=== PATIENT | female | born 1950 | race Caucasian/White ===

== ENCOUNTER 2017-07-04 06:44 | Inpatient (IN) | payer MEDICARE ==
[2017-07-04] MEDS ORDERED: NS 0.9% 1000 ML* 1,000 ML IV ONE ×2 (07:18→12:42)
[2017-07-04] MEDS ORDERED: Acetaminophen TAB* 325 MG PO ONE (07:22)
--- NOTE | 2017-07-04 08:18 | RAD ---
HISTORY: Head trauma, fall COMPARISONS: February 06, 2015 TECHNIQUE: Multiple contiguous axial CT scans were obtained of the head without intravenous contrast. FINDINGS: HEMORRHAGE/INFARCT: There is no hemorrhage or acute infarct. MASSES/SHIFT: There is no mass or shift. EXTRA-AXIAL SPACES: There are no extra-axial fluid collections. SULCI AND VENTRICLES: The sulci and ventricles are normal in size and position for the patient's stated age. CEREBRUM: There is hypoattenuation of the periventricular and subcortical white matter. The appearance is similar to the previous examination. BRAINSTEM: There are no focal parenchymal abnormalities. CEREBELLUM: There are no focal parenchymal abnormalities. VESSELS: The vessels are grossly normal. PARANASAL SINUSES: The paranasal sinuses are clear. ORBITS: The orbits are unremarkable. BONES AND SOFT TISSUE: There is soft tissue swelling over the left parietal scalp. OTHER: None IMPRESSION: NO ACUTE INTRACRANIAL PATHOLOGY.
--- NOTE | 2017-07-04 08:22 | RAD ---
HISTORY: Fall, head trauma, unsteadiness COMPARISONS: CT of the chest dated July 17, 2007 TECHNIQUE: Multiple contiguous axial CT scans were obtained of the cervical spine without intravenous contrast, with coronal and sagittal multiplanar reformations. FINDINGS: BRAIN: The visualized brain is unremarkable CENTRAL CANAL: Evaluation of the central canal is limited on CT technique; however, there is no obvious canalicular mass or epidural hemorrhage. ALIGNMENT: There is straightening of the cervical lordosis. VERTEBRAL BODIES: There is osteopenia. Is multilevel anterolateral marginal osteophyte formation. There is no displaced fracture JOINTS: There is uncovertebral and facet osteoarthritis. There is osteoarthritis of the atlantoaxial articulation. MUSCULATURE: Unremarkable INTERVERTEBRAL DISCS: There is diffuse loss of intervertebral disc height. AXIAL IMAGES: C2-C3: There is left-sided facet hypertrophy. There is no osseous neural foraminal narrowing or central canal stenosis. C3-C4: There is bilateral uncovertebral hypertrophy with left greater than right facet hypertrophy. There is moderate bilateral neuroforaminal narrowing. There is no osseous central canal stenosis. C4-C5: There is no osseous neural foraminal narrowing or central canal stenosis. C5-C6: There is left greater than right uncovertebral hypertrophy. There is moderate to severe right and severe left neural foraminal narrowing. There is mild narrowing of the central canal. C6-C7: There is broad-based disc osteophyte complex with bilateral uncovertebral and facet hypertrophy. There is severe bilateral neural foraminal narrowing. There is mild narrowing of the central canal. C7-T1: There is no osseous neural foraminal narrowing or central canal stenosis. SOFT TISSUES: The right thyroid is surgically absent versus atrophic. There is mesial, submucosal deviation of the carotid arteries bilaterally. The prevertebral fat is preserved. There is a 0.6 cm nodule of the right upper lung on axial image 68. OTHER: None. IMPRESSION: 1. DEGENERATIVE DISC DISEASE AND OSTEOARTHRITIS DESCRIBED ABOVE. 2. THERE IS A 0.6 CM NODULE OF THE RIGHT UPPER LOBE, NOT CLEARLY SEEN ON PREVIOUS CT OF THE CHEST. GIVEN THE HISTORY OF MALIGNANCY, THIS IS CONCERNING FOR METASTATIC DISEASE. RECOMMEND CONSIDERATION OF CORRELATION WITH DEDICATED IMAGING OF THE CHEST. 3. NO ACUTE OSSEOUS INJURY TO THE CERVICAL SPINE.
[2017-07-04 08:41] LABS: ABS Basophils 0.1 10^3/ul (0-0.2); ABS Eosinophils 0.2 10^3/ul (0-0.6); ABS Lymphocytes 1.7 10^3/ul (1.0-4.8); ABS Monocytes 0.7 10^3/ul (0-0.8); ABS Neutrophils 6.5 10^3/ul (1.5-7.7); ABS Nucleated RBC 0 10^3/ul; Eosinophil % 2.4 % (0-6); Hematocrit 39 % (35-47); Hemoglobin 12.6 g/dl (12.0-16.0); Lymphocyte % 18.6 % (25-47); Mean Corpuscular HGB Conc 33 g/dl (31-36); Mean Corpuscular Hemoglobin 30 pg (27-31); Mean Corpuscular Volume 92 fL (80-97); Nucleated Red Blood Cells % 0; Platelet Count 310 10^3/ul (150-450); Red Blood Count 4.21 10^6/ul (4.0-5.4); Red Cell Distribution Width 15 % (10.5-15); White Blood Count 9.3 10^3/ul (3.5-10.8)
[2017-07-04 08:49] LABS: INR 0.94 (0.77-1.02)
[2017-07-04 08:53] LABS: EGFR Non-African American 22.7 (>60)
--- NOTE | 2017-07-04 08:56 | RAD ---
INDICATION: Cardiomyopathy with EF of 30. Congestive heart failure. Pulmonary hypertension. COMPARISON: November 21, 2015 TECHNIQUE: Dual energy PA and routine lateral views of the chest were obtained. REPORT: Elevated lung volumes and minimal prominence of interstitial markings. The lungs and pleural spaces are otherwise clear. Negative for pneumothorax. Negative for cardiomegaly. Unremarkable central pulmonary vasculature and mediastinal contours. Thoracic degenerative spondylosis. IMPRESSION: 1. Elevated lung volumes and minimal prominence of interstitial markings favoring potential chronic obstructive pulmonary disease. 2. Negative for cardiomegaly or evidence for pulmonary edema.
[2017-07-04 09:07] LABS: Urine Appearance Turbid; Urine Blood 3+ (Negative); Urine Color Yellow; Urine Ketones Negative (Negative); Urine Protein 2+(100 mg/dL) (Negative); Urine Specific Gravity 1.011 (1.010-1.030); Urine Urobilinogen Negative (Negative)
--- NOTE | 2017-07-04 09:47 | RAD ---
INDICATION: Pulmonary nodule, evaluate for metastatic disease, history of bladder cancer. COMPARISON: Comparison is made with a prior CT angiogram of the chest from July 17, 2007. TECHNIQUE: A CT scan of the chest was performed without intravenous contrast. Contiguous axial sections were obtained from the lung apices through the lung bases. Images were reconstructed in the coronal and sagittal planes. FINDINGS: There are several small bilateral pulmonary nodules measuring up to 7 mm in size which are not seen on the prior CT angiogram of the chest. There is minimal atelectasis present in both lower lobes. The lungs are otherwise clear no pleural effusion is seen. There are multiple calcified mediastinal and left hilar lymph nodes suggestive of old granulomatous disease. Images of the upper abdomen demonstrate an enlarged liver. There is a hypodense lesion which is not well-defined in the right hepatic lobe measuring 2.5 x 0.8 cm in size. There are calcifications within the spleen consistent with old granulomatous disease and a small hypodense lesion present in the posterior aspect of the spleen which is seen on the prior study likely representing a cyst. The heart is within normal limits in size. There are coronary artery calcifications present. No pericardial effusion is present. The thoracic aorta is normal in caliber. No significant focal osseous abnormality is seen. IMPRESSION: 1. THERE ARE SEVERAL BILATERAL PULMONARY NODULES WHICH APPEAR NEW FROM THE PRIOR STUDY WHICH ARE NONSPECIFIC FINDING DIFFERENTIAL DIAGNOSIS WOULD INCLUDE METASTATIC DISEASE, OLD GRANULOMATOUS DISEASE OR LESS LIKELY AN ACUTE INFECTIOUS PROCESS. 2. CALCIFIED MEDIASTINAL, LEFT HILAR NODES AND SPLENIC CALCIFICATIONS CONSISTENT WITH OLD GRANULOMATOUS DISEASE. 3. HEPATOMEGALY AND A NONSPECIFIC HYPODENSE HEPATIC LESION CONSIDER A CONTRAST-ENHANCED CT OR MRI OF THE ABDOMEN AN OUTPATIENT FOR FURTHER EVALUATION.
[2017-07-04] MEDS ORDERED: Sodium Polystyrene ORAL.SOL* 15 GM/60 ML BTL PO ONE (09:48)
[2017-07-04] MEDS ORDERED: NS 0.9% 1000 ML* 1,000 ML IV SCH (10:15)
[2017-07-04] MEDS ORDERED: cefTRIAXone(*) 1 GM in NS 0.9% 50 ML* 50 ML IVPB ONE (10:16)
[2017-07-04] MEDS ORDERED: Levofloxacin TAB* 250 MG PO SCH (11:00)
[2017-07-04] MEDS ORDERED: Ondansetron INJ* 2 MG/ML VIAL IV PRN (12:26)
[2017-07-04] MEDS ORDERED: Dextrose 50% Syringe 50 ML* 25 GM/50 ML SYRINGE IV PUSH PRN (12:26)
[2017-07-04] MEDS ORDERED: Zolpidem TAB* 10 MG PO PRN (12:30)
[2017-07-04] MEDS ORDERED: Docusate CAP* 100 MG PO PRN (12:30)
[2017-07-04] MEDS ORDERED: Albuterol HFA INHALER* 8 gm MDI INH PRN (12:30)
[2017-07-04] MEDS ORDERED: NS 0.9% 500 ML* 500 ML IV ONE (12:43)
[2017-07-04 13:18] LABS: EGFR Non-African American 26.7 (>60)
--- NOTE | 2017-07-04 14:55 | HP ---
CC: Dr. Dozier; Dr. Copeland * HISTORY AND PHYSICAL: DATE OF ADMISSION: 07/04/17 PRIMARY CARE PROVIDER: Dr. Dozier. CONSULTING ONCOLOGIST: Dr. Copeland. ATTENDING PHYSICIAN WHILE IN THE HOSPITAL: Dr. Jose Cameron * (report being dictated by Jose Doshi NP) CHIEF COMPLAINT: Fall. HISTORY OF PRESENT ILLNESS: Ms. De La Cruz is a 67-year-old female patient. She has a history of scleroderma. She states she has a history of CHF, the last echo that we had access to her EF was 30%, but she is telling me that to her knowledge, her EF was more closer to 50%, I am going to try to get records from Dr. Hughes. She also has a history of hypertension, diabetes, hypothyroidism, pulmonary hypertension, GERD, obesity, UTIs, history of bladder cancer, recently diagnosed melanoma behind the eye, who underwent radiation therapy with beads and a history of anxiety. She comes in to the ER today stating that she was getting up to go use the bathroom this morning and unfortunately she got up, her floor is concrete and tile, they have a throw rug near the bed and she was wearing just her socks, she got up, stepped on that throw rug and when she went to stand, the rug went out from underneath her, it slipped with her feet, she fell, landed, hit her head off the top of a trash can. Her , Marleen , was there. The patient denied any loss of consciousness, denied having any chest pain, and denied having any abdominal pain, shortness of breath prior to or after the fall. She states days leading up to this, she had been feeling good, she has had no unexpected weight loss. She has been following with Ophthalmology down at [place] for the melanoma behind the eye and she states things have been looking good, according to her, she was told that the tumor had responded well to the radiation therapy. She fell, her partner got her up, she was concerned because of the fall, and her had to work today. She basically was concerned that she may have concussion, so she brought her in to the ER. She came into the ED. Her CT imaging was negative for any acute trauma , we did find bilateral pulmonary nodules. In addition to this, it was noted that she had a UTI and she appeared to be in acute renal failure. Because of these findings, we were asked to evaluate for admission. PAST MEDICAL HISTORY: Significant for: 1. Scleroderma. 2. History of CHF. Our last documented EF was right around 30%, but we are going to check her records with Dr. Hughes. 3. History of diabetes. 4. Hypertension. 5. Hypothyroidism. 6. Pulmonary hypertension. 7. GERD. 8. Obesity. 9. Frequent UTIs. 10. History of bladder cancer. 11. Anxiety. 12. Recently melanoma was diagnosed. PAST SURGICAL HISTORY: 1. The patient has had a partial thyroidectomy. 2. Cholecystectomy. 3. Tonsillectomy. 4. Bladder surgery x2. 5. She has had again recent radiation to her eye via beads. MEDICATIONS: Home medications include: 1. Insulin lispro 25 units subcu daily. 2. Insulin Lantus 150 units subcu daily. 3. Glipizide 10 mg p.o. daily. 4. Carvedilol 3.125 mg p.o. b.i.d. 5. Fentanyl patch, 1 patch topically every 72 hours. 6. Ambien 10 mg at bedtime as needed. 7. Diovan 160 mg p.o. daily. 8. Omeprazole 20 mg p.o. b.i.d. 9. Lidocaine jelly 1 application topically daily as needed. 10. Levothyroxine 50 mcg p.o. daily. 11. Ketoconazole cream 1 application topically b.i.d. 12. [place] 1 tablet p.o. b.i.d. as needed. 13. Gabapentin 300 to 400 mg p.o. daily. 14. Flonase 2 sprays both nares daily as needed. 15. Colace 100 mg p.o. daily as needed. 16. Cymbalta 60 mg daily. 17. B12 1000 mg p.o. daily. 18. Aspirin 81 mg daily. 19. Ventolin 2 puffs inhaled every 4 hours as needed. ALLERGIES TO MEDICATIONS: Include PREDNISONE and IODINE. FAMILY HISTORY: Her mother had a history of CHF and asthma. Father had a history of CAD. SOCIAL HISTORY: She is a former smoker. She smoked about a pack a day for about 20 years. She does not drink alcohol. Surrogate decision maker is her , Marleen. REVIEW OF SYSTEMS: There is no documented fever. She denies any significant weight change. There is no double vision. She denies having any ear discharge. There is no rhinorrhea. There is no sore throat or thyroid enlargement. She denies having any chest pain. There is no orthopnea. There is no nocturnal dyspnea. She denies having any abdominal pain. There is no nausea, no vomiting. No dysuria, no frequency. No seizure, no loss of consciousness. No pruritus and no skin ulcerations. Review of 14 systems completed, all others negative. PHYSICAL EXAMINATION GENERAL: At this time, Ms. De La Cruz is a 67-year-old female patient. She is sitting in the ED stretcher. She does not appear to be in any acute distress. VITAL SIGNS: Reveal blood pressure of 93/72 with a pulse of 92, respirations were 18, O2 sat 96%, temperature 97.3. HEENT: Head: Atraumatic and normocephalic. Eyes: EOMs are intact. Sclerae anicteric and not pale. Throat: Oral mucosa appears to be moist. No oropharyngeal erythema. NECK: Supple. LUNGS: Clear to auscultation bilaterally. No wheezes, rales, or rhonchi. HEART: Sounds S1, S2. Regular rate and rhythm. No murmurs, rubs, or gallops. ABDOMEN: Soft, flat, nontender. Bowel sounds were present. EXTREMITIES: Pulses were 2+ throughout. She is moving all 4 extremities with 5 /5 strength. NEUROLOGICAL: The patient is awake, alert. She is oriented x3. Tongue is midline. Web Services Architect are equal. No gross focal deficits. SKIN: Intact. DIAGNOSTIC STUDIES/LAB DATA: WBC of 9.3, RBC of 4.21, hemoglobin of 12.6, hematocrit of 39, platelet count of 310. INR of 0.94, PTT of 34.6. Sodium 134 , potassium 5.2, chloride is 98, bicarb of 27, BUN of 40, creatinine of 2.16, lactate 1.9, calcium 9.3. Total bili 0.4, AST 16, ALT 12, alk phos 81. Troponin 0.01. BNP is 18. TSH of 0.72. Urine showed 3+ leukocyte esterase, 3 + wbc's, 3+ rbc's, present hyaline casts, 2+ protein. The patient did have multiple imaging in the ED, starting out with chest x-ray. Impression: Elevated lung volumes and minimal prominence of interstitial marking favoring potential chronic obstructive pulmonary disease, negative for cardiomegaly, or evidence of pulmonary edema. She had a brain CT obtained today, which revealed no acute intracranial pathology. She had a cervical spine CT obtained today, which revealed degenerative disk disease and osteoarthritis as described. There is a 0.6-cm nodule in the right upper lobe, not clearly seen on previous CT of the chest. Given the history of malignancy, this is concerning for metastatic disease. Recommend consideration of correlation with dedicated imaging of the chest, no acute osseous injury of the cervical spine. She had a CT chest obtained today, which revealed impression, there are several bilateral pulmonary nodules, which appeared new from prior study, which are nonspecific findings, differential diagnosis would include metastatic disease, old granulomatous disease or less likely an acute infectious process, calcified mediastinal left hilar nodes and splenic calcification, old granulomatous disease, hepatomegaly, and a nonspecific hypodense hepatic lesion, consider contrast-enhanced CT or MRI of the abdomen as an outpatient for further evaluation. She had an EKG obtained today as well, which revealed a normal sinus rhythm, rate of 91, no ST elevations or T-wave inversions. She does have an intraventricular conduction delay, which was reviewed to her previous EKG, she has had previously no significant changes. Old medical records were reviewed. ASSESSMENT AND PLAN: Ms. De La Cruz is a 67-year-old female patient with multiple medical problems, coming into the emergency department today with complaints of fall. On evaluation, was found to be in acute renal failure. In addition to this, was found to have urinary tract infection and pulmonary nodules. We were asked to evaluate for admission. She will be admitted under inpatient status for: 1. Acute renal failure. At this point, I will send off a FENa. We will hydrate the patient. She does appear to be dehydrated. I will hold on giving her her ARB at this point, and we will check a bladder scan on the patient as well and we will continue to follow this. I will repeat her BMP later today. As her potassium was mildly elevated, she did receive treatment for this in the ED in the form of Kayexalate, we will follow this. 2. Scleroderma. Continue current medical regimen. 3. History of congestive heart failure. We are going to get records from Dr. Hughes, reportedly her last ejection fraction was 50%, but we will get records. 4. Diabetes. Lantus and lispro scale has been ordered. 5. Urinary tract infection. I am actually going to put her on Rocephin. 6. Hypertension. At this point, her blood pressure is little on the soft side. I just continued the carvedilol for now withhold parameters. I am going to hydrate her as I do suspect her to be dehydrated. 7. Hypothyroidism. Continue meds as prescribed. Her TSH was stable. 8. Pulmonary hypertension. Follow with primary. 9. Gastroesophageal reflux disease. Continue PPI therapy. 10. Bladder cancer. Follow with Urology. 11. Melanoma. Again, she is going to follow with her customer service agent down in [place]. 12. New pulmonary nodules and question of hepatic mass. Unfortunately, I cannot do a CT of the abdomen and pelvis with contrast due to the renal failure ; but at this point, I will get in touch with the patient's doctor, Dr. Copeland, which I have and he will be evaluating the patient. She will need followup of these nodules and possibly biopsy at some point. 13. DVT prophylaxis. Heparin subcu has been ordered. 14. Fluids, electrolytes, and nutrition: She can have a consistent carb diet. 15. Code status. She is a DNR. TIME SPENT: On the admission was approximately 60 minutes, greater than half the time was spent [id number] with the patient obtaining my history and physical, other half of the time was spent going over the plan of care with the patient and implementing the plan of care. I did discuss the plan of care with my attending, Dr. Cameron; he is in agreement. JOSE DOSHI, ALMITA [id number]/[facility] #: [id number] ANA
[2017-07-04] MEDS: fentaNYL PATCHs 100 MCG/HR TRANSDERM SCH (16:20)
[2017-07-04] MEDS: Heparin VIAL(*) 5000 UNITS/ML VIAL (FIVE THOUSAND) SUBCUT SCH ×2 (16:23→21:21)
[2017-07-04] MEDS: NS 0.9% 1000 ML* 1,000 ML IV SCH (16:24)
--- NOTE | 2017-07-04 17:15 | ED ---
Momo Min Julia, scribed for Stefania Gutierres MD on 07/04/17 at 0731 . Adult Trauma - HPI Summary HPI Summary: This patient is a 67 year old F presenting [place] [facility] accompanied by her s/p falling while trying to get out of bed this morning. PT states my feet slipped out from under me when walking from her bed this morning. reports that she has increased weakness recently. She fell backwards and hit the back of her head. Pt reports head and back pain. Pt denies LOC, neck pain, abdominal pain, CP, blurry vision, and SOB. Pt rates the pain 2/10 in severity. Pt walks with a cane as needed, uses an inhaler as needed and is incontinent at baseline. PMHx includes DM, CHF, and scleroderma. Medications include 81mg of ASA daily and Carvedilol. - History of Current Complaint Chief Complaint: EDGeneral Stated Complaint: FALL Time Seen by Provider: 07/04/17 07:03 Hx Obtained From: Patient Mechanism of Injury: Fall Ambulatory at the Scene: Yes Loss of Consciousness: no loss of consciousness Onset/Duration: Started Hours Ago Onset of Pain: Immediate Pain Intensity: 2 Pain Scale Used: 0-10 Numeric Associated Signs & Symptoms: Positive: Numbness/Weakness. Negative: SOB, Chest Pain, Abdominal Pain, Loss of Consciousness Related History: Anticoagulants - Additional Pertinent History Primary Care Physician: [id number] - Allergy/Home Medications Allergies/Adverse Reactions: Allergies Allergy/AdvReac Type Severity Reaction Status Date / Time povidone-iodine Allergy Rash Verified 07/04/17 06:49 prednisone Allergy Unknown Verified 07/04/17 06:49 Reaction Details Home Medications: Home Medications Docusate CAP* [Colace Cap*] 100 mg PO DAILY PRN 07/04/17 [History Confirmed ] Insulin Glargine (Nf) [Toujeo Solostar Pen (NF)] 150 unit SUBCUT DAILY 07/04/17 [History Confirmed 07/04/17] PMH/Surg Hx/FS Hx/Imm Hx Endocrine/Hematology History: Reports: Hx Diabetes, Hx Thyroid Disease - removed left lobe/goiter, Other Endocrine/Hematological Disorders - non insulin dependent diabetes, scleroderma Denies: Hx Systemic Lupus Erythematosus Cardiovascular History: Reports: Hx Congestive Heart Failure, Other Cardiovascular Problems/Disorders - cardiomyopathy with EF 30% Denies: Hx Hypertension Respiratory History: Reports: Hx Pneumonia, Other Respiratory Problems/ Disorders - pulmonary hypertension Denies: Hx Asthma, Hx Chronic Obstructive Pulmonary Disease (COPD), Hx Sleep Apnea GI History: Reports: Hx Gastroesophageal Reflux Disease, Hx Hiatal Hernia, Other GI Disorders - Hiatial hernia Denies: Hx Ulcer History: Reports: Hx Acute Renal Failure, Other Problems/Disorders - Bladder Cancer, frequent UTI Denies: Hx Dialysis, Hx Renal Disease Musculoskeletal History: Reports: Other Musculoskeletal History - scleraderma Denies: Hx Rheumatoid Arthritis Sensory History: Reports: Hx Contacts or Glasses, Hx Deafness - Right ear, Hx Hearing Problem Denies: Hx Hearing Aid - HEARING LOSS IN RIGHT EAR Opthamlomology History: Reports: Hx Contacts or Glasses Neurological History: Reports: Hx Migraine - LAST ONE 1999, Hx Nerve Disease - 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 x 2. eye cancer Hx Chemotherapy: Yes - in past bcg infusion 2007 Hx Radiation Therapy: No Hx Palliative Cancer Treatment: No - Surgical History Surgery Procedure, Year, and Place: Bladder CA x 2, Thyroid, Gall bladder, T&A Hx Anesthesia Reactions: No - Immunization History Date of Tetanus Vaccine: Unk Date of Influenza Vaccine: 12/22 Infectious Disease History: No Infectious Disease History: Denies: Hx Clostridium Difficile, Hx Hepatitis, Hx Human Immunodeficiency Virus (HIV), History Other Infectious Disease, Traveled Outside the [place] in Last 30 Days - Family History Known Family History: Positive: Cardiac Disease - Mother and Father - Social History Lives: With Family Alcohol Use: None Substance Use Type: Reports: None Smoking Status (MU): Former Smoker Amount Used/How Often: 1 PACK/DAY Review of Systems Negative: Blurred Vision Negative: Chest Pain Negative: Shortness Of Breath Negative: Abdominal Pain Positive: Myalgia - back pain Positive: Headache, Weakness. Negative: Syncope All Other Systems Reviewed And Are Negative: Yes Physical Exam - Summary Physical Exam Summary: GENERAL: Patient is a well developed and nourished Female who is lying comfortable in the stretcher. Patient is not in any acute respiratory distress. HEAD AND FACE: Hematoma in the left occipital area EYES: PERRLA, EOMI x 2. EARS: Hearing grossly intact. MOUTH: Oropharynx within normal limits. NECK: Supple, trachea is midline, no adenopathy, no JVD, no carotid bruit. CHEST: Symmetric, no tenderness at palpation LUNGS: Clear to auscultation bilaterally. No wheezing or crackles. CVS: Regular rate and rhythm, S1 and S2 present, no murmurs or gallops appreciated. ABDOMEN: Soft, non-tender. Bowel sounds are normal. No abdominal abnormal pulsations. EXTREMITIES: Full ROM in all major joints, no edema, no cyanosis or clubbing. NEURO: Alert and oriented x 3. No acute neurological deficits. Speech is normal and follows commands. Cranial nerves 2-12 grossly intact, no dysmetria finger to nose, motor strength 5/5 SKIN: Dry and warm Triage Information Reviewed: Yes Vital Signs On Initial Exam: Initial Vitals Temp Pulse Resp BP Pulse Ox 97.3 F 89 20 105/64 92 07/04/17 06:45 07/04/17 06:45 07/04/17 06:45 07/04/17 06:45 07/04/17 06:45 Vital Signs Reviewed: Yes Diagnostics - Vital Signs Vital Signs Temp Pulse Resp BP Pulse Ox 07/04/17 06:45 97.3 F 89 20 105/64 92 - Laboratory Result Diagrams: 07/04/17 08:15 07/04/17 08:15 Lab Statement: Any lab studies that have been ordered have been reviewed, and results considered in the medical decision making process. - Radiology CXR Radiology Interpretation Completed By: Radiologist - 1. Elevated lung volumes and minimal prominence of interstitial markings favoring potential chronic obstructive pulmonary disease. 2. Negative for cardiomegaly or evidence for pulmonary edema. ED Physician has reviewed this report. - CT Brain CT CT Interpretation Completed By: Radiologist - NO ACUTE INTRACRANIAL PATHOLOGY. ED Physician has reviewed this report. C-Spine CT CT Interpretation Completed By: Radiologist - 1. DEGENERATIVE DISC DISEASE AND OSTEOARTHRITIS DESCRIBED ABOVE. 2. THERE IS A 0.6 CM NODULE OF THE RIGHT UPPER LOBE, NOT CLEARLY SEEN ON PREVIOUS CT OF THE CHEST. GIVEN THE HISTORY OF MALIGNANCY, THIS IS CONCERNING FOR METASTATIC DISEASE. RECOMMEND CONSIDERATION OF CORRELATION WITH DEDICATED IMAGING OF THE CHEST. 3. NO ACUTE OSSEOUS INJURY TO THE CERVICAL SPINE. ED Physician has reviewed this report. Chest CT CT Interpretation Completed By: Radiologist - 1. THERE ARE SEVERAL BILATERAL PULMONARY NODULES WHICH APPEAR NEW FROM THE PRIOR STUDY WHICH ARE NONSPECIFIC FINDING DIFFERENTIAL DIAGNOSIS WOULD INCLUDE METASTATIC DISEASE, OLD GRANULOMATOUS DISEASE OR LESS LIKELY AN ACUTE INFECTIOUS PROCESS. 2. CALCIFIED MEDIASTINAL, LEFT HILAR NODES AND SPLENIC CALCIFICATIONS CONSISTENT WITH OLD GRANULOMATOUS DISEASE. 3. HEPATOMEGALY AND A NONSPECIFIC HYPODENSE HEPATIC LESION CONSIDER A CONTRAST-ENHANCED CT OR MRI OF THE ABDOMEN AN OUTPATIENT FOR FURTHER EVALUATION. ED Physician has reviewed this report. - EKG 0732 Cardiac Rate: NL EKG Rhythm: Sinus Rhythm - at 91 BPM EKG Interpretation: intraventricular conduction delay Re-Evaluation - Re-Evaluation 1 Re-Evaluation Time: 09:30 Comment: Pt is feeling better. Pt is informed of results and need for admission. Pt is agreeable with this plan. 2 Re-Evaluation Time: 10:37 Adult Trauma Course/Dx - Course Course Of Treatment: 67 y/o femaled presets to ED s/p fall today. Lab results reveal Creatnine 2.16 with BUN of 40; Mild elevated K+ of 5.2. Brain CT reveals no intracrainal pathology. CT C-cpine showes no acue t fx but show nodule in right upper lobe with a subsequent CT scan of chest show multiple pulmonary nodules. UA consistent with UTI. Pt was given 1L of IV fluids and kayexalate. Disccused results with pt in great details. She will be admitted to hospitalist. Dr Cameron agrees to admit. Pt is Hemodynamically stable at admission. - Diagnoses Provider Diagnoses: UTI (urinary tract infection), Acute kidney injury, Fall - Physician Notifications Discussed Care Of Patient With: Jose Cameron - hospitalist Time Discussed With Above Provider: 10:10 Instructed by Provider To: Admit As Inpatient Discharge - Sign-Out/Discharge Documenting (check all that apply): Discharge/Admit/Transfer - admit - Discharge Plan Condition: Stable Disposition: ADMITTED TO [facility] Referrals: Cyndee Dozier MD [Primary Care Provider] - The documentation as recorded by the Momo ga Julia accurately reflects the service I personally performed and the decisions made by me, Stefania Gutierres MD.
[2017-07-04] MEDS: Insulin LISPRO* 1 UNITS UNIT SUBCUT SCH (17:49)
[2017-07-04] MEDS ORDERED: Carvedilol TAB* 6.25 MG PO SCH (21:00)
[2017-07-04] MEDS: Gabapentin CAP(*) 300 MG PO SCH (21:19)
[2017-07-04] MEDS: Omeprazole CAP* 20 MG PO SCH (21:19)
[2017-07-04] MEDS: Carvedilol TAB* 6.25 MG PO SCH (21:19)
[2017-07-05] MEDS: Acetaminophen TAB* 325 MG PO PRN ×4 (00:33→23:16)
[2017-07-05] MEDS: NS 0.9% 1000 ML* 1,000 ML IV SCH (05:00)
[2017-07-05] MEDS: Heparin VIAL(*) 5000 UNITS/ML VIAL (FIVE THOUSAND) SUBCUT SCH ×3 (06:03→21:11)
[2017-07-05] MEDS: Levothyroxine TAB* 50 MCG TAB PO SCH (06:03)
[2017-07-05 06:35] LABS: ABS Basophils 0.1 10^3/ul (0-0.2); ABS Eosinophils 0.2 10^3/ul (0-0.6); ABS Monocytes 0.6 10^3/ul (0-0.8); ABS Neutrophils 2.9 10^3/ul (1.5-7.7); ABS Nucleated RBC 0 10^3/ul; Eosinophil % 3.6 % (0-6); Hematocrit 33 % (35-47); Hemoglobin 11.2 g/dl (12.0-16.0); Lymphocyte % 34.5 % (25-47); Mean Corpuscular HGB Conc 34 g/dl (31-36); Mean Corpuscular Hemoglobin 31 pg (27-31); Mean Corpuscular Volume 91 fL (80-97); Mean Platelet Volume 7.7 um3 (7.4-10.4); Nucleated Red Blood Cells % 0; Platelet Count 255 10^3/ul (150-450); Red Blood Count 3.64 10^6/ul (4.0-5.4); Red Cell Distribution Width 15 % (10.5-15); White Blood Count 5.7 10^3/ul (3.5-10.8)
[2017-07-05] MEDS: fentaNYL Patch Check Q Shift 1 NOTE SCH ×2 (06:40→18:46)
[2017-07-05 06:54] LABS: EGFR Non-African American 37.8 (>60)
--- NOTE | 2017-07-05 06:57 | CONSULT ---
Consultation - Reason for Consultation Reason for Consultation: Pulmonary nodules and liver lesions Ordering Provider: Jassi Copeland History of Present Illness: 67 year old admitted today after falling in bathroom. Woke up this am and fell after brushing her teeth. No neurological or cardiac symptoms prior to fall and she has a specific recollection of slipping on floor. On presentation she was found to have a UTI and ARF. Very similar to admissions in 2013, 2014, 2016. Currently receiving IVF and antibiotics. She has a history of multiple medical problems including mild CRI and recurrent UTIs. She has a history of several cancers. She was diagnosed with superficial papillary bladder cancer in [address] Rodriguez. I do not have details today other then trans urethral resection. Follow up cystoscopy through 2014 and urine cyctology through 2015 has been negative. She has a history of ocular melanoma. Diagnosed in September of 2016 after presenting with flashes in eye. She was seen by ophthalmology at [place] then at [facility] in [place]. Treated with 125-iodine radiation pellets in 09/2016 which she tolerated well. Has follow up at [place] and in [place] for injections every 4 months, presumably consolidation therapy. She has tolerated well and at this time continues to have vision in both eyes. On presentation she had CT of C-spine after fall w/o fracture but it did show a pulmonary nodule. Follow up non-contrast CT of chest with multiple pulmonary nodules, largest 7 mm and new from 2007 as well as possible 2.5 cm right side liver lesion of unclear nature. Possible metastatic cancer. Allergies/Medications Allergies/Adverse Reactions: Allergies Allergy/AdvReac Type Severity Reaction Status Date / Time povidone-iodine Allergy Rash Verified 07/04/17 06:49 prednisone Allergy Unknown Verified 07/04/17 06:49 Reaction Details History - Past Medical History Hx Blood Dyscrasias: No Hx Cancer: Unable to Obtain/Confirm - Baldder cancer and melanoma as noted above Hx Cardiac Disorders: Yes - CHF, EF 30-50% Hx Diabetes: Yes - Type II Hx Hypercholesterolemia: No Hx Hypertension: Yes Surgical History: None Other History: Scleroderma. GERD. Hypothyriod. CRI/UTIs - Family History Hx Family Cancer: Yes - Sister wit colitis and intestinal cancer - Social History Hx Tobacco Use: Yes - 20 pack year Marital Status: - is significant other Review of Systems - Review of Systems Constitutional Symptoms: Positive: Weakness, Fatigue HEENT: Positive: Normal, Other Eyes: Positive: Other - occular melanoma Thyroid: Positive: Other - low thyriod Pulmonary: Positive: COPD Cardiology: Positive: Other - chf Gastroenterology: Positive: Heartburn Genital - Urinary: Positive: Dysuria Musculoskeletal: Positive: Joint Pain Endocrinology: Positive: Thyroid Problems Neurology: Positive: Numbness\Paresthesiae, Unexplained Weakness Psychiatry: Positive: Normal, Depression Physical Exam - Physical Exam Physical Examination: HEENT - PERRLa, no oral lesions. dry Decreased BS, no wheezing, no distress RRR S1S2 Obese, no liver edge, non tender and no nodules Ext w/o C/C/E Neurologic - AAOx3, gross non focal and good strength in legs, able to walk to bathroom without difficulty, normal gait. Results - Lab Results Lab Results: 07/04/17 07/04/17 07/05/17 12:54 17:24 06:27 WBC RBC Hgb Hct MCV MCH MCHC RDW Plt Count MPV Neut % (Auto) Lymph % (Auto) [place] % (Auto) Eos % (Auto) Baso % (Auto) Absolute Neuts (auto) Absolute Lymphs (auto) Absolute Monos (auto) Absolute Eos (auto) Absolute Basos (auto) Absolute Nucleated RBC Nucleated RBC % INR (Anticoag Therapy) 1.00 Sodium 134 L Potassium 5.0 Chloride 102 Carbon Dioxide 27 Anion Gap 5 BUN 36 H Creatinine 1.88 H Est GFR ( Amer) 34.3 Est GFR (Non-Af Amer) 26.7 BUN/Creatinine Ratio 19.1 Glucose 230 H POC Glucose (mg/dL) 223 H Calcium 8.4 L Lactate Dehydrogenase 159 07/05/17 06:27 WBC 5.7 RBC 3.64 L Hgb 11.2 L Hct 33 L MCV 91 MCH 31 MCHC 34 RDW 15 Plt Count 255 MPV 7.7 Neut % (Auto) 50.7 Lymph % (Auto) 34.5 [place] % (Auto) 10.1 H Eos % (Auto) 3.6 Baso % (Auto) 1.1 Absolute Neuts (auto) 2.9 Absolute Lymphs (auto) 2.0 Absolute Monos (auto) 0.6 Absolute Eos (auto) 0.2 Absolute Basos (auto) 0.1 Absolute Nucleated RBC 0 Nucleated RBC % 0 INR (Anticoag Therapy) Sodium Potassium Chloride Carbon Dioxide Anion Gap BUN Creatinine Est GFR ( Amer) Est GFR (Non-Af Amer) BUN/Creatinine Ratio Glucose POC Glucose (mg/dL) Calcium Lactate Dehydrogenase Assessment and Plan Impression: 67 year old with multiple cancers and scleroderma who presents with pulmonary nodules and possible liver lesion new from 2007. Differential is metastatic cancer, scleroderma, prior or current infection. Of he known cancers ocular melanoma is by far the most likely to reoccur in the liver and lung and pattern of pulmonary nodules is consistent with metastatic melanoma. Plan: 1 Agree that will need therapy for ARF and UTI before full evaluation for cancer can be done. 2. Will check US of liver and send LDH. If she has hepatic lesions on US that is the safest site to biopsy. 3. Will need full records from [facility]. Given sequential injections, possible she has high risk or advanced uveal melanoma. 4. Given her malignancies and sister with possible colon cancer will need foy syndrome testing. 5. Follow up on Friday unless additional issues develop over weekend.
[2017-07-05] MEDS: Insulin LISPRO* 1 UNITS UNIT SUBCUT SCH ×3 (08:08→17:22)
[2017-07-05] MEDS ORDERED: Insulin GLARGINE(*) 1 UNITS UNIT SUBCUT SCH ×2 (09:00→21:00)
[2017-07-05] MEDS: Cyanocobalamin TAB* 500 MCG PO SCH (09:15)
[2017-07-05] MEDS: DULoxetine DR CAP* 30 MG CAP.DR PO SCH (09:15)
[2017-07-05] MEDS: Aspirin EC TAB* 81 MG TAB.EC PO SCH (09:15)
[2017-07-05] MEDS: Gabapentin CAP(*) 300 MG PO SCH ×2 (09:15→21:08)
[2017-07-05] MEDS: Omeprazole CAP* 20 MG PO SCH ×2 (09:15→21:09)
[2017-07-05] MEDS: cefTRIAXone VIAL(*) 1,000 MG in NS 0.9% 50 ML* 50 ML IVPB SCH (09:16)
[2017-07-05] MEDS: Carvedilol TAB* 6.25 MG PO SCH ×2 (09:17→21:08)
--- NOTE | 2017-07-05 11:36 | RAD ---
Indication: Partially visualized liver on CT chest of one day prior is remarkable for a 2.5 x 0.8 cm hypodense lesion at the subcapsular anterior segment of the RIGHT hepatic lobe. History of bladder cancer. Comparison: July 04, [address] Technique: Hepatic ultrasound. Report: No sonographic correlate to the subcapsular lesion at the RIGHT anterior hepatic segment identified however this is likely due to suboptimal acoustic window. A solitary target morphology peripherally hypoechoic centrally hyperechoic lesion is identified at the LEFT hepatic lobe measuring up to 1.1 cm maximum dimension. The lesion demonstrates marginal vascularity on Doppler. The liver is enlarged measuring 20.8 cm cephalocaudal. Negative for intrahepatic biliary dilatation or perihepatic ascites. IMPRESSION: 1. Limited exam with nonvisualization of the dominant lesion at the RIGHT anterior hepatic segment noted on CT. 2. Targeted morphology lesion at the LEFT lateral hepatic segment is suspicious for a potential metastasis.
--- NOTE | 2017-07-05 16:47 | PN ---
Subjective Date of Service: 07/05/17 Interval History: Pt seen and examined. Meds and labs reviewed. ROS: Pt mentions her appetite has improved and only drinks about two bottles of water a day.Denied RO/dizziness, F/C, N/V, CP, SOB, increased cough, sputum production, abd pain, diarrhea, constipation, dysuria, myalgias, arthralgias, throat pain, and new skin lesions. The rest of the 14 point ROS are unremarkable. PHYSICAL EXAM: GEN APPEARANCE: Awake, not in acute distress HEENT: NC/AT, PERRLA, moist oral mucosa, (-) throat erythema NECK: Soft, supple, (-) cervical LAD, (-)JVD HEART: S1S2 WNL, RRR, No MRG CHEST: CTA, BL, GAE, No W/R/R ABD: Soft, ND/NT, NABS 4x Q EXT: No C/C/E SKIN: Warm to touch PSYCH: No active psychosis, hallucinations, depression, SI/HI Objective Active Medications: Acetaminophen (Tylenol Tab*) 650 mg PO Q4H PRN PRN Reason: FEVER/PAIN Last Admin: 07/05/17 12:11 Dose: 650 mg Hydrocodone Bitart/Acetaminophen ([place] 5-325 Tab*) 1 tab PO BID PRN PRN Reason: PAIN Albuterol (Ventolin Hfa Inhaler*) 2 puff INH Q4H PRN PRN Reason: SHORTNESS OF BREATH Aspirin (Aspirin Ec Tab*) 81 mg PO DAILY [facility] Last Admin: 07/05/17 09:15 Dose: 81 mg Carvedilol (Coreg Tab*) 3.125 mg PO BID [facility] Last Admin: 07/05/17 09:17 Dose: 3.125 mg Cyanocobalamin (Vitamin B12 Tab*) 1,000 mcg PO QAM [facility] Last Admin: 07/05/17 09:15 Dose: 1,000 mcg Dextrose (D50w Syringe 50 Ml*) 12.5 gm IV PUSH .FOR FS < 60 - SS PRN PRN Reason: FS < 60 Docusate Sodium (Colace Cap*) 100 mg PO DAILY PRN PRN Reason: CONSTIPATION Duloxetine HCl (Cymbalta Cap*) 60 mg PO QAM [facility] Last Admin: 07/05/17 09:15 Dose: 60 mg Fentanyl (Duragesic Patch 100 Mcg/Hr *) 100 mcg TRANSDERM Q72H [facility] Last Admin: 07/04/17 16:20 Dose: 100 mcg Gabapentin (Neurontin Cap(*)) 300 mg PO BID [facility] Last Admin: 07/05/17 09:15 Dose: 300 mg Heparin Sodium (Porcine) (Heparin Vial(*)) 5,000 units SUBCUT Q8HR [facility] Last Admin: 07/05/17 13:07 Dose: 5,000 units Ceftriaxone Sodium 1,000 mg/ (Sodium Chloride) 50 mls @ 200 mls/hr IVPB Q24H [facility] Last Admin: 07/05/17 09:16 Dose: 200 mls/hr Sodium Chloride (Ns 0.9% 1000 Ml*) 1,000 mls @ 75 mls/hr IV PER RATE [facility] Last Admin: 07/05/17 05:00 Dose: 75 mls/hr Insulin Glargine (Lantus(*)) 100 units SUBCUT BEDTIME [facility] Insulin Human Lispro (Humalog*) 0 units SUBCUT AC [facility] PRN Reason: Protocol Last Admin: 07/05/17 13:06 Dose: 9 units Levothyroxine Sodium (Synthroid Tab*) 50 mcg PO DAILY@0600 [facility] Last Admin: 07/05/17 06:03 Dose: 50 mcg Omeprazole (Prilosec Cap*) 20 mg PO BID [facility] Last Admin: 07/05/17 09:15 Dose: 20 mg Ondansetron HCl (Zofran Inj*) 4 mg IV Q6H PRN PRN Reason: NAUSEA Last Admin: 07/05/17 15:37 Dose: 4 mg Pharmacy Profile Note (Fentanyl Patch Check Q Shift) 1 note N/A 0700,1900 [facility] Last Admin: 07/05/17 06:40 Dose: 1 note Zolpidem Tartrate (Ambien Tab*) 10 mg PO BEDTIME PRN PRN Reason: SLEEP Vital Signs - 8 hr 07/05/17 07/05/17 07/05/17 09:15 11:42 11:49 Temperature 97.1 F Pulse Rate 86 Respiratory 16 16 16 Rate Blood Pressure 123/63 (mmHg) O2 Sat by Pulse 92 Oximetry 07/05/17 15:33 Temperature 97.3 F Pulse Rate 86 Respiratory 16 Rate Blood Pressure 159/72 (mmHg) O2 Sat by Pulse 94 Oximetry Oxygen Devices in Use Now: Nasal Cannula Result Diagrams: 07/05/17 06:27 07/05/17 06:27 Assess/Plan/Problems-Billing Assessment: - Patient Problems (1) MADI (acute kidney injury) Current Visit: Yes Status: Acute Comment: --Likely due to DHN, which is improving --Continue to encourage PO intake --Improved I/Os in the slightly positive balance this AM --Continue watchful waiting --Advised that likely will need ~1.5L/day of fluids (2) DM type 2 (diabetes mellitus, type 2) Current Visit: Yes Status: Chronic (3) UTI (urinary tract infection) Current Visit: Yes Comment: --Continue Rocephin --GS suggest K. pneumonia --Will await sensitivity data (4) DVT prophylaxis Current Visit: Yes Comment: --Continue Heparin SQ Status and Disposition: --Pt mentioned she has been able to walk with a cane around the hallway, confirmed by RN --For PT eval to identify other needs prior to planned D/C in AM
[2017-07-05] MEDS: Insulin GLARGINE(*) 1 UNITS UNIT SUBCUT SCH (17:22)
[2017-07-06] MEDS: Levothyroxine TAB* 50 MCG TAB PO SCH (06:09)
[2017-07-06] MEDS: Heparin VIAL(*) 5000 UNITS/ML VIAL (FIVE THOUSAND) SUBCUT SCH ×3 (06:09→22:04)
[2017-07-06] MEDS: fentaNYL Patch Check Q Shift 1 NOTE SCH ×2 (06:39→18:37)
[2017-07-06 07:26] LABS: ABS Basophils 0 10^3/ul (0-0.2); ABS Eosinophils 0.2 10^3/ul (0-0.6); ABS Lymphocytes 1.8 10^3/ul (1.0-4.8); ABS Monocytes 0.4 10^3/ul (0-0.8); ABS Neutrophils 2.3 10^3/ul (1.5-7.7); ABS Nucleated RBC 0 10^3/ul; Eosinophil % 3.7 % (0-6); Hematocrit 34 % (35-47); Hemoglobin 11.1 g/dl (12.0-16.0); Lymphocyte % 38.6 % (25-47); Mean Corpuscular HGB Conc 33 g/dl (31-36); Mean Corpuscular Hemoglobin 30 pg (27-31); Mean Corpuscular Volume 91 fL (80-97); Mean Platelet Volume 7.6 um3 (7.4-10.4); Nucleated Red Blood Cells % 0.1; Platelet Count 266 10^3/ul (150-450); Red Blood Count 3.68 10^6/ul (4.0-5.4); Red Cell Distribution Width 15 % (10.5-15); White Blood Count 4.8 10^3/ul (3.5-10.8)
[2017-07-06] MEDS: Acetaminophen TAB* 325 MG PO PRN ×2 (07:38→17:29)
[2017-07-06] MEDS: Insulin LISPRO* 1 UNITS UNIT SUBCUT SCH ×3 (07:46→17:21)
[2017-07-06] MEDS: DULoxetine DR CAP* 30 MG CAP.DR PO SCH (09:29)
[2017-07-06] MEDS: cefTRIAXone VIAL(*) 1,000 MG in NS 0.9% 50 ML* 50 ML IVPB SCH (09:29)
[2017-07-06] MEDS: Carvedilol TAB* 6.25 MG PO SCH ×2 (09:30→21:19)
[2017-07-06] MEDS: Gabapentin CAP(*) 300 MG PO SCH ×2 (09:30→21:20)
[2017-07-06] MEDS: Cyanocobalamin TAB* 500 MCG PO SCH (09:30)
[2017-07-06] MEDS: Omeprazole CAP* 20 MG PO SCH ×2 (09:30→21:20)
[2017-07-06] MEDS: Aspirin EC TAB* 81 MG TAB.EC PO SCH (09:30)
[2017-07-06] MEDS: Insulin GLARGINE(*) 1 UNITS UNIT SUBCUT SCH ×2 (09:34→17:29)
--- NOTE | 2017-07-06 14:06 | PN ---
Subjective Date of Service: 07/06/17 Interval History: Pt seen and examined. Meds and labs reviewed. ROS: Denied RO/dizziness, F/C, N/V, CP, SOB, increased cough, sputum production , abd pain, diarrhea, constipation, dysuria, myalgias, arthralgias, throat pain , and new skin lesions. The rest of the 14 point ROS are unremarkable. PHYSICAL EXAM: GEN APPEARANCE: Awake, not in acute distress HEENT: NC/AT, PERRLA, moist oral mucosa, (-) throat erythema NECK: Soft, supple, (-) cervical LAD, (-)JVD HEART: S1S2 WNL, RRR, No MRG CHEST: CTA, BL, GAE, No W/R/R ABD: Soft, ND/NT, NABS 4x Q EXT: No C/C/E SKIN: Warm to touch PSYCH: No active psychosis, hallucinations, depression, SI/HI Objective Active Medications: Acetaminophen (Tylenol Tab*) 650 mg PO Q4H PRN PRN Reason: FEVER/PAIN Last Admin: 07/06/17 07:38 Dose: 650 mg Hydrocodone Bitart/Acetaminophen ([place] 5-325 Tab*) 1 tab PO BID PRN PRN Reason: PAIN Albuterol (Ventolin Hfa Inhaler*) 2 puff INH Q4H PRN PRN Reason: SHORTNESS OF BREATH Aspirin (Aspirin Ec Tab*) 81 mg PO DAILY [facility] Last Admin: 07/06/17 09:30 Dose: 81 mg Carvedilol (Coreg Tab*) 3.125 mg PO BID [facility] Last Admin: 07/06/17 09:30 Dose: 3.125 mg Cyanocobalamin (Vitamin B12 Tab*) 1,000 mcg PO QAM [facility] Last Admin: 07/06/17 09:30 Dose: 1,000 mcg Dextrose (D50w Syringe 50 Ml*) 12.5 gm IV PUSH .FOR FS < 60 - SS PRN PRN Reason: FS < 60 Docusate Sodium (Colace Cap*) 100 mg PO DAILY PRN PRN Reason: CONSTIPATION Duloxetine HCl (Cymbalta Cap*) 60 mg PO QAM [facility] Last Admin: 07/06/17 09:29 Dose: 60 mg Fentanyl (Duragesic Patch 100 Mcg/Hr *) 100 mcg TRANSDERM Q72H [facility] Last Admin: 07/04/17 16:20 Dose: 100 mcg Gabapentin (Neurontin Cap(*)) 300 mg PO BID [facility] Last Admin: 07/06/17 09:30 Dose: 300 mg Heparin Sodium (Porcine) (Heparin Vial(*)) 5,000 units SUBCUT Q8HR [facility] Last Admin: 07/06/17 12:58 Dose: 5,000 units Ceftriaxone Sodium 1,000 mg/ (Sodium Chloride) 50 mls @ 200 mls/hr IVPB Q24H [facility] Last Admin: 07/06/17 09:29 Dose: 200 mls/hr Sodium Chloride (Ns 0.9% 1000 Ml*) 1,000 mls @ 75 mls/hr IV PER RATE [facility] Last Admin: 07/05/17 05:00 Dose: 75 mls/hr Insulin Glargine (Lantus(*)) 80 units SUBCUT QAM [facility] Last Admin: 07/06/17 09:34 Dose: 80 units Insulin Glargine (Lantus(*)) 30 units SUBCUT QPM [facility] Last Admin: 07/05/17 17:22 Dose: 30 units Insulin Human Lispro (Humalog*) 0 units SUBCUT AC [facility] PRN Reason: Protocol Last Admin: 07/06/17 12:58 Dose: 3 units Levothyroxine Sodium (Synthroid Tab*) 50 mcg PO DAILY@0600 [facility] Last Admin: 07/06/17 06:09 Dose: 50 mcg Omeprazole (Prilosec Cap*) 20 mg PO BID [facility] Last Admin: 07/06/17 09:30 Dose: 20 mg Ondansetron HCl (Zofran Inj*) 4 mg IV Q6H PRN PRN Reason: NAUSEA Last Admin: 07/05/17 15:37 Dose: 4 mg Pharmacy Profile Note (Fentanyl Patch Check Q Shift) 1 note N/A 0700,1900 [facility] Last Admin: 07/06/17 06:39 Dose: 1 note Zolpidem Tartrate (Ambien Tab*) 10 mg PO BEDTIME PRN PRN Reason: SLEEP Vital Signs - 8 hr 07/06/17 07/06/17 07/06/17 07:31 09:30 10:03 Temperature 97.8 F Pulse Rate 80 Respiratory 14 16 20 Rate Blood Pressure 146/87 (mmHg) O2 Sat by Pulse 95 Oximetry 07/06/17 07/06/17 11:27 12:05 Temperature 98.3 F Pulse Rate 78 Respiratory 16 16 Rate Blood Pressure 140/71 (mmHg) O2 Sat by Pulse 95 Oximetry Oxygen Devices in Use Now: None Result Diagrams: 07/06/17 07:03 07/05/17 06:27 Assess/Plan/Problems-Billing Assessment: - Patient Problems (1) MADI (acute kidney injury) Current Visit: Yes Status: Acute Comment: --Likely due to DHN, which is improving --Continue to encourage PO intake --Improved I/Os in the slightly positive balance this AM --Continue watchful waiting --Advised that likely will need ~1.5L/day of fluids (2) DM type 2 (diabetes mellitus, type 2) Current Visit: Yes Status: Chronic (3) UTI (urinary tract infection) Current Visit: Yes Comment: --Continue Rocephin D#2/ --GS suggest K. pneumonia, sensitive to Rocephin (4) DVT prophylaxis Current Visit: Yes Comment: --Continue Heparin SQ (5) Liver mass Current Visit: Yes Comment: --Concomittant with BL pulmonary nodules is suspicious for metastatic lesion of unknown primary along with abd U/S --LDH pending --Ordered CEA and AFP tumor markers Status and Disposition: --Pt mentioned she has been able to walk with a cane around the hallway, confirmed by RN --For PT eval to identify other needs prior to planned D/C in AM
--- NOTE | 2017-07-06 14:22 | PN ---
Objective Active Medications: Acetaminophen (Tylenol Tab*) 650 mg PO Q4H PRN PRN Reason: FEVER/PAIN Last Admin: 07/06/17 07:38 Dose: 650 mg Hydrocodone Bitart/Acetaminophen ([place] 5-325 Tab*) 1 tab PO BID PRN PRN Reason: PAIN Albuterol (Ventolin Hfa Inhaler*) 2 puff INH Q4H PRN PRN Reason: SHORTNESS OF BREATH Aspirin (Aspirin Ec Tab*) 81 mg PO DAILY [facility] Last Admin: 07/06/17 09:30 Dose: 81 mg Carvedilol (Coreg Tab*) 3.125 mg PO BID [facility] Last Admin: 07/06/17 09:30 Dose: 3.125 mg Cyanocobalamin (Vitamin B12 Tab*) 1,000 mcg PO QAM [facility] Last Admin: 07/06/17 09:30 Dose: 1,000 mcg Dextrose (D50w Syringe 50 Ml*) 12.5 gm IV PUSH .FOR FS < 60 - SS PRN PRN Reason: FS < 60 Docusate Sodium (Colace Cap*) 100 mg PO DAILY PRN PRN Reason: CONSTIPATION Duloxetine HCl (Cymbalta Cap*) 60 mg PO QAM [facility] Last Admin: 07/06/17 09:29 Dose: 60 mg Fentanyl (Duragesic Patch 100 Mcg/Hr *) 100 mcg TRANSDERM Q72H [facility] Last Admin: 07/04/17 16:20 Dose: 100 mcg Gabapentin (Neurontin Cap(*)) 300 mg PO BID [facility] Last Admin: 07/06/17 09:30 Dose: 300 mg Heparin Sodium (Porcine) (Heparin Vial(*)) 5,000 units SUBCUT Q8HR [facility] Last Admin: 07/06/17 12:58 Dose: 5,000 units Ceftriaxone Sodium 1,000 mg/ (Sodium Chloride) 50 mls @ 200 mls/hr IVPB Q24H [facility] Last Admin: 07/06/17 09:29 Dose: 200 mls/hr Sodium Chloride (Ns 0.9% 1000 Ml*) 1,000 mls @ 75 mls/hr IV PER RATE [facility] Last Admin: 07/05/17 05:00 Dose: 75 mls/hr Insulin Glargine (Lantus(*)) 80 units SUBCUT [facility] Last Admin: 07/06/17 09:34 Dose: 80 units Insulin Glargine (Lantus(*)) 30 units SUBCUT QPM [facility] Last Admin: 07/05/17 17:22 Dose: 30 units Insulin Human Lispro (Humalog*) 0 units SUBCUT AC [facility] PRN Reason: Protocol Last Admin: 07/06/17 12:58 Dose: 3 units Levothyroxine Sodium (Synthroid Tab*) 50 mcg PO DAILY@0600 [facility] Last Admin: 07/06/17 06:09 Dose: 50 mcg Omeprazole (Prilosec Cap*) 20 mg PO BID [facility] Last Admin: 07/06/17 09:30 Dose: 20 mg Ondansetron HCl (Zofran Inj*) 4 mg IV Q6H PRN PRN Reason: NAUSEA Last Admin: 07/05/17 15:37 Dose: 4 mg Pharmacy Profile Note (Fentanyl Patch Check Q Shift) 1 note N/A 0700,1900 [facility] Last Admin: 07/06/17 06:39 Dose: 1 note Zolpidem Tartrate (Ambien Tab*) 10 mg PO BEDTIME PRN PRN Reason: SLEEP Vital Signs - 8 hr 07/06/17 07/06/17 07/06/17 07:31 09:30 10:03 Temperature 97.8 F Pulse Rate 80 Respiratory 14 16 20 Rate Blood Pressure 146/87 (mmHg) O2 Sat by Pulse 95 Oximetry 07/06/17 07/06/17 11:27 12:05 Temperature 98.3 F Pulse Rate 78 Respiratory 16 16 Rate Blood Pressure 140/71 (mmHg) O2 Sat by Pulse 95 Oximetry Oxygen Devices in Use Now: None Result Diagrams: 07/06/17 07:03 07/05/17 06:27 Assess/Plan/Problems-Billing Assessment: - Patient Problems (1) MADI (acute kidney injury) Current Visit: Yes Status: Acute Comment: --Likely due to DHN, which is improving --Continue to encourage PO intake --Improved I/Os in the slightly positive balance this AM --Continue watchful waiting --Advised that likely will need ~1.5L/day of fluids (2) DM type 2 (diabetes mellitus, type 2) Current Visit: Yes Status: Chronic (3) UTI (urinary tract infection) Current Visit: Yes Comment: --Continue Rocephin D#2/ --GS suggest K. pneumonia, sensitive to Rocephin (4) Liver mass Current Visit: Yes Comment: --Concomittant with BL pulmonary nodules is suspicious for metastatic lesion of unknown primary along with abd U/S --LDH pending --Ordered CEA and AFP tumor markers this AM (5) DVT prophylaxis Current Visit: Yes Comment: --Continue Heparin SQ Status and Disposition: --Pt mentioned she has been able to walk with a cane around the hallway, confirmed by RN --For PT eval to identify other needs prior to planned D/C in AM
[2017-07-06] MEDS: HYDROcodone/ACETAMIN 5-325 MG* 1 TAB PO PRN (23:09)
[2017-07-07] MEDS: Levothyroxine TAB* 50 MCG TAB PO SCH (06:18)
[2017-07-07] MEDS: Heparin VIAL(*) 5000 UNITS/ML VIAL (FIVE THOUSAND) SUBCUT SCH ×2 (06:18→14:17)
[2017-07-07 07:13] LABS: ABS Basophils 0 10^3/ul (0-0.2); ABS Eosinophils 0.2 10^3/ul (0-0.6); ABS Lymphocytes 1.9 10^3/ul (1.0-4.8); ABS Monocytes 0.4 10^3/ul (0-0.8); ABS Nucleated RBC 0 10^3/ul; Eosinophil % 3.4 % (0-6); Hematocrit 35 % (35-47); Hemoglobin 11.7 g/dl (12.0-16.0); Lymphocyte % 42.2 % (25-47); Mean Corpuscular HGB Conc 33 g/dl (31-36); Mean Corpuscular Hemoglobin 30 pg (27-31); Mean Corpuscular Volume 91 fL (80-97); Mean Platelet Volume 7.6 um3 (7.4-10.4); Nucleated Red Blood Cells % 0.1; Platelet Count 272 10^3/ul (150-450); Red Blood Count 3.87 10^6/ul (4.0-5.4); Red Cell Distribution Width 15 % (10.5-15); White Blood Count 4.6 10^3/ul (3.5-10.8)
[2017-07-07] MEDS: fentaNYL Patch Check Q Shift 1 NOTE SCH (07:28)
[2017-07-07] MEDS: Insulin LISPRO* 1 UNITS UNIT SUBCUT SCH ×2 (08:03→12:33)
[2017-07-07] MEDS ORDERED: Polyethylene Glycol 3350* 17 GM PACKET PO PRN (08:08)
[2017-07-07] MEDS: Carvedilol TAB* 6.25 MG PO SCH (08:57)
[2017-07-07] MEDS: DULoxetine DR CAP* 30 MG CAP.DR PO SCH (08:57)
[2017-07-07] MEDS: Cyanocobalamin TAB* 500 MCG PO SCH (08:58)
[2017-07-07] MEDS ORDERED: Senna TAB PO SCH (09:00)
[2017-07-07] MEDS: Gabapentin CAP(*) 300 MG PO SCH (09:00)
[2017-07-07] MEDS ORDERED: Docusate CAP* 100 MG PO SCH (09:00)
[2017-07-07] MEDS: Omeprazole CAP* 20 MG PO SCH (09:01)
[2017-07-07] MEDS: Aspirin EC TAB* 81 MG TAB.EC PO SCH (09:03)
[2017-07-07] MEDS: Insulin GLARGINE(*) 1 UNITS UNIT SUBCUT SCH (09:04)
[2017-07-07] MEDS: cefTRIAXone VIAL(*) 1,000 MG in NS 0.9% 50 ML* 50 ML IVPB SCH (09:52)
[2017-07-07 11:22] VITALS: BP 171/89
[2017-07-07] MEDS ORDERED: Metoprolol Tartrate IV* 1 MG/ML 5 ML VIAL IV ONE (11:30)
[2017-07-07] MEDS: fentaNYL PATCHs 100 MCG/HR TRANSDERM SCH (12:29)
[2017-07-07] MEDS: HYDROcodone/ACETAMIN 5-325 MG* 1 TAB PO PRN (12:33)
--- NOTE | 2017-07-07 17:16 | PN ---
Progress Note - Progress Note Date of Service: 07/07/17 SOAP: Subjective: [Better today. Planning discharge. Eating well, urination frequent but no burning. Objective: Vital Signs Temp Pulse Resp BP Pulse Ox 97.7 F 78 17 171/89 96 07/07/17 11:21 07/07/17 11:21 07/07/17 12:33 07/07/17 11:21 07/07/17 11:21 HEENT - PERRLa, no oral lesions. dry Decreased BS, no wheezing, no distress RRR S1S2 Obese, no liver edge, non tender and no nodules Ext w/o C/C/E Neurologic - AAOx3, gross non focal and good strength in legs, able to walk to bathroom without difficulty, normal gait. Impression: 67 year old with multiple cancers and scleroderma who presents with pulmonary nodules and possible liver lesion new from 2007. Question of recurrence of ocular melanoma. Plan: 1 Discharge today after UTI 2. Imaging reviewed with Dr. Alcantara and liver lesion is amenable to Bx. Will schedule as outpatient and then follow up in clinic for results. 3. Will need full records from [facility]. Request from clinic on follow up. 4. Given her malignancies and sister with possible colon cancer will need foy syndrome testing. 5. Risk of cancer discussed with patien and spouse.
--- NOTE | 2017-07-07 17:48 | DS ---
CC: Dr. Cyndee Dozier.* DISCHARGE SUMMARY: DATE OF ADMISSION: DATE OF DISCHARGE: 07/07/17 DISCHARGE DIAGNOSES: As follows: 1. Acute kidney injury secondary to poor p.o. intake due to urinary tract infection. 2. Diabetes mellitus. 3. Urinary tract infection. 4. Liver mass with bilateral pulmonary nodules. HISTORY OF PRESENT ILLNESS/HOSPITAL COURSE: The patient is a 67-year-old female with history of scleroderma, CHF and diabetes who has had a mechanical fall at home on 07/04/17, where she mentioned she slipped under her home rug and hit her head off of the top of her trash can. Subsequent imaging, however, was unremarkable for any fractures. However, it is found that she has renal failure likely due to poor p.o. intake in the setting of UTI. She was placed on Rocephin and subsequent cultures in her urine shows Klebsiella pneumoniae that is sensitive for Rocephin. There are no organisms growing in her blood cultures. During her evaluation, she was also found to have a liver mass with bilateral pulmonary nodules that could be consistent for either inflammatory processes such as her scleroderma versus neoplasm. Dr. Copeland has evaluated and has seen the patient who mentions that he will be following up with patient once she gets discharged. She will be discharged home with visiting nurse services with elzbieta and caterina carson. She had been advised to follow up with her PCP within 3 days post discharge and to follow up with Dr. Copeland given his recommendations. PHYSICAL EXAMINATION: Shows the following: Vital signs with a blood pressure of 171/89, 17 per minute respiratory rate, 97.7 degrees Fahrenheit. General Appearance: The patient is awake, not in acute distress. HEENT: Normocephalic, atraumatic. PERRLA. Extraocular muscles are intact. Negative for icterus. Moist oral mucosa. Negative for throat erythema. Neck is soft, supple with no cervical lymphadenopathy. No JVD. Heart: S1, S2 within normal limits. Regular rate and rhythm. No murmurs, rubs or gallops. Chest: Clear to auscultation bilaterally. Good air entry. No wheezes, rales or rhonchi. Abdomen: Soft, nondistended, nontender. Normoactive bowel sounds x4. Extremities: No cyanosis, clubbing or edema. Psychiatric: No active psychosis , depression, suicidal or homicidal ideations. Skin is warm to touch. DISCHARGE MEDICATIONS: As follows: 1. Colace. 2. Gabapentin. 3. Glargine. 4. Senna. 5. Rocephin for 3 more days. TIME SPENT: The total time spent evaluating patient and reviewing pertinent data and appropriate documentation is greater than 30 minutes. [id number]/[facility] #: [id number] MTDD
== END 2017-07-07 16:00 | disposition home health service (06) | DRG 683 ==
LOC: ED 06:44 → MED 10:14
PROVIDERS: ADMIT Internal Medicine; ATTEND Student in an Organized Health Care Education/Training Program
DX: N17.9 Acute kidney failure, unspecified (principal); N39.0 Urinary tract infection, site not specified; B96.1 Klebsiella pneumoniae [K. pneumoniae] as the cause of diseases classified elsewhere; E11.9 Type 2 diabetes mellitus without complications; R16.0 Hepatomegaly, not elsewhere classified; R91.8 Other nonspecific abnormal finding of lung field; M34.9 Systemic sclerosis, unspecified; I50.9 Heart failure, unspecified; W01.198A Fall on same level from slipping, tripping and stumbling with subsequent striking against other object, initial encounter; Y92.009 Unspecified place in unspecified non-institutional (private) residence as the place of occurrence of the external cause; I11.0 Hypertensive heart disease with heart failure; K21.9 Gastro-esophageal reflux disease without esophagitis; E66.9 Obesity, unspecified; Z68.34 Body mass index [BMI] 34.0-34.9, adult; E03.9 Hypothyroidism, unspecified; I27.20 Pulmonary hypertension, unspecified; F41.9 Anxiety disorder, unspecified; C69.60 Malignant neoplasm of unspecified orbit; E86.0 Dehydration; Z85.51 Personal history of malignant neoplasm of bladder; Z87.440 Personal history of urinary (tract) infections; Z79.84 Long term (current) use of oral hypoglycemic drugs; Z79.82 Long term (current) use of aspirin; Z79.4 Long term (current) use of insulin; Z79.899 Other long term (current) drug therapy; Z88.8 Allergy status to other drugs, medicaments and biological substances; Z82.49 Family history of ischemic heart disease and other diseases of the circulatory system; Z82.5 Family history of asthma and other chronic lower respiratory diseases; Z87.891 Personal history of nicotine dependence
CPT/HCPCS: 36415; 70450; 71046; 71250; 72125; 76705; 80048; 80053; 81003; 81015; 82105; 82378; 83605; 83615; 83735; 83880; 84436; 84443; 84484; 85025; 85610; 85730; 87040; 87077; 87086; 87186; 93005; 99223; 99232; 99284; A9270-GY; G8978-GP-CI; G8979-GP-CI; G8980-GP-CI; J0696; J1644; J2405

== ENCOUNTER 2017-08-09 02:42 | Inpatient (IN) | payer MEDICARE ==
[2017-08-09] MEDS ORDERED: Lactated Ringers 1000 ml Bag*IV.FLUID IV ONE (03:32)
[2017-08-09 04:00] LABS: ABS Basophils 0.1 10^3/ul (0-0.2); ABS Eosinophils 0 10^3/ul (0-0.6); ABS Monocytes 1.1 10^3/ul (0-0.8); ABS Neutrophils 13.2 10^3/ul (1.5-7.7); ABS Nucleated RBC 0 10^3/ul; Eosinophil % 0 % (0-6); Hematocrit 42 % (35-47); Hemoglobin 13.5 g/dl (12.0-16.0); Lymphocyte % 6.3 % (25-47); Mean Corpuscular HGB Conc 33 g/dl (31-36); Mean Corpuscular Hemoglobin 30 pg (27-31); Mean Corpuscular Volume 91 fL (80-97); Mean Platelet Volume 8.9 um3 (7.4-10.4); Nucleated Red Blood Cells % 0; Platelet Count 211 10^3/ul (150-450); Red Blood Count 4.55 10^6/ul (4.0-5.4); Red Cell Distribution Width 15 % (10.5-15); White Blood Count 15.3 10^3/ul (3.5-10.8)
[2017-08-09 04:15] LABS: INR 1.1 (0.77-1.02)
[2017-08-09 04:16] LABS: EGFR Non-African American 41.6 (>60)
[2017-08-09 05:11] LABS: Urine Appearance Cloudy; Urine Blood 2+ (Negative); Urine Color Yellow; Urine Ketones 1+ (Negative); Urine Protein 1+(30 mg/dL) (Negative); Urine Specific Gravity 1.012 (1.010-1.030); Urine Urobilinogen Negative (Negative)
[2017-08-09] MEDS ORDERED: cefTRIAXone(*) 1 GM in NS 0.9% 50 ML* 50 ML IVPB ONE (06:15)
[2017-08-09] MEDS ORDERED: Zolpidem TAB* 10 MG PO PRN (06:17)
[2017-08-09] MEDS ORDERED: Docusate CAP* 100 MG PO PRN (06:17)
[2017-08-09] MEDS ORDERED: HYDROcodone/ACETAMIN 5-325 MG* 1 TAB PO PRN (06:17)
[2017-08-09] MEDS ORDERED: Fluticasone NASAL SPRAY 50MCG* 16 gm SPRAY BTL BOTH NARES PRN (06:17)
[2017-08-09] MEDS ORDERED: Lidocaine 2% JELLY* 10 ML JELLY TOPICAL PRN (06:17)
[2017-08-09] MEDS ORDERED: Dextrose 50% Syringe 50 ML* 25 GM/50 ML SYRINGE IV PUSH PRN (06:20)
[2017-08-09] MEDS ORDERED: Ondansetron INJ* 2 MG/ML VIAL IV PRN (06:20)
[2017-08-09] MEDS ORDERED: NS 0.9% 1000 ML* 1,000 ML IV SCH (06:30)
[2017-08-09] MEDS: Insulin LISPRO* 1 UNITS UNIT SUBCUT SCH ×4 (06:52→20:41)
--- NOTE | 2017-08-09 07:00 | ED ---
Seth Min Rebecca, scribed for Gautam Sagastume MD on 08/09/17 at 0308 . GI/ HPI - HPI Summary HPI Summary: Pt is a 67 y/o F who presents to ED c/o urinary symptoms. She presents due to back pain, dysuria, increased urinary frequency and urinary incontinence which have been present for a few days. Sx have been gradually worsening since onset, with her stating that her Depends can usually be replaced about every 2 hours, now being changed every 5 minutes. Associated pain is currently moderate , ranked 7/10. Additionally c/o fatigue, decreased appetite, subjective fever, chills and mild SOB when laying down along with intermittent nausea. Denies cough, abd pain, vomiting, arthralgias, myalgias, and rash. Prior similar episodes in the past with a Dx of UTI, most recently about 1 month ago. - History of Current Complaint Chief Complaint: EDUrogenitalProblems Time Seen by Provider: 08/09/17 02:50 Stated Complaint: BACK PAIN, FREQUENT URINATION Hx Obtained From: Patient, Family/Program Management Manager - Onset/Duration: Started Days Ago, Still Present Current Severity: Moderate Pain Intensity: 7 Location of Pain: Other - Back Associated Signs and Symptoms: Positive: Back Pain, Nausea, Fever, Chills, UTI Symptoms. Negative: Vomiting Alleviating Factor(s): Nothing - Additional Pertinent History Primary Care Physician: [id number] - Allergy/Home Medications Allergies/Adverse Reactions: Allergies Allergy/AdvReac Type Severity Reaction Status Date / Time povidone-iodine Allergy Intermediate See Comment Verified 07/14/17 12:43 prednisone Allergy Intermediate See Comment Verified 07/14/17 12:43 PMH/Surg Hx/FS Hx/Imm Hx Endocrine/Hematology History: Reports: Hx Diabetes - Type II, Hx Thyroid Disease , Other Endocrine/Hematological Disorders - non insulin dependent diabetes, scleroderma Denies: Hx Systemic Lupus Erythematosus Cardiovascular History: Reports: Hx Congestive Heart Failure, Hx Hypertension, Other Cardiovascular Problems/Disorders - cardiomyopathy with EF 30% Denies: Hx Hypercholesterolemia Respiratory History: Reports: Hx Pneumonia, Other Respiratory Problems/ Disorders - pulmonary hypertension Denies: Hx Asthma, Hx Chronic Obstructive Pulmonary Disease (COPD), Hx Sleep Apnea GI History: Reports: Hx Gastroesophageal Reflux Disease, Hx Hiatal Hernia, Other GI Disorders - Hiatial hernia Denies: Hx Ulcer History: Reports: Hx Acute Renal Failure, Other Problems/Disorders - Bladder Cancer, frequent UTI Denies: Hx Dialysis, Hx Renal Disease Musculoskeletal History: Reports: Other Musculoskeletal History - scleraderma Denies: Hx Rheumatoid Arthritis Sensory History: Reports: Hx Contacts or Glasses, Hx Deafness - Right ear, Hx Hearing Problem Denies: Hx Hearing Aid - HEARING LOSS IN RIGHT EAR Opthamlomology History: Reports: Hx Contacts or Glasses Neurological History: Reports: Hx Migraine - LAST ONE 1999, Hx Nerve Disease - 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 x 2. eye cancer Hx Chemotherapy: Yes - in past bcg infusion 2007 Hx Radiation Therapy: No Hx Palliative Cancer Treatment: No - Surgical History Surgery Procedure, Year, and Place: Bladder CA x 2, Thyroid, Gall bladder, T&A Hx Anesthesia Reactions: No - Immunization History Date of Tetanus Vaccine: Unk Date of Influenza Vaccine: 12/22 Infectious Disease History: No Infectious Disease History: Denies: Hx Clostridium Difficile, Hx Hepatitis, Hx Human Immunodeficiency Virus (HIV), History Other Infectious Disease, Traveled Outside the [place] in Last 30 Days - Family History Known Family History: Positive: Cardiac Disease - Mother and Father - Social History Alcohol Use: None Substance Use Type: Reports: None Hx Tobacco Use: Yes - 20 pack year Smoking Status (MU): Former Smoker Amount Used/How Often: 1 PACK/DAY Review of Systems Positive: Fever, Chills, Fatigue Positive: Shortness Of Breath. Negative: Cough Positive: Other - Decreased appetite. Negative: Abdominal Pain, Vomiting Positive: dysuria, frequency, incontinence - urinary Positive: Other - Back pain. Negative: Arthralgia, Myalgia Negative: Rash All Other Systems Reviewed And Are Negative: Yes Physical Exam - Summary Physical Exam Summary: Appearance: Ill-appearing, Well-nourished, lying in bed comfortably Skin: Warm, slightly diaphoretic, no obvious rash Eyes: sclera anicteric, no conjunctival pallor ENT: mucous membranes moist, pharynx appears normal Neck: Supple, nontender Respiratory: Clear to auscultation, no signs of respiratory distress Cardiovascular: Tachycardic, S4 gallop. No murmurs. Normal distal pulses in tibial and radial bilaterally. Abdomen: Soft, nontender, normal active bowel sounds present Musculoskeletal: Normal, Strength/ROM Intact Neurological: A&Ox3, awake and alert, mentation is normal, speech is fluent and appropriate Psychiatric: affect is normal, does not appear anxious or depressed Triage Information Reviewed: Yes Vital Signs On Initial Exam: Initial Vitals Temp Pulse Resp BP Pulse Ox 97.6 F 108 16 155/91 95 08/09/17 02:45 08/09/17 02:45 08/09/17 02:45 08/09/17 02:45 08/09/17 02:45 Vital Signs Reviewed: Yes Diagnostics - Vital Signs Vital Signs Temp Pulse Resp BP Pulse Ox 08/09/17 02:45 97.6 F 108 16 155/91 95 - Laboratory Lab Results: Lab Results 08/09/17 08/09/17 08/09/17 Range/Units 03:51 03:51 03:51 WBC 15.3 H (3.5-10.8) 10^3/ul RBC 4.55 (4.0-5.4) 10^6/ul Hgb 13.5 (12.0-16.0) g/dl Hct 42 (35-47) % MCV 91 (80-97) fL MCH 30 (27-31) pg MCHC 33 (31-36) g/dl RDW 15 (10.5-15) % Plt Count 211 (150-450) 10^3/ul MPV 8.9 (7.4-10.4) um3 Neut % (Auto) 86.1 H (38-83) % Lymph % (Auto) 6.3 L (25-47) % Elliott % (Auto) 7.3 H (0-7) % Eos % (Auto) 0 (0-6) % Baso % (Auto) 0.3 (0-2) % Absolute Neuts (auto) 13.2 H (1.5-7.7) 10^3/ul Absolute Lymphs (auto) 1.0 (1.0-4.8) 10^3/ul Absolute Monos (auto) 1.1 H (0-0.8) 10^3/ul Absolute Eos (auto) 0 (0-0.6) 10^3/ul Absolute Basos (auto) 0.1 (0-0.2) 10^3/ul Absolute Nucleated RBC 0 10^3/ul Nucleated RBC % 0 INR (Anticoag Therapy) 1.10 H (0.77-1.02) Sodium 134 L (139-145) mmol/L Potassium 4.2 (3.5-5.0) mmol/L Chloride 96 L (101-111) mmol/L Carbon Dioxide 27 (22-32) mmol/L Anion Gap 11 (2-11) mmol/L BUN 22 (6-24) mg/dL Creatinine 1.28 H (0.51-0.95) mg/dL Est GFR ( Amer) 53.5 (>60) Est GFR (Non-Af Amer) 41.6 (>60) BUN/Creatinine Ratio 17.2 (8-20) Glucose 358 H (70-100) mg/dL POC Glucose (mg/dL) (70-100) mg/dL Lactic Acid (0.5-2.0) mmol/L Calcium 10.2 (8.6-10.3) mg/dL Total Bilirubin 0.90 (0.2-1.0) mg/dL AST 14 (13-39) U/L ALT 16 (7-52) U/L Alkaline Phosphatase 111 H (34-104) U/L Total Protein 8.0 (6.4-8.9) g/dL Albumin 4.0 (3.2-5.2) g/dL Globulin 4.0 (2-4) g/dL Albumin/Globulin Ratio 1.0 (1-3) Urine Color Urine Appearance Urine pH (5-9) Ur Specific [place] (1.010-1.030) Urine Protein (Negative) Urine Ketones (Negative) Urine Blood (Negative) Urine Nitrate (Negative) Urine Bilirubin (Negative) Urine Urobilinogen (Negative) Ur Leukocyte Esterase (Negative) Urine WBC (Auto) (Absent) Urine RBC (Auto) (Absent) Ur Squamous Epith Cells (Absent) Urine Bacteria (Absent) Urine Glucose (Negative) 08/09/17 08/09/17 08/09/17 Range/Units 03:51 04:43 06:35 WBC (3.5-10.8) 10^3/ul RBC (4.0-5.4) 10^6/ul Hgb (12.0-16.0) g/dl Hct (35-47) % MCV (80-97) fL MCH (27-31) pg MCHC (31-36) g/dl RDW (10.5-15) % Plt Count (150-450) 10^3/ul MPV (7.4-10.4) um3 Neut % (Auto) (38-83) % Lymph % (Auto) (25-47) % Elliott % (Auto) (0-7) % Eos % (Auto) (0-6) % Baso % (Auto) (0-2) % Absolute Neuts (auto) (1.5-7.7) 10^3/ul Absolute Lymphs (auto) (1.0-4.8) 10^3/ul Absolute Monos (auto) (0-0.8) 10^3/ul Absolute Eos (auto) (0-0.6) 10^3/ul Absolute Basos (auto) (0-0.2) 10^3/ul Absolute Nucleated RBC 10^3/ul Nucleated RBC % INR (Anticoag Therapy) (0.77-1.02) Sodium (139-145) mmol/L Potassium (3.5-5.0) mmol/L Chloride (101-111) mmol/L Carbon Dioxide (22-32) mmol/L Anion Gap (2-11) mmol/L BUN (6-24) mg/dL Creatinine (0.51-0.95) mg/dL Est GFR ( Amer) (>60) Est GFR (Non-Af Amer) (>60) BUN/Creatinine Ratio (8-20) Glucose (70-100) mg/dL POC Glucose (mg/dL) 360 H (70-100) mg/dL Lactic Acid 1.5 (0.5-2.0) mmol/L Calcium (8.6-10.3) mg/dL Total Bilirubin (0.2-1.0) mg/dL AST (13-39) U/L ALT (7-52) U/L Alkaline Phosphatase (34-104) U/L Total Protein (6.4-8.9) g/dL Albumin (3.2-5.2) g/dL Globulin (2-4) g/dL Albumin/Globulin Ratio (1-3) Urine Color Yellow Urine Appearance Cloudy Urine pH 6.0 (5-9) Ur Specific [place] 1.012 (1.010-1.030) Urine Protein 1+(30 mg/dl) A (Negative) Urine Ketones 1+ A (Negative) Urine Blood 2+ A (Negative) Urine Nitrate Positive A (Negative) Urine Bilirubin Negative (Negative) Urine Urobilinogen Negative (Negative) Ur Leukocyte Esterase 3+ A (Negative) Urine WBC (Auto) 3+(>20/hpf) A (Absent) Urine RBC (Auto) 2+(6-10/hpf) A (Absent) Ur Squamous Epith Cells Present A (Absent) Urine Bacteria Absent (Absent) Urine Glucose 3+(>=500 mg/dl) A (Negative) Result Diagrams: 08/09/17 03:51 08/09/17 03:51 Lab Statement: Any lab studies that have been ordered have been reviewed, and results considered in the medical decision making process. - Radiology CXR Xray Interpretation: No Acute Changes Radiology Interpretation Completed By: ED Physician GIGU Course/Dx - Course Assessment/Plan: This is a 67-year-old woman who presents with short two-day history of generalized malaise, subjective fever, chills, and urinary symptoms. Her workup was notable for signs of UTI. Lactate is normal, however the patient appears ill and will need to be admitted for observation and IV antibiotics. - Diagnoses Differential Diagnoses - Female: Diverticulosis, Ischemic Bowel, Metabolic, Peptic Ulcer Disease, Sepsis, Urinary Tract Infection Provider Diagnoses: Urinary tract infection, Sepsis - Physician Notifications Discussed Care Of Patient With: Xu Perez Time Discussed With Above Provider: 05:42 Instructed by Provider To: Other - Accepts pt for admission Discharge - Sign-Out/Discharge Documenting (check all that apply): Discharge/Admit/Transfer - Discharge Plan Condition: Guarded Disposition: ADMITTED TO [facility] Referrals: Cyndee Dozier MD [Primary Care Provider] - - Billing Disposition and Condition Condition: GUARDED [place] [place] The documentation as recorded by the Seth ga Rebecca accurately reflects the service I personally performed and the decisions made by Mitesh joshi Richard, MD.
[2017-08-09] MEDS ORDERED: fentaNYL PATCHs 100 MCG/HR TRANSDERM SCH (08:00)
[2017-08-09] MEDS ORDERED: Lidocaine 2% JELLY* 6 ML JELLY TOPICAL PRN (08:00)
[2017-08-09] MEDS: Aspirin EC TAB* 81 MG TAB.EC PO SCH (08:53)
[2017-08-09] MEDS: Levothyroxine TAB* 50 MCG TAB PO SCH (08:53)
[2017-08-09] MEDS: Valsartan TAB* 160 MG PO SCH (08:53)
[2017-08-09] MEDS: Cholecalciferol TAB* 1000 UNITS PO SCH (08:53)
[2017-08-09] MEDS: Omeprazole CAP* 20 MG PO SCH (08:53)
[2017-08-09] MEDS: Gabapentin CAP(*) 300 MG PO SCH ×2 (08:53→20:33)
[2017-08-09] MEDS: Carvedilol TAB* 3.125 MG PO SCH ×2 (08:54→20:33)
[2017-08-09] MEDS ORDERED: Insulin GLARGINE(*) 1 UNITS UNIT SUBCUT SCH (09:00)
[2017-08-09] MEDS: DULoxetine DR CAP* 60 MG CAP.DR PO SCH (09:58)
--- NOTE | 2017-08-09 10:12 | RAD ---
INDICATION: Dyspnea, tachycardia. History of tobacco use. COMPARISON: July 04, 2017 CT. TECHNIQUE: Dual energy PA and routine lateral views of the chest were obtained. REPORT: Elevated lung volumes and mild rarefaction of interstitial markings at the upper lung zones. No focal pulmonary lesion, compelling alveolar consolidation, pleural effusion, pneumothorax. The heart, pulmonary vasculature, and mediastinal contours are unremarkable. Multilevel thoracic degenerative spondylosis. IMPRESSION: Stigmata of obstructive lung disease. No acute pulmonary or cardiac process evident.
--- NOTE | 2017-08-09 11:57 | HP ---
CC: Dr. Dozier; Dr. Copeland * ADMISSION HISTORY AND PHYSICAL: DATE OF ADMISSION: 08/09/17 PRIMARY CARE PROVIDER: Dr. Dozier. ONCOLOGIST: Dr. Copeland. HEALTHCARE PROXY: Her , Marleen. CODE STATUS: DNR. SOURCE OF INFORMATION: History obtained from interview with the patient and her , review of past medical records. RELIABILITY: Good. CHIEF COMPLAINT: Urinary symptoms. HISTORY OF PRESENT ILLNESS: A 67-year-old female, last hospital stay in June 2017 after being found with acute renal failure in the setting of urinary tract infection and poor p.o. intake and has been feeling better since discharge; however, approximately 1 week prior noticed change in her mental status. She was acting "funny", answering questions repeatedly and also repeating questions. She felt "glazed over" and weaker. She thought that may be she was improving over the week, but she was having chills and especially sweating at night but never measured for fevers. She denied nausea, vomiting, diarrhea, cough but did endorse dysuria starting at least 1 day ago with urinary frequency over the last 2 to 3 days associated with urinary hesitancy as well as malodorous urine. She usually will urinate every 2 to 3 hours, but that had increased until the day of admission to urinating every 5 minutes. Because of the increased frequency of urination as well as the persistent symptoms, the patient sought care in the emergency room at the behest of her , Marleen. In the emergency room, she was found to have leukocytosis, tachycardia, and UA suggestive of a urinary tract infection. The hospitalist service was consulted for admission. PAST MEDICAL HISTORY: Includes systolic CHF, scleroderma, insulin-dependent diabetes mellitus, hypertension, hypothyroidism, pulmonary hypertension, GERD, obesity, frequent UTIs, history of bladder cancer, retro-orbital melanoma status post radiation, anxiety. PAST SURGICAL HISTORY: Partial thyroidectomy, cholecystectomy, tonsillectomy, she has had 2 past bladder surgeries. MEDICATIONS: Reconciled: 1. Fentanyl 100 mcg/hour topically, change every 3 days. 2. Zolpidem 10 mg at bedtime as needed. 3. Valsartan 160 mg daily. 4. Omeprazole 20 mg daily. 5. Lidocaine 2% topically daily as needed. 6. Levothyroxine 50 mcg daily. 7. Ketoconazole 2% cream topically twice daily. 8. Insulin lispro 25 units 3 times a day. 9. Insulin glargine [place] SoloStar pen 150 units daily. 10. Hydrocodone/acetaminophen 5/325 one tab twice daily as needed. 11. Gabapentin 300 to 400 mg twice daily. 12. Fluticasone 2 sprays both nares daily as needed. 13. Docusate 100 to 300 mg daily as needed for constipation. 14. Cymbalta 60 mg daily. 15. Cholecalciferol 1000 units daily. 16. Carvedilol 3.125 mg daily. 17. Aspirin 81 mg daily. 18. Albuterol inhaler 2 puffs every 4 hours as needed for shortness of breath or wheeze. ALLERGIES: To PREDNISONE and IODINE. FAMILY HISTORY: Mother with heart disease and asthma. Father with CAD. SOCIAL HISTORY: Former tobacco approximately 20-pack years. No alcohol. REVIEW OF SYSTEMS: As per HPI including subjective fevers, chills, night sweats , urinary symptoms including dysuria, frequency, and hesitancy and changes in mental status to include confusion and weakness; otherwise all other systems negative. PHYSICAL EXAMINATION GENERAL: Older than stated age, sitting on the edge of bed, interactive, pleasant, in no apparent distress. VITALS: In the emergency room, 155/91, heart rate is 108, respiratory rate is 16, she is 97% on room air, T-max 97.6. HEENT: Oropharynx is clear. She has dry mucous membranes. Her sclerae are anicteric. The right pupil is approximately 4 mm and left is 2 mm. NECK: He has non-elevated JVD. LUNGS: Clear to auscultation. HEART: She is tachycardic with a regular rhythm. A 2/6 systolic ejection murmur and quiet diastolic murmur in the left lower sternal border. ABDOMEN: Soft, nontender, and nondistended. She has bilateral costovertebral angle tenderness with vigorous percussion. EXTREMITIES: Warm although her toes are too cooler than her hands. Her skin is contracted in her lower extremities. NEUROLOGIC: She is alert and oriented x3. She has right eye ptosis. Eye exam as indicated above, otherwise cranial nerves intact. LABORATORY DATA: Reviewed, notable for white blood cell count of 15.3, she has 86% neutrophils. Urine with protein, ketones, blood, nitrites, leuk esterase, and squamous epithelial cells and glucose, no bacteria. ASSESSMENT AND PLAN: This is a 67-year-old female with past medical history as indicated above including systolic heart failure, frequent UTIs, history of bladder cancer status post multiple surgeries presenting with approximately 1 month after recent urinary tract infection again with urinary symptoms and urinalysis is consistent with urinary tract infection and possibly pyelonephritis based on costovertebral angle tenderness. 1. Pyelonephritis. I do not think she warrants additional imaging at this point change plan of care. I would treat her for pyelonephritis regardless given her recurrent and frequent symptoms. Started her on ceftriaxone, receiving her first dose now. 125 cc of normal saline for 1 L careful in the setting of systolic heart failure. She was difficult to establish IV access in the emergency room. Attention should be paid for a PICC line if consideration for longer-term antibiotics is made. Blood cultures are pending. She can follow with Dr. Rodriguez, she certainly see her in followup to identify any modifiable risk factors for recurrent urinary tract infections. 2. Insulin-dependent type 2 diabetes mellitus. Continue insulin with sliding scale. Fingersticks with meals. There is a fingerstick pending now for her hyperglycemia on admission and at which time we can cover her with a one-time dose of lispro if needed. 3. Pain. Continue home medications including fentanyl patch. 4. All other medications per home regimen without adjustment. 5. DVT prophylaxis with heparin subcutaneous in the setting of renal insufficiency. [id number]/[facility] #: [id number] MTDD
[2017-08-09] MEDS: Heparin VIAL(*) 5000 UNITS/ML VIAL (FIVE THOUSAND) SUBCUT SCH ×2 (14:23→22:06)
[2017-08-09] MEDS: Albuterol HFA INHALER* 8 gm MDI INH PRN (14:50)
--- NOTE | 2017-08-09 15:31 | PN ---
Hospitalist Progress Note Date of Service: 08/09/17 HOSPITALIST ADDENDUM Mrs De La Cruz is a 67yo F with PMH of scleroderma, systolic CHF, DM, HTN, hypothyroidism, pulmonary HTN, GERD, obesity, bladder CA who presented to ED with c/o dysuria and frequency, found to have UTI. VS are stable, LA is normal. Will continue current management.
[2017-08-09] MEDS: fentaNYL Patch Check Q Shift 1 NOTE SCH (18:44)
[2017-08-10] MEDS: cefTRIAXone(*) 1 GM in NS 0.9% 50 ML* 50 ML IVPB SCH (05:17)
[2017-08-10] MEDS: Levothyroxine TAB* 50 MCG TAB PO SCH (05:18)
[2017-08-10] MEDS: Heparin VIAL(*) 5000 UNITS/ML VIAL (FIVE THOUSAND) SUBCUT SCH ×3 (05:19→21:25)
[2017-08-10] MEDS: fentaNYL Patch Check Q Shift 1 NOTE SCH ×2 (06:32→18:54)
[2017-08-10 08:18] LABS: ABS Basophils 0.1 10^3/ul (0-0.2); ABS Eosinophils 0.1 10^3/ul (0-0.6); ABS Lymphocytes 1.4 10^3/ul (1.0-4.8); ABS Monocytes 1.2 10^3/ul (0-0.8); ABS Nucleated RBC 0 10^3/ul; Eosinophil % 0.5 % (0-6); Hematocrit 34 % (35-47); Hemoglobin 11.5 g/dl (12.0-16.0); Lymphocyte % 12.7 % (25-47); Mean Corpuscular HGB Conc 34 g/dl (31-36); Mean Corpuscular Hemoglobin 30 pg (27-31); Mean Corpuscular Volume 91 fL (80-97); Mean Platelet Volume 8.7 um3 (7.4-10.4); Nucleated Red Blood Cells % 0; Platelet Count 198 10^3/ul (150-450); Red Blood Count 3.78 10^6/ul (4.0-5.4); Red Cell Distribution Width 15 % (10.5-15); White Blood Count 10.7 10^3/ul (3.5-10.8)
[2017-08-10] MEDS: Insulin LISPRO* 1 UNITS UNIT SUBCUT SCH ×4 (08:30→21:20)
[2017-08-10] MEDS: Valsartan TAB* 160 MG PO SCH (08:31)
[2017-08-10] MEDS: Gabapentin CAP(*) 300 MG PO SCH ×2 (08:31→21:25)
[2017-08-10] MEDS: Aspirin EC TAB* 81 MG TAB.EC PO SCH (08:31)
[2017-08-10] MEDS: Carvedilol TAB* 3.125 MG PO SCH ×2 (08:31→21:24)
[2017-08-10] MEDS: Cholecalciferol TAB* 1000 UNITS PO SCH (08:31)
[2017-08-10] MEDS: Omeprazole CAP* 20 MG PO SCH (08:32)
[2017-08-10] MEDS ORDERED: Insulin GLARGINE(*) 1 UNITS UNIT SUBCUT SCH (09:00)
[2017-08-10] MEDS: DULoxetine DR CAP* 60 MG CAP.DR PO SCH (10:18)
--- NOTE | 2017-08-10 10:27 | RAD ---
Indication: Pyelonephritis. History of bladder cancer. Comparison: December 31, [address] July 04, [address] Technique: Ultrasound kidneys and urinary bladder. Report: 12.1 x 7.1 x 6.9 cm RIGHT kidney. 11.8 x 4.6 x 6.0 cm LEFT kidney. Normal bilateral renal cortical echogenicity. Mild to moderate bilateral caliectasis similar in magnitude to the 2017 CT exam. Negative for perinephric fluid. Poor acoustic window for assessment of the urinary bladder due to body habitus and bowel gas. Prevoid urinary bladder volume estimated at 302 mL. Suggestion of a small anterior bladder diverticulum. Conspicuity of the urinary bladder is limited precluding accurate assessment. No gross focal bladder lesion evident. Significant post void residual estimated at 141 mL. Ureteral jets were not visualized which may be technical due to suboptimal acoustic window. IMPRESSION: Mild to moderate bilateral hydronephrosis. Significant post port residual volume in the urinary bladder.
--- NOTE | 2017-08-10 13:23 | PN ---
Subjective Date of Service: 08/10/17 Interval History: HOSPITALIST PROGRESS NOTE Patient seen and examined at bedside. Care reviewed and d/w Debora Simpson RN. She feels a little better today. Still has significant frequency, but less dysuria and denies back pain. Tolerating diet. Family History: Unchanged from Admission Social History: Unchanged from Admission Past Medical History: Unchanged from Admission Objective Active Medications: Hydrocodone Bitart/Acetaminophen ([place] 5-325 Tab*) 1 tab PO BID PRN PRN Reason: PAIN Albuterol (Ventolin Hfa Inhaler*) 2 puff INH Q4H PRN PRN Reason: SHORTNESS OF BREATH Last Admin: 08/09/17 14:50 Dose: 2 puff Aspirin (Aspirin Ec Tab*) 81 mg PO DAILY [facility] Last Admin: 08/10/17 08:31 Dose: 81 mg Carvedilol (Coreg Tab*) 3.125 mg PO BID [facility] Last Admin: 08/10/17 08:31 Dose: 3.125 mg Cholecalciferol (Vitamin D Tab*) 1,000 units PO DAILY [facility] Last Admin: 08/10/17 08:31 Dose: 1,000 units Dextrose (D50w Syringe 50 Ml*) 12.5 gm IV PUSH .FOR FS < 60 - SS PRN PRN Reason: FS < 60 Docusate Sodium (Colace Cap*) 100 mg PO DAILY PRN PRN Reason: CONSTIPATION Duloxetine HCl (Cymbalta Cap*) 60 mg PO QAM [facility] Last Admin: 08/10/17 10:18 Dose: 60 mg Fentanyl (Duragesic Patch 100 Mcg/Hr *) 100 mcg TRANSDERM Q72H [facility] Last Admin: 08/09/17 09:56 Dose: 100 mcg Fluticasone Propionate (Flonase Nasal [place] 50mcg*) 2 spray BOTH NARES DAILY PRN PRN Reason: CONGESTION Gabapentin (Neurontin Cap(*)) 300 mg PO BID [facility] Last Admin: 08/10/17 08:31 Dose: 300 mg Heparin Sodium (Porcine) (Heparin Vial(*)) 5,000 units SUBCUT Q8HR [facility] Last Admin: 08/10/17 05:19 Dose: 5,000 units Ceftriaxone Sodium 1 gm/ (Sodium Chloride) 50 mls @ 200 mls/hr IVPB Q24H [facility] Last Admin: 08/10/17 05:17 Dose: 200 mls/hr Insulin Glargine (Lantus(*)) 130 units SUBCUT DAILY [facility] Last Admin: 08/10/17 08:30 Dose: 130 units Insulin Human Lispro (Humalog*) 0 units SUBCUT ACHS [facility] PRN Reason: Protocol Last Admin: 08/10/17 12:35 Dose: Not Given Levothyroxine Sodium (Synthroid Tab*) 50 mcg PO 0600 [facility] Last Admin: 08/10/17 05:18 Dose: 50 mcg Lidocaine HCl (Lidocaine 2% Jelly*) 1 applic TOPICAL DAILY PRN PRN Reason: PAIN Omeprazole (Prilosec Cap*) 20 mg PO DAILY [facility] Last Admin: 08/10/17 08:32 Dose: 20 mg Ondansetron HCl (Zofran Inj*) 4 mg IV Q4H PRN PRN Reason: NAUSEA Pharmacy Profile Note (Fentanyl Patch Check Q Shift) 1 note N/A 0700,1900 [facility] Last Admin: 08/10/17 06:32 Dose: 1 note Valsartan (Diovan Tab*) 160 mg PO DAILY [facility] Last Admin: 08/10/17 08:31 Dose: 160 mg Zolpidem Tartrate (Ambien Tab*) 10 mg PO BEDTIME PRN PRN Reason: SLEEP Vital Signs - 8 hr 08/10/17 08/10/17 08/10/17 05:16 07:23 07:36 Temperature 99.4 F 98.2 F Pulse Rate 102 99 Respiratory 18 22 18 Rate Blood Pressure 175/97 146/74 (mmHg) O2 Sat by Pulse 99 98 Oximetry Oxygen Devices in Use Now: None Appearance: Pleasant lady sitting up in a chair in [facility]. Eyes: No Scleral Icterus Ears/Nose/Mouth/Throat: Mucous Membranes Moist Neck: Trachea Midline Respiratory: Symmetrical Chest Expansion and Respiratory Effort, Clear to Auscultation Cardiovascular: RRR - Normal S1 and S2 Abdominal: - - Soft, BS+ Neurological: Alert and Oriented x 3 Result Diagrams: 08/10/17 07:37 08/10/17 07:37 Assess/Plan/Problems-Billing Assessment: Mrs. De La Cruz is a 67yo F with a complex PMH includes scleroderma, non-ischemic cardiomyopathy with diastolic CHF EF 50%, DM, HTN, hypothyroidism, pulmonary HTN , GERD, obesity with BMI 32, bladder CA (high grade papillary urothelial carcinoma), ocular melanoma, CKD stage 3, who presented to ED with urinary complaints, found to have UTI. - Patient Problems (1) Sepsis Comment: - Presentation compatible with sepsis with leukocytosis and tachycardia. - Source is pyelonephritis. (2) Pyelonephritis Comment: - Urine culture growing K. pneumoniae, sensitivity pending. - Continue Ceftriaxone. - Check renal and bladder US. - D/c IVF. - Renal function remains stable. (3) DM type 2 (diabetes mellitus, type 2) Comment: - Continue Lantus and Lispro SS. (4) Diastolic CHF Comment: - Stable - continue Coreg and Diovan. (5) Liver mass Comment: - Pathology negative for malignancy. (6) DVT prophylaxis Comment: - Heparin SQ Status and Disposition: Change to inpatient.
[2017-08-10] MEDS: Albuterol HFA INHALER* 8 gm MDI INH PRN (20:06)
[2017-08-11] MEDS: Levothyroxine TAB* 50 MCG TAB PO SCH (05:47)
[2017-08-11] MEDS: cefTRIAXone(*) 1 GM in NS 0.9% 50 ML* 50 ML IVPB SCH (05:47)
[2017-08-11] MEDS: Heparin VIAL(*) 5000 UNITS/ML VIAL (FIVE THOUSAND) SUBCUT SCH ×2 (05:47→14:22)
[2017-08-11] MEDS: fentaNYL Patch Check Q Shift 1 NOTE SCH (06:47)
[2017-08-11] MEDS: Insulin LISPRO* 1 UNITS UNIT SUBCUT SCH ×2 (07:43→13:09)
[2017-08-11] MEDS ORDERED: Insulin GLARGINE(*) 1 UNITS UNIT SUBCUT SCH (09:00)
[2017-08-11] MEDS: Gabapentin CAP(*) 300 MG PO SCH (09:06)
[2017-08-11] MEDS: Valsartan TAB* 160 MG PO SCH (09:06)
[2017-08-11] MEDS: Aspirin EC TAB* 81 MG TAB.EC PO SCH (09:07)
[2017-08-11] MEDS: Cholecalciferol TAB* 1000 UNITS PO SCH (09:07)
[2017-08-11] MEDS: Carvedilol TAB* 3.125 MG PO SCH (09:07)
[2017-08-11] MEDS: Omeprazole CAP* 20 MG PO SCH (09:07)
[2017-08-11] MEDS: DULoxetine DR CAP* 60 MG CAP.DR PO SCH (09:13)
[2017-08-11 14:49] VITALS: BP 146/71
--- NOTE | 2017-08-12 11:34 | DS ---
CC: Dr. Dozier; Dr. Copeland; Dr. Rodriguez DISCHARGE SUMMARY: DATE OF ADMISSION: 08/09/17 DATE OF DISCHARGE: 08/11/17 PRIMARY CARE PROVIDER: Dr. Dozier. ONCOLOGIST: Dr. Copeland. UROLOGIST: Dr. Rodriguez. DISCHARGE DIAGNOSES: 1. Sepsis. 2. Klebsiella pneumoniae. 3. Pyelonephritis. 4. Urinary retention. MEDICATION LIST: 1. Albuterol HFA 2 puffs inhale q.4 hours p.r.n. shortness of breath. 2. Aspirin 81 mg p.o. daily. 3. Carvedilol 3.125 mg p.o. b.i.d. 4. Cholecalciferol 1000 units p.o. daily. 5. Colace 1 to 3 tablets p.o. daily as needed for constipation. 6. Duloxetine 60 mg p.o. q.a.m. 7. Fentanyl patch 100 mcg topical q.72 hours. 8. Fluticasone nasal spray 50 mcg 2 sprays to both nares daily as needed for nasal congestion. 9. Gabapentin 3 to 4 tablets p.o. b.i.d. 10. Hydrocodone/acetaminophen 5/325 mg 1 tablet p.o. b.i.d. as needed for pain. 11. [place] SoloSTAR 150 units subcutaneously daily. 12. Lispro 25 units subcutaneously t.i.d. 13. Ketoconazole 2% cream to affected areas topical b.i.d. 14. Levothyroxine 50 mcg p.o. daily. 15. Lidocaine jelly as needed for catheter care. 16. Omeprazole 20 mg p.o. daily. 17. Valsartan 160 mg p.o. daily. 18. Zolpidem 1 tablet p.o. at bedtime as needed for insomnia. SECONDARY DIAGNOSES: 1. Scleroderma. 2. Non-ischemic cardiomyopathy with diastolic congestive heart failure, last ejection fraction 50%. 3. Type 2 diabetes. 4. Hypertension. 5. Hypothyroidism. 6. Pulmonary hypertension. 7. Gastroesophageal reflux disease. 8. Obesity with a BMI of 32. 9. Bladder CA (high grade secondary urothelial carcinoma. 10. Ocular melanoma. 11. Chronic kidney disease, stage 3. 12. Recurrent urinary tract infections. 13. Urinary retention. HOSPITAL COURSE: Mrs. De La Cruz is a 67-year-old lady with a past medical history stated above that pre sented to the emergency room on 08/09/17 with complaints of weakness, fatigue, and urinary frequency. She was also found to have left flank tenderness. For more details about her presentation, I refer you to her history and physical. In the emergency room, the patient was found to have leukocytosis 15,000 and tachycardia. She was admitted for further management. Her urinalysis was abnormal with 2+ blood, positive nitrite s, 3+ LE, 3+ WBCs, and urine culture grew Klebsiella pneumoniae resistant to ampicillin and intermedi ate to nitrofurantoin. The patient had a renal/bladder ultrasound that showed [id number] bilateral hydronephrosis with a postvoid residual volume of 141 mL. The case was discussed with her urologist (Dr. Rodriguez) and his recommendation was for Louie cathete r placement (before the patient was doing straight catheterizations at home) to treat her infection a nd to repeat her renal ultrasound next week to see if her hydronephrosis is resolved. This patient and her were updated about the plan and they are in agreement. The patient was rodríguez john with ceftriaxone in the hospital and she will be discharged on Vantin. Ciprofloxacin was conside red, but considering her duloxetine use, there was concern for QT prolongation, so we decided to rodríguez t her with a cephalosporin. PHYSICAL EXAMINATION: Vital Signs: Temperature 98.4, heart rate 75, respiratory rate 16, oxygen sat uration 93% on room air, blood pressure 146/71. General: The patient is a pleasant lady lying in be d, in no acute distress. CVS: Normal S1 and S2. Regular rate and rhythm. Chest: Breath sounds pr esent bilaterally with no added sounds. Neuro: She is alert and oriented x3. Able to move all 4 ex tremities. DIET: Consistent carb diet. ACTIVITY: As tolerated. DISPOSITION: To home. STATUS IN THE HOSPITAL: Inpatient. Please keep in mind, this is a summarized version of this patient's hospital stay. If you need more i nformation, please feel free to call me at [phone] or please obtain the full medical records. TIME SPENT: Approximately 45 minutes were spent to complete this discharge. [id number]/[facility] #: [id number]
== END 2017-08-11 15:30 | disposition home health service (06) | DRG 872 ==
LOC: ED 02:42 → SSU 06:50 → OBSVTOIN 08-10 13:44
PROVIDERS: ADMIT Internal Medicine; ATTEND Internal Medicine
DX: A41.9 Sepsis, unspecified organism (principal); N12 Tubulo-interstitial nephritis, not specified as acute or chronic; I13.0 Hypertensive heart and chronic kidney disease with heart failure and stage 1 through stage 4 chronic kidney disease, or unspecified chronic kidney disease; N13.30 Unspecified hydronephrosis; I42.8 Other cardiomyopathies; I50.42 Chronic combined systolic (congestive) and diastolic (congestive) heart failure; B96.1 Klebsiella pneumoniae [K. pneumoniae] as the cause of diseases classified elsewhere; R33.9 Retention of urine, unspecified; I27.20 Pulmonary hypertension, unspecified; K21.9 Gastro-esophageal reflux disease without esophagitis; E66.9 Obesity, unspecified; N18.3 Chronic kidney disease, stage 3 (moderate); Z16.11 Resistance to penicillins; Z16.29 Resistance to other single specified antibiotic; E89.0 Postprocedural hypothyroidism; G43.909 Migraine, unspecified, not intractable, without status migrainosus; M34.83 Systemic sclerosis with polyneuropathy; R16.0 Hepatomegaly, not elsewhere classified; E11.22 Type 2 diabetes mellitus with diabetic chronic kidney disease; H91.91 Unspecified hearing loss, right ear; F41.9 Anxiety disorder, unspecified; F32.9 Major depressive disorder, single episode, unspecified; I45.81 Long QT syndrome; Z79.82 Long term (current) use of aspirin; Z79.51 Long term (current) use of inhaled steroids; Z68.32 Body mass index [BMI] 32.0-32.9, adult; Z87.440 Personal history of urinary (tract) infections; Z85.820 Personal history of malignant melanoma of skin; Z85.51 Personal history of malignant neoplasm of bladder; Z90.49 Acquired absence of other specified parts of digestive tract; Z88.6 Allergy status to analgesic agent; Z87.891 Personal history of nicotine dependence; Z83.3 Family history of diabetes mellitus; Z82.5 Family history of asthma and other chronic lower respiratory diseases; Z79.4 Long term (current) use of insulin; Z87.01 Personal history of pneumonia (recurrent); Z90.6 Acquired absence of other parts of urinary tract; Z88.8 Allergy status to other drugs, medicaments and biological substances; Z82.49 Family history of ischemic heart disease and other diseases of the circulatory system
CPT/HCPCS: 36415; 71046; 76770; 80048; 80053; 81003; 81015; 83036; 83605; 85025; 85610; 87040; 87077; 87086; 87186; 94640; 99283; A9270-GY; G0378; J0696; J1644

== ENCOUNTER 2017-12-15 05:31 | Inpatient (IN) | payer MEDICARE ==
[2017-12-15] MEDS ORDERED: NS 0.9% 1000 ML* 1,000 ML IV ONE (06:12)
[2017-12-15 06:31] LABS: Urine Appearance Turbid; Urine Blood 2+ (Negative); Urine Color Amber; Urine Ketones Negative (Negative); Urine Protein 2+(100 mg/dL) (Negative); Urine Red Blood Cell 3+(>10/hpf) (Absent); Urine Specific Gravity 1.014 (1.010-1.030); Urine Urobilinogen Negative (Negative); Urine White Blood Cell 3+(>20/hpf) (Absent)
[2017-12-15] MEDS ORDERED: cefTRIAXone VIAL(*) 500 MG in NS 0.9% 50 ML* 50 ML IVPB ONE (06:41)
[2017-12-15 06:54] LABS: ABS Basophils 0.1 10^3/ul (0-0.2); ABS Eosinophils 0 10^3/ul (0-0.6); ABS Lymphocytes 1.4 10^3/ul (1.0-4.8); ABS Monocytes 0.8 10^3/ul (0-0.8); ABS Neutrophils 12.9 10^3/ul (1.5-7.7); ABS Nucleated RBC 0 10^3/ul; Eosinophil % 0.1 % (0-6); Hematocrit 39 % (35-47); Hemoglobin 12.6 g/dl (12.0-16.0); Lymphocyte % 9.1 % (25-47); Mean Corpuscular HGB Conc 33 g/dl (31-36); Mean Corpuscular Hemoglobin 29 pg (27-31); Mean Corpuscular Volume 90 fL (80-97); Mean Platelet Volume 8.1 um3 (7.4-10.4); Nucleated Red Blood Cells % 0; Platelet Count 226 10^3/ul (150-450); Red Blood Count 4.29 10^6/ul (4.00-5.40); Red Cell Distribution Width 16 % (10.5-15); White Blood Count 15.3 10^3/ul (3.5-10.8)
[2017-12-15 07:02] LABS: INR 1.17 (0.77-1.02)
[2017-12-15 07:15] LABS: EGFR Non-African American 37.8 (>60)
[2017-12-15] MEDS ORDERED: NS 0.9% 50 ML* 50 ML ONE (07:27)
[2017-12-15] MEDS ORDERED: cefTRIAXone(*) 1 GM ADVAN/BAG ONE (07:28)
[2017-12-15] MEDS ORDERED: cefTRIAXone(*) 1 GM in NS 0.9% 50 ML* 50 ML IVPB ONE (07:31)
--- NOTE | 2017-12-15 08:08 | RAD ---
Indication: Fatigue and weakness. 2 views of the chest including dual energy PA views demonstrate no mediastinal shift. Heart is of normal size and configuration. Lung mejia are clear. IMPRESSION: No active cardiopulmonary disease is noted.
[2017-12-15] MEDS ORDERED: PROCHLORPERAZINE INJ 5 MG/ML 2 ML VIAL IV PRN (08:51)
[2017-12-15] MEDS ORDERED: NS 0.9% 1000 ML* 1,000 ML IV SCH (09:00)
[2017-12-15] MEDS ORDERED: Albuterol HFA INHALER* 8 gm MDI INH PRN (09:08)
[2017-12-15] MEDS ORDERED: Fluticasone NASAL SPRAY 50MCG* 16 gm SPRAY BTL BOTH NARES PRN (09:08)
[2017-12-15] MEDS ORDERED: HYDROcodone/ACETAMIN 5-325 MG* 1 TAB PO PRN (09:08)
[2017-12-15] MEDS ORDERED: Docusate CAP* 100 MG PO PRN (09:08)
[2017-12-15] MEDS ORDERED: Lidocaine 2% JELLY* 6 ML JELLY TOPICAL PRN (09:08)
[2017-12-15] MEDS: Carvedilol TAB* 6.25 MG PO SCH ×2 (09:44→21:49)
[2017-12-15] MEDS: Acetaminophen TAB* 325 MG PO PRN (09:44)
[2017-12-15] MEDS ORDERED: fentaNYL PATCHs 100 MCG/HR TRANSDERM SCH (10:00)
--- NOTE | 2017-12-15 10:44 | HP ---
CC: Dr. Dozier * HISTORY AND PHYSICAL: DATE OF ADMISSION: 12/15/17 TIME OF EVALUATION: 8:40. PRIMARY CARE PROVIDER: Dr. Dozier. CHIEF COMPLAINT: "She has a UTI" as per her . HISTORY OF PRESENT ILLNESS: Mrs. De La Cruz is a 67-year-old lady with a past medical history of systolic congestive heart failure, scleroderma, type 2 diabetes, hypertension, hypothyroidism, pulmonary hypertension, GERD, obesity, history of bladder cancer, recurrent UTIs, retroorbital melanoma, status post radiation, anxiety, who presented to the emergency room with complaints of confusion. The patient requested her tell me the story. The patient was admitted to [facility] in August with Klebsiella urinary tract infection. At that time, she had complaints of weakness, fatigue, urinary frequency, and left flank tenderness. She was admitted. Her urine culture grew Klebsiella that was treated with cephalosporin. At that point, the patient was straight cathing at home, and after discussion with her urologist ( Dr. Rodriguez), the plan was for her to be discharged with Louie. After discharge as per , the patient was seen by Dr. Rodriguez and decision was made to continue Louie catheter with mostly changes. This catheter was last changed on 11/17/17. She did have another episode of urinary tract infection as outpatient and her urine culture at the end of September that grew Citrobacter. The states that she was also treated with fluconazole. Over the weekend, the patient complained of fatigue. They were supposed to go grocery shopping Friday and she stated that she would not be able to do so. The continued to monitor her over the weekend, but noticed that she was becoming more confused as she would stop and think for a while before saying what she wanted to say and the states that is usually how she presents with UTI, so she brought her to the emergency room today. There is no report of fever, chest pain, shortness of breath, cough, nausea, vomiting, diarrhea. PAST MEDICAL HISTORY: 1. Systolic congestive heart failure. 2. Scleroderma. 3. Type 2 diabetes. 4. Hypertension. 5. Hypothyroidism. 6. Pulmonary hypertension. 7. GERD. 8. Obesity. 9. Recurrent UTIs. 10. History of bladder CA, status post surgery x2. 11. Retroorbital melanoma, status post radiation. 12. Anxiety. 13. Partial thyroidectomy. 14. Cholecystectomy. 15. Status post tonsillectomy. MEDICATIONS LIST: 1. Albuterol HFA 2 puffs inhaled q.4 hours p.r.n. shortness of breath. 2. Aspirin 81 mg p.o. daily. 3. Candesartan 32 mg p.o. daily. 4. Carvedilol 6.25 mg p.o. b.i.d. 5. Cholecalciferol 1000 units p.o. daily. 6. Colace 1 to 3 tablets p.o. daily as needed for constipation. 7. Duloxetine 60 mg p.o. daily. 8. Fentanyl patch 100 mcg topical q.72 hours. 9. Fluticasone nasal spray, 2 sprays to both nares daily as needed for congestion. 10. Gabapentin 300 to 400 mg p.o. b.i.d. 11. Hydrocodone/acetaminophen 5/325 mg 1 tablet p.o. b.i.d. p.r.n. pain. 12. Toujeo 150 units subcutaneously daily. 13. Lispro 25 units subcutaneously t.i.d. 14. Levothyroxine 50 mcg p.o. daily. 15. Lidocaine 2% jelly apply to legs daily as needed for pain. 16. Calmoseptine ointment topical to groin rash daily as needed. 17. Omeprazole 20 mg p.o. daily. ALLERGIES: To IODINE and PREDNISONE. FAMILY HISTORY: Mother had a history of heart disease and asthma. Father had a history of coronary artery disease. SOCIAL HISTORY: The patient was a smoker with approximately 84-[id number]-wvif history. No history of alcohol use or drug use. Surrogate decision maker is her , Marleen Rangel. Phone number is [phone]. REVIEW OF SYSTEMS: A 14-point review of systems was performed and all the pertinent negative and positive findings are in the HPI. PHYSICAL EXAMINATION GENERAL: The patient is a pleasant lady, lying in the ED stretcher, not in acute distress. VITAL SIGNS: Temperature 100.4, heart rate is 106, respiratory rate is 16, oxygen saturation 95% on room air, blood pressure is 130/61. HEENT: Pupils are unequal with right pupil dilation. CHEST: Breath sounds bilaterally with no added sounds. CVS: Normal S1 and S2. Regular rate and rhythm. ABDOMEN: Soft. Bowel sounds are present. EXTREMITIES: No edema. NEUROLOGIC: She is alert and oriented x3. Able to move all 4 extremities. DIAGNOSTIC STUDIES/LAB DATA: The patient had a CBC that showed WBC of 15.3, hemoglobin of 12.6, hematocrit of 39, platelets of 226 with 85% neutrophils. INR was 1.1. Chemistry showed a sodium of 134, potassium of 4.3, chloride of 97 , bicarb of 28, BUN of 20, creatinine of 1.39, glucose of 323 with lactic acid of 2.1, calcium of 9.2. LFTs are normal. Troponin 0.02. CRP is 180.9. Urinalysis showed 2+ protein, 2+ blood, positive nitrites, 3+ LE, 3+ wbc's, 3+ rbc's. Chest x-ray showed no active cardiopulmonary disease. ASSESSMENT AND PLAN: Mrs. De La Cruz is a 67-year-old lady with past medical history of systolic congestive heart failure; scleroderma, diabetes; chronic kidney disease stage 3; hypertension; hypothyroidism; pulmonary hypertension; gastroesophageal reflux disease; obesity; recurrent urinary tract infections; bladder cancer, status post surgery x2; retroorbital melanoma, status post radiation; anxiety presented to the emergency room with weakness, fatigue, and confusion, found to have sepsis secondary to urinary tract infection. 1. Sepsis. The patient's presentation is compatible with sepsis with fever, tachycardia, and leukocytosis. Source is urinary tract infection. 2. Urinary tract infection. The patient has recurrent urinary tract infections. Last one was in October. She will be admitted as inpatient to the medical floor and should be started on ceftriaxone. After couple days of antibiotics, we will change her Louie catheter. This urinary tract infection is Louie catheter related and present on admission. She was recommended to have a renal bladder ultrasound. 3. Systolic congestive heart failure. This is stable at this time. She will receive gentle IV hydration for her sepsis and she may not receive the fluid bolus exactly as sepsis protocol due to her congestive heart failure. We will continue ARB and beta-see. 4. Type 2 diabetes. We will continue glargine and lispro sliding scale. 5. DVT prophylaxis. The patient has a score of 4 on the DVT Prophylaxis Risk Assessment Guide and she will be started on subcutaneous heparin and SCDs. 6. Code status is full. TIME SPENT: Approximately 50 minutes were spent with patient and interview , medical records review, physical examination to complete this admission; more than half of this time was spent [id number] with the patient and coordination of care. [id number]/[facility] #: [id number] ANA
--- NOTE | 2017-12-15 10:50 | ED ---
Altered Mental Status - HPI Summary HPI Summary: Patient is a 67-year-old female with history of diabetes type 2, recurrent UTIs and urosepsis with admissions, remote bladder cancer diagnoses 2, hypertension , hypercholesterolemia and neuropathic pain presenting to the ED with 4 day history of worsening confusion and altered mental status per . at bedside states during her previous visits to the ED with diagnosis of urosepsis she began to have altered mental status prior to her symptoms of urinary and back pain. While she denies any urinary or back pain on this visit, she has had an indwelling catheter 2 months with a standing date of catheter change every 30 days (due in 3 days for a recheck and change.) Denies any fevers, however is endorsing sweats and chills. Denies any nausea, vomiting, diarrhea. She does endorse intermittent constipation at baseline and states she feels somewhat constipated today but has not taken one of her stool softeners. She remains on her at home medications as prescribed. at bedside is conversion developer. Patient states she is very weak and fatigued, unable to sit up properly due to weakness. Denies any dizziness. Denies any visual changes or headaches. - History Of Current Complaint Chief Complaint: EDWeakness Stated Complaint: DIZZINESS Time Seen by Provider: 12/15/17 05:34 Hx Obtained From: Patient, Family/Worm Farmer Hx From Patient Unobtainable Due To: Altered Mental Status Onset/Duration: Gradually Timing: Constant Severity Initially: Moderate Severity Currently: Moderate Character: Confusion Aggravating Factor(s): Nothing Alleviating Factor(s): Nothing Associated Signs And Symptoms: Positive: Negative - Risk Factors Cardiac Risk Factors: Hypertension, Diabetes, Elevated Lipids, Family History, Prior [place] CVA Risk Factor: Hypertension, Diabetes - Allergies/Home Medications Allergies/Adverse Reactions: Allergies Allergy/AdvReac Type Severity Reaction Status Date / Time povidone-iodine Allergy Intermediate See Comment Verified 12/15/17 05:38 prednisone Allergy Intermediate See Comment Verified 12/15/17 05:38 Home Medications: Home Medications Candesartan Cilexetil 32 mg PO DAILY 12/15/17 [History Confirmed 12/15/17] Menthol/Zinc Oxide [Calmoseptine] 1 oin TOPICAL DAILY PRN 12/15/17 [History Confirmed 12/15/17] PMH/Surg Hx/FS Hx/Imm Hx Previously Healthy: Yes Endocrine/Hematology History: Reports: Hx Diabetes - Type II, Hx Thyroid Disease , Other Endocrine/Hematological Disorders - non insulin dependent diabetes, scleroderma Denies: Hx Systemic Lupus Erythematosus Cardiovascular History: Reports: Hx Congestive Heart Failure, Hx Hypertension, Other Cardiovascular Problems/Disorders - cardiomyopathy with EF 30% Denies: Hx Hypercholesterolemia Respiratory History: Reports: Hx Pneumonia Denies: Hx Asthma, Hx Chronic Obstructive Pulmonary Disease (COPD), Hx Sleep Apnea, Other Respiratory Problems/Disorders GI History: Reports: Hx Gastroesophageal Reflux Disease, Hx Hiatal Hernia, Other GI Disorders - Hiatial hernia Denies: Hx Ulcer History: Reports: Hx Acute Renal Failure, Other Problems/Disorders - Bladder Cancer, frequent UTI Denies: Hx Dialysis, Hx Renal Disease Musculoskeletal History: Reports: Other Musculoskeletal History - scleraderma Denies: Hx Rheumatoid Arthritis Sensory History: Reports: Hx Contacts or Glasses, Hx Deafness - Right ear, Hx Hearing Aid, Hx Hearing Problem Opthamlomology History: Reports: Hx Contacts or Glasses Neurological History: Reports: Hx Migraine - LAST ONE 1999, Hx Nerve Disease - 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 x 2. eye cancer Hx Chemotherapy: Yes - in past bcg infusion 2007 Hx Radiation Therapy: No Hx Palliative Cancer Treatment: No - Surgical History Surgery Procedure, Year, and Place: Bladder CA x 2, Thyroid, Gall bladder, T&A Hx Anesthesia Reactions: No - Immunization History Date of Tetanus Vaccine: Unk Date of Influenza Vaccine: 12/22 Hx Pertussis Vaccination: No Immunizations Up to Date: Yes Infectious Disease History: No Infectious Disease History: Denies: Hx Clostridium Difficile, Hx Hepatitis, Hx Human Immunodeficiency Virus (HIV), History Other Infectious Disease, Traveled Outside the [place] in Last 30 Days - Family History Known Family History: Positive: Cardiac Disease - Mother and Father - Social History Occupation: Unemployed, Disabled Lives: With Family Alcohol Use: None Hx Substance Use: No Substance Use Type: Reports: None Hx Tobacco Use: Yes - 20 pack year Smoking Status (MU): Former Smoker Amount Used/How Often: 1 PACK/DAY Review of Systems Positive: Chills, Fatigue, Skin Diaphoresis Negative: Photophobia, Blurred Vision, Diplopia, Drainage Negative: Palpitations, Chest Pain Negative: Shortness Of Breath, Cough Negative: Abdominal Pain, Vomiting, Diarrhea, Nausea Positive: see HPI Negative: Arthralgia, Myalgia Positive: Weakness. Negative: Headache, Paresthesia, Numbness Negative: Anxious, Depressed All Other Systems Reviewed And Are Negative: Yes Physical Exam Triage Information Reviewed: Yes Vital Signs On Initial Exam: Initial Vitals Temp Pulse Resp BP Pulse Ox 99.6 F 106 16 130/61 95 12/15/17 05:32 12/15/17 05:32 12/15/17 05:32 12/15/17 05:32 12/15/17 05:32 Completion Of Physical Exam Limited Due To: Altered Mental Status - Continues to be able to answer questions appropriately, however diverting to for explanation Appearance: Positive: Well-Appearing, Well-Nourished Skin: Positive: Skin Color Reflects Adequate Perfusion Head/Face: Positive: Normal Head/Face Inspection Eyes: Positive: EOMI, MARGIE, Conjunctiva Clear Neck: Positive: Supple, No Lymphadenopathy Respiratory/Lung Sounds: Positive: Wheezes - Bilaterally Cardiovascular: Positive: RRR, Pulses are Symmetrical in both Upper and Lower Extremities Abdomen Description: Positive: Nontender, Soft Musculoskeletal: Positive: Normal, Strength/ROM Intact Neurological: Positive: Alert, Oriented to Person Place, Time, Facial Symmetry, Speech Normal Psychiatric: Positive: Normal, Affect/Mood Appropriate AVPU Assessment: Alert Diagnostics - Vital Signs Vital Signs Temp Pulse Resp BP Pulse Ox 12/15/17 08:48 187/91 12/15/17 08:17 142/85 12/15/17 07:47 151/131 12/15/17 05:32 99.6 F 106 16 130/61 95 - Laboratory Lab Results: Lab Results 12/15/17 12/15/17 12/15/17 Range/Units 06:15 06:43 06:43 WBC 15.3 H (3.5-10.8) 10^3/ul RBC 4.29 (4.00-5.40) 10^6/ul Hgb 12.6 (12.0-16.0) g/dl Hct 39 (35-47) % MCV 90 (80-97) fL MCH 29 (27-31) pg MCHC 33 (31-36) g/dl RDW 16 H (10.5-15) % Plt Count 226 (150-450) 10^3/ul MPV 8.1 (7.4-10.4) um3 Neut % (Auto) 84.8 H (38-83) % Lymph % (Auto) 9.1 L (25-47) % [place] % (Auto) 5.5 (0-7) % Eos % (Auto) 0.1 (0-6) % Baso % (Auto) 0.5 (0-2) % Absolute Neuts (auto) 12.9 H (1.5-7.7) 10^3/ul Absolute Lymphs (auto) 1.4 (1.0-4.8) 10^3/ul Absolute Monos (auto) 0.8 (0-0.8) 10^3/ul Absolute Eos (auto) 0 (0-0.6) 10^3/ul Absolute Basos (auto) 0.1 (0-0.2) 10^3/ul Absolute Nucleated RBC 0 10^3/ul Nucleated RBC % 0 INR (Anticoag Therapy) 1.17 H (0.77-1.02) APTT 31.3 (26.0-36.3) seconds Sodium (135-145) mmol/L Potassium (3.5-5.0) mmol/L Chloride (101-111) mmol/L Carbon Dioxide (22-32) mmol/L Anion Gap (2-11) mmol/L BUN (6-24) mg/dL Creatinine (0.51-0.95) mg/dL Est GFR ( Amer) (>60) Est GFR (Non-Af Amer) (>60) BUN/Creatinine Ratio (8-20) Glucose (70-100) mg/dL Lactic Acid (0.5-2.0) mmol/L Calcium (8.6-10.3) mg/dL Total Bilirubin (0.2-1.0) mg/dL AST (13-39) U/L ALT (7-52) U/L Alkaline Phosphatase (34-104) U/L Troponin I (<0.04) ng/mL C-Reactive Protein (<8.01) mg/L Total Protein (6.4-8.9) g/dL Albumin (3.2-5.2) g/dL Globulin (2-4) g/dL Albumin/Globulin Ratio (1-3) Urine Color Kaitlynn Urine Appearance Turbid Urine pH 7.0 (5-9) Ur Specific [place] 1.014 (1.010-1.030) Urine Protein 2+(100 mg/dl) A (Negative) Urine Ketones Negative (Negative) Urine Blood 2+ A (Negative) Urine Nitrate Positive A (Negative) Urine Bilirubin Negative (Negative) Urine Urobilinogen Negative (Negative) Ur Leukocyte Esterase 3+ A (Negative) Urine WBC (Auto) 3+(>20/hpf) A (Absent) Urine RBC (Auto) 3+(>10/hpf) A (Absent) Ur Squamous Epith Cells Present A (Absent) Ur Transition Epith Cell Present A (Absent) Urine Bacteria Absent (Absent) Urine Glucose 2+(150 mg/dl) A (Negative) 12/15/17 12/15/17 Range/Units 06:43 06:43 WBC (3.5-10.8) 10^3/ul RBC (4.00-5.40) 10^6/ul Hgb (12.0-16.0) g/dl Hct (35-47) % MCV (80-97) fL MCH (27-31) pg MCHC (31-36) g/dl RDW (10.5-15) % Plt Count (150-450) 10^3/ul MPV (7.4-10.4) um3 Neut % (Auto) (38-83) % Lymph % (Auto) (25-47) % [place] % (Auto) (0-7) % Eos % (Auto) (0-6) % Baso % (Auto) (0-2) % Absolute Neuts (auto) (1.5-7.7) 10^3/ul Absolute Lymphs (auto) (1.0-4.8) 10^3/ul Absolute Monos (auto) (0-0.8) 10^3/ul Absolute Eos (auto) (0-0.6) 10^3/ul Absolute Basos (auto) (0-0.2) 10^3/ul Absolute Nucleated RBC 10^3/ul Nucleated RBC % INR (Anticoag Therapy) (0.77-1.02) APTT (26.0-36.3) seconds Sodium 134 L (135-145) mmol/L Potassium 4.3 (3.5-5.0) mmol/L Chloride 97 L (101-111) mmol/L Carbon Dioxide 28 (22-32) mmol/L Anion Gap 9 (2-11) mmol/L BUN 20 (6-24) mg/dL Creatinine 1.39 H (0.51-0.95) mg/dL Est GFR ( Amer) 45.8 (>60) Est GFR (Non-Af Amer) 37.8 (>60) BUN/Creatinine Ratio 14.4 (8-20) Glucose 323 H (70-100) mg/dL Lactic Acid 2.1 H* (0.5-2.0) mmol/L Calcium 9.2 (8.6-10.3) mg/dL Total Bilirubin 0.70 (0.2-1.0) mg/dL AST 16 (13-39) U/L ALT 15 (7-52) U/L Alkaline Phosphatase 83 (34-104) U/L Troponin I 0.02 (<0.04) ng/mL C-Reactive Protein 180.95 H (<8.01) mg/L Total Protein 7.0 (6.4-8.9) g/dL Albumin 3.6 (3.2-5.2) g/dL Globulin 3.4 (2-4) g/dL Albumin/Globulin Ratio 1.1 (1-3) Urine Color Urine Appearance Urine pH (5-9) Ur Specific [place] (1.010-1.030) Urine Protein (Negative) Urine Ketones (Negative) Urine Blood (Negative) Urine Nitrate (Negative) Urine Bilirubin (Negative) Urine Urobilinogen (Negative) Ur Leukocyte Esterase (Negative) Urine WBC (Auto) (Absent) Urine RBC (Auto) (Absent) Ur Squamous Epith Cells (Absent) Ur Transition Epith Cell (Absent) Urine Bacteria (Absent) Urine Glucose (Negative) Result Diagrams: 12/15/17 06:43 12/15/17 06:43 Lab Statement: Any lab studies that have been ordered have been reviewed, and results considered in the medical decision making process. Altered Mental Statu Course/Dx - Course Course Of Treatment: Patient is evaluated for altered mental status secondary to possible urosepsis. Vital signs are stable other than slightly tachycardic on arrival. Patient appears somewhat confused and somewhat altered per , unknown to provider. Labs obtained which show an elevated white count of 15.3. UA shows +3 WBC, +3 RBC, +3 leukocytes. She is given 1 L fluids, 1 g ceftriaxone and blood cultures are sent. Discussed case with Dr. anna Newell who agrees to admit patient to hospitalist service for further evaluation of a possible urosepsis and altered mental status. - Diagnoses Differential Diagnosis/HQI/PQRI: Metabolic Disorder, Sepsis Provider Diagnoses: Altered mental status, Fatigue, UTI (urinary tract infection) - Provider Notifications Discussed Care Of Patient With: Bee Ashraf Instructed by Provider To: Admit As Inpatient Discharge - Sign-Out/Discharge Documenting (check all that apply): Patient Departure - Discharge Plan Condition: Fair Disposition: ADMITTED TO [facility] - Billing Disposition and Condition Condition: FAIR Disposition: Admitted to [facility]
[2017-12-15] MEDS ORDERED: Insulin LISPRO* 1 UNITS UNIT SUBCUT SCH (11:30)
[2017-12-15] MEDS ORDERED: Dextrose 50% Syringe 50 ML* 25 GM/50 ML SYRINGE IV PUSH PRN (12:01)
[2017-12-15] MEDS ORDERED: Insulin LISPRO* 1 UNITS UNIT SUBCUT ONE (14:00)
[2017-12-15] MEDS: Insulin GLARGINE(*) 1 UNITS UNIT SUBCUT SCH (14:06)
[2017-12-15] MEDS: Insulin LISPRO* 1 UNITS UNIT SUBCUT SCH ×3 (14:07→21:50)
[2017-12-15] MEDS: Heparin VIAL(*) 5000 UNITS/ML VIAL (FIVE THOUSAND) SUBCUT SCH ×2 (14:08→21:50)
[2017-12-15] MEDS: fentaNYL PATCHs 100 MCG/HR TRANSDERM SCH (14:16)
[2017-12-15] MEDS: Aspirin EC TAB* 81 MG TAB.EC PO SCH (14:20)
[2017-12-15] MEDS: DULoxetine DR CAP* 60 MG CAP.DR PO SCH (14:20)
[2017-12-15] MEDS: Valsartan TAB* 160 MG PO SCH (14:20)
--- NOTE | 2017-12-15 15:38 | RAD ---
HISTORY: UTI, r/o hydro, document ureteral jets COMPARISONS: August 10, 2017 TECHNIQUE: Multiple transverse and longitudinal ultrasound images were obtained of the kidneys and bladder using grayscale and color Doppler imaging. FINDINGS: RIGHT KIDNEY: There are simple cysts of the right kidney measuring up to 1.7 cm. There is an echogenic focus of the upper pole of the right kidney measuring 0.4 centers. There is no hydronephrosis or nephrolithiasis. The right kidney measures 10.5 x 5.4 x 5.6 cm. LEFT KIDNEY: The left kidney is normal in shape, size, contour, and echogenicity. There is no hydronephrosis or nephrolithiasis. The left kidney measures 11.6 x 6.1 x 5.5 cm. BLADDER: The bladder is incompletely distended around a Cannon catheter. Ureteral jets are not identified. AORTA AND IVC: No images are submitted of the vasculature. RETROPERITONEUM: Unremarkable. OTHER: None. IMPRESSION: 1. NO HYDRONEPHROSIS. 2. NONOBSTRUCTING CALCULUS OF THE UPPER POLE OF THE RIGHT KIDNEY. 3. URETERAL JETS ARE NOT IDENTIFIED, THOUGH THE BLADDER IS PARTIALLY COLLAPSED AROUND A CANNON CATHETER.
[2017-12-15] MEDS: NS 0.9% 1000 ML* 1,000 ML IV SCH (18:25)
[2017-12-15] MEDS: Nystatin TOP POWDER* 15 GM BTL TOPICAL SCH ×2 (18:56→21:50)
[2017-12-15] MEDS: Gabapentin CAP(*) 100 MG PO SCH (21:49)
[2017-12-16] MEDS: Heparin VIAL(*) 5000 UNITS/ML VIAL (FIVE THOUSAND) SUBCUT SCH ×3 (05:51→21:09)
[2017-12-16] MEDS: Levothyroxine TAB* 50 MCG TAB PO SCH (05:51)
[2017-12-16 05:55] LABS: ABS Basophils 0.1 10^3/ul (0-0.2); ABS Eosinophils 0.1 10^3/ul (0-0.6); ABS Lymphocytes 1.3 10^3/ul (1.0-4.8); ABS Monocytes 0.9 10^3/ul (0-0.8); ABS Nucleated RBC 0 10^3/ul; Eosinophil % 0.7 % (0-6); Hematocrit 36 % (35-47); Hemoglobin 11.6 g/dl (12.0-16.0); Lymphocyte % 11.5 % (25-47); Mean Corpuscular HGB Conc 32 g/dl (31-36); Mean Corpuscular Hemoglobin 29 pg (27-31); Mean Corpuscular Volume 91 fL (80-97); Mean Platelet Volume 8.2 um3 (7.4-10.4); Nucleated Red Blood Cells % 0.1; Platelet Count 207 10^3/ul (150-450); Red Blood Count 3.97 10^6/ul (4.00-5.40); Red Cell Distribution Width 16 % (10.5-15); White Blood Count 11.3 10^3/ul (3.5-10.8)
[2017-12-16] MEDS: cefTRIAXone(*) 1 GM in NS 0.9% 50 ML* 50 ML IVPB SCH (07:26)
[2017-12-16] MEDS: Acetaminophen TAB* 325 MG PO PRN (07:27)
[2017-12-16] MEDS: DULoxetine DR CAP* 60 MG CAP.DR PO SCH (07:27)
[2017-12-16] MEDS: Gabapentin CAP(*) 100 MG PO SCH ×2 (07:27→21:12)
[2017-12-16] MEDS: Omeprazole CAP* 20 MG PO SCH (07:28)
[2017-12-16] MEDS: Aspirin EC TAB* 81 MG TAB.EC PO SCH (07:28)
[2017-12-16] MEDS: Carvedilol TAB* 6.25 MG PO SCH ×2 (07:28→21:12)
[2017-12-16] MEDS: Valsartan TAB* 160 MG PO SCH (07:28)
[2017-12-16] MEDS: Cholecalciferol TAB* 1000 UNITS PO SCH (07:28)
[2017-12-16] MEDS: NS 0.9% 1000 ML* 1,000 ML IV SCH (07:31)
[2017-12-16] MEDS: Nystatin TOP POWDER* 15 GM BTL TOPICAL SCH ×2 (07:34→21:12)
[2017-12-16] MEDS: Insulin LISPRO* 1 UNITS UNIT SUBCUT SCH ×4 (07:37→21:09)
[2017-12-16] MEDS ORDERED: INSULIN GLARGINE (NF) 300 UNIT/ML INJ SUBCUT SCH (09:00)
[2017-12-16] MEDS: Insulin GLARGINE(*) 1 UNITS UNIT SUBCUT SCH (09:54)
--- NOTE | 2017-12-16 10:05 | PN ---
Subjective Date of Service: 12/16/17 Interval History: Ms. De La Cruz reports feeling "okay" this morning. She states she feels about the same as yesterday. Denies pain. No urinary symptoms. Feels generally weak and is having difficulty sitting up in bed on her own which is normally not a problem for her. Denies chills, N/V, CP, SOB. Family History: Unchanged from Admission Social History: Unchanged from Admission Past Medical History: Unchanged from Admission Objective Active Medications: Acetaminophen (Tylenol Tab*) 650 mg PO Q6H PRN Hydrocodone Bitart/Acetaminophen (Amelia 5-325 Tab*) 1 tab PO BID PRN Albuterol (Ventolin Hfa Inhaler*) 2 puff INH Q4H PRN Aspirin (Aspirin Ec Tab*) 81 mg PO DAILY BRAULIO Carvedilol (Coreg Tab*) 6.25 mg PO BID BRAULIO Cholecalciferol (Vitamin D Tab*) 1,000 units PO DAILY BRAULIO Dextrose (D50w Syringe 50 Ml*) 12.5 gm IV PUSH .FOR FS < 60 - SS PRN Docusate Sodium (Colace Cap*) 100 mg PO DAILY PRN Duloxetine HCl (Cymbalta Cap*) 60 mg PO QAM BRAULIO Fentanyl (Duragesic Patch 100 Mcg/Hr *) 100 mcg TRANSDERM Q72H BRAULIO Fluticasone Propionate (Flonase Nasal [place] 50mcg*) 2 spray BOTH NARES DAILY PRN Gabapentin (Neurontin Cap(*)) 300 mg PO BID BRAULIO Heparin Sodium (Porcine) (Heparin Vial(*)) 5,000 units SUBCUT Q8HR BRAULIO Ceftriaxone Sodium 1 gm/ (Sodium Chloride) 50 mls @ 200 mls/hr IVPB Q24H BRAULIO Sodium Chloride (Ns 0.9% 1000 Ml*) 1,000 mls @ 75 mls/hr IV PER RATE BRAULIO Insulin Glargine (Lantus(*)) 100 units SUBCUT DAILY BRAULIO Insulin Human Lispro (Humalog*) 0 units SUBCUT ACHS BRAULIO; Protocol Levothyroxine Sodium (Synthroid Tab*) 50 mcg PO 0600 BRAULIO Lidocaine HCl (Lidocaine 2% Jelly*) 1 applic TOPICAL DAILY PRN Nystatin (Nystatin Top Powder*) 1 applic TOPICAL BID BRAULIO Omeprazole (Prilosec Cap*) 20 mg PO 0730 BRAULIO Prochlorperazine Edisylate (Compazine Inj*) 5 mg IV Q6H PRN Valsartan (Diovan Tab*) 160 mg PO DAILY BRAULIO Vital Signs - 8 hr 12/16/17 12/16/17 12/16/17 03:36 07:24 07:27 Temperature 99.8 F 98.0 F Pulse Rate 86 87 Respiratory 18 18 18 Rate Blood Pressure 125/57 137/71 (mmHg) O2 Sat by Pulse 95 95 Oximetry Oxygen Devices in Use Now: Nasal Cannula Appearance: Elderly female laying in bed in no acute distress Eyes: PERRLA Ears/Nose/Mouth/Throat: NL Teeth, Lips, Gums, Mucous Membranes Moist Neck: NL Appearance and Movements; NL JVP, Trachea Midline Respiratory: Symmetrical Chest Expansion and Respiratory Effort, Clear to Auscultation Cardiovascular: NL Sounds; No Murmurs; No JVD, RRR, No Edema Abdominal: NL Sounds; No Tenderness; No Distention, No Hepatosplenomegaly Extremities: No Edema Skin: No Rash or Ulcers Neurological: Alert and Oriented x 3 Lines/Tubes/Other Access: Clean, Dry and Intact Brito, Clean, Dry and Intact Peripheral IV Nutrition: Taking PO's Result Diagrams: 12/16/17 05:19 12/16/17 05:19 Assess/Plan/Problems-Billing Assessment: Ms. De La Cruz is a 67yo female with PMH of systolic CHF, scleroderma, DM2, HTN, bladder cancer, recurrent UTIs, and chronic indwelling brito catheter who presents with fatigue and confusion and was found to have sepsis 2/2 UTI. - Patient Problems (1) UTI (urinary tract infection) Current Visit: Yes Status: Acute Priority: High Comment: - Urine culture without growth, but BC + for Klebsiella - Renal US unremarkable - Brito catheter related, present on admission - Continue ceftriaxone - Change brito tomorrow, after 3d abx (2) Sepsis Current Visit: Yes Status: Acute Priority: High Comment: - BC + for Klebsiella - Meeting sepsis criteria on admission, now resolved - 2/2 UTI (3) Hypertension Current Visit: Yes Status: Chronic Priority: Medium Code(s): I10 - ESSENTIAL (PRIMARY) HYPERTENSION SNOMED Code(s): 83712918 Comment: - Normotensive - Continue valsartan and carvidilol (4) Systolic congestive heart failure Current Visit: Yes Status: Chronic Priority: Medium Code(s): I50.20 - UNSPECIFIED SYSTOLIC (CONGESTIVE) HEART FAILURE SNOMED Code(s): 274050535 Comment: - Stable, not in exacerbation - Continue valsartan and carvidilol (5) DM type 2 (diabetes mellitus, type 2) Current Visit: Yes Status: Chronic Priority: Medium Comment: - Continue lantus and lispro SS (6) CKD (chronic kidney disease) stage 3, GFR 30-59 ml/min Current Visit: Yes Status: Chronic Priority: Medium Code(s): N18.3 - CHRONIC KIDNEY DISEASE, STAGE 3 (MODERATE) SNOMED Code(s): 684690770 Comment: - 2/2 DM - Creatinine at baseline (7) GERD (gastroesophageal reflux disease) Current Visit: Yes Status: Chronic Priority: Medium Code(s): K21.9 - GASTRO-ESOPHAGEAL REFLUX DISEASE WITHOUT ESOPHAGITIS SNOMED Code(s): 203438729 Comment: - Continue omeprazole (8) Chronic pain Current Visit: Yes Status: Chronic Priority: Medium Code(s): G89.29 - OTHER CHRONIC PAIN SNOMED Code(s): 23108369 Comment: - Continue fentanyl, gabapentin, norco (9) History of bladder cancer Current Visit: Yes Status: Chronic Priority: Medium Code(s): Z85.51 - PERSONAL HISTORY OF MALIGNANT NEOPLASM OF BLADDER SNOMED Code(s): 555470789 Comment: - Resolved s/p surgery x2 (10) Hypothyroidism Current Visit: Yes Status: Chronic Priority: Medium Code(s): E03.9 - HYPOTHYROIDISM, UNSPECIFIED SNOMED Code(s): 64646282 Comment: - Continue levothyroxine (11) Full code status Current Visit: Yes Status: Acute Priority: High Code(s): Z78.9 - OTHER SPECIFIED HEALTH STATUS SNOMED Code(s): 522693169 (12) DVT prophylaxis Current Visit: Yes Status: Acute Priority: High Code(s): OJF6100 - SNOMED Code(s): 009901650 Comment: - Heparin SQ and SCDs Status and Disposition: Inpatient. Anticipate d/c home when medically stable.
[2017-12-17] MEDS: Levothyroxine TAB* 50 MCG TAB PO SCH (05:37)
[2017-12-17] MEDS: Heparin VIAL(*) 5000 UNITS/ML VIAL (FIVE THOUSAND) SUBCUT SCH ×3 (05:37→21:13)
[2017-12-17 07:32] LABS: ABS Basophils 0.1 10^3/ul (0-0.2); ABS Eosinophils 0.2 10^3/ul (0-0.6); ABS Lymphocytes 1.5 10^3/ul (1.0-4.8); ABS Monocytes 0.9 10^3/ul (0-0.8); ABS Neutrophils 7.1 10^3/ul (1.5-7.7); ABS Nucleated RBC 0 10^3/ul; Eosinophil % 2.2 % (0-6); Hematocrit 38 % (35-47); Hemoglobin 12.4 g/dl (12.0-16.0); Lymphocyte % 15.1 % (25-47); Mean Corpuscular HGB Conc 33 g/dl (31-36); Mean Corpuscular Hemoglobin 30 pg (27-31); Mean Corpuscular Volume 91 fL (80-97); Mean Platelet Volume 8.2 um3 (7.4-10.4); Nucleated Red Blood Cells % 0.1; Platelet Count 250 10^3/ul (150-450); Red Blood Count 4.14 10^6/ul (4.00-5.40); Red Cell Distribution Width 16 % (10.5-15); White Blood Count 9.8 10^3/ul (3.5-10.8)
[2017-12-17 07:43] LABS: EGFR Non-African American 45.7 (>60)
[2017-12-17] MEDS: Omeprazole CAP* 20 MG PO SCH (08:08)
[2017-12-17] MEDS: Valsartan TAB* 160 MG PO SCH (08:08)
[2017-12-17] MEDS: Aspirin EC TAB* 81 MG TAB.EC PO SCH (08:09)
[2017-12-17] MEDS: Carvedilol TAB* 6.25 MG PO SCH ×2 (08:09→21:12)
[2017-12-17] MEDS: Cholecalciferol TAB* 1000 UNITS PO SCH (08:09)
[2017-12-17] MEDS: Gabapentin CAP(*) 100 MG PO SCH ×2 (08:10→21:11)
[2017-12-17] MEDS: DULoxetine DR CAP* 60 MG CAP.DR PO SCH (08:10)
[2017-12-17] MEDS: cefTRIAXone(*) 1 GM in NS 0.9% 50 ML* 50 ML IVPB SCH (08:11)
[2017-12-17] MEDS: Nystatin TOP POWDER* 15 GM BTL TOPICAL SCH ×2 (08:22→21:14)
[2017-12-17] MEDS: Insulin GLARGINE(*) 1 UNITS UNIT SUBCUT SCH ×2 (08:28→10:42)
[2017-12-17] MEDS: Insulin LISPRO* 1 UNITS UNIT SUBCUT SCH ×4 (08:28→21:12)
--- NOTE | 2017-12-17 10:01 | PN ---
Subjective Date of Service: 12/17/17 Interval History: Ms. De La Cruz has no complaints this morning. Reports weakness has improved since yesterday and she has been able to sit on the edge of the bed. She is planning to ambulate with nursing staff later this morning. At baseline, she states she only ambulates around her apartment - usually to and from the bathroom. Denies fever, chills, N/V/D, CP, SOB, dizziness. Family History: Unchanged from Admission Social History: Unchanged from Admission Past Medical History: Unchanged from Admission Objective Active Medications: Acetaminophen (Tylenol Tab*) 650 mg PO Q6H PRN Hydrocodone Bitart/Acetaminophen (Lyman 5-325 Tab*) 1 tab PO BID PRN Albuterol (Ventolin Hfa Inhaler*) 2 puff INH Q4H PRN Aspirin (Aspirin Ec Tab*) 81 mg PO DAILY BRAULIO Carvedilol (Coreg Tab*) 6.25 mg PO BID BRAULIO Cholecalciferol (Vitamin D Tab*) 1,000 units PO DAILY BRAULIO Dextrose (D50w Syringe 50 Ml*) 12.5 gm IV PUSH .FOR FS < 60 - SS PRN Docusate Sodium (Colace Cap*) 100 mg PO DAILY PRN Duloxetine HCl (Cymbalta Cap*) 60 mg PO QAM BRAULIO Fentanyl (Duragesic Patch 100 Mcg/Hr *) 100 mcg TRANSDERM Q72H BRAULIO Fluticasone Propionate (Flonase Nasal [place] 50mcg*) 2 spray BOTH NARES DAILY PRN Gabapentin (Neurontin Cap(*)) 300 mg PO BID BRAULIO Heparin Sodium (Porcine) (Heparin Vial(*)) 5,000 units SUBCUT Q8HR BRAULIO Ceftriaxone Sodium 1 gm/ (Sodium Chloride) 50 mls @ 200 mls/hr IVPB Q24H BRAULIO Insulin Glargine (Lantus(*)) 80 units SUBCUT DAILY BRAULIO Insulin Human Lispro (Humalog*) 0 units SUBCUT ACHS BRAULIO; Protocol Levothyroxine Sodium (Synthroid Tab*) 50 mcg PO 0600 BRAULIO Lidocaine HCl (Lidocaine 2% Jelly*) 1 applic TOPICAL DAILY PRN Nystatin (Nystatin Top Powder*) 1 applic TOPICAL BID BRAULIO Omeprazole (Prilosec Cap*) 20 mg PO 0730 BRAULIO Prochlorperazine Edisylate (Compazine Inj*) 5 mg IV Q6H PRN Valsartan (Diovan Tab*) 160 mg PO DAILY [facility] Vital Signs - 8 hr 12/17/17 12/17/17 12/17/17 03:56 07:33 08:10 Temperature 99.5 F 97.4 F Pulse Rate 72 64 Respiratory 16 18 16 Rate Blood Pressure 111/53 131/56 (mmHg) O2 Sat by Pulse 96 98 Oximetry Oxygen Devices in Use Now: None Appearance: Elderly female laying in bed in no acute distress Eyes: No Scleral Icterus, PERRLA Ears/Nose/Mouth/Throat: NL Teeth, Lips, Gums, Mucous Membranes Moist Neck: NL Appearance and Movements; NL JVP, Trachea Midline Respiratory: Symmetrical Chest Expansion and Respiratory Effort, Clear to Auscultation Cardiovascular: NL Sounds; No Murmurs; No JVD, RRR, No Edema Abdominal: NL Sounds; No Tenderness; No Distention, No Hepatosplenomegaly Extremities: No Edema Skin: No Rash or Ulcers Neurological: Alert and Oriented x 3 Lines/Tubes/Other Access: Clean, Dry and Intact Brito, Clean, Dry and Intact Peripheral IV Nutrition: Taking PO's Result Diagrams: 12/17/17 07:20 12/17/17 07:20 Assess/Plan/Problems-Billing Assessment: Ms. De La Cruz is a 67yo female with PMH of systolic CHF, scleroderma, DM2, HTN, bladder cancer, recurrent UTIs, and chronic indwelling brito catheter who presents with fatigue and confusion and was found to have sepsis 2/2 UTI. - Patient Problems (1) UTI (urinary tract infection) Current Visit: Yes Status: Acute Priority: High Comment: - Urine culture without growth, but BC + for Klebsiella - Renal US unremarkable - Brito catheter related, present on admission - Continue ceftriaxone - Change brito today - Appreciate ID consult for recurrent UTI (2) Sepsis Current Visit: Yes Status: Acute Priority: High Comment: - BC + for Klebsiella - Meeting sepsis criteria on admission, now resolved - 2/2 UTI (3) Hypertension Current Visit: Yes Status: Chronic Priority: Medium Code(s): I10 - ESSENTIAL (PRIMARY) HYPERTENSION SNOMED Code(s): 44746595 Comment: - Normotensive - Continue valsartan and carvidilol (4) Systolic congestive heart failure Current Visit: Yes Status: Chronic Priority: Medium Code(s): I50.20 - UNSPECIFIED SYSTOLIC (CONGESTIVE) HEART FAILURE SNOMED Code(s): 661455109 Comment: - Stable, not in exacerbation - Continue valsartan and carvidilol (5) DM type 2 (diabetes mellitus, type 2) Current Visit: Yes Status: Chronic Priority: Medium Comment: - Continue lispro SS - Lantus decreased d/t hypoglycemia this morning (6) CKD (chronic kidney disease) stage 3, GFR 30-59 ml/min Current Visit: Yes Status: Chronic Priority: Medium Code(s): N18.3 - CHRONIC KIDNEY DISEASE, STAGE 3 (MODERATE) SNOMED Code(s): 116174319 Comment: - 2/2 DM - Creatinine at baseline (7) GERD (gastroesophageal reflux disease) Current Visit: Yes Status: Chronic Priority: Medium Code(s): K21.9 - GASTRO-ESOPHAGEAL REFLUX DISEASE WITHOUT ESOPHAGITIS SNOMED Code(s): 647388589 Comment: - Continue omeprazole (8) Chronic pain Current Visit: Yes Status: Chronic Priority: Medium Code(s): G89.29 - OTHER CHRONIC PAIN SNOMED Code(s): 53776246 Comment: - Continue fentanyl, gabapentin, norco (9) History of bladder cancer Current Visit: Yes Status: Chronic Priority: Medium Code(s): Z85.51 - PERSONAL HISTORY OF MALIGNANT NEOPLASM OF BLADDER SNOMED Code(s): 938766548 Comment: - Resolved s/p surgery x2 (10) Hypothyroidism Current Visit: Yes Status: Chronic Priority: Medium Code(s): E03.9 - HYPOTHYROIDISM, UNSPECIFIED SNOMED Code(s): 82106085 Comment: - Continue levothyroxine (11) Full code status Current Visit: Yes Status: Acute Priority: High Code(s): Z78.9 - OTHER SPECIFIED HEALTH STATUS SNOMED Code(s): 333934966 (12) DVT prophylaxis Current Visit: Yes Status: Acute Priority: High Code(s): [id number] - SNOMED Code(s): 975298565 Comment: - Heparin SQ and SCDs Status and Disposition: Inpatient. Anticipate d/c home when medically stable.
[2017-12-17] MEDS ORDERED: Insulin GLARGINE(*) 1 UNITS UNIT SUBCUT ONE (12:00)
[2017-12-17] MEDS: Acetaminophen TAB* 325 MG PO PRN (21:11)
[2017-12-18] MEDS: Levothyroxine TAB* 50 MCG TAB PO SCH (05:11)
[2017-12-18] MEDS: Heparin VIAL(*) 5000 UNITS/ML VIAL (FIVE THOUSAND) SUBCUT SCH ×2 (05:11→14:32)
[2017-12-18 06:29] LABS: ABS Basophils 0.1 10^3/ul (0-0.2); ABS Eosinophils 0.3 10^3/ul (0-0.6); ABS Monocytes 0.7 10^3/ul (0-0.8); ABS Neutrophils 4.1 10^3/ul (1.5-7.7); ABS Nucleated RBC 0 10^3/ul; Eosinophil % 3.7 % (0-6); Hematocrit 37 % (35-47); Hemoglobin 12.1 g/dl (12.0-16.0); Mean Corpuscular HGB Conc 33 g/dl (31-36); Mean Corpuscular Hemoglobin 30 pg (27-31); Mean Corpuscular Volume 90 fL (80-97); Mean Platelet Volume 7.9 um3 (7.4-10.4); Nucleated Red Blood Cells % 0.2; Platelet Count 269 10^3/ul (150-450); Red Blood Count 4.09 10^6/ul (4.00-5.40); Red Cell Distribution Width 15 % (10.5-15); White Blood Count 7.1 10^3/ul (3.5-10.8)
[2017-12-18 06:47] LABS: EGFR Non-African American 46.6 (>60)
[2017-12-18] MEDS: Nystatin TOP POWDER* 15 GM BTL TOPICAL SCH (07:41)
[2017-12-18] MEDS: Insulin LISPRO* 1 UNITS UNIT SUBCUT SCH ×4 (07:55→18:04)
[2017-12-18] MEDS: Aspirin EC TAB* 81 MG TAB.EC PO SCH (07:57)
[2017-12-18] MEDS: DULoxetine DR CAP* 60 MG CAP.DR PO SCH (07:57)
[2017-12-18] MEDS: Carvedilol TAB* 6.25 MG PO SCH (07:57)
[2017-12-18] MEDS: Gabapentin CAP(*) 100 MG PO SCH (07:57)
[2017-12-18] MEDS: Omeprazole CAP* 20 MG PO SCH (07:57)
[2017-12-18] MEDS: cefTRIAXone(*) 1 GM in NS 0.9% 50 ML* 50 ML IVPB SCH (07:58)
[2017-12-18] MEDS: Cholecalciferol TAB* 1000 UNITS PO SCH (07:58)
[2017-12-18] MEDS: Insulin GLARGINE(*) 1 UNITS UNIT SUBCUT SCH (08:44)
[2017-12-18] MEDS: Valsartan TAB* 160 MG PO SCH ×2 (08:45→09:11)
--- NOTE | 2017-12-18 10:38 | PN ---
Subjective Date of Service: 12/18/17 Interval History: C/o feeling dizzy this AM. Blood glucose this AM 62. patient received orange juice, did not eat breakfast. 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 Denies denies headache. Denies chest pain or shortness of breath. Denies abd pain n/v/d. Jerald held this AM. Family History: Unchanged from Admission Social History: Unchanged from Admission Past Medical History: Unchanged from Admission Objective Active Medications: Acetaminophen (Tylenol Tab*) 650 mg PO Q6H PRN PRN Reason: pain/fever Last Admin: 12/17/17 21:11 Dose: 650 mg Hydrocodone Bitart/Acetaminophen ([place] 5-325 Tab*) 1 tab PO BID PRN PRN Reason: PAIN Albuterol (Ventolin Hfa Inhaler*) 2 puff INH Q4H PRN PRN Reason: SHORTNESS OF BREATH Aspirin (Aspirin Ec Tab*) 81 mg PO DAILY [facility] Last Admin: 12/18/17 07:57 Dose: 81 mg Carvedilol (Coreg Tab*) 6.25 mg PO BID [facility] Last Admin: 12/18/17 07:57 Dose: 6.25 mg Cholecalciferol (Vitamin D Tab*) 1,000 units PO DAILY [facility] Last Admin: 12/18/17 07:58 Dose: 1,000 units Dextrose (D50w Syringe 50 Ml*) 12.5 gm IV PUSH .FOR FS < 60 - SS PRN PRN Reason: FS < 60 Docusate Sodium (Colace Cap*) 100 mg PO DAILY PRN PRN Reason: CONSTIPATION Duloxetine HCl (Cymbalta Cap*) 60 mg PO QAM [facility] Last Admin: 12/18/17 07:57 Dose: 60 mg Fentanyl (Duragesic Patch 100 Mcg/Hr *) 100 mcg TRANSDERM Q72H [facility] Last Admin: 12/15/17 14:16 Dose: 100 mcg Fluticasone Propionate (Flonase Nasal [place] 50mcg*) 2 spray BOTH NARES DAILY PRN PRN Reason: CONGESTION Gabapentin (Neurontin Cap(*)) 300 mg PO BID [facility] Last Admin: 12/18/17 07:57 Dose: 300 mg Heparin Sodium (Porcine) (Heparin Vial(*)) 5,000 units SUBCUT Q8HR [facility] Last Admin: 12/18/17 05:11 Dose: 5,000 units Ceftriaxone Sodium 1 gm/ (Sodium Chloride) 50 mls @ 200 mls/hr IVPB Q24H [facility] Last Admin: 12/18/17 07:58 Dose: 200 mls/hr Insulin Glargine (Lantus(*)) 60 units SUBCUT DAILY [facility] Insulin Human Lispro (Humalog*) 0 units SUBCUT ACHS [facility]; Protocol Last Admin: 12/18/17 07:55 Dose: Not Given Levothyroxine Sodium (Synthroid Tab*) 50 mcg PO 0600 [facility] Last Admin: 12/18/17 05:11 Dose: 50 mcg Lidocaine HCl (Lidocaine 2% Jelly*) 1 applic TOPICAL DAILY PRN PRN Reason: PAIN Nystatin (Nystatin Top Powder*) 1 applic TOPICAL BID [facility] Last Admin: 12/18/17 07:41 Dose: 1 applic Omeprazole (Prilosec Cap*) 20 mg PO 0730 [facility] Last Admin: 12/18/17 07:57 Dose: 20 mg Pharmacy Profile Note (Fentanyl Patch Check Q Shift) 1 note FOLLOW UP 0700, 1900 [facility] Prochlorperazine Edisylate (Compazine Inj*) 5 mg IV Q6H PRN PRN Reason: NAUSEA/VOMITING Valsartan (Diovan Tab*) 160 mg PO DAILY [facility] Last Admin: 12/18/17 09:11 Dose: 160 mg Vital Signs - 8 hr 12/18/17 12/18/17 12/18/17 03:15 07:19 07:57 Temperature 98.0 F 98.5 F Pulse Rate 61 66 Respiratory 16 20 16 Rate Blood Pressure 97/49 151/81 (mmHg) O2 Sat by Pulse 98 97 Oximetry Oxygen Devices in Use Now: None Appearance: alert, lyingin bed , no acute distress Eyes: No Scleral Icterus Ears/Nose/Mouth/Throat: Clear Oropharnyx, Mucous Membranes Moist Neck: NL Appearance and Movements; NL JVP, Trachea Midline Respiratory: Symmetrical Chest Expansion and Respiratory Effort, Clear to Auscultation Cardiovascular: NL Sounds; No Murmurs; No JVD, No Edema Abdominal: NL Sounds; No Tenderness; No Distention Extremities: No Edema, No Clubbing, Cyanosis Skin: No Rash or Ulcers, No Nodules or Sclerosis Neurological: Alert and Oriented x 3 Nutrition: Taking PO's Result Diagrams: 12/18/17 06:10 12/18/17 06:10 Additional Lab and Data: Lab Results 12/15/17 12/15/17 12/15/17 Range/Units 06:15 06:43 06:43 WBC 15.3 H (3.5-10.8) 10^3/ul RBC 4.29 (4.00-5.40) 10^6/ul Hgb 12.6 (12.0-16.0) g/dl Hct 39 (35-47) % MCV 90 (80-97) fL MCH 29 (27-31) pg MCHC 33 (31-36) g/dl RDW 16 H (10.5-15) % Plt Count 226 (150-450) 10^3/ul MPV 8.1 (7.4-10.4) um3 Neut % (Auto) 84.8 H (38-83) % Lymph % (Auto) 9.1 L (25-47) % Johnston % (Auto) 5.5 (0-7) % Eos % (Auto) 0.1 (0-6) % Baso % (Auto) 0.5 (0-2) % Absolute Neuts (auto) 12.9 H (1.5-7.7) 10^3/ul Absolute Lymphs (auto) 1.4 (1.0-4.8) 10^3/ul Absolute Monos (auto) 0.8 (0-0.8) 10^3/ul Absolute Eos (auto) 0 (0-0.6) 10^3/ul Absolute Basos (auto) 0.1 (0-0.2) 10^3/ul Absolute Nucleated RBC 0 10^3/ul Nucleated RBC % 0 INR (Anticoag Therapy) 1.17 H (0.77-1.02) APTT 31.3 (26.0-36.3) seconds Sodium (135-145) mmol/L Potassium (3.5-5.0) mmol/L Chloride (101-111) mmol/L Carbon Dioxide (22-32) mmol/L Anion Gap (2-11) mmol/L BUN (6-24) mg/dL Creatinine (0.51-0.95) mg/dL Est GFR ( Amer) (>60) Est GFR (Non-Af Amer) (>60) BUN/Creatinine Ratio (8-20) Glucose (70-100) mg/dL Lactic Acid (0.5-2.0) mmol/L Calcium (8.6-10.3) mg/dL Total Bilirubin (0.2-1.0) mg/dL AST (13-39) U/L ALT (7-52) U/L Alkaline Phosphatase (34-104) U/L Troponin I (<0.04) ng/mL C-Reactive Protein (<8.01) mg/L Total Protein (6.4-8.9) g/dL Albumin (3.2-5.2) g/dL Globulin (2-4) g/dL Albumin/Globulin Ratio (1-3) Urine Color Kaitlynn Urine Appearance Turbid Urine pH 7.0 (5-9) Ur Specific [place] 1.014 (1.010-1.030) Urine Protein 2+(100 mg/dl) A (Negative) Urine Ketones Negative (Negative) Urine Blood 2+ A (Negative) Urine Nitrate Positive A (Negative) Urine Bilirubin Negative (Negative) Urine Urobilinogen Negative (Negative) Ur Leukocyte Esterase 3+ A (Negative) Urine WBC (Auto) 3+(>20/hpf) A (Absent) Urine RBC (Auto) 3+(>10/hpf) A (Absent) Ur Squamous Epith Cells Present A (Absent) Ur Transition Epith Cell Present A (Absent) Urine Bacteria Absent (Absent) Urine Glucose 2+(150 mg/dl) A (Negative) 12/15/17 12/15/17 Range/Units 06:43 06:43 WBC (3.5-10.8) 10^3/ul RBC (4.00-5.40) 10^6/ul Hgb (12.0-16.0) g/dl Hct (35-47) % MCV (80-97) fL MCH (27-31) pg MCHC (31-36) g/dl RDW (10.5-15) % Plt Count (150-450) 10^3/ul MPV (7.4-10.4) um3 Neut % (Auto) (38-83) % Lymph % (Auto) (25-47) % [place] % (Auto) (0-7) % Eos % (Auto) (0-6) % Baso % (Auto) (0-2) % Absolute Neuts (auto) (1.5-7.7) 10^3/ul Absolute Lymphs (auto) (1.0-4.8) 10^3/ul Absolute Monos (auto) (0-0.8) 10^3/ul Absolute Eos (auto) (0-0.6) 10^3/ul Absolute Basos (auto) (0-0.2) 10^3/ul Absolute Nucleated RBC 10^3/ul Nucleated RBC % INR (Anticoag Therapy) (0.77-1.02) APTT (26.0-36.3) seconds Sodium 134 L (135-145) mmol/L Potassium 4.3 (3.5-5.0) mmol/L Chloride 97 L (101-111) mmol/L Carbon Dioxide 28 (22-32) mmol/L Anion Gap 9 (2-11) mmol/L BUN 20 (6-24) mg/dL Creatinine 1.39 H (0.51-0.95) mg/dL Est GFR ( Amer) 45.8 (>60) Est GFR (Non-Af Amer) 37.8 (>60) BUN/Creatinine Ratio 14.4 (8-20) Glucose 323 H (70-100) mg/dL Lactic Acid 2.1 H* (0.5-2.0) mmol/L Calcium 9.2 (8.6-10.3) mg/dL Total Bilirubin 0.70 (0.2-1.0) mg/dL AST 16 (13-39) U/L ALT 15 (7-52) U/L Alkaline Phosphatase 83 (34-104) U/L Troponin I 0.02 (<0.04) ng/mL C-Reactive Protein 180.95 H (<8.01) mg/L Total Protein 7.0 (6.4-8.9) g/dL Albumin 3.6 (3.2-5.2) g/dL Globulin 3.4 (2-4) g/dL Albumin/Globulin Ratio 1.1 (1-3) Urine Color Urine Appearance Urine pH (5-9) Ur Specific [place] (1.010-1.030) Urine Protein (Negative) Urine Ketones (Negative) Urine Blood (Negative) Urine Nitrate (Negative) Urine Bilirubin (Negative) Urine Urobilinogen (Negative) Ur Leukocyte Esterase (Negative) Urine WBC (Auto) (Absent) Urine RBC (Auto) (Absent) Ur Squamous Epith Cells (Absent) Ur Transition Epith Cell (Absent) Urine Bacteria (Absent) Urine Glucose (Negative) Microbiology and Other Data: Microbiology 12/15/17 06:43 Aerobic Blood Culture - Preliminary Blood Venous No Growth Day 1 Anaerobic Blood Culture - Preliminary Klebsiella Pneumoniae 12/15/17 06:15 Urine Culture - Final Urine 12/15/17 06:53 Aerobic Blood Culture - Preliminary Blood Venous No Growth Day 1 Anaerobic Blood Culture - Preliminary No Growth Day 1 Assess/Plan/Problems-Billing Assessment: Ms. De La Cruz is a 67yo female with PMH of systolic CHF, scleroderma, DM2, HTN, bladder cancer, recurrent UTIs, and chronic indwelling brito catheter who presents with fatigue and confusion and was found to have sepsis 2/2 UTI. - Patient Problems (1) Sepsis Current Visit: Yes Status: Acute Priority: High Comment: - BC + for Klebsiella - Meeting sepsis criteria on admission, now resolved - 2/2 UTI (2) UTI (urinary tract infection) Current Visit: Yes Status: Acute Priority: High Comment: - Urine culture without growth, but BC + for Klebsiella - Renal US unremarkable - Brito catheter related, present on admission - Bactrim DS 1 tablet daily for 10 days - Then doxycycline 100 mg BID for 6 weeks per ID - fol ey changed - Appreciate ID consult for recurrent UTI (3) DM type 2 (diabetes mellitus, type 2) Current Visit: Yes Status: Chronic Priority: Medium Comment: - Continue lispro SS - Lantus decreased d/t hypoglycemia this morning Blood glucoe 62 - Patient will start decreased home dose of trajeo to 80 units and decrease humalog to 10 units with meals. changes in doesages discussed with the patient and signifcant other - patient was instructed not to take any insulin if blood sugar was less than 100 and to contact her provider for further instructions (4) Dizziness Current Visit: Yes Status: Acute Code(s): R42 - DIZZINESS AND GIDDINESS SNOMED Code(s): 947519034 Comment: - patient reports 2 episode of feeling dizzy this AM - now subsided suspect this could be related to low blood sugar this AM - will repeat blood glucose now - 81 - encourage PO intake - will obtain orthostatics- WNL (5) CKD (chronic kidney disease) stage 3, GFR 30-59 ml/min Current Visit: Yes Status: Chronic Priority: Medium Code(s): N18.3 - CHRONIC KIDNEY DISEASE, STAGE 3 (MODERATE) SNOMED Code(s): 517553077 Comment: - 2/2 DM - Creatinine at baseline (6) Chronic pain Current Visit: Yes Status: Chronic Priority: Medium Code(s): G89.29 - OTHER CHRONIC PAIN SNOMED Code(s): 67992530 Comment: - controlled - Continue fentanyl, gabapentin, norco (7) GERD (gastroesophageal reflux disease) Current Visit: Yes Status: Chronic Priority: Medium Code(s): K21.9 - GASTRO-ESOPHAGEAL REFLUX DISEASE WITHOUT ESOPHAGITIS SNOMED Code(s): 794524654 Comment: - Continue omeprazole (8) Hypertension Current Visit: Yes Status: Chronic Priority: Medium Code(s): I10 - ESSENTIAL (PRIMARY) HYPERTENSION SNOMED Code(s): 54109813 Comment: - Normotensive - Continue valsartan and carvidilol (9) DVT prophylaxis Current Visit: Yes Status: Acute Priority: High Code(s): BBJ8264 - SNOMED Code(s): 950112814 Comment: - Heparin SQ and SCDs (10) Full code status Current Visit: Yes Status: Acute Priority: High Code(s): Z78.9 - OTHER SPECIFIED HEALTH STATUS SNOMED Code(s): 523187612 Status and Disposition: discharge home
[2017-12-18 14:28] VITALS: BP 118/69
[2017-12-18] MEDS: fentaNYL PATCHs 100 MCG/HR TRANSDERM SCH (14:33)
--- NOTE | 2017-12-18 16:34 | CONS ---
CONSULTATION REPORT: DATE OF CONSULT: 12/18/17 REQUESTING PHYSICIAN: Dr. Overton. CONSULTING SERVICE: Infectious Disease. REASON FOR CONSULT: Cath associated urinary tract infection, present on admission. IMPRESSION: 1. Cath associated urinary tract infection due to Klebsiella. The urine culture was negative, but 1 of 4 blood culture bottles growing that organism with no other sign or symptoms on other focus. She has grown Klebsiella a number of times in the urine in the past. She has no abdominal or spine pain and she has no gallbladder, no abdominal pain or transaminitis. Renal ultrasound did not show hydro nephrosis. There was a nonobstructing stone in the right kidney. 2. History of recurrent urinary tract infection before and after placement of chronic Louie catheter . 3. History of bladder cancer treated with BCG and now with urinary retention and chronic Louie. RECOMMENDATIONS: Bactrim double strength 1 tablet a day for 10 more days. We discussed a longer-mayito e oral antibiotic prophylaxis consideration. Given her use of an ARB, I would be concerned about samara g-term Bactrim use and hyperkalemia. Safer option would be doxycycline 100 mg by mouth twice a day, keesha amin I would recommend to see if she can break this cycle of urinary tract infection and prevent hosp italization. HISTORY OF PRESENT ILLNESS: This is a 67-year-old woman with a chronic Louie catheter for the last 3 months for urinary retention. She has had a number of urinary tract infections before placement of the catheter and since. She has been hospitalized 2 or 3 times since last spring. Last organism she grew was Citrobacter, at this time klebsiella in the blood, but not in the urine, though the urinaly sis showed blood, nitrites, leukocyte esterase, and white cells. She was admitted with malaise and l ow energy. Did not have any abdominal pain, back or flank pain. There had apparently been some martinez ges in the urine appearance in the Louie bag. It was last changed 2 to 3 weeks ago. Since she has been here, she has been on ceftriaxone, tolerated that well. Her energy is improving, she has been up and around. PAST MEDICAL HISTORY: 1. Systolic congestive heart failure. 2. Scleroderma. 3. Type 2 diabetes. 4. Hypertension. 5. Hypothyroidism. 6. Pulmonary hypertension. 7. Gastroesophageal reflux disease. 8. Obesity. 9. Bladder cancer, status post surgery and BCG. 10. Recurrent urinary tract infection. 11. Urinary retention, on chronic Louie catheter. 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 13. Anxiety. 14. Partial thyroidectomy. 15. Status post cholecystectomy. 16. Status post tonsillectomy. MEDICATIONS: 1. Tylenol. 2. Albuterol. 3. Aspirin. 4. Coreg. 5. Cholecalciferol. 6. Docusate. 7. Duloxetine. 8. Fentanyl patch. 9. Fluticasone nasal spray. 10. Gabapentin. 11. Heparin subcutaneous injection. 12. Insulin glargine. 13. Insulin lispro. 14. Levothyroxine. 15. Omeprazole. 16. Ceftriaxone 1 g a day. 17. Valsartan. ALLERGIES: IODINE and PREDNISONE. FAMILY HISTORY: No recurrent infections. SOCIAL HISTORY: She lives in [place] with her . She has no travel or sick contact. REVIEW OF SYSTEMS: All negative except as noted above to 14-point review of systems. PHYSICAL EXAM: Vital Signs: Temperature 37, heart rate 80, respiratory rate 20, blood pressure 111/ 60, and oxygen saturation 97% on room air. General: She is awake, not in distress. Neurologic: Sh e is oriented x3, follows all commands. HEENT: There is no conjunctival hemorrhage. Oropharynx with out lesions. Neck is supple without mass. Heart is regular rate and rhythm without murmurs, rubs, o r gallops. Lungs are clear to auscultation bilaterally. Abdomen: Soft, nontender, and nondistended . There is bowel sounds present. Skin: There is no rashes or splinter hemorrhage. Genitourinary: There is a Louie catheter present. LABORATORY DATA: White blood cell count 7, hemoglobin 12, platelets 269. Creatinine is 1.1, potassiu m 4. CRP was 180 on admission. Please see impressions and recommendations as outline above, which I have discussed with Ana Mcgee NP. Thanks for asking me to see Ms. De La Cruz in consultation. [id number]/[facility] #: [id number]
[2017-12-18] MEDS ORDERED: fentaNYL Patch Check Q Shift 1 NOTE FOLLOW UP SCH (19:00)
[2017-12-19] MEDS ORDERED: Insulin GLARGINE(*) 1 UNITS UNIT SUBCUT SCH (09:00)
== END 2017-12-18 18:45 | disposition home or self-care (01) | DRG 698 ==
LOC: ED 05:31 → MED 08:49
PROVIDERS: ADMIT Internal Medicine; ATTEND Internal Medicine
PROC: 0T2BX0Z Change Drainage Device in Bladder, External Approach (ICD-10-PCS; principal; 2017-12-18)
DX: T83.518A Infection and inflammatory reaction due to other urinary catheter, initial encounter (principal); A41.9 Sepsis, unspecified organism; I50.22 Chronic systolic (congestive) heart failure; N39.0 Urinary tract infection, site not specified; I13.0 Hypertensive heart and chronic kidney disease with heart failure and stage 1 through stage 4 chronic kidney disease, or unspecified chronic kidney disease; M34.9 Systemic sclerosis, unspecified; E03.9 Hypothyroidism, unspecified; I27.20 Pulmonary hypertension, unspecified; K21.9 Gastro-esophageal reflux disease without esophagitis; E66.9 Obesity, unspecified; F41.9 Anxiety disorder, unspecified; E11.22 Type 2 diabetes mellitus with diabetic chronic kidney disease; N18.3 Chronic kidney disease, stage 3 (moderate); E11.40 Type 2 diabetes mellitus with diabetic neuropathy, unspecified; K59.00 Constipation, unspecified; E78.00 Pure hypercholesterolemia, unspecified; K44.9 Diaphragmatic hernia without obstruction or gangrene; H91.91 Unspecified hearing loss, right ear; F32.9 Major depressive disorder, single episode, unspecified; F40.240 Claustrophobia; Y73.1 Therapeutic (nonsurgical) and rehabilitative gastroenterology and urology devices associated with adverse incidents; R42 Dizziness and giddiness; G89.29 Other chronic pain; E11.649 Type 2 diabetes mellitus with hypoglycemia without coma; R33.9 Retention of urine, unspecified; Z68.32 Body mass index [BMI] 32.0-32.9, adult; Z85.51 Personal history of malignant neoplasm of bladder; Z87.440 Personal history of urinary (tract) infections; Z85.820 Personal history of malignant melanoma of skin; Z92.3 Personal history of irradiation; Z90.49 Acquired absence of other specified parts of digestive tract; Z88.8 Allergy status to other drugs, medicaments and biological substances; Z82.49 Family history of ischemic heart disease and other diseases of the circulatory system; Z82.5 Family history of asthma and other chronic lower respiratory diseases; Z87.891 Personal history of nicotine dependence; Z87.01 Personal history of pneumonia (recurrent); Z97.4 Presence of external hearing-aid; Y92.9 Unspecified place or not applicable
CPT/HCPCS: 36415; 71046; 76775; 80048; 80053; 81003; 81015; 83605; 84484; 85025; 85610; 85730; 86140; 87040; 87077; 87086; 87186; 87205; 99284; A9270-GY; G8978-GP-CI; G8979-GP-CI; G8980-GP-CI; J0696; J1644

== ENCOUNTER 2018-12-29 19:31 | Inpatient (IN) | payer MEDICARE ==
[2018-12-29 22:01] LABS: ABS Basophils 0.1 10^3/ul (0-0.2); ABS Eosinophils 0.2 10^3/ul (0-0.6); ABS Lymphocytes 1.2 10^3/ul (1.0-4.8); ABS Monocytes 0.7 10^3/ul (0-0.8); ABS Neutrophils 12.8 10^3/ul (1.5-7.7); Eosinophil % 1.5 %; Hematocrit 40 % (35-47); Hemoglobin 13.4 g/dL (12.0-16.0); Lymphocyte % 7.9 %; Mean Corpuscular HGB Conc 33 g/dL (31-36); Mean Corpuscular Hemoglobin 30 pg (27-31); Mean Corpuscular Volume 92 fL (80-97); Mean Platelet Volume 8.4 fL (7.4-10.4); Platelet Count 272 10^3/uL (150-450); Red Cell Distribution Width 15 % (10-15); White Blood Count 15.1 10^3/uL (3.5-10.8)
--- NOTE | 2018-12-29 22:05 | ED ---
Complex/Multi-Sys Presentation - HPI Summary HPI Summary: Patient is a 68 y/o F presenting to [facility] with complaints of productive cough, chest congestion, chills, rhinorrhea for the past ten days. in the room is concerned for possible PNA. Patient's daughter states that one of her own daughters had a severe case of "hand foot and mouth" and believes the patient may have had second-hand exposure of this from the granddaughter's brother. Patient denies chest pain, N/V/D. Patient has been taking NyQuil and Mucinex cold and flu. PMHx of bladder cancer, diabetes, CHF, scleroderma is reported. PSHx of cholecystectomy and thyroidectomy. Vitals in room are pulse 113, o2 94 on RA, BP 143/98. On tank crewmember, nothing is noted to aggravate/alleviate Sx. Home medications and allergies are reviewed. - History Of Current Complaint Chief Complaint: EDFever Time Seen by Provider: 12/29/18 21:14 Hx Obtained From: Patient Onset/Duration: Lasting Days, Still Present Timing: Constant, Days Aggravating Factor(s): nothing Alleviating Factor(s): nothing Associated Signs And Symptoms: Positive: Cough, Other - positive - chest congestion, chills, rhinorrhea. Negative: Chest Pain, Nausea, Vomiting, Diarrhea - Allergies/Home Medications Allergies/Adverse Reactions: Allergies Allergy/AdvReac Type Severity Reaction Status Date / Time povidone-iodine Allergy Intermediate See Comment Verified 12/15/17 05:38 prednisone Allergy Intermediate See Comment Verified 12/15/17 05:38 Home Medications: Home Medications Candesartan (NF) [Atacand (NF)] 32 mg PO DAILY 12/29/18 [History Confirmed 12/29] DULoxetine CAP* [Cymbalta CAP*] 60 mg PO BID 12/29/18 [History Confirmed ] Gabapentin CAP(*) [Neurontin 100 mg CAP(*)] 300 - 400 mg PO BID 12/29/18 [ History Confirmed 12/29/18] Insulin Glargine (Nf) [Toujeo Solostar Pen (NF)] 155 unit SUBCUT DAILY 12/29/18 [History Confirmed 12/29/18] Insulin LISPRO* [HumaLOG*] 20 units SUBCUT TID 12/29/18 [History Confirmed 12/29] PMH/Surg Hx/FS Hx/Imm Hx Previously Healthy: No Endocrine/Hematology History: Reports: Hx Diabetes - Type II, Hx Thyroid Disease , Other Endocrine/Hematological Disorders - non insulin dependent diabetes, scleroderma Denies: Hx Systemic Lupus Erythematosus Cardiovascular History: Reports: Hx Congestive Heart Failure, Hx Hypertension, Other Cardiovascular Problems/Disorders - cardiomyopathy with EF 30% Denies: Hx Hypercholesterolemia Respiratory History: Reports: Hx Pneumonia Denies: Hx Asthma, Hx Chronic Obstructive Pulmonary Disease (COPD), Hx Sleep Apnea, Other Respiratory Problems/Disorders GI History: Reports: Hx Gastroesophageal Reflux Disease, Hx Hiatal Hernia, Other GI Disorders - Hiatial hernia Denies: Hx Ulcer History: Reports: Hx Acute Renal Failure, Other Problems/Disorders - Bladder Cancer, frequent UTI Denies: Hx Dialysis, Hx Renal Disease Musculoskeletal History: Reports: Other Musculoskeletal History - scleraderma Denies: Hx Rheumatoid Arthritis Sensory History: Reports: Hx Contacts or Glasses, Hx Deafness - Right ear, Hx Hearing Aid, Hx Hearing Problem Opthamlomology History: Reports: Hx Contacts or Glasses Neurological History: Reports: Hx Migraine - LAST ONE 1999, Hx Nerve Disease - 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 x 2. eye cancer Hx Chemotherapy: Yes - in past bcg infusion 2007 Hx Radiation Therapy: No Hx Palliative Cancer Treatment: No - Surgical History Surgery Procedure, Year, and Place: Bladder CA x 2, Thyroid, Gall bladder, T&A Hx Anesthesia Reactions: No - Immunization History Date of Tetanus Vaccine: Unk Date of Influenza Vaccine: 12/22 Infectious Disease History: No Infectious Disease History: Denies: Hx Clostridium Difficile, Hx Hepatitis, Hx Human Immunodeficiency Virus (HIV), History Other Infectious Disease, Traveled Outside the [place] in Last 30 Days - Family History Known Family History: Positive: Cardiac Disease - Mother and Father - Social History Alcohol Use: None Hx Substance Use: No Substance Use Type: Reports: None Hx Tobacco Use: Yes - 20 pack year Smoking Status (MU): Former Smoker Amount Used/How Often: 1 PACK/DAY Review of Systems Positive: Chills Positive: Nasal Discharge Negative: Chest Pain Respiratory: Other - positive - chest congestion Positive: Cough Negative: Vomiting, Diarrhea, Nausea All Other Systems Reviewed And Are Negative: Yes Physical Exam - Summary Physical Exam Summary: General: Well-developed, Obese, Mildly ill-appearing female. No acute distress. HEENT: Normocephalic, Atraumatic. Eyes: Conjuctiva normal, PERRL. Ears: TMs within normal limits. Nares: (-) discharge, (-) erythema. Oropharynx: Clear, mucous membranes moist, (-) exudates. Neck: Soft, FROM, (-) lymphadenopathy, (-) thyromegaly, (-) JVD. Cardiovascular: Normal sinus rhythm, (-) murmur. Lungs: (+) Poor air exchange (+) bibasilar crackles (-) wheezes, (-) rales, (-) rhonchi. Abdomen: Soft, non-tender, non-distended, (-) organomegaly, normal bowel sounds. Back: (-) CVA tenderness Extremities: No edema. Skin: Warm, dry, (-) rash. Neuro: Alert and oriented x3, no focal deficits. Psychiatric: Mood normal, affect normal. Triage Information Reviewed: Yes Vital Signs On Initial Exam: Initial Vitals Temp Pulse Resp BP Pulse Ox 99.8 F 120 20 170/139 98 12/29/18 19:36 12/29/18 19:36 12/29/18 19:36 12/29/18 19:36 12/29/18 19:36 Vital Signs Reviewed: Yes Procedures - Sedation Patient Received Moderate/Deep Sedation with Procedure: No Diagnostics - Vital Signs Vital Signs Temp Pulse Resp BP Pulse Ox 12/29/18 19:36 99.8 F 120 20 170/139 98 - Laboratory Result Diagrams: 12/29/18 21:53 12/29/18 21:53 Lab Statement: Any lab studies that have been ordered have been reviewed, and results considered in the medical decision making process. - Radiology CXR Radiology Interpretation Completed By: ED Physician Summary of Radiographic Findings: CXR no acute process, no obvious infiltrate, no pleural effusions, pending official report. - EKG 2122 Cardiac Rate: Tachycardia - rate of 110 BPM EKG Rhythm: Sinus Tachycardia Summary of EKG Findings: EKG showed sinus tachycardia with rate of 110 BPM, no STEMI. This EKG was reviewed and interpreted by Dr. Parnell. Complex Multi-Symp Course/Dx Course Of Treatment: 68-year-old female with bronchitis. Been sick for over 2 weeks. Low-grade temps,elevated white count, elevated lactic antibiotics, steroids, breathing treatments. Referred to hospitali - Diagnoses Provider Diagnoses: Bronchitis - Physician Notifications Discussed Care Of Patient With: Patrice Jimenez Time Discussed With Above Provider: 00:20 Instructed by Provider To: Other - Dr. Jimenez will admit pt once UA is received. Discharge ED - Sign-Out/Discharge Documenting (check all that apply): Patient Departure - admit - Discharge Plan Condition: Stable Disposition: ADMITTED TO [facility] Referrals: Cyndee Dozier MD [Primary Care Provider] - 3 Days Additional Instructions: FOLLOW UP WITH YOUR PRIMARY CARE PHYSICIAN IN 1-3 DAYS. PLEASE RETURN TO ED FOR ANY NEW OR WORSENING SYMPTOMS. - Attestation Statements Document Initiated by Scribe: Yes Documenting Scribe: Carlos Mak Provider For Whom Scribe is Documenting (Include Credential): Dr. Yohana Parnell MD Scribe Attestation: I, Carlos Sepulveda and Ganesh Mak, scribed for Dr. Yohana Parnell MD on 12/30/18 at 0209. Status of Scribe Document: Ready
[2018-12-29 22:09] LABS: INR 0.97 (0.82-1.09)
[2018-12-29 22:18] LABS: Albumin 3.8 g/dL (3.2-5.2); Albumin/Globulin Ratio 1.1 (1-3); BUN/Creatinine Ratio 19.4 (8-20); C Reactive Protein 16.01 mg/L (<8.01); Calcium 9.7 mg/dL (8.6-10.3); EGFR African American 37.4 (>60); EGFR Non-African American 30.9 (>60); Globulin 3.6 g/dL (2-4); Potassium 4.4 mmol/L (3.5-5.0); Total Bilirubin 0.3 mg/dL (0.2-1.0); Total Protein 7.4 g/dL (6.4-8.9)
[2018-12-29 22:20] LABS: Troponin I 0.01 ng/mL (<0.04)
[2018-12-29] MEDS ORDERED: NS 0.9% 1000 ML** 1,000 ML IV ONE (22:45)
[2018-12-29] MEDS ORDERED: methylPREDNISolone 125 MG* 2 ML VIAL IV ONE (23:16)
[2018-12-29] MEDS ORDERED: Piperacillin/Tazobac ADVAN(*) 3.375 GM in NS 0.9% 100 ML* 100 ML IVPB ONE (23:16)
[2018-12-29] MEDS ORDERED: Albuterol/Ipratropium NEB.SOL* Albuterol 2.5 MG/Ipratropium 0.5 MG 3 ML INH ONE (23:17)
[2018-12-29 23:37] LABS: Influenza A Molecular NEGATIVE (Negative); Influenza B Molecular NEGATIVE (Negative)
[2018-12-30 01:01] LABS: Urine Appearance Turbid; Urine Bacteria Absent (Absent); Urine Bilirubin Negative (Negative); Urine Blood 2+ (Negative); Urine Color Yellow; Urine Glucose 3+(>=500 mg/dL) (Negative); Urine Ketones Negative (Negative); Urine Nitrite Positive (Negative); Urine Protein 2+(100 mg/dL) (Negative); Urine Red Blood Cell 3+(>10/hpf) (Absent); Urine Specific Gravity 1.011 (1.010-1.030); Urine Uric Acid Crystals Present (Absent); Urine Urobilinogen Negative (Negative); Urine White Blood Cell 3+(>20/hpf) (Absent)
[2018-12-30] MEDS ORDERED: Albuterol HFA INHALER* 8 gm MDI INH PRN (01:58)
[2018-12-30] MEDS ORDERED: MENTHOL TOPICAL PRN (01:58)
[2018-12-30] MEDS ORDERED: Lidocaine 2% JELLY* 5 ML TUBE LIDO2GEL7 TOPICAL PRN (01:58)
[2018-12-30] MEDS ORDERED: HYDROcodone/ACETAMIN 5-325 MG* 1 TAB PO PRN (01:58)
[2018-12-30] MEDS ORDERED: ZINC OXIDE TOPICAL PRN (01:58)
[2018-12-30] MEDS ORDERED: Fluticasone NASAL SPRAY 50MCG* 16 gm SPRAY BTL BOTH NARES PRN (01:58)
[2018-12-30] MEDS ORDERED: GuaiFENesin DM sugar free* 5 ML UDC PO ONE (02:10)
[2018-12-30] MEDS ORDERED: Zosyn per Pharmacy* NOTE FOLLOW UP SCH (03:00)
[2018-12-30] MEDS: NS 0.9% 1000 ML** 1,000 ML IV SCH (03:41)
[2018-12-30] MEDS: ZOSYN 3.375 GM Q8H per EXTENDED INFUSION IVPB SCH ×6 (03:53→20:39)
--- NOTE | 2018-12-30 05:40 | HP ---
CC: Dr. Cyndee Dozier * ADMISSION HISTORY AND PHYSICAL: DATE OF ADMISSION: 12/30/18 CHIEF COMPLAINT: Fever, chills, and cough. HISTORY OF PRESENT ILLNESS: This is a 68-year-old female with past medical history of systolic CHF; scleroderma, not on any medications; type 2 diabetes; hypertension; hypothyroidism; previous documentation of pulmonary hypertension; gastroesophageal reflux disease; obesity; history of bladder cancer, status post BCG treatment and recurrent UTIs, here due to fever. The patient stated that she was in her usual state of health; however, for the last 10 days she has been having cough, chest congestion, chills, rhinorrhea, and today she was also noted to have fever. The temperature recorded in the ER was, however, only 99.8, but upon arrival, she was tachycardic and met criteria for sepsis based on high white count and tachycardia. So, the ER physician recommended admission. The patient otherwise other than the fever, chills, cough, denies any chest pain, shortness of breath, abdominal pain, nausea, vomiting, or diarrhea. She does have chronic Louie and states that her urine color on the Louie can become cloudy to clear, but she states that is just her normal pattern , some days it is cloudy and some days it is clear, and she did not notice anything much of it this week. Her last Louie change was in November and her next Louie change is not for another week. The patient follows with Dr. Rodriguez who has had multiple cultures done on her but the most recent culture from November 13 being positive for E. coli and Pseudomonas aeruginosa. PAST MEDICAL HISTORY: 1. Systolic congestive heart failure per previous records. Only echocardiogram that is noted is from 2008, which was showing EF of 40% with global hypokinesis. 2. History of scleroderma, currently not taking any medications. 3. History of type 2 diabetes, on insulin now, has been noncompliant. 4. History of hypertension, on multiple BP medications, again noncompliant. 5. History of hypothyroidism, on levothyroxine. 6. Documented history of pulmonary hypertension, although the patient does not know this and I do not see a previous record indicating pulmonary hypertension. 7. History of gastroesophageal reflux disease. 8. History of obesity. 9. History of recurrent UTIs. As mentioned, cultures were positive for E. coli and pseudomonas in November. 10. History of depression and anxiety disorder. 11. Peripheral neuropathy secondary to her scleroderma versus diabetic neuropathy. 12. Chronic kidney disease stage 3. PAST SURGICAL HISTORY: She has had bladder cancer, status post 2 surgeries and BCG treatment; retroorbital melanoma, status post radiation; partial thyroidectomy; cholecystectomy and tonsillectomy. HOME MEDICATIONS: The patient is currently on: 1. Candesartan 32 mg oral daily. 2. Ventolin HFA 2 puffs by inhalation every 4 hours p.r.n. 3. Cymbalta 60 mg p.o. b.i.d. 4. Vitamin D 1000 units oral daily. 5. Coreg 6.25 mg p.o. b.i.d. 6. Gabapentin 300 to 400 mg p.o. b.i.d. 7. Fluticasone 2 sprays both nares daily p.r.n. 8. Colace 100 to 300 mg daily p.r.n. constipation. 9. Toujeo SoloStar 155 units subcutaneous daily. 10. [place] 5/325 mg p.o. b.i.d. 11. Levothyroxine 50 mcg oral daily. 12. Humalog 20 units subcutaneous t.i.d. 13. Omeprazole 20 mg p.o. b.i.d. 14. Menthol ointment topical daily p.r.n. 15. Lidocaine 2% jelly to both legs. 16. Fentanyl topical patch daily. ALLERGIES: The patient is allergic to IODINE and PREDNISONE. FAMILY HISTORY: Mother had a history of heart disease and asthma. Father had a history of coronary artery disease. SOCIAL HISTORY: The patient has approximately [id number] history of smoking, quit many years ago. No other alcohol or drug use. Her Marleen Varela, phone number [phone] is the healthcare proxy. The patient previously signed DNR/DNI according to the scan records and does state that she is DNR/DNI; however, does not want to sign a fresh MOLST form until she speaks to her . REVIEW OF SYSTEMS: A 14-point review of systems did not reveal any new information other than what is mentioned in the HPI. PHYSICAL EXAMINATION GENERAL: The patient is awake, alert, and oriented x3, does not appear to be in any acute respiratory distress. VITAL SIGNS: T-max was noted to be 99.8; heart rate initially was noted to be 111 on arrival, improved to 98; respiration rate 18; saturating 96% on room air ; BP was noted to be 135/95. HEAD AND NECK: Atraumatic, normocephalic. Bilateral pupils are reactive. Oral mucosa was moist. NECK: Supple. No jugular venous distention. LUNGS: Clear to auscultation bilaterally. No wheezing, rhonchi, or rales. HEART: S1, S2. Regular rate and rhythm. ABDOMEN: Soft, nontender, nondistended. EXTREMITIES: No cyanosis, clubbing, or edema. DIAGNOSTIC STUDIES/LAB DATA: Labs show elevated white count of 15.1. Hemoglobin, hematocrit, and platelet were within normal limits. Coagulation profile: INR of 0.97. Comprehensive metabolic panel showed elevated BUN of 32 , creatinine elevated at 1.65, which is her baseline. Random glucose was noted to be elevated at 398. Lactic acid elevated at 2.5. C-reactive protein elevated at 16.01. Urinalysis was positive for nitrites and leuk esterase and some yeast felt present as well. Influenza A and B were both noted to be negative. Chest x-ray PA and lateral was noted to be clear without any evidence of any cardiopulmonary disease, no infiltrate suggestive of pneumonia, official read by radiologist is still pending. EKG shows sinus tachycardia with heart rate of 110, left bundle-branch block, which was likely present in a previous EKG as well and without any obvious ST elevation. IMPRESSION: This is a 68-year-old female here with fever, chills, and cough, was noted to have elevated white count, lactic acidosis, and tachycardia, meeting criteria for sepsis. Source is likely urinary tract infection given the chest x- ray to my eye seems normal. ASSESSMENT: 1. Sepsis secondary to urinary tract infection, noted to have some cough and could be postnasal drip versus some viral etiology. We will start the patient on Zosyn started in the emergency room to cover for the 2 species of bacteria grown in the urine including Escherichia coli and pseudomonas, which were both sensitive. We will follow up cultures of sputum and blood and titrate antibiotics accordingly. 2. History of hypertension. Restart home medications with holding parameters. 3. History of gastroesophageal reflux disease. Restart PPI. 4. History of type 2 diabetes. Restart insulin and monitor fingersticks. 5. History of hypothyroidism. Restart levothyroxine. 6. History of anxiety and depression. Restart home medications. 7. History of congestive heart failure. We will monitor for any congestive heart failure. 8. DVT prophylaxis with sequential compression device. 9. Code status. The patient states that she is DNR/DNI but does not wish to resign the paper work until in the morning. We will reassess code status again in the morning once her is also present in the room. Her is the surrogate decision maker. [id number]/[facility] #: [id number] ANA
[2018-12-30] MEDS: Levothyroxine TAB* 50 MCG TAB PO SCH (05:57)
[2018-12-30] MEDS ORDERED: Insulin GLARGINE(*) 1 UNITS UNIT SUBCUT SCH (09:00)
[2018-12-30] MEDS: Insulin LISPRO* 1 UNITS UNIT SUBCUT SCH ×3 (09:31→19:33)
[2018-12-30] MEDS: Gabapentin CAP(*) 300 MG PO SCH ×2 (09:53→20:38)
[2018-12-30] MEDS: Valsartan TAB* 160 MG PO SCH (09:53)
[2018-12-30] MEDS: Cholecalciferol TAB* 1000 UNITS PO SCH (09:54)
[2018-12-30] MEDS: DULoxetine DR CAP* 60 MG CAP.DR PO SCH ×2 (09:54→20:38)
[2018-12-30] MEDS: Carvedilol TAB* 6.25 MG PO SCH ×2 (09:55→20:38)
[2018-12-30] MEDS: GuaiFENesin DM sugar free* 5 ML UDC PO PRN (09:55)
[2018-12-30] MEDS: Pantoprazole TAB * 40 MG TAB PO SCH ×2 (09:55→20:38)
--- NOTE | 2018-12-30 11:24 | PN ---
Subjective Date of Service: 12/30/18 Interval History: Ms. De La Cruz states she is feeling better today. She feels breathing, SOB, cough , chest congestion, nasal congestion have all improved, although she continues to have a cough which she has had for appx 1 week. She denies PND. She denies suprapubic, flank pain. She has had a brito for approximately 1 year; this was changed in the ER yesterday. She follows with Dr. Rodriguez outpatient; she was seen end of November, has another appointment in Jan. No other complaints today. Objective Active Medications: Hydrocodone Bitart/Acetaminophen ([place] 5-325 Tab*) 1 tab PO BID PRN Albuterol (Ventolin Hfa Inhaler*) 2 puff INH Q4H PRN Carvedilol (Coreg Tab*) 6.25 mg PO BID [facility] Cholecalciferol (Vitamin D Tab*) 1,000 units PO DAILY [facility] Docusate Sodium (Colace Cap*) 100 mg PO DAILY PRN Duloxetine HCl (Cymbalta Cap*) 60 mg PO BID [facility] Fluticasone Propionate (Flonase Nasal [place] 50mcg*) 2 spray BOTH NARES DAILY PRN Gabapentin (Neurontin Cap(*)) 300 mg PO BID [facility] Guaifenesin/Dextromethorphan (Robitussin Dm Sugar Free*) 5 ml PO Q4H PRN Sodium Chloride (Ns 0.9% 1000 Ml) 1,000 mls @ 75 mls/hr IV PER RATE [facility] Piperacillin Sod/Tazobactam (Sod 3.375 gm/ Sodium Chloride) 100 mls @ 25 mls/ hr IVPB Q8H [facility] Insulin Glargine (Lantus(*)) 124 units SUBCUT DAILY [facility] Insulin Human Lispro (Humalog*) 20 units SUBCUT TID WITH MEALS [facility] Levothyroxine Sodium (Synthroid Tab*) 50 mcg PO 0600 [facility] Lidocaine HCl (Lidocaine 2% Jelly*) 1 applic TOPICAL DAILY PRN Nft: Menthol/Zinc Oxide [Calmoseptine Ointment] 1 Oin) 1 oin TOPICAL DAILY PRN Pantoprazole Sodium (Protonix Tab*) 40 mg PO BID [facility] Pharmacy Consult (Zosyn Per Pharmacy*) 1 note FOLLOW UP .ZOSYN PER PHARMACY [facility] Valsartan (Diovan Tab*) 160 mg PO DAILY [facility]; Protocol Vital Signs: Temp Pulse Resp BP Pulse Ox 98.3 F 92 20 150/74 97 12/30/18 02:37 12/30/18 02:37 12/30/18 09:53 12/30/18 02:37 12/30/18 02:37 Oxygen Devices in Use Now: None Appearance: Pt is older white female, appears somewhat older than stated age. Laying in bed comfortably, in no acute distress. Eyes: No Scleral Icterus, PERRLA Ears/Nose/Mouth/Throat: NL Teeth, Lips, Gums, Mucous Membranes Moist, - - Tongue obscures posterior pharynx Neck: NL Appearance and Movements; NL JVP, Trachea Midline Respiratory: Symmetrical Chest Expansion and Respiratory Effort, - - Intermittent end expiratory wheezing thoughout b/l lungs Cardiovascular: NL Sounds; No Murmurs; No JVD, RRR, No Edema Abdominal: NL Sounds; No Tenderness; No Distention, No Hepatosplenomegaly, - - Without suprapubic, CVA tenderness Extremities: No Edema, No Clubbing, Cyanosis Neurological: Alert and Oriented x 3, NL Muscle Strength and Tone, - - CN II- XII grossly intact. Result Diagrams: 12/29/18 21:53 12/30/18 16:40 Microbiology and Other Data: Microbiology 12/29/18 21:53 Anaerobic Blood Culture - Preliminary Blood Venous 12/29/18 21:53 Anaerobic Blood Culture - Preliminary Blood Venous Assess/Plan/Problems-Billing Assessment: 68yof PMHx systolic HF, DM II, HTN, CKD III, chronic brito x1 year who presents to [facility] with fever, chills, cough, and is found to meet sepsis criteria with likely urinary source. - Patient Problems (1) Diabetic ketoacidosis Comment: -Pt with BS >600, very mild gap -IVF bolus of 2L over 2h then mantainance fluids and transition to D5 NS once BS < 150-200 -R insulin 8U bolus, then drip -Monitor BMP q4h; replace K as needed (2) Sepsis Comment: -tachy, leukocytosis, lactic acidosis -lactic acidosis resolved with IVF; tachycardia resolved -continue zosyn (3) UTI (urinary tract infection) Comment: -UA shows 3+ LE, + nitrates -h/o recurrent UTIs; past cx show klebsiella, E. coli, susceptible to zosyn -continue zosyn (4) Bacteremia Comment: -3/4 bottles with GN bacilli -likely r/t UTI -zosyn -ID consulted, notified (5) DM type 2 (diabetes mellitus, type 2) Comment: -BS elevated, requiring insulin drip -home lantus 155u daily; will change to 70 BID after drip d/c -will resume lispro ss once drip d/c'd (6) Systolic heart failure Comment: -carvedilol, valsartan (7) Hypertension Comment: -SBP 130's -Continue valsartan and carvidilol (8) CKD (chronic kidney disease), stage III Comment: -at baseline -continue to monitor (9) GERD (gastroesophageal reflux disease) Comment: -Pantoprazole (10) Hypothyroidism Comment: -Continue levothyroxine (11) Anxiety and depression Comment: -Duloxetine (12) DVT prophylaxis Comment: -SCDs (13) DNR (do not resuscitate) Comment: -Pt requests DNR, DNI, but no paperwork completed, as she is waiting for partner to fill out with her Status and Disposition: Inpatient. Discharge when stable.
[2018-12-30] MEDS ORDERED: Dextrose 50% VIAL 50 ml IV PUSH PRN (12:44)
[2018-12-30] MEDS ORDERED: Insulin LISPRO* 1 UNITS UNIT SUBCUT ONE (12:44)
[2018-12-30] MEDS: fentaNYL PATCHs 100 MCG/HR TRANSDERM SCH (13:19)
[2018-12-30 17:51] LABS: Calcium 9.5 mg/dL (8.6-10.3); EGFR African American 34.1 (>60); EGFR Non-African American 28.2 (>60); Potassium 4.4 mmol/L (3.5-5.0)
[2018-12-30] MEDS ORDERED: NS 0.9% 1000 ML** 2,000 ML IV ONE (18:20)
[2018-12-30] MEDS ORDERED: Potassium Chlor TAB* 20 MEQ TAB.ER PO ONE (18:20)
[2018-12-30] MEDS ORDERED: Insulin REGULAR(*) 1 UNITS UNIT IV PUSH ONE (18:23)
[2018-12-30] MEDS ORDERED: Insulin Infusion 100unit/100mL 100 UNITS/100 ML UNIT IV SCH ×2 (19:00→22:00)
[2018-12-30] MEDS: fentaNYL Patch Check Q Shift 1 NOTE FOLLOW UP SCH (20:28)
[2018-12-30 21:32] LABS: BUN/Creatinine Ratio 18.8 (8-20); EGFR African American 33.6 (>60); EGFR Non-African American 27.8 (>60); Potassium 4.8 mmol/L (3.5-5.0)
[2018-12-31 01:39] LABS: BUN/Creatinine Ratio 18.2 (8-20); Calcium 8.4 mg/dL (8.6-10.3); EGFR African American 36.2 (>60); EGFR Non-African American 29.9 (>60); Potassium 4.8 mmol/L (3.5-5.0)
[2018-12-31] MEDS: ZOSYN 3.375 GM Q8H per EXTENDED INFUSION IVPB SCH ×2 (04:06)
[2018-12-31] MEDS: Insulin GLARGINE(*) 1 UNITS UNIT SUBCUT SCH ×2 (05:15→21:27)
[2018-12-31] MEDS: Levothyroxine TAB* 50 MCG TAB PO SCH (05:15)
[2018-12-31 06:54] LABS: ABS Lymphocytes 1.8 10^3/ul (1.0-4.8); ABS Monocytes 1.4 10^3/ul (0-0.8); ABS Neutrophils 18.3 10^3/ul (1.5-7.7); Eosinophil % 0.1 %; Hematocrit 32 % (35-47); Hemoglobin 10.7 g/dL (12.0-16.0); Lymphocyte % 8.6 %; Mean Corpuscular HGB Conc 33 g/dL (31-36); Mean Corpuscular Hemoglobin 31 pg (27-31); Mean Corpuscular Volume 92 fL (80-97); Mean Platelet Volume 8.4 fL (7.4-10.4); Platelet Count 236 10^3/uL (150-450); Red Cell Distribution Width 15 % (10-15); White Blood Count 21.6 10^3/uL (3.5-10.8)
[2018-12-31 07:09] LABS: BUN/Creatinine Ratio 18.5 (8-20); Calcium 8.5 mg/dL (8.6-10.3); EGFR African American 35.4 (>60); EGFR Non-African American 29.3 (>60)
[2018-12-31 07:33] LABS: Potassium 5.7 mmol/L (3.5-5.0)
[2018-12-31] MEDS ORDERED: Dextrose 50% VIAL 50 ml IV PUSH PRN (08:17)
[2018-12-31] MEDS: Pantoprazole TAB * 40 MG TAB PO SCH ×2 (08:43→21:26)
[2018-12-31] MEDS: Cholecalciferol TAB* 1000 UNITS PO SCH (08:43)
[2018-12-31] MEDS: Gabapentin CAP(*) 300 MG PO SCH ×2 (08:43→21:26)
[2018-12-31] MEDS: Patiromer POWDER* 8.4 GM PAK PO SCH (08:45)
[2018-12-31] MEDS ORDERED: Insulin GLARGINE(*) 1 UNITS UNIT SUBCUT SCH (09:00)
[2018-12-31 10:37] LABS: BUN/Creatinine Ratio 18.8 (8-20); Calcium 8.4 mg/dL (8.6-10.3); EGFR African American 37.4 (>60); EGFR Non-African American 30.9 (>60); Potassium 4.8 mmol/L (3.5-5.0)
[2018-12-31] MEDS: Carvedilol TAB* 6.25 MG PO SCH ×2 (11:45→21:26)
--- NOTE | 2018-12-31 11:53 | PN ---
Subjective Date of Service: 12/31/18 Interval History: Ms. De La Cruz states she is tired today. She c/o non-productive, loose cough and fatigue. Denies SOB, but is requiring supplemental O2; denies dizziness, lightheadedness. No other complaints today. Objective Active Medications: Hydrocodone Bitart/Acetaminophen ([place] 5-325 Tab*) 1 tab PO BID PRN PRN Reason: PAIN Last Admin: 12/30/18 11:40 Dose: 1 tab Albuterol (Ventolin Hfa Inhaler*) 2 puff INH Q4H PRN PRN Reason: SHORTNESS OF BREATH Carvedilol (Coreg Tab*) 6.25 mg PO BID [facility] Last Admin: 12/31/18 11:45 Dose: Not Given Cholecalciferol (Vitamin D Tab*) 1,000 units PO DAILY [facility] Last Admin: 12/31/18 08:43 Dose: 1,000 units Dextrose (Dextrose 50% Vial 50 Ml*) 25 ml IV PUSH .FOR FS < 60 - SS PRN PRN Reason: FS < 60 Docusate Sodium (Colace Cap*) 100 mg PO DAILY PRN PRN Reason: CONSTIPATION Duloxetine HCl (Cymbalta Cap*) 60 mg PO BID [facility] Last Admin: 12/30/18 20:38 Dose: 60 mg Fentanyl (Duragesic Patch 100 Mcg/Hr *) 100 mcg TRANSDERM Q72H [facility] Last Admin: 12/30/18 13:19 Dose: 100 mcg Fluticasone Propionate (Flonase Nasal [place] 50mcg*) 2 spray BOTH NARES DAILY PRN PRN Reason: CONGESTION Gabapentin (Neurontin Cap(*)) 300 mg PO BID [facility] Last Admin: 12/31/18 08:43 Dose: 300 mg Guaifenesin/Dextromethorphan (Robitussin Dm Sugar Free*) 5 ml PO Q4H PRN PRN Reason: COUGH Last Admin: 12/30/18 09:55 Dose: 5 ml Sodium Chloride (Ns 0.9% 1000 Ml) 1,000 mls @ 75 mls/hr IV PER RATE [facility] Last Admin: 12/30/18 03:41 Dose: 75 mls/hr Ceftriaxone Sodium 1 gm/ (Sodium Chloride) 50 mls @ 100 mls/hr IVPB Q24H [facility] Insulin Glargine (Lantus(*)) 70 units SUBCUT BID [facility] Last Admin: 12/31/18 05:15 Dose: 70 unit Insulin Human Lispro (Humalog*) 0 units SUBCUT AC [facility]; Protocol Levothyroxine Sodium (Synthroid Tab*) 50 mcg PO 0600 [facility] Last Admin: 12/31/18 05:15 Dose: 50 mcg Lidocaine HCl (Lidocaine 2% Jelly*) 1 applic TOPICAL DAILY PRN PRN Reason: PAIN Nft: Menthol/Zinc Oxide [Calmoseptine Ointment] 1 Oin) 1 oin TOPICAL DAILY PRN PRN Reason: RASH Pantoprazole Sodium (Protonix Tab*) 40 mg PO BID [facility] Last Admin: 12/31/18 08:43 Dose: 40 mg Patiromer (Veltassa Powder*) 8.4 gm PO DAILY [facility] Last Admin: 12/31/18 08:45 Dose: 8.4 gm Pharmacy Profile Note (Fentanyl Patch Check Q Shift) 1 note FOLLOW UP 0700, 1900 [facility] Last Admin: 12/30/18 20:28 Dose: 1 note Valsartan (Diovan Tab*) 160 mg PO DAILY [facility]; Protocol Last Admin: 12/30/18 09:53 Dose: 160 mg Vital Signs: Temp Pulse Resp BP Pulse Ox 98.2 F 94 20 94/68 92 12/31/18 15:13 12/31/18 14:55 12/31/18 14:55 12/31/18 15:13 12/31/18 14:55 Oxygen Devices in Use Now: Nasal Cannula Appearance: Pt is middle-aged white female who is sitting up in bed. She appears fatigued, but in no acute distress. Eyes: No Scleral Icterus, PERRLA Ears/Nose/Mouth/Throat: NL Teeth, Lips, Gums, Clear Oropharnyx, - - Dry oral mucosa Neck: NL Appearance and Movements; NL JVP, Trachea Midline Respiratory: Symmetrical Chest Expansion and Respiratory Effort, Clear to Auscultation Cardiovascular: NL Sounds; No Murmurs; No JVD, RRR, No Edema Abdominal: NL Sounds; No Tenderness; No Distention, No Hepatosplenomegaly, - - No CVA, suprapubic tenderness. Extremities: No Edema, No Clubbing, Cyanosis Neurological: Alert and Oriented x 3 Result Diagrams: 12/31/18 06:30 12/31/18 15:51 Microbiology and Other Data: Microbiology 12/29/18 21:53 Anaerobic Blood Culture - Preliminary Blood Venous 12/29/18 21:53 Anaerobic Blood Culture - Preliminary Blood Venous Assess/Plan/Problems-Billing Assessment: 68yof PMHx systolic HF, DM II, HTN, CKD III, chronic brito x1 year who presents to [facility] with fever, chills, cough, and is found to meet sepsis criteria with likely urinary source. - Patient Problems (1) Bacteremia Comment: -3/4 bottles with E. coli -UC shows E. coli -zosyn -ID consulting (2) UTI (urinary tract infection) Comment: -UA shows 3+ LE, + nitrates; UC positive for E. coli -h/o recurrent UTIs; past cx show klebsiella, E. coli, susceptible to zosyn -continue zosyn -ID following (3) Sepsis Comment: -tachy, leukocytosis, lactic acidosis -lactic acidosis resolved with IVF; tachycardia resolved -UA positive for UTI; UC with E. coli identified -BC positive for GN bacilli- E. coli identified -continue zosyn (4) Diabetic ketoacidosis Comment: -Resolved; insulin drip d/c at 0530 -Pt with BS >600, very mild gap -IVF bolus of 2L over 2h then mantainance fluids and transition to D5 NS once BS < 150-200 -R insulin 8U bolus, then drip -Monitor BMP q4h; replace K as needed (5) DM type 2 (diabetes mellitus, type 2) Comment: -pt with elevated BG and mild gap at admission; treated with insulin drip -home lantus 155u daily; will divide to 70 BID starting at 0500 today -resume lispro ss (6) Systolic heart failure Comment: -EF 40% -carvedilol -hold vasartan -d/c IVF (7) Hypertension Comment: -SBP 90-110's -carvidilol with hold parameters -hold vasartan (8) CKD (chronic kidney disease), stage III Comment: -at baseline -continue to monitor (9) GERD (gastroesophageal reflux disease) Comment: -Pantoprazole (10) Hypothyroidism Comment: -Continue levothyroxine (11) Anxiety and depression Comment: -Duloxetine (12) DVT prophylaxis Comment: -SCDs (13) DNR (do not resuscitate) Comment: -Pt requests DNR, DNI, but no paperwork completed, as she is waiting for partner to fill out with her Status and Disposition: Inpatient. Discharge when stable.
[2018-12-31] MEDS: Valsartan TAB* 160 MG PO SCH (12:08)
[2018-12-31] MEDS: DULoxetine DR CAP* 60 MG CAP.DR PO SCH ×2 (12:08→22:07)
[2018-12-31] MEDS: fentaNYL Patch Check Q Shift 1 NOTE FOLLOW UP SCH ×2 (12:15→19:12)
--- NOTE | 2018-12-31 12:18 | CONS ---
CONSULTATION REPORT: DATE OF CONSULT: 12/31/18 REQUESTING PHYSICIAN: [place] Price CONSULTING SERVICE: Infectious Disease. REASON FOR CONSULT: Urinary tract infection with bacteremia. IMPRESSION: 1. Chronic Louie catheter now with a community-acquired catheter associated urinary tract infection with bacteremia due to Escherichia coli. 2. History of bladder cancer treated with BCG complicated by ureteral reflux, treated with a chronic Louie with improvement in her frequency of urinary tract infection. 3. Scleroderma with a history of pulmonary hypertension. 4. Type 2 diabetes. 5. Neuropathy. 6. Chronic kidney disease, stage 3. RECOMMENDATIONS: Stop Zosyn, start ceftriaxone to which the isolate is sensitive. We will recheck the blood cultures tomorrow and obtain an ultrasound of the kidney and bladder to make sure there is no hydronephrosis or stone disease. HISTORY OF PRESENT ILLNESS: This is a 68-year-old woman with scleroderma, chronic Louie catheter, admitted with fever and rigors. She had been ill for about a week. She thought initially due to upper respiratory infection that she had gotten from her granddaughter, she initially had sore throat, runny nose, and malaise with intermittently productive cough. Her symptoms progressed though and all of a sudden got worse over the last couple of days with fever, shaking chills, and sweats with decreased appetite. Because of those symptoms, she came to the hospital overnight last night. White count was 15,000. She was febrile at 37.9 degrees. She was treated for hyperglycemic hyperosmolar state with insulin infusion which is off this morning. Today she denies any flank or suprapubic pain. Her Louie catheter was changed yesterday when she came to the ER. Her CRP was 16 on 12/29/18, overnight. Blood cultures taken on admission 3 out of 4 bottles are growing E. coli. The urine culture is still pending. Urinalysis showed protein, blood, nitrites, leukocyte esterase, and white cells. Influenza PCR was negative. She has had no fever since admission. PAST MEDICAL HISTORY: 1. Scleroderma with history of pulmonary hypertension. 2. Diabetes with peripheral neuropathy. 3. Stage 3 chronic kidney disease. 4. Systolic congestive heart failure. 5. Hypertension. 6. Hypothyroidism. 7. Gastroesophageal reflux disease. 8. Obesity. 9. History of recurrent urinary tract infection. 10. Bladder cancer treated with BCG and transurethral resection of bladder tumor complicated by ureteral reflux, treated with a chronic Louie catheter. 11. Retroorbital melanoma, treated with radiation. 12. Status post partial thyroidectomy. 13. Status post cholecystectomy. 14. Status post tonsillectomy and adenoidectomy. MEDICATIONS: 1. Coreg. 2. Cholecalciferol. 3. Docusate. 4. Duloxetine twice a day. 5. Fentanyl patch. 6. Fluticasone nasal spray. 7. Gabapentin. 8. Guaifenesin as needed. 9. Hydrocodone as needed. 10. Insulin glargine. 11. Insulin lispro. 12. Insulin regular. 13. Levothyroxine. 14. Pantoprazole. 15. Patiromer. 16. Zosyn 3.375 mg every 8 hours. 17. Valsartan. ALLERGIES: IODINE and PREDNISONE. FAMILY HISTORY: Mother had heart disease and asthma. Father had coronary artery disease. SOCIAL HISTORY: She is a past smoker. No alcohol use. She does watch her granddaughter sometimes. REVIEW OF SYSTEMS: All negative except as noted above to a 14-point review of systems. PHYSICAL EXAM: Vital Signs: Temperature 36.2, heart rate 90, respiratory rate 17, blood pressure 114/98, oxygen saturation 98% on 2 L via nasal cannula. General: She is awake, not in distress. Neurologic: She is oriented x3, follows all commands. Moves all extremities. Sensation is absent to light touch in both feet. HEENT: There is no conjunctival hemorrhage. Oropharynx without lesions. Neck: Supple without mass. Heart: Regular rate and rhythm without murmurs, rubs, or gallops. Lungs are clear to auscultation bilaterally. Abdomen: Soft, nontender, and nondistended. There is no flank tenderness or suprapubic tenderness to palpation. Skin: There is no rash or splinter hemorrhage. Musculoskeletal: There is no spinous tenderness to palpation. Genitourinary: There is a Louie catheter present, clear urine. DIAGNOSTIC STUDIES/LAB DATA: White blood cell count 21, hemoglobin 10, platelets 236, creatinine is 1.6, potassium 4.8. Please see impression and recommendations outlined above. Thank you for asking me to see Ms. De La Cruz in consultation. [id number]/[facility] #: [id number] [facility]
[2018-12-31] MEDS: cefTRIAXone(*) 1 GM in NS 0.9% 50 ML* 50 ML IVPB SCH (12:22)
[2018-12-31] MEDS: Insulin LISPRO* 1 UNITS UNIT SUBCUT SCH ×3 (12:36→16:59)
[2018-12-31] MEDS: NS 0.9% 1000 ML** 1,000 ML IV SCH (15:21)
[2018-12-31 16:34] LABS: BUN/Creatinine Ratio 18.2 (8-20); Calcium 8.7 mg/dL (8.6-10.3); EGFR African American 33.6 (>60); EGFR Non-African American 27.8 (>60); Potassium 4.8 mmol/L (3.5-5.0)
[2019-01-01] MEDS: Levothyroxine TAB* 50 MCG TAB PO SCH (06:14)
[2019-01-01 06:17] LABS: ABS Basophils 0.1 10^3/ul (0-0.2); ABS Eosinophils 0.2 10^3/ul (0-0.6); ABS Lymphocytes 2.3 10^3/ul (1.0-4.8); ABS Monocytes 0.9 10^3/ul (0-0.8); ABS Neutrophils 10.7 10^3/ul (1.5-7.7); Eosinophil % 1.7 %; Hematocrit 32 % (35-47); Hemoglobin 10.4 g/dL (12.0-16.0); Lymphocyte % 16.3 %; Mean Corpuscular HGB Conc 33 g/dL (31-36); Mean Corpuscular Hemoglobin 31 pg (27-31); Mean Corpuscular Volume 93 fL (80-97); Mean Platelet Volume 8.1 fL (7.4-10.4); Platelet Count 229 10^3/uL (150-450); Red Blood Count 3.38 10^6 /uL (3.70-4.87); Red Cell Distribution Width 16 % (10-15); White Blood Count 14.1 10^3/uL (3.5-10.8)
[2019-01-01 06:37] LABS: BUN/Creatinine Ratio 18.9 (8-20); Calcium 8.7 mg/dL (8.6-10.3); EGFR African American 32.8 (>60); EGFR Non-African American 27.1 (>60); Potassium 4.7 mmol/L (3.5-5.0)
[2019-01-01] MEDS: fentaNYL Patch Check Q Shift 1 NOTE FOLLOW UP SCH ×2 (07:27→18:47)
[2019-01-01] MEDS: Patiromer POWDER* 8.4 GM PAK PO SCH (09:16)
[2019-01-01] MEDS: Gabapentin CAP(*) 300 MG PO SCH ×2 (09:16→22:06)
[2019-01-01] MEDS: DULoxetine DR CAP* 60 MG CAP.DR PO SCH ×2 (09:16→22:06)
[2019-01-01] MEDS: Cholecalciferol TAB* 1000 UNITS PO SCH (09:16)
[2019-01-01] MEDS: Pantoprazole TAB * 40 MG TAB PO SCH ×2 (09:16→22:06)
[2019-01-01] MEDS: Insulin GLARGINE(*) 1 UNITS UNIT SUBCUT SCH ×2 (09:18→22:09)
[2019-01-01] MEDS: Insulin LISPRO* 1 UNITS UNIT SUBCUT SCH ×3 (09:18→17:28)
[2019-01-01] MEDS: Carvedilol TAB* 6.25 MG PO SCH ×2 (09:20→22:06)
--- NOTE | 2019-01-01 12:02 | PN ---
Progress Note - Progress Note Date of Service: 01/01/19 SOAP: Subjective: CC: bacteremia HPI: 68 year old woman with chronic brito catheter and fever and rigors found to have Ecoli UTI and bacteremia. She has no fever, rash, or diarrhea and is feeling a little more like herself. Objective: Vital Signs Temp 36.6 C 01/01/19 07:40 Pulse 86 01/01/19 07:40 Resp 18 01/01/19 11:20 BP 94/69 01/01/19 07:40 Pulse Ox 95 01/01/19 07:40 Intake & Output 12/31/18 01/01/19 01/01/19 18:59 06:59 18:59 Intake Total 360 240 Output Total 310 400 Balance 50 -400 240 Intake: Oral 360 240 Output: Urine 0 Brito 310 400 Gen:awake, no distress HEENT: no thrush Heart:RRR no murmur Lungs:CTA BL Abd:+BS NTND soft, no flank tenderness Skin: no rash MSK: no joint synovitis Laboratory Results - last 24 hr 12/31/18 12/31/18 12/31/18 12:21 15:51 16:11 WBC RBC Hgb Hct MCV MCH MCHC RDW Plt Count MPV Neut % (Auto) Lymph % (Auto) Branch % (Auto) Eos % (Auto) Baso % (Auto) Absolute Neuts (auto) Absolute Lymphs (auto) Absolute Monos (auto) Absolute Eos (auto) Absolute Basos (auto) Absolute Nucleated RBC Nucleated RBC % Sodium 137 Potassium 4.8 Chloride 109 Carbon Dioxide 23 Anion Gap 5 BUN 33 H Creatinine 1.81 H Est GFR ( Amer) 33.6 Est GFR (Non-Af Amer) 27.8 BUN/Creatinine Ratio 18.2 Glucose 131 H POC Glucose (mg/dL) 249 H 129 H Calcium 8.7 12/31/18 12/31/18 01/01/19 20:56 23:50 04:19 WBC RBC Hgb Hct MCV MCH MCHC RDW Plt Count MPV Neut % (Auto) Lymph % (Auto) Branch % (Auto) Eos % (Auto) Baso % (Auto) Absolute Neuts (auto) Absolute Lymphs (auto) Absolute Monos (auto) Absolute Eos (auto) Absolute Basos (auto) Absolute Nucleated RBC Nucleated RBC % Sodium Potassium Chloride Carbon Dioxide Anion Gap BUN Creatinine Est GFR ( Amer) Est GFR (Non-Af Amer) BUN/Creatinine Ratio Glucose POC Glucose (mg/dL) 149 H 198 H 147 H Calcium 01/01/19 01/01/19 01/01/19 05:43 05:43 08:01 WBC 14.1 H RBC 3.38 L Hgb 10.4 L Hct 32 L MCV 93 MCH 31 MCHC 33 RDW 16 H Plt Count 229 MPV 8.1 Neut % (Auto) 75.3 Lymph % (Auto) 16.3 Branch % (Auto) 6.2 Eos % (Auto) 1.7 Baso % (Auto) 0.5 Absolute Neuts (auto) 10.7 H Absolute Lymphs (auto) 2.3 Absolute Monos (auto) 0.9 H Absolute Eos (auto) 0.2 Absolute Basos (auto) 0.1 Absolute Nucleated RBC 0.0 Nucleated RBC % 0.0 Sodium 137 Potassium 4.7 Chloride 110 Carbon Dioxide 23 Anion Gap 4 BUN 35 H Creatinine 1.85 H Est GFR ( Amer) 32.8 Est GFR (Non-Af Amer) 27.1 BUN/Creatinine Ratio 18.9 Glucose 134 H POC Glucose (mg/dL) 135 H Calcium 8.7 01/01/19 11:47 WBC RBC Hgb Hct MCV MCH MCHC RDW Plt Count MPV Neut % (Auto) Lymph % (Auto) Branch % (Auto) Eos % (Auto) Baso % (Auto) Absolute Neuts (auto) Absolute Lymphs (auto) Absolute Monos (auto) Absolute Eos (auto) Absolute Basos (auto) Absolute Nucleated RBC Nucleated RBC % Sodium Potassium Chloride Carbon Dioxide Anion Gap BUN Creatinine Est GFR ( Amer) Est GFR (Non-Af Amer) BUN/Creatinine Ratio Glucose POC Glucose (mg/dL) 171 H Calcium US bladder/kidney: no hydronephrosis or nephrolithiasis Assessment: 1. Ecoli catheter associated UTI with bacteremia 2. chronic brito catheter 3. obesity 4. T2 Diabetes mellitus 5. CKD Plan: 1. continue ceftriaxone daily, if fu BC are negative, can change to keflex 500 mg po twice daily for 10 more days. FU with me 1-2 weeks. Discussed with Douglas HO
[2019-01-01] MEDS: cefTRIAXone(*) 1 GM in NS 0.9% 50 ML* 50 ML IVPB SCH (12:46)
--- NOTE | 2019-01-01 18:52 | PN ---
Subjective Date of Service: 01/01/19 Interval History: Ms. De La Cruz states that she continues to have a cough, but sore throat is resolved. She has been up walking. She denies abdominal pain, flank pain. Has chronic brito catheter in place. No other complaints. Objective Active Medications: Hydrocodone Bitart/Acetaminophen ([place] 5-325 Tab*) 1 tab PO BID PRN PRN Reason: PAIN Last Admin: 12/30/18 11:40 Dose: 1 tab Albuterol (Ventolin Hfa Inhaler*) 2 puff INH Q4H PRN PRN Reason: SHORTNESS OF BREATH Carvedilol (Coreg Tab*) 6.25 mg PO BID [facility] Last Admin: 01/01/19 09:20 Dose: Not Given Cholecalciferol (Vitamin D Tab*) 1,000 units PO DAILY [facility] Last Admin: 01/01/19 09:16 Dose: 1,000 units Dextrose (Dextrose 50% Vial 50 Ml*) 25 ml IV PUSH .FOR FS < 60 - SS PRN PRN Reason: FS < 60 Docusate Sodium (Colace Cap*) 100 mg PO DAILY PRN PRN Reason: CONSTIPATION Duloxetine HCl (Cymbalta Cap*) 60 mg PO BID [facility] Last Admin: 01/01/19 09:16 Dose: 60 mg Fentanyl (Duragesic Patch 100 Mcg/Hr *) 100 mcg TRANSDERM Q72H [facility] Last Admin: 12/30/18 13:19 Dose: 100 mcg Fluticasone Propionate (Flonase Nasal [place] 50mcg*) 2 spray BOTH NARES DAILY PRN PRN Reason: CONGESTION Gabapentin (Neurontin Cap(*)) 300 mg PO BID [facility] Last Admin: 01/01/19 09:16 Dose: 300 mg Guaifenesin/Dextromethorphan (Robitussin Dm Sugar Free*) 5 ml PO Q4H PRN PRN Reason: COUGH Last Admin: 12/30/18 09:55 Dose: 5 ml Ceftriaxone Sodium 1 gm/ (Sodium Chloride) 50 mls @ 100 mls/hr IVPB Q24H [facility] Last Admin: 01/01/19 12:46 Dose: 100 mls/hr Insulin Glargine (Lantus(*)) 70 units SUBCUT BID [facility] Last Admin: 01/01/19 09:18 Dose: 70 unit Insulin Human Lispro (Humalog*) 0 units SUBCUT AC [facility]; Protocol Last Admin: 01/01/19 17:28 Dose: Not Given Levothyroxine Sodium (Synthroid Tab*) 50 mcg PO 0600 [facility] Last Admin: 01/01/19 06:14 Dose: 50 mcg Lidocaine HCl (Lidocaine 2% Jelly*) 1 applic TOPICAL DAILY PRN PRN Reason: PAIN Nft: Menthol/Zinc Oxide [Calmoseptine Ointment] 1 Oin) 1 oin TOPICAL DAILY PRN PRN Reason: RASH Pantoprazole Sodium (Protonix Tab*) 40 mg PO BID [facility] Last Admin: 01/01/19 09:16 Dose: 40 mg Patiromer (Veltassa Powder*) 8.4 gm PO DAILY [facility] Last Admin: 01/01/19 09:16 Dose: 8.4 gm Pharmacy Profile Note (Fentanyl Patch Check Q Shift) 1 note FOLLOW UP 0700, 1900 [facility] Last Admin: 01/01/19 07:27 Dose: 1 note Vital Signs: Temp Pulse Resp BP Pulse Ox 97.8 F 100 18 133/74 93 01/01/19 15:30 01/01/19 15:30 01/01/19 15:30 01/01/19 15:30 01/01/19 15:30 Oxygen Devices in Use Now: None Appearance: Pt is white female laying in bed sleeping; she wakes easily. She is in no acute distress. Eyes: No Scleral Icterus, PERRLA Ears/Nose/Mouth/Throat: NL Teeth, Lips, Gums, Clear Oropharnyx, Mucous Membranes Moist Neck: NL Appearance and Movements; NL JVP, Trachea Midline Respiratory: Symmetrical Chest Expansion and Respiratory Effort, Clear to Auscultation Cardiovascular: NL Sounds; No Murmurs; No JVD, RRR, No Edema Abdominal: NL Sounds; No Tenderness; No Distention, No Hepatosplenomegaly, - - Without CVA tenderness Extremities: No Edema, No Clubbing, Cyanosis Neurological: Alert and Oriented x 3 Result Diagrams: 01/01/19 05:43 01/01/19 05:43 Microbiology and Other Data: Microbiology 12/29/18 21:53 Anaerobic Blood Culture - Preliminary Blood Venous 12/29/18 21:53 Anaerobic Blood Culture - Preliminary Blood Venous Assess/Plan/Problems-Billing Assessment: 68yof PMHx systolic HF, DM II, HTN, CKD III, chronic brito x1 year who presents to [facility] with fever, chills, cough, and is found to meet sepsis criteria with likely urinary source. - Patient Problems (1) Bacteremia Comment: -3/4 bottles with E. coli -UC shows E. coli -Change to ceftriaxone (susceptible) -ID consulting (2) UTI (urinary tract infection) Comment: -UA shows 3+ LE, + nitrates; UC positive for E. coli susceptible to ceftriaxone -ceftriaxone -ID following (3) Acute kidney injury superimposed on CKD Comment: -Cr elevated; MADI on CKD -Possible due to zosyn -Change to ceftriaxone -Continue to monitor (4) Sepsis Comment: -Resolved -tachy, leukocytosis, lactic acidosis -lactic acidosis resolved with IVF; tachycardia resolved -UA positive for UTI; UC with E. coli identified -BC positive for GN bacilli- E. coli identified -ceftriaxone (5) DM type 2 (diabetes mellitus, type 2) Comment: -pt with elevated BG and mild gap at admission; treated with insulin drip -home lantus 155u daily; divided into 70 BID -resume lispro ss (6) Systolic heart failure Comment: -EF 40% -carvedilol -hold valsartan -d/c IVF (7) Hypertension Comment: -SBP 90-130's -carvidilol with hold parameters -hold vasartan (8) GERD (gastroesophageal reflux disease) Comment: -Pantoprazole (9) Hypothyroidism Comment: -Continue levothyroxine (10) Anxiety and depression Comment: -Duloxetine (11) DVT prophylaxis Comment: -SCDs (12) DNR (do not resuscitate) Comment: -Pt requests DNR, DNI, but no paperwork completed, as she is waiting for partner to fill out with her Status and Disposition: Inpatient. Discharge when stable.
[2019-01-01] MEDS: Docusate CAP* 100 MG PO PRN (22:07)
[2019-01-02] MEDS: Levothyroxine TAB* 50 MCG TAB PO SCH (05:31)
[2019-01-02 06:16] LABS: BUN/Creatinine Ratio 20.6 (8-20); Calcium 9.1 mg/dL (8.6-10.3); EGFR African American 38.8 (>60); EGFR Non-African American 32.1 (>60); Potassium 4.8 mmol/L (3.5-5.0)
[2019-01-02] MEDS: fentaNYL Patch Check Q Shift 1 NOTE FOLLOW UP SCH ×2 (07:11→20:53)
[2019-01-02] MEDS: Insulin LISPRO* 1 UNITS UNIT SUBCUT SCH ×3 (07:30→16:22)
[2019-01-02] MEDS: Insulin GLARGINE(*) 1 UNITS UNIT SUBCUT SCH ×2 (08:00→21:35)
[2019-01-02] MEDS: DULoxetine DR CAP* 60 MG CAP.DR PO SCH ×2 (10:46→21:47)
[2019-01-02] MEDS: Carvedilol TAB* 6.25 MG PO SCH ×2 (10:46→21:35)
[2019-01-02] MEDS: Gabapentin CAP(*) 300 MG PO SCH ×2 (10:46→21:34)
[2019-01-02] MEDS: Patiromer POWDER* 8.4 GM PAK PO SCH (10:47)
[2019-01-02] MEDS: Pantoprazole TAB * 40 MG TAB PO SCH ×2 (10:47→21:35)
[2019-01-02] MEDS: Cholecalciferol TAB* 1000 UNITS PO SCH (10:47)
--- NOTE | 2019-01-02 12:42 | PN ---
Subjective Date of Service: 01/02/19 Interval History: Reports feeling better.No fevers Objective Active Medications: Hydrocodone Bitart/Acetaminophen ([place] 5-325 Tab*) 1 tab PO BID PRN PRN Reason: PAIN Last Admin: 12/30/18 11:40 Dose: 1 tab Albuterol (Ventolin Hfa Inhaler*) 2 puff INH Q4H PRN PRN Reason: SHORTNESS OF BREATH Carvedilol (Coreg Tab*) 6.25 mg PO BID [facility] Last Admin: 01/02/19 10:46 Dose: 6.25 mg Cholecalciferol (Vitamin D Tab*) 1,000 units PO DAILY [facility] Last Admin: 01/02/19 10:47 Dose: 1,000 units Dextrose (Dextrose 50% Vial 50 Ml*) 25 ml IV PUSH .FOR FS < 60 - SS PRN PRN Reason: FS < 60 Docusate Sodium (Colace Cap*) 100 mg PO DAILY PRN PRN Reason: CONSTIPATION Last Admin: 01/01/19 22:07 Dose: 100 mg Duloxetine HCl (Cymbalta Cap*) 60 mg PO BID [facility] Last Admin: 01/02/19 10:46 Dose: 60 mg Fentanyl (Duragesic Patch 100 Mcg/Hr *) 100 mcg TRANSDERM Q72H [facility] Last Admin: 12/30/18 13:19 Dose: 100 mcg Fluticasone Propionate (Flonase Nasal [place] 50mcg*) 2 spray BOTH NARES DAILY PRN PRN Reason: CONGESTION Gabapentin (Neurontin Cap(*)) 300 mg PO BID [facility] Last Admin: 01/02/19 10:46 Dose: 300 mg Guaifenesin/Dextromethorphan (Robitussin Dm Sugar Free*) 5 ml PO Q4H PRN PRN Reason: COUGH Last Admin: 12/30/18 09:55 Dose: 5 ml Ceftriaxone Sodium 1 gm/ (Sodium Chloride) 50 mls @ 100 mls/hr IVPB Q24H [facility] Last Admin: 01/01/19 12:46 Dose: 100 mls/hr Insulin Glargine (Lantus(*)) 70 units SUBCUT BID [facility] Last Admin: 01/02/19 08:00 Dose: Not Given Insulin Human Lispro (Humalog*) 0 units SUBCUT AC [facility]; Protocol Last Admin: 01/02/19 11:21 Dose: Not Given Levothyroxine Sodium (Synthroid Tab*) 50 mcg PO 0600 [facility] Last Admin: 01/02/19 05:31 Dose: 50 mcg Lidocaine HCl (Lidocaine 2% Jelly*) 1 applic TOPICAL DAILY PRN PRN Reason: PAIN Nft: Menthol/Zinc Oxide [Calmoseptine Ointment] 1 Oin) 1 oin TOPICAL DAILY PRN PRN Reason: RASH Pantoprazole Sodium (Protonix Tab*) 40 mg PO BID [facility] Last Admin: 01/02/19 10:47 Dose: 40 mg Patiromer (Veltassa Powder*) 8.4 gm PO DAILY [facility] Last Admin: 01/02/19 10:47 Dose: 8.4 gm Pharmacy Profile Note (Fentanyl Patch Check Q Shift) 1 note FOLLOW UP 0700, 1900 [facility] Last Admin: 01/02/19 07:11 Dose: 1 note Vital Signs - 8 hr 01/02/19 01/02/19 01/02/19 07:15 08:00 10:46 Temperature 97.6 F Pulse Rate 79 Respiratory 18 18 16 Rate Blood Pressure 147/78 (mmHg) O2 Sat by Pulse 99 Oximetry Oxygen Devices in Use Now: None Eyes: No Scleral Icterus Ears/Nose/Mouth/Throat: NL Teeth, Lips, Gums Neck: NL Appearance and Movements; NL JVP Respiratory: Symmetrical Chest Expansion and Respiratory Effort, Clear to Auscultation Cardiovascular: NL Sounds; No Murmurs; No JVD, RRR Abdominal: NL Sounds; No Tenderness; No Distention Extremities: No Edema Neurological: Alert and Oriented x 3 Result Diagrams: 01/01/19 05:43 01/02/19 05:35 Microbiology and Other Data: Microbiology 12/29/18 21:53 Anaerobic Blood Culture - Preliminary Blood Venous 12/29/18 21:53 Anaerobic Blood Culture - Preliminary Blood Venous Assess/Plan/Problems-Billing Assessment: 68yof PMHx systolic HF, DM II, HTN, CKD III, chronic brito x1 year who presents to [facility] with fever, chills, cough, and is found to meet sepsis criteria with likely urinary source. - Patient Problems (1) Bacteremia Current Visit: Yes Status: Acute Code(s): R78.81 - BACTEREMIA SNOMED Code( s): 8280467 Comment: -3/4 bottles with E. coli -UC shows E. coli -Change to ceftriaxone (susceptible) -ID consulting (2) UTI (urinary tract infection) Current Visit: No Status: Acute Priority: High Comment: -UA shows 3+ LE, + nitrates; UC positive for E. coli susceptible to ceftriaxone -ceftriaxone -ID following (3) Acute kidney injury superimposed on CKD Current Visit: Yes Status: Acute Code(s): N17.9 - ACUTE KIDNEY FAILURE, UNSPECIFIED; N18.9 - CHRONIC KIDNEY DISEASE, UNSPECIFIED SNOMED Code(s): 49002398 Comment: -Cr elevated; MADI on CKD -Possible due to zosyn -Change to ceftriaxone -Continue to monitor (4) Anxiety and depression Current Visit: Yes Status: Acute Code(s): F41.9 - ANXIETY DISORDER, UNSPECIFIED; F32.9 - MAJOR DEPRESSIVE DISORDER, SINGLE EPISODE, UNSPECIFIED SNOMED Code(s): 661940374 Comment: -Duloxetine (5) CKD (chronic kidney disease), stage III Current Visit: Yes Status: Acute Code(s): N18.3 - CHRONIC KIDNEY DISEASE, STAGE 3 (MODERATE) SNOMED Code(s): 405829605 Comment: -Cr elevated: MADI on CKD -continue to monitor (6) Systolic heart failure Current Visit: Yes Status: Acute Code(s): I50.20 - UNSPECIFIED SYSTOLIC ( CONGESTIVE) HEART FAILURE SNOMED Code(s): 729741189 Comment: -EF 40% -carvedilol -hold valsartan -d/c IVF (7) DVT prophylaxis Current Visit: Yes Status: Acute Code(s): Z29.9 - ENCOUNTER FOR PROPHYLACTIC MEASURES, UNSPECIFIED SNOMED Code(s): 903788483 Comment: -SCDs (8) DNR (do not resuscitate) Current Visit: Yes Status: Acute Comment: -Pt requests DNR, DNI, but no paperwork completed, as she is waiting for partner to fill out with her Status and Disposition: Inpatient. Discharge when stable.
[2019-01-02] MEDS: cefTRIAXone(*) 1 GM in NS 0.9% 50 ML* 50 ML IVPB SCH (12:43)
[2019-01-02] MEDS: fentaNYL PATCHs 100 MCG/HR TRANSDERM SCH (12:44)
[2019-01-02] MEDS: GuaiFENesin DM sugar free* 5 ML UDC PO PRN ×2 (16:39→21:47)
[2019-01-03] MEDS ORDERED: amLODIPine TAB* 5 MG PO ONE (04:03)
[2019-01-03] MEDS: Levothyroxine TAB* 50 MCG TAB PO SCH (06:23)
[2019-01-03 06:42] LABS: ABS Basophils 0.1 10^3/ul (0-0.2); ABS Eosinophils 0.1 10^3/ul (0-0.6); ABS Lymphocytes 1.2 10^3/ul (1.0-4.8); ABS Monocytes 0.6 10^3/ul (0-0.8); ABS Neutrophils 6.5 10^3/ul (1.5-7.7); Hematocrit 37 % (35-47); Hemoglobin 12.4 g/dL (12.0-16.0); Lymphocyte % 14.5 %; Mean Corpuscular HGB Conc 33 g/dL (31-36); Mean Corpuscular Hemoglobin 31 pg (27-31); Mean Corpuscular Volume 93 fL (80-97); Mean Platelet Volume 8.1 fL (7.4-10.4); Platelet Count 287 10^3/uL (150-450); Red Blood Count 4.03 10^6 /uL (3.70-4.87); Red Cell Distribution Width 15 % (10-15); White Blood Count 8.4 10^3/uL (3.5-10.8)
[2019-01-03] MEDS: fentaNYL Patch Check Q Shift 1 NOTE FOLLOW UP SCH ×2 (06:45→19:53)
[2019-01-03 06:54] LABS: CRP High Sensitivity 21.21 mg/L (<2.00); Calcium 9.5 mg/dL (8.6-10.3); EGFR African American 47.2 (>60)
[2019-01-03] MEDS: Insulin LISPRO* 1 UNITS UNIT SUBCUT SCH ×3 (08:45→18:23)
[2019-01-03] MEDS: Cholecalciferol TAB* 1000 UNITS PO SCH (09:20)
[2019-01-03] MEDS: Carvedilol TAB* 6.25 MG PO SCH ×2 (09:20→20:58)
[2019-01-03] MEDS: Gabapentin CAP(*) 300 MG PO SCH ×2 (09:20→20:58)
[2019-01-03] MEDS: DULoxetine DR CAP* 60 MG CAP.DR PO SCH ×2 (09:20→20:58)
[2019-01-03] MEDS: Docusate CAP* 100 MG PO PRN (09:20)
[2019-01-03] MEDS: Pantoprazole TAB * 40 MG TAB PO SCH ×2 (09:20→21:01)
[2019-01-03] MEDS: Insulin GLARGINE(*) 1 UNITS UNIT SUBCUT SCH (09:30)
[2019-01-03] MEDS: Patiromer POWDER* 8.4 GM PAK PO SCH (09:31)
[2019-01-03] MEDS: cefTRIAXone(*) 1 GM in NS 0.9% 50 ML* 50 ML IVPB SCH (12:11)
--- NOTE | 2019-01-03 15:16 | PN ---
Subjective Date of Service: 01/03/19 Interval History: Denies any complaints. Glucose low again this am. Will change lantus from 70 bid to 70 once a day.only recd it once yesterday Objective Active Medications: Hydrocodone Bitart/Acetaminophen ([place] 5-325 Tab*) 1 tab PO BID PRN PRN Reason: PAIN Last Admin: 12/30/18 11:40 Dose: 1 tab Albuterol (Ventolin Hfa Inhaler*) 2 puff INH Q4H PRN PRN Reason: SHORTNESS OF BREATH Carvedilol (Coreg Tab*) 6.25 mg PO BID [facility] Last Admin: 01/03/19 09:20 Dose: 6.25 mg Cholecalciferol (Vitamin D Tab*) 1,000 units PO DAILY [facility] Last Admin: 01/03/19 09:20 Dose: 1,000 units Dextrose (Dextrose 50% Vial 50 Ml*) 25 ml IV PUSH .FOR FS < 60 - SS PRN PRN Reason: FS < 60 Docusate Sodium (Colace Cap*) 100 mg PO DAILY PRN PRN Reason: CONSTIPATION Last Admin: 01/03/19 09:20 Dose: 100 mg Duloxetine HCl (Cymbalta Cap*) 60 mg PO BID [facility] Last Admin: 01/03/19 09:20 Dose: 60 mg Fentanyl (Duragesic Patch 100 Mcg/Hr *) 100 mcg TRANSDERM Q72H [facility] Last Admin: 01/02/19 12:44 Dose: 100 mcg Fluticasone Propionate (Flonase Nasal [place] 50mcg*) 2 spray BOTH NARES DAILY PRN PRN Reason: CONGESTION Gabapentin (Neurontin Cap(*)) 300 mg PO BID [facility] Last Admin: 01/03/19 09:20 Dose: 300 mg Guaifenesin/Dextromethorphan (Robitussin Dm Sugar Free*) 5 ml PO Q4H PRN PRN Reason: COUGH Last Admin: 01/02/19 21:47 Dose: 5 ml Ceftriaxone Sodium 1 gm/ (Sodium Chloride) 50 mls @ 100 mls/hr IVPB Q24H [facility] Last Admin: 01/03/19 12:11 Dose: 100 mls/hr Insulin Glargine (Lantus(*)) 70 units SUBCUT Q24H [facility] Insulin Human Lispro (Humalog*) 0 units SUBCUT AC [facility]; Protocol Last Admin: 01/03/19 12:08 Dose: Not Given Levothyroxine Sodium (Synthroid Tab*) 50 mcg PO 0600 [facility] Last Admin: 01/03/19 06:23 Dose: 50 mcg Lidocaine HCl (Lidocaine 2% Jelly*) 1 applic TOPICAL DAILY PRN PRN Reason: PAIN Nft: Menthol/Zinc Oxide [Calmoseptine Ointment] 1 Oin) 1 oin TOPICAL DAILY PRN PRN Reason: RASH Pantoprazole Sodium (Protonix Tab*) 40 mg PO BID [facility] Last Admin: 01/03/19 09:20 Dose: 40 mg Patiromer (Veltassa Powder*) 8.4 gm PO DAILY [facility] Last Admin: 01/03/19 09:31 Dose: Not Given Pharmacy Profile Note (Fentanyl Patch Check Q Shift) 1 note FOLLOW UP 0700, 1900 [facility] Last Admin: 01/03/19 06:45 Dose: 1 note Vital Signs - 8 hr 01/03/19 01/03/19 01/03/19 07:38 08:00 09:20 Temperature 97.2 F Pulse Rate 76 Respiratory 18 16 16 Rate Blood Pressure 103/96 (mmHg) O2 Sat by Pulse 96 Oximetry 01/03/19 01/03/19 11:30 12:08 Temperature 97.8 F Pulse Rate 71 Respiratory 16 14 Rate Blood Pressure 113/68 (mmHg) O2 Sat by Pulse 96 Oximetry Oxygen Devices in Use Now: None Eyes: No Scleral Icterus Neck: NL Appearance and Movements; NL JVP Respiratory: Symmetrical Chest Expansion and Respiratory Effort Cardiovascular: NL Sounds; No Murmurs; No JVD Extremities: No Edema Result Diagrams: 01/03/19 05:53 01/03/19 05:53 Microbiology and Other Data: Microbiology 12/29/18 21:53 Anaerobic Blood Culture - Preliminary Blood Venous 12/29/18 21:53 Anaerobic Blood Culture - Preliminary Blood Venous Assess/Plan/Problems-Billing Assessment: 68yof PMHx systolic HF, DM II, HTN, CKD III, chronic brito x1 year who presents to [facility] with fever, chills, cough, and is found to meet sepsis criteria with likely urinary source. - Patient Problems (1) Bacteremia Current Visit: Yes Status: Acute Code(s): R78.81 - BACTEREMIA SNOMED Code( s): 8407456 Comment: -3/4 bottles with E. coli -UC shows E. coli -Change to ceftriaxone (susceptible) -ID consulting (2) UTI (urinary tract infection) Current Visit: No Status: Acute Priority: High Comment: -UA shows 3+ LE, + nitrates; UC positive for E. coli susceptible to ceftriaxone -ceftriaxone -ID following (3) Acute kidney injury superimposed on CKD Current Visit: Yes Status: Acute Code(s): N17.9 - ACUTE KIDNEY FAILURE, UNSPECIFIED; N18.9 - CHRONIC KIDNEY DISEASE, UNSPECIFIED SNOMED Code(s): 47293449 Comment: -Cr elevated; MADI on CKD -Possible due to zosyn -Change to ceftriaxone -Continue to monitor (4) Anxiety and depression Current Visit: Yes Status: Acute Code(s): F41.9 - ANXIETY DISORDER, UNSPECIFIED; F32.9 - MAJOR DEPRESSIVE DISORDER, SINGLE EPISODE, UNSPECIFIED SNOMED Code(s): 116048894 Comment: -Duloxetine (5) CKD (chronic kidney disease), stage III Current Visit: Yes Status: Acute Code(s): N18.3 - CHRONIC KIDNEY DISEASE, STAGE 3 (MODERATE) SNOMED Code(s): 850041712 Comment: -Cr elevated: MADI on CKD -continue to monitor (6) Systolic heart failure Current Visit: Yes Status: Acute Code(s): I50.20 - UNSPECIFIED SYSTOLIC ( CONGESTIVE) HEART FAILURE SNOMED Code(s): 103408762 Comment: -EF 40% -carvedilol -hold valsartan -d/c IVF (7) DVT prophylaxis Current Visit: Yes Status: Acute Code(s): Z29.9 - ENCOUNTER FOR PROPHYLACTIC MEASURES, UNSPECIFIED SNOMED Code(s): 817042824 Comment: -SCDs (8) DNR (do not resuscitate) Current Visit: Yes Status: Acute Comment: -Pt requests DNR, DNI, but no paperwork completed, as she is waiting for partner to fill out with her (9) SOB (shortness of breath) Current Visit: Yes Status: Acute Code(s): R06.02 - SHORTNESS OF BREATH SNOMED Code(s): 974828496 Comment: Repeat cxr to r/o developing pcn Status and Disposition: Inpatient. Discharge when stable.Pt wants to go home. Need to discuss with case management/pt
[2019-01-03] MEDS: GuaiFENesin DM sugar free* 5 ML UDC PO PRN ×2 (17:14→23:29)
[2019-01-03] MEDS ORDERED: Acetaminophen TAB* 325 MG PO PRN (17:25)
[2019-01-03] MEDS ORDERED: Insulin GLARGINE(*) 1 UNITS UNIT SUBCUT SCH (21:00)
[2019-01-04] MEDS: Levothyroxine TAB* 50 MCG TAB PO SCH (05:45)
[2019-01-04] MEDS: fentaNYL Patch Check Q Shift 1 NOTE FOLLOW UP SCH (07:01)
[2019-01-04 08:30] LABS: BUN/Creatinine Ratio 21.9 (8-20); Calcium 9.5 mg/dL (8.6-10.3); EGFR African American 46.4 (>60); EGFR Non-African American 38.3 (>60); Potassium 4.9 mmol/L (3.5-5.0)
[2019-01-04] MEDS: Insulin LISPRO* 1 UNITS UNIT SUBCUT SCH ×3 (08:39→16:49)
[2019-01-04 09:15] LABS: ABS Basophils 0.1 10^3/ul (0-0.2); ABS Eosinophils 0.1 10^3/ul (0-0.6); ABS Lymphocytes 1.9 10^3/ul (1.0-4.8); ABS Monocytes 0.4 10^3/ul (0-0.8); ABS Neutrophils 5.2 10^3/ul (1.5-7.7); Eosinophil % 1.5 %; Hematocrit 38 % (35-47); Hemoglobin 12.3 g/dL (12.0-16.0); Lymphocyte % 24.9 %; Mean Corpuscular HGB Conc 33 g/dL (31-36); Mean Corpuscular Hemoglobin 30 pg (27-31); Mean Corpuscular Volume 94 fL (80-97); Mean Platelet Volume 7.9 fL (7.4-10.4); Nucleated Red Blood Cells % 0.1; Platelet Count 279 10^3/uL (150-450); Red Blood Count 4.05 10^6 /uL (3.70-4.87); Red Cell Distribution Width 15 % (10-15); White Blood Count 7.7 10^3/uL (3.5-10.8)
[2019-01-04] MEDS: Carvedilol TAB* 6.25 MG PO SCH (09:16)
[2019-01-04] MEDS: Cholecalciferol TAB* 1000 UNITS PO SCH (09:16)
[2019-01-04] MEDS: Gabapentin CAP(*) 300 MG PO SCH (09:16)
[2019-01-04] MEDS: DULoxetine DR CAP* 60 MG CAP.DR PO SCH (09:16)
[2019-01-04] MEDS: Pantoprazole TAB * 40 MG TAB PO SCH (09:16)
[2019-01-04] MEDS: Patiromer POWDER* 8.4 GM PAK PO SCH (09:18)
--- NOTE | 2019-01-04 10:18 | PN ---
Progress Note - Progress Note Date of Service: 01/04/19 SOAP: Subjective: CC: bacteremia HPI: 68 year old woman with chronic brito catheter and fever and rigors found to have Ecoli UTI and bacteremia. Still has a cough and wheezes some. Energy improving and walking around better. No fever, rash, or diarrhea. Objective: Vital Signs Temp 36.3 C 01/04/19 07:45 Pulse 65 01/04/19 07:45 Resp 18 01/04/19 09:16 BP 147/78 01/04/19 07:45 Pulse Ox 98 01/04/19 07:45 Intake & Output 01/03/19 01/04/19 01/04/19 18:59 06:59 18:59 Intake Total 180 Output Total 750 200 Balance -570 -200 Intake: Oral 180 Output: Urine 750 Brito 200 Gen:awake, no distress HEENT: no thrush Heart:RRR no murmur Lungs:bilateral expiratory wheeze Abd:+BS NTND soft, no flank tenderness Skin: no rash MSK: no joint synovitis Laboratory Results - last 24 hr 01/03/19 01/03/19 01/03/19 12:00 17:03 20:42 WBC RBC Hgb Hct MCV MCH MCHC RDW Plt Count MPV Neut % (Auto) Lymph % (Auto) [place] % (Auto) Eos % (Auto) Baso % (Auto) Absolute Neuts (auto) Absolute Lymphs (auto) Absolute Monos (auto) Absolute Eos (auto) Absolute Basos (auto) Absolute Nucleated RBC Nucleated RBC % Sodium Potassium Chloride Carbon Dioxide Anion Gap BUN Creatinine Est GFR ( Amer) Est GFR (Non-Af Amer) BUN/Creatinine Ratio Glucose POC Glucose (mg/dL) 103 H 169 H 121 H Calcium 01/04/19 01/04/19 07:33 07:33 WBC 7.7 RBC 4.05 Hgb 12.3 Hct 38 MCV 94 MCH 30 MCHC 33 RDW 15 Plt Count 279 MPV 7.9 Neut % (Auto) 67.4 Lymph % (Auto) 24.9 [place] % (Auto) 5.2 Eos % (Auto) 1.5 Baso % (Auto) 1.0 Absolute Neuts (auto) 5.2 Absolute Lymphs (auto) 1.9 Absolute Monos (auto) 0.4 Absolute Eos (auto) 0.1 Absolute Basos (auto) 0.1 Absolute Nucleated RBC 0.0 Nucleated RBC % 0.1 Sodium 140 Potassium 4.9 Chloride 104 Carbon Dioxide 29 Anion Gap 7 BUN 30 H Creatinine 1.37 H Est GFR ( Amer) 46.4 Est GFR (Non-Af Amer) 38.3 BUN/Creatinine Ratio 21.9 H Glucose 52 L POC Glucose (mg/dL) Calcium 9.5 Assessment: 1. Ecoli catheter associated UTI with bacteremia 2. chronic brito catheter 3. obesity 4. T2 Diabetes mellitus 5. CKD 6. cough and wheeze Plan: 1. will change ceftriaxone to keflex 500 mg three times daily, day 08/21 2. CXR pending 3. PT eval
--- NOTE | 2019-01-04 12:21 | PN ---
Subjective Date of Service: 01/04/19 Interval History: Pt is feeling well. She continues to have moist cough. No pain or SOB. Objective Active Medications: Acetaminophen (Tylenol Tab*) 650 mg PO Q6H PRN PRN Reason: PAIN - MILD Hydrocodone Bitart/Acetaminophen (Aurora 5-325 Tab*) 1 tab PO BID PRN PRN Reason: PAIN Last Admin: 12/30/18 11:40 Dose: 1 tab Albuterol (Ventolin Hfa Inhaler*) 2 puff INH Q4H PRN PRN Reason: SHORTNESS OF BREATH Carvedilol (Coreg Tab*) 6.25 mg PO BID [facility] Last Admin: 01/04/19 09:16 Dose: 6.25 mg Cephalexin HCl (Keflex Cap*) 500 mg PO TID [facility] Cholecalciferol (Vitamin D Tab*) 1,000 units PO DAILY [facility] Last Admin: 01/04/19 09:16 Dose: 1,000 units Dextrose (Dextrose 50% Vial 50 Ml*) 25 ml IV PUSH .FOR FS < 60 - SS PRN PRN Reason: FS < 60 Docusate Sodium (Colace Cap*) 100 mg PO DAILY PRN PRN Reason: CONSTIPATION Last Admin: 01/03/19 09:20 Dose: 100 mg Duloxetine HCl (Cymbalta Cap*) 60 mg PO BID [facility] Last Admin: 01/04/19 09:16 Dose: 60 mg Fentanyl (Duragesic Patch 100 Mcg/Hr *) 100 mcg TRANSDERM Q72H [facility] Last Admin: 01/02/19 12:44 Dose: 100 mcg Fluticasone Propionate (Flonase Nasal [place] 50mcg*) 2 spray BOTH NARES DAILY PRN PRN Reason: CONGESTION Gabapentin (Neurontin Cap(*)) 300 mg PO BID [facility] Last Admin: 01/04/19 09:16 Dose: 300 mg Guaifenesin/Dextromethorphan (Robitussin Dm Sugar Free*) 5 ml PO Q4H PRN PRN Reason: COUGH Last Admin: 01/03/19 23:29 Dose: 5 ml Insulin Glargine (Lantus(*)) 70 units SUBCUT Q24H [facility] Last Admin: 01/03/19 20:59 Dose: 70 unit Insulin Human Lispro (Humalog*) 0 units SUBCUT [facility]; Protocol Last Admin: 01/04/19 08:39 Dose: Not Given Levothyroxine Sodium (Synthroid Tab*) 50 mcg PO 0600 [facility] Last Admin: 01/04/19 05:45 Dose: 50 mcg Lidocaine HCl (Lidocaine 2% Jelly*) 1 applic TOPICAL DAILY PRN PRN Reason: PAIN Nft: Menthol/Zinc Oxide [Calmoseptine Ointment] 1 Oin) 1 oin TOPICAL DAILY PRN PRN Reason: RASH Pantoprazole Sodium (Protonix Tab*) 40 mg PO BID [facility] Last Admin: 01/04/19 09:16 Dose: 40 mg Pharmacy Profile Note (Fentanyl Patch Check Q Shift) 1 note FOLLOW UP 0700, 1900 [facility] Last Admin: 01/04/19 07:01 Dose: 1 note Vital Signs - 8 hr 01/04/19 01/04/19 01/04/19 07:45 08:00 09:16 Temperature 97.3 F Pulse Rate 65 Respiratory 16 18 18 Rate Blood Pressure 147/78 (mmHg) O2 Sat by Pulse 98 Oximetry Oxygen Devices in Use Now: None Appearance: Middle aged female sitting up in a chair, NAD Eyes: No Scleral Icterus Ears/Nose/Mouth/Throat: Mucous Membranes Moist Respiratory: Symmetrical Chest Expansion and Respiratory Effort, Clear to Auscultation, - - moist cough Cardiovascular: NL Sounds; No Murmurs; No JVD, RRR, No Edema Abdominal: NL Sounds; No Tenderness; No Distention Extremities: No Clubbing, Cyanosis Skin: No Nodules or Sclerosis Neurological: Alert and Oriented x 3 Result Diagrams: 01/04/19 07:33 01/04/19 07:33 Microbiology and Other Data: Microbiology 12/29/18 21:53 Anaerobic Blood Culture - Preliminary Blood Venous 12/29/18 21:53 Anaerobic Blood Culture - Preliminary Blood Venous Assess/Plan/Problems-Billing Ms De La Cruz is a 68 yo F with a PMHx of systolic HF, DM II, HTN, CKD III, chronic brito x1 year who presents to [facility] with fever, chills, cough, and is found to meet sepsis criteria with likely urinary source. - Patient Problems (1) Sepsis Current Visit: Yes Status: Acute Priority: High Comment: Septic on admission from UTI. Now found to be secondary to E Coli UTI and bacteremia. Sepsis has resolved. (2) UTI (urinary tract infection) Current Visit: Yes Status: Acute Priority: High Comment: Pt with E coli UTI. Now on keflex per ID. (3) Bacteremia Current Visit: Yes Status: Acute Code(s): R78.81 - BACTEREMIA SNOMED Code( s): 2585630 Comment: Pt with 3 of 4 bottles positive for EColi. Secondary to urinary source. Will need 14 days of Abx- today is D#6/14. She was switched today to keflex per ID. (4) Diabetic ketoacidosis Current Visit: Yes Status: Acute Code(s): E11.10 - TYPE 2 DIABETES MELLITUS WITH KETOACIDOSIS WITHOUT COMA SNOMED Code(s): 944346708 Comment: On admission pt with DKA BS>600 and mild elevated anion gap. REsolved with IVF and insulin drip. (5) CKD (chronic kidney disease), stage III Current Visit: Yes Status: Acute Code(s): N18.3 - CHRONIC KIDNEY DISEASE, STAGE 3 (MODERATE) SNOMED Code(s): 818434274 Comment: Pt with mildly elevated creatinine on admission above baseline but renal function stable during this admission. Monitor intermittently. (6) Anxiety and depression Current Visit: Yes Status: Acute Code(s): F41.9 - ANXIETY DISORDER, UNSPECIFIED; F32.9 - MAJOR DEPRESSIVE DISORDER, SINGLE EPISODE, UNSPECIFIED SNOMED Code(s): 513585869 Comment: Stable. Continue duloxetine. (7) Systolic heart failure Current Visit: Yes Status: Acute Code(s): I50.20 - UNSPECIFIED SYSTOLIC ( CONGESTIVE) HEART FAILURE SNOMED Code(s): 041193559 Comment: EF 40% from echo ~10yrs ago. Continue coreg. BP is at times low normal. Hold ARB for now. No signs of exacerbation. (8) DVT prophylaxis Current Visit: Yes Status: Acute Code(s): Z29.9 - ENCOUNTER FOR PROPHYLACTIC MEASURES, UNSPECIFIED SNOMED Code(s): 081219532 Comment: SCDs (9) DNR (do not resuscitate) Current Visit: Yes Status: Acute (10) DM type 2 (diabetes mellitus, type 2) Current Visit: No Status: Chronic Priority: Medium Comment: -pt with elevated BG and mild gap at admission; treated with insulin drip -home lantus 155u daily; divided into 70 BID -resume lispro ss (11) GERD (gastroesophageal reflux disease) Current Visit: No Status: Chronic Priority: Medium Code(s): K21.9 - GASTRO -ESOPHAGEAL REFLUX DISEASE WITHOUT ESOPHAGITIS SNOMED Code(s): 635750381 Comment: -Pantoprazole (12) Hypertension Current Visit: No Status: Chronic Priority: Medium Code(s): I10 - ESSENTIAL (PRIMARY) HYPERTENSION SNOMED Code(s): 44087862 Comment: -SBP 90-130's -carvidilol with hold parameters -hold vasartan (13) Hypothyroidism Current Visit: No Status: Chronic Priority: Medium Code(s): E03.9 - HYPOTHYROIDISM, UNSPECIFIED SNOMED Code(s): 91780974 Comment: -Continue levothyroxine (14) Scleroderma Current Visit: No Status: Chronic Priority: Medium Code(s): M34.9 - SYSTEMIC SCLEROSIS, UNSPECIFIED SNOMED Code(s): 11163939 Status and Disposition: Inpatient. Discharge when stable.Pt wants to go home. Need to discuss with case management/pt
[2019-01-04] MEDS ORDERED: Cephalexin CAP* 500 MG PO SCH (14:00)
[2019-01-04 16:29] VITALS: BP 98/63
--- NOTE | 2019-01-05 02:37 | DS ---
CC: Dr. Dozier * DISCHARGE SUMMARY: DATE OF ADMISSION: 12/30/18 DATE OF DISCHARGE: 01/04/19 PRIMARY CARE PROVIDER: Dr. Dozier. PRINCIPAL DIAGNOSES: 1. Sepsis secondary to catheter associated urinary tract infection. 2. Diabetic ketoacidosis - resolved. SECONDARY DIAGNOSES: 1. Systolic congestive heart failure. 2. Type 2 diabetes. 3. Scleroderma. 4. Hypertension. 5. Hypothyroidism. 6. Gastroesophageal reflux disease. 7. Stage 3 chronic kidney disease. 8. Peripheral neuropathy. DISCHARGE MEDICATIONS: 1. Candesartan 32 mg p.o. daily (on hold until seen by PCP). 2. Albuterol 2 puffs inhaled q.4 hours p.r.n. shortness of breath. 3. Duloxetine DR 60 mg p.o. b.i.d. 4. Vitamin D 1000 units p.o. daily. 5. Coreg 6.25 mg p.o. b.i.d. 6. Gabapentin 300 mg p.o. b.i.d. 7. Flonase 2 squirts both nostrils daily p.r.n., allergies. 8. Colace 100 to 300 mg p.o. daily p.r.n. constipation. 9. Toujeo 120 units subcutaneous daily (reduced dose). 10. [place]drey 5/325 mg 1 tab p.o. b.i.d. p.r.n. pain. 11. Synthroid 50 mcg p.o. daily. 12. Lispro 20 units subcutaneous t.i.d., not to be taken until she is eating at her baseline level. 13. Prilosec 20 mg p.o. b.i.d. 14. Calmoseptine ointment, apply topically daily p.r.n. rash. 15. Lidocaine jelly, apply topically daily p.r.n. pain. 16. Fentanyl patch 100 mcg topical q.72 hours. 17. Keflex 500 mg p.o. t.i.d. x8 more days. HOSPITAL COURSE: Ms. De La Cruz is a 68-year-old female who presented to the emergency room on 12/30/18 with complaints of fever, chills, and cough. While the patient symptoms were respiratory in nature, it was felt that this likely represented a viral illness; however, she was found to be septic secondary to a catheter associated urinary tract infection. The patient ultimately grew E. coli in the urine in 3 out 4 blood cultures. Followup blood cultures were negative. The patient was seen in consultation by Infectious Disease. She was initially treated with ceftriaxone, subsequently changed over to Keflex per ID. On admission, the patient was also found to be in DKA with markedly elevated blood sugars and a mildly elevated anion gap. She was treated with an insulin drip. She was subsequently transitioned to subcutaneous Lantus 70 units twice daily. This was approximately her home dose divided in two. Unfortunately, the patient went hypoglycemic. She was then cut down to 70 units nightly. With this, she still was hypoglycemic in the morning. My suspicion, which was confirmed by both the patient and her , was that she is not eating anything like she typically does at home. Because of this, I have asked the patient to resume 120 units of Toujeo in the morning on 01/05/19. Additionally , she will take 10 units of Toujeo this evening. If her blood sugars are elevated significantly, she has been asked to go back up to her prior dose of 155 units of Toujeo daily. Additionally, I have asked the patient to hold her Lispro 20 units with meals until she is eating at her baseline level. The patient does admit to not checking her fingersticks regularly. I have asked her to start checking this before each meal at least until she gets back into a pattern of what is normal. The patient has accepted visiting nurse services. She has been up and ambulating without any difficulty. DISPOSITION: The patient is being discharged home today 01/04/19. ACTIVITY LEVEL: Is as tolerated. DIET: Diabetic heart healthy. CONDITION ON DISCHARGE: Is stable. The patient should follow up with Dr. Dozier in the next 3 to 4 days. TIME SPENT: 35 minutes was spent discharging this patient. [id number]/[facility] #: [id number] ANA
== END 2019-01-04 19:00 | disposition home health service (06) | DRG 698 ==
LOC: ED 19:31 → MEDTELE 12-30 01:44 → ICU 12-30 20:04 → MEDTELE 12-31 11:40
PROVIDERS: ADMIT Internal Medicine; ATTEND Hospitalist
DX: T83.511A Infection and inflammatory reaction due to indwelling urethral catheter, initial encounter (principal); A41.51 Sepsis due to Escherichia coli [E. coli]; E11.10 Type 2 diabetes mellitus with ketoacidosis without coma; N17.9 Acute kidney failure, unspecified; I13.0 Hypertensive heart and chronic kidney disease with heart failure and stage 1 through stage 4 chronic kidney disease, or unspecified chronic kidney disease; I50.20 Unspecified systolic (congestive) heart failure; E87.2 Acidosis; M34.9 Systemic sclerosis, unspecified; I27.20 Pulmonary hypertension, unspecified; N18.3 Chronic kidney disease, stage 3 (moderate); Z66 Do not resuscitate; E11.42 Type 2 diabetes mellitus with diabetic polyneuropathy; E11.22 Type 2 diabetes mellitus with diabetic chronic kidney disease; N39.0 Urinary tract infection, site not specified; B96.20 Unspecified Escherichia coli [E. coli] as the cause of diseases classified elsewhere; K21.9 Gastro-esophageal reflux disease without esophagitis; E03.9 Hypothyroidism, unspecified; E66.9 Obesity, unspecified; F32.9 Major depressive disorder, single episode, unspecified; F41.9 Anxiety disorder, unspecified; Z85.51 Personal history of malignant neoplasm of bladder; Z91.14 Patient's other noncompliance with medication regimen; Z68.31 Body mass index [BMI] 31.0-31.9, adult; Z87.440 Personal history of urinary (tract) infections; Z79.4 Long term (current) use of insulin; Z79.899 Other long term (current) drug therapy; Z88.8 Allergy status to other drugs, medicaments and biological substances; Z82.49 Family history of ischemic heart disease and other diseases of the circulatory system; Z82.5 Family history of asthma and other chronic lower respiratory diseases; Z87.891 Personal history of nicotine dependence
CPT/HCPCS: 36415; 71046; 76770; 80048; 80053; 81003; 81015; 82947; 83605; 83880; 84484; 85025; 85610; 86140; 86141; 87040; 87070; 87077; 87086; 87186; 87205; 87641; 93005; 96365; 96375; 97530; 99284; A9270-GY; G8978-GP-CK; G8979-GP-CJ; J0696; J1815; J2543; J2930

== ENCOUNTER 2019-02-18 23:01 | Emergency (ER) | payer MEDICARE ==
[2019-02-18 23:12] VITALS: BP 157/96
--- OUTSIDE RECORDS SUMMARY | 2019-02-18 23:28 | XMS REPORT ---
:1950 Author Organization [facility] Care Team Providers Name Role Phone Unavailable Unavailable Unavailable Problems This patient has no known problems. Allergies, Adverse Reactions, Alerts Allergy Allergy Status Severity Reaction(s) Onset Inactive Treating Comments Name Type Date Date Clinician Unknown None Active Unknown None Unknown No Known Allergies For This Patient Medications Ordered Filled Start Stop Current Ordering Indication Dosage Frequency Signature Comments Components Medication Medication Date Date Medication? Clinician (SIG) Name Name No Known No Known No None None None Medications Medications For This For This Patient Patient Procedures This patient has no known procedures. Results This patient has no known results.
--- OUTSIDE RECORDS SUMMARY | 2019-02-18 23:28 | XMS REPORT | Summary of Care ---
:1950 Author Organization [facility] Address [address] [place] [address] Care Team Providers Name Role Phone Cyndee Dozier MD Primary Care Provider Jay Nicole MD Unavailable Reason for Visit Reason Comments Hospital Follow Up Encounter Details Date Type Department Care Team Description 01/06/2019 Office Visit [facility] Practice Cyndee Batista MD Pain syndrome, chronic; [address] [facility] Scleroderma ([facility]); [place], [place] [id number] [place] [address] Type 2 diabetes mellitus with diabetic polyneuropathy, with long-term current use of insulin ([facility]); [phone] Acute cystitis without hematuria Allergies Active Allergy Reactions Severity Noted Date Comments Povidone Iodine Dermatologic Reaction 05/11/2007 Prednisone Respiratory Reaction 05/19/2008 Sulfamethoxazole W/Trimethoprim Other Low 12/24/2017 dizziness documented as of this encounter (statuses as of 01/06/2019) Medications Medication Sig Dispensed Refills Start End Date Status Date Aspirin 81 MG Oral Take 1 Tab by 0 Active TABLET DISPERSIBLE mouth DAILY. fluticasone [place] 2 Sprays 3 Bottle 3 Active (FLONASE) 50 in nose DAILY. 0 MCG/ACT Nasal Suspension lidocaine As directed. 120 g 2 Active (XYLOCAINE) 2 % 2 Apply externally GelIndications: Scleroderma (HCC) docusate sodium Take 100 mg by 0 Active (COLACE) 100 MG mouth DAILY Oral Cap NEEDED. cholecalciferol Take 1,000 Units 0 Active (VITAMIN D) 1000 by mouth DAILY. units Oral Tab Candesartan Take 32 mg by 0 Active Cilexetil 32 MG mouth DAILY. 8 Oral Tab carvedilol (COREG) Take 6.25 mg by 0 Active 6.25 MG Oral Tab mouth TWICE 8 DAILY. Blood Glucose 1 Each by Does 1 Device 0 Active Monitor Software not apply route 8 Does not apply DIRECTED. DeviceIndications: uncontrolled Type 2 diabetes insulin mellitus with dependent diabetic diabetes. Brand: polyneuropathy, insurance with long-term preferred current use of (Freestyle) insulin ([facility]) Glucose Blood In 1 Strip by In 300 Strip 3 Active Vitro Vitro route FOUR 8 StripIndications: TIMES DAILY. Type 2 diabetes uncontrolled mellitus with insulin diabetic dependent polyneuropathy, diabetes E11.9 with long-term Freestyle lite current use of insulin ([facility]) Insulin Pen Needle 1 Device by Does 360 Each 3 Active (INSUPEN PEN not apply route 8 NEEDLES) 31G X 8 MM FOUR TIMES Does not apply Misc DAILY. gabapentin TAKE 3 TO 4 360 Cap 3 Active (NEURONTIN) 100 MG CAPSULES TWICE A 8 Oral DAY CapIndications: Neuropathy duloxetine Take 1 Cap by 90 Cap 3 Active (CYMBALTA) 60 MG mouth DAILY. 8 Oral CAPSULE ENTERIC COATED PARTICLESIndication s: Neuropathy, Chronic pain disorder doxycycline 100 mg DAILY. 0 Active (VIBRAMYCIN) 100 MG 8 Oral Cap Omeprazole delayed Take 20 mg by 90 Cap 3 Active rel cap 20 MG Oral mouth DAILY. 9 CAPSULE DELAYED RELEASE levothyroxine TAKE 1 TABLET 90 Tab 3 Active (SYNTHROID) 50 MCG BEFORE BREAKFAST 9 Oral Tab Transparent 1 Device by Does 30 Each 11 Active Dressings not apply route 9 (TRANSPARENT FILM DAILY NEEDED DRESSING) Does not (non-adherence apply of fentanly MiscIndications: patch). 2 x 2 Scleroderma (HCC) inches Insulin Lispro Inject 20 Units 15 mL 4 Active (HUMALOG KWIKPEN) beneath the skin 9 100 UNIT/ML THREE TIMES Subcutaneous DAILY. Solution Indications: Pen-injectorIndicat with meals ions: with meals Insulin Glargine Inject 155 Units 12 mL 4 Active (TOUJEO SOLOSTAR) beneath the skin 9 300 UNIT/ML DAILY. Subcutaneous Solution Pen-injectorIndicat ions: Type 2 diabetes mellitus with diabetic polyneuropathy, with long-term current use of insulin (HCC) Cephalexin (KEFLEX Take by mouth. 0 Active PO) fentaNYL Place 1 Patch 10 Patch 0 Active (DURAGESIC) 100 onto skin EVERY 9 MCG/HR Transdermal THREE DAYS. Code PATCH 72 D, ([place] HRIndications: Pain or patient syndrome, chronic, preferred) Scleroderma (HCC) albuterol HFA Take 2 Puffs by 3 Inhaler 3 Active (PROAIR HFA) 108 inhalation EVERY 9 (90 Base) MCG/ACT FOUR HOURS Inhalation Aero NEEDED SolnIndications: (wheezing). Hospital discharge follow-up HYDROcodone-acetami Take 1 Tab by 180 Tab 0 01/07/20 Discontinued nophen (NORCO) mouth TWO TIMES 9 19 5-325 MG Oral DAILY NEEDED TabIndications: (severe pain). Neuropathy, Chronic Max Daily pain disorder Amount: 2 Tabs. MDD 2 Tabs CODE D fentaNYL Place 1 Patch 10 Patch 0 01/07/20 Discontinued (DURAGESIC) 100 onto skin EVERY 9 19 (Reorder) MCG/HR Transdermal THREE DAYS. Code PATCH 72 D, ([place] HRIndications: Pain or patient syndrome, chronic, preferred) Scleroderma (HCC) PROAIR HFA 108 (90 USE 2 3 Inhaler 3 01/07/20 Discontinued Base) MCG/ACT INHALATIONS 9 19 (Reorder) Inhalation Aero EVERY 6 HOURS SolnIndications: NEEDED FOR Hospital discharge WHEEZING, follow-up SHORTNESS OF BREATH Hospital, Clinic, or Other Ordered Dose Route Frequency Start Date End Date Status Facility Administered Medication bevacizumab (AVASTIN) 1.25 mg 05/29/2017 Active injection 1.25 mgIndications: Choroidal malignant melanoma, right (HCC) bevacizumab (AVASTIN) 1.25 mg 09/25/2017 Active injection 1.25 mgIndications: Choroidal malignant melanoma, right (HCC) bevacizumab (AVASTIN) 1.25 mg 05/27/2018 Active injection 1.25 mgIndications: Choroidal malignant melanoma, right (HCC) bevacizumab (AVASTIN) 1.25 mg 10/01/2018 Active injection 1.25 mg documented as of this encounter (statuses as of 01/06/2019) Active Problems Problem Noted Date Insomnia 06/26/2017 Melanoma, choroid, right eye 12/23/2016 Chronic pain disorder 12/23/2016 Neuropathy 12/23/2016 Pain syndrome, chronic 12/23/2016 Uveal melanoma, anterior, right 09/26/2016 Constrictive cardiomyopathy 09/24/2016 Type 2 diabetes mellitus with diabetic polyneuropathy, with long-term 2016 current use of insulin Cardiomyopathy 05/23/2016 BMI 36.0-36.9,adult 08/16/2011 Overview: sustained wt reduction with portion control and sustained routine exercise. Set realistic goal of 1# wt reduction /week set 10 week goals. Scleroderma 05/11/2007 Overview: Dr. Baig. Type 2 diabetes mellitus 05/11/2007 Overview: Replaced inactive diagnosis Urinary Tract Infection 05/11/2007 Obesity 05/11/2007 Seborrheic Keratosis 05/11/2007 Hypothyroidism 05/11/2007 GERD (gastroesophageal reflux disease) 05/11/2007 Depression 05/11/2007 Personal history of colonic polyps 05/11/2007 Indwelling Louie catheter present documented as of this encounter (statuses as of 01/06/2019) Resolved Problems Problem Noted Date Resolved Date BMI 38.0-38.9,adult 10/09/2010 08/16/2011 documented as of this encounter (statuses as of 01/06/2019) Immunizations Name Administration Dates Next Due Influenza (IM) Preservative Free 12/16/2014, 12/31/2010 Influenza (IM) W/Pres 12/20/2013 Influenza Vaccine High Dose 11/26/2017, 12/23/2016, 01/17/2016 Influenza Vaccine Whole 12/29/2008, 12/22/2007, 12/19/2006 PNEUMOCOCCAL POLYSACCHARIDE VACCINE 03/24/2017 Pneumococcal Conjugate(13 Valent) 05/31/2015 documented as of this encounter Social History Tobacco Use Types Packs/Day Years Used Date Former Smoker Cigarettes 1 30 Smokeless Tobacco: Never Used Comments: Quit ~15 years ago Alcohol Use Drinks/Week oz/Week Comments No Sex Assigned at Date Recorded Not on file Job Start Date Occupation Industry Not on file Not on file Not on file Travel History Travel Start Travel End No recent travel history available. documented as of this encounter Last Filed Vital Signs Vital Sign Reading Time Taken Comments Blood Pressure 90/50 01/06/2019 4:01 PM EDT Pulse 83 01/06/2019 4:01 PM EDT Temperature 37.1 01/06/2019 4:01 PM EDT C (98.8 F) Respiratory Rate - - Oxygen Saturation 95% 01/06/2019 4:01 PM EDT Inhaled Oxygen Concentration - - Weight 73.9 kg (163 lb) 01/06/2019 4:01 PM EDT Height 157.5 cm (5' 2") 01/06/2019 4:01 PM EDT Body Mass Index 29.81 01/06/2019 4:01 PM EDT documented in this encounter Patient Instructions Patient InstructionsCyndee Dozier MD - 01/06/2019 3:40 PM EDTComplete your course of Keflex. Please stay hydrated. Please call Dr Houser to see if you should resume preventative doxy for your urinary tract infections Increase Toujeo back up to your usual pre-hospital dose of 155 units if your glucose remain over 180-200. If still high slowly increase your mealtime insulin up to your pre-hospital dose of 20 units prior to meals. Repeat diabetes laboratory tests and follow up in one month,sooner if any concerns. documented in this encounter Progress Notes Cyndee Dozier MD - 01/06/2019 3:40 PM EDT Nursing Notes: Monika Kimble LPN 01/06/2019 4:24 PM Signed Chief Complaint Patient presents with Hospital Follow Up Chief Complaint: Hospital Follow up HPI: TCM Statement. Review of the hospitalization: I am seeing for transition of care following hospitalization. The date of discharge was: 12/30--01/04/19 The discharge diagnosis was E. Coli UTI, MADI, CHF Hyperglycemia sepsis. Code status: DNR/DNI She has been off her doxy urinary tract infection prophylaxis from ID, stopped after 6 month. Consultants: ID, Dr Houser Sent home on Keflex bid. She is taking her Toujeo: 120 units daily and Humolog 10 units prior to meals. Glucose: 210 when she eats chocolate. I reviewed the discharge summary, discharge instructions, and pertinent additional documentation obtained during hospitalization. I reconciled the medications. I also reviewed the Transition of Care documentation done by staff. The tests that were not available at the time of discharge were reviewed. Additional tests which are not yet available include: none Since hospitalization has patient improved? Yes Her cath urine is always cloudy Current patient concerns: None except due for pain patch refill. Has had a dry cough since prior to her hospitalization. Chest xray was negative We sent in an albuterol refill For her today. Influenza Type A (Rapid) December 29, 2018 11:00pm Negative Negative Doorperson: [id number] Main Lab, [address] [place] [address] Influenza Type B (Rapid) December 29, 2018 11:00pm Negative Negative Main Lab, [address] [place] [address] Microbiology Results Procedure Source Result Collection Date/Time Result Date/Time Result Comment Performing Site Nasal Screen MRSA (PCR) Nasal Mrsa Not Detected December 30, 2018 8:10pm December 30, 2018 10:14pm Main Lab, [address] [place] [address]49 Urine Culture Urine Escherichia Coli December 30, 2018 12:23am January 01, 2019 7:34am Main Lab, [address] [place] [address] 70252 Sputum Culture Sputum Normal Cristal January 01, 2019 11:40am January 03, 2019 11:26am Main Lab, [address] [place] [address] 51059 Gram Stain Sputum January 01, 2019 11:40am January 01, 2019 4:09pm Main Lab, [address] [place] [address] Laboratory Results Test Date/Time Result Interpretation Reference Range Result Comment Performing Site White Blood Count January 04, 2019 7:33am 7.7 10^3/uL 3.5-10.8 Main Lab, [address] [place] [address] 05423 Red Blood Count January 04, 2019 7:33am 4.05 10^6 /uL 3.70-4.87 Main Lab, [address] [place] [address] 63359 Hemoglobin January 04, 2019 7:33am 12.3 g/dL 12.0-16.0 Main Lab, [address] [place] [address] 34177 Hematocrit January 04, 2019 7:33am 38 % 35-47 Main Lab, [address] [place] [address] 83341 Mean Corpuscular Volume January 04, 2019 7:33am 94 fL 80-97 Main Lab , [address] [place] [address] 40219 Mean Corpuscular Hemoglobin January 04, 2019 7:33am 30 pg 27-31 Main Lab, [address] [place] [address] 32103 Mean Corpuscular Hemoglobin Concent January 04, 2019 7:33am 33 g/dL 31- 36 Main Lab, [address] [place] [address] 60037 Red Cell Distribution Width January 04, 2019 7:33am 15 % 10-15 Main Lab, [address] [place] [address] 10193 Platelet Count January 04, 2019 7:33am 279 10^3/uL 150-450 Main Lab , [address] [place] [address] 65685 Mean Platelet Volume January 04, 2019 7:33am 7.9 fL 7.4-10.4 Main Lab, [address] [place] [address] 99132 Absolute Neutrophils (auto) January 04, 2019 7:33am 5.2 10^3/ul 1.5-7.7 Main Lab, [address] [place] [address] 11746 Absolute Lymphocytes (auto) January 04, 2019 7:33am 1.9 10^3/ul 1.0-4.8 Main Lab, [address] [place] [address] 35833 Absolute Monocytes (auto) January 04, 2019 7:33am 0.4 10^3/ul 0-0.8 Main Lab, [address] [place] [address] 34070 Absolute Eosinophils (auto) January 04, 2019 7:33am 0.1 10^3/ul 0-0.6 Main Lab, [address] [place] [address] 34468 Absolute Basophils (auto) January 04, 2019 7:33am 0.1 10^3/ul 0-0.2 Main Lab, [address] [place] [address] 63623 Nucleated RBC Absolute Count (auto) January 04, 2019 7:33am 0.0 10^3/ul Main Lab, [address] [place] [address] 45306 Neutrophils (%) (Auto) January 04, 2019 7:33am 67.4 % Main Lab , [address] [place] [address] 69120 Lymphocytes (%) (Auto) January 04, 2019 7:33am 24.9 % Main Lab , [address] [place] [address] 70623 Monocytes (%) (Auto) January 04, 2019 7:33am 5.2 % Main Lab, [address] [place] [address] 96950 Eosinophils (%) (Auto) January 04, 2019 7:33am 1.5 % Main Lab, [address] [place] [address] 69901 Basophils (%) (Auto) January 04, 2019 7:33am 1.0 % Main Lab, [address] [place] [address] 67569 Nucleated Red Blood Cells % January 04, 2019 7:33am 0.1 Main Lab, [address] [place] [address] 00362 International Ratio (Anticoag Ther) December 29, 2018 9:53pm 0.97 0.82- 1.09 Standard intensitywarfarin therapeutic range: 2.0-3.0 High intensity warfarin therapeutic range: 2.5-3.5 Main Lab, [address] [address] Urine Color December 30, 2018 12:23am Yellow Main Lab, [address] [place] [address] 97523 Urine Appearance December 30, 2018 12:23am Turbid Main Lab, [address] [place] [address] 62953 Urine Specific Lyle December 30, 2018 12:23am 1.011 1.010-1.030 Main Lab, [address] [place] [address] 94617 Urine pH December 30, 2018 12:23am 5.0 5-9 Main Lab, [address] [place] [address] 70639 Urine Urobilinogen December 30, 2018 12:23am Negative Negative Main Lab, [address] [place] [address] 08467 Urine Ketones December 30, 2018 12:23am Negative Negative Main Lab, [address] [place] [address] 45330 Urine Protein December 30, 2018 12:23am 2+(100 mg/dl) Negative Main Lab, [address] [place] [address] 83350 Urine Leukocyte Esterase December 30, 2018 12:23am 3+ Negative Main Lab, [address] [place] [address] 22931 Urine Blood December 30, 2018 12:23am 2+ Negative Main Lab, [address] [place] [address] 41076 Urine Nitrate December 30, 2018 12:23am Positive Negative Main Lab, [address] [place] [address] 65902 Urine Bilirubin December 30, 2018 12:23am Negative Negative Main Lab , [address] [facility] [address] Urine Glucose December 30, 2018 12:23am 3+(>=500 mg/dl) Negative Main Lab, [address] [place] [address] 16698 Urine WBC (Auto) December 30, 2018 12:23am 3+(>20/hpf) Absent Main Lab, [address] [place] [address] 96808 Urine RBC (Auto) December 30, 2018 12:23am 3+(>10/hpf) Absent Main Lab, [address] [facility] [address] Urine Bacteria December 30, 2018 12:23am Absent Absent Main Lab, [address] [place] [address] 29485 Urine Uric Acid Crystals December 30, 2018 12:23am Present Absent Main Lab, [address] [place] [address] 79303 Urine Yeast December 30, 2018 12:23am Present Absent Main Lab, [address] [place] [address] 29020 Sodium Level January 04, 2019 7:33am 140 mmol/L 135-145 Main Lab, [address] [place] [address] 85233 Potassium Level January 04, 2019 7:33am 4.9 mmol/L 3.5-5.0 Main Lab , [address] [place] [address] 73024 Chloride Level January 04, 2019 7:33am 104 mmol/L 101-111 Main Lab, [address] [place] [address] 60610 Carbon Dioxide Level January 04, 2019 7:33am 29 mmol/L 22-32 Main Lab, [address] [place] [address] 29981 Anion Gap January 04, 2019 7:33am 7 mmol/L 2-11 Main Lab, [address] [place] [address] 00794 Glucose Level January 04, 2019 7:33am 52 mg/dL 70-100 Main Lab, [address] [place] [address] 68818 POC Glucose (mg/dL) January 04, 2019 4:47pm 130 mg/dL 70-100 Doorperson: [id number] Main Lab, [address] [place] [address] 84683 Glucose Meter Confirmation December 30, 2018 10:04pm 409 mg/dL 70-100 Main Lab, [address] [place] [address] 62033 Blood Urea Nitrogen January 04, 2019 7:33am 30 mg/dL 6-24 Main Lab, [address] [place] [address] 96336 Creatinine January 04, 2019 7:33am 1.37 mg/dL 0.51-0.95 Main Lab, [address] [place] [address] 85949 BUN/Creatinine Ratio January 04, 2019 7:33am 21.9 8-20 Main Lab, [address] [place] [address] 31496 Calcium Level January 04, 2019 7:33am 9.5 mg/dL 8.6-10.3 Main Lab, [address] [place] [address] 06871 Total Protein December 29, 2018 9:53pm 7.4 g/dL 6.4-8.9 Main Lab, [address] [place] [address] 39033 Albumin December 29, 2018 9:53pm 3.8 g/dL 3.2-5.2 Main Lab, [address] [place] [address] 16650 Globulin December 29, 2018 9:53pm 3.6 g/dL 2-4 Main Lab, [address] [place] [address] 11903 Albumin/Globulin Ratio December 29, 2018 9:53pm 1.1 1-3 Main Lab, [address] [place] [address] 01233 Total Bilirubin December 29, 2018 9:53pm 0.30 mg/dL 0.2-1.0 Main Lab , [address] [place] [address] 94437 Lactic Acid Level December 30, 2018 2:05am 1.4 mmol/L 0.5-2.0 Specimen hemolyzed. Result may not be valid. [facility] Severe Sepsis and Septic Shock Management Bundle Measure requires all lactic acids initially measuring >2.0 mmol/L be repeated. Main Lab, [address] [place] [address] 88510 Alkaline Phosphatase December 29, 2018 9:53pm 95 U/L 34-104 Main Lab , [address] [place] [address] 19030 Alanine Aminotransferase (ALT/SGPT) December 29, 2018 9:53pm 12 U/L 7-52 Main Lab, [address] [place] [address] 82112 Aspartate Amino Transf (AST/SGOT) December 29, 2018 9:53pm 12 U/L 13-39 Main Lab, [address] [place] [address] 79524 Troponin I December 29, 2018 9:53pm 0.01 ng/mL Troponin-I testing on Plasma Separator Tubes (PST) has a known false positive rate of 0.20-0.40%. All positive troponins reflex immediately to secondary confirmatory testing. Using the [employer] Access Immunoassay systems, the 99th percentile upper reference limit was demonstrated to be < 0.03 ng/mL. Main Lab, [address] [facility] [address] Estimated GFR (Non- January 04, 2019 7:33am 38.3 Main Lab, [address] [facility] [address] Estimated GFR () January 04, 2019 7:33am 46.4 * Because ethnic data is not always readily available, this report includes an eGFR for both -Americans and non- Americans.* The National Kidney Disease Education Program (NKDEP) does not endorse the use of the MDRDequation for patients that are not between the ages of 18 and 70, are , have extremes of body size, muscle mass, or nutritional status, or are non- or non-. According to the National Kidney Foundation, irrespective of diagnosis, the stage of the disease is based on thelevel of kidney function: Stage Description GFR(mL/min/1.73 m(2)) 1 Kidney damage with normal or decreased GFR 90 2 Kidney damage with mild decrease in GFR 60-89 3 Moderate decrease in GFR 30-59 4 Severe decrease in GFR 15-29 5 Kidney failure & lt;15 (or dialysis) Main Lab, [address] [facility] [address] B-Type Natriuretic Peptide December 29, 2018 9:53pm 18 pg/mL <100 Main Lab, [address] [facility] [address] C-Reactive Protein December 29, 2018 9:53pm 16.01 mg/L 0-8.00 Main Lab, [address] [place] [address] 39418 C-Reactive Protein High Sensitivity January 03, 2019 5:53am 21.21 mg/L & lt;1.99 Patient Active Problem List Diagnosis Scleroderma (HCC) Type 2 diabetes mellitus (HCC) Urinary Tract Infection Obesity Seborrheic Keratosis Hypothyroidism GERD (gastroesophageal reflux disease) Depression Personal history of colonic polyps BMI 36.0-36.9,adult Type 2 diabetes mellitus with diabetic polyneuropathy, with long-term current use of insulin (HCC) Cardiomyopathy (HCC) Constrictive cardiomyopathy (HCC) Melanoma, choroid, right eye (HCC) Chronic pain disorder Neuropathy Pain syndrome, chronic Uveal melanoma, anterior, right (HCC) Insomnia Indwelling Louie catheter present Past Medical History: Diagnosis Date AODM (adult onset diabetes mellitus) 05/11/2007 Dr. Nicole Cancer ([facility]) bladder cancer, sees Dr. Rodriguez. Has cystoscopy every 3 months. Congestive heart failure ([facility]) 2002 once only in 2002 Coronary artery disease sees Dr. Talbot yearly for scleroderma related disease and CHF; had scar tissue in coronaries cardiaccath 2002 or so Depression 05/11/2007 Frequent UTI GERD (gastroesophageal reflux disease) 05/11/2007 Hypothyroidism 05/11/2007 Indwelling Louie catheter present Malignant melanoma of eye ([facility]) 09/05/2016 right eye treated at [facility] with plaque radiotherapy Obesity 05/11/[address] Reza Personal history of colonic polyps 05/11/2007 Postmenopausal , first 35 Scleroderma ([facility]) 05/11/2007 Dr. Baig, who retired, so now Angelia Chavez NP and Seborrheic Keratosis 05/11/2007 Urinary Tract Infection 05/11/2007 Uveal melanoma, anterior, right ([facility]) 09/26/2016 Past Surgical History: Procedure Laterality Date CHOLECYSTECTOMY COLONOSCOPY 2003 in [place] 4 polyps: 2006 clear (Dr. Evangelista) CYSTOSCOPY every 3 months TONSILLECTOMY [ENDOSCOPIC] POLYPECTOMY OF RECTUM 04/18/2003 Four (4) polyps removed via hot biopsy. Outpatient Medications as of 01/06/2019 Medication Sig Dispense Refill albuterol HFA (VENTOLIN) 108 (90 Base) MCG/ACT Inhalation Aero Soln Take 2 Puffs by inhalation EVERY SIX HOURS NEEDED (wheezing, short of breath). Insurance preferred brand 1 Inhaler 6 Aspirin 81 MG Oral TABLET DISPERSIBLE Take 1 Tab by mouth DAILY. Blood Glucose Monitor Software Does not apply Device 1 Each by Does not apply route DIRECTED. uncontrolled insulin dependent diabetes. Brand: insurance preferred (Freestyle) 1 Device 0 Candesartan Cilexetil 32 MG Oral Tab Take 32 mg by mouth DAILY. carvedilol (COREG) 6.25 MG Oral Tab Take 6.25 mg by mouth TWICE DAILY. cholecalciferol (VITAMIN D) 1000 units Oral Tab Take 1,000 Units by mouth DAILY. docusate sodium (COLACE) 100 MG Oral Cap Take 100 mg by mouth DAILY NEEDED. doxycycline (VIBRAMYCIN) 100 MG Oral Cap 100 mg DAILY. duloxetine (CYMBALTA) 60 MG Oral CAPSULE ENTERIC COATED PARTICLES Take 1 Cap by mouth DAILY. 90 Cap 3 fentaNYL (DURAGESIC) 100 MCG/HR Transdermal PATCH [address] 1 Patch onto skin EVERY THREE DAYS. Code D, ([place] or patient preferred) 10 Patch 0 fluticasone (FLONASE) 50 MCG/ACT Nasal Suspension [place] 2 Sprays in nose DAILY. 3 Bottle 3 gabapentin (NEURONTIN) 100 MG Oral Cap TAKE 3 TO 4 CAPSULES TWICE A DAY 360 Cap 3 Glucose Blood In Vitro Strip 1 Strip by In Vitro route FOUR TIMES DAILY. uncontrolled insulindependent diabetes E11.9 Freestyle lite 300 Strip 3 Insulin Glargine (TOUJEO SOLOSTAR) 300 UNIT/ML Subcutaneous Solution Pen- injector Inject 155 Units beneath the skin DAILY. 12 mL 4 Insulin Lispro (HUMALOG KWIKPEN) 100 UNIT/ML Subcutaneous Solution Pen- injector Inject 20 Units beneath the skin THREE TIMES DAILY. Indications: with meals 15 mL 4 Insulin Pen Needle (INSUPEN PEN NEEDLES) 31G X 8 MM Does not apply Misc 1 Device by Does not apply route FOUR TIMES DAILY. 360 Each 3 levothyroxine (SYNTHROID) 50 MCG Oral Tab TAKE 1 TABLET BEFORE BREAKFAST 90 Tab 3 lidocaine (XYLOCAINE) 2 % Apply externally Gel As directed. 120 g 2 Omeprazole delayed rel cap 20 MG Oral CAPSULE DELAYED RELEASE Take 20 mg by mouth DAILY. 90 Cap 3 Transparent Dressings (TRANSPARENT FILM DRESSING) Does not apply Misc 1 Device by Does not apply route DAILY NEEDED (non-adherence of fentanly patch) . 2 x 2 inches 30 Each 11 Facility-Administered Medications as of 01/06/2019 Medication Dose Route Frequency Provider Last Rate Last Dose bevacizumab (AVASTIN) injection 1.25 mg 1.25 mg Ivan Verma MD 1.25 mg at 05/29/17 1301 bevacizumab (AVASTIN) injection 1.25 mg 1.25 mg Ivan Verma MD 1.25 mg at 09/25/17 1256 bevacizumab (AVASTIN) injection 1.25 mg 1.25 mg Ivan Verma MD 1.25 mg at 05/27/18 1110 bevacizumab (AVASTIN) injection 1.25 mg 1.25 mg Ivan Verma MD 1.25 mg at 10/01/18 1140 Allergies Allergen Reactions Betadine [Povidone Iodine] Dermatologic Reaction Prednisone Respiratory Reaction Septra [Sulfamethoxazole W/Trimethoprim] Other dizziness Social History Socioeconomic History Marital status: Spouse name: Not on file Number of children: Not on file Years of education: Not on file Highest education level: Not on file Occupational History Not on file Social Needs Financial resource strain: Not on file Food insecurity: Worry: Not on file Inability: Not on file Transportation needs: Medical: Not on file Non-medical: Not on file Tobacco Use Smoking status: Former Smoker Packs/day: 1.00 Years: 30.00 Pack years: 30.00 Types: Cigarettes Smokeless tobacco: Never Used Tobacco comment: Quit ~15 years ago Substance and Sexual Activity Alcohol use: No Drug use: No Sexual activity: Not on file Lifestyle Physical activity: Days per week: Not on file Minutes per session: Not on file Stress: Not on file Relationships Social connections: Talks on phone: Not on file Gets together: Not on file Attends adventist service: Not on file Active member of club or organization: Not on file Attends meetings of clubs or organizations: Not on file Relationship status: Not on file Intimate partner violence: Fear of current or ex partner: Not on file Emotionally abused: Not on file Physically abused: Not on file Forced sexual activity: Not on file Other Topics Concern Back Care Not Asked Bike Helmet Not Asked Blood Transfusions Not Asked Caffeine Concern Not Asked Exercise No Hobby Hazards Not Asked International Travel Not Asked Service Not Asked Occupational Exposure Not Asked Seat Belt Not Asked Self-Exams Not Asked Sleep Concern Not Asked Special Diet No Stress Concern Not Asked Weight Concern Not Asked Social History Narrative Patient has a partner and is on disability Occular Melanoma, treated at [facility], Dr Eufemia Gill [address] [place], [place] [id number] Family History Problem Relation Age of Onset Cancer Sister colon Health Maintenance Topic Date Due ZOSTER IMMUNIZATION SERIES (1 of 2) 2000 MEDICARE ANNUAL WELLNESS VISIT 11/20/2013 LIPID DISORDER SCREENING 06/14/2018 LUNG CANCER SCREENING 07/11/2018 HEMOGLOBIN A1C 01/19/2019 DEPRESSION SCREENING 06/30/2019 FOOT EXAM 06/30/2019 FALL RISK ASSESSMENT 10/03/2019 Diabetic Eye Exam 10/01/2020 OSTEOPOROSIS SCREENING 07/17/2028 PNEUMOCOCCAL 65+YRS Completed HPV IMMUNIZATION SERIES Aged Out MENINGOCOCCAL VACCINE IMM Aged Out ROS General ROS: negative for - chills or fever ENT ROS: negative for - headaches, nasal congestion Respiratory ROS: negative for - hemoptysis or shortness of breath but has a raspy cough for 2 weeks. Cardiovascular ROS: negative for - chest pain, dyspnea on exertion, edema or palpitations Gastrointestinal ROS: no abdominal pain, change in bowel habits, or black or bloody stools Genito-Urinary ROS: no dysuria, trouble voiding, or hematuria. Has a chronic catheter. Neuro: denies headache, focal weakness, numbness Psych: stable depression Exam: BP 90/50 (BP Location: Right arm, Patient Position: Sitting) | Pulse 83 | Temp 98.8 F (37.1 C) (Tympanic) | Ht 5' 2" (1.575 m) | Wt 163 lb ( 73.9 kg) | SpO2 95% | ? No | BMI 29.81 kg/m Physical Exam Physical Examination: General appearance - alert, well appearing, and in no distress Mental status - alert, oriented to person, place, and time, normal mood, behavior, speech, dress, motor activity, and thought processes Eyes - pupils equal and reactive, extraocular eye movements intact, sclera anicteric Ears - bilateral TM's and external ear canals normal Neck - supple, no cervical or supraclavicular adenopathy, carotids upstroke normal bilaterally, no bruits, thyroid exam: thyroid is normal in size without nodules or tenderness, no neck masses palpated. Chest/Lungs - clear to auscultation, no wheezes, rales or rhonchi, symmetric air entry, good aeration Heart - normal rate, regular rhythm, normal S1, S2, no murmurs, rubs, clicks or gallops Abdomen - soft, non tender on palpation, nondistended, no masses or hepatosplenomegaly, bowel soundsnormal, normal to percussion, no guarding or rebound. No costervertebral angle tenderness Neurological - alert, oriented, normal speech, no gross focal findings or movement disorder noted Extremities - dorsalis pedis pulses normal, no pedal edema, no clubbing or cyanosis Urine in back is yellow, mildly cloudy. ASSESSMENT/PLAN: ICD-9-CM ICD-10-CM 1. Hospital discharge follow-up V67.59 Z09 albuterol HFA (PROAIR HFA) 108 (90 Base) MCG/ACT Inhalation Aero Soln 2. Pain syndrome, chronic 338.4 G89.4 fentaNYL (DURAGESIC) 100 MCG/HR Transdermal PATCH 72 HR 3. Scleroderma (HCC) 710.1 M34.9 fentaNYL (DURAGESIC) 100 MCG/HR Transdermal PATCH 72 HR 4. Type 2 diabetes mellitus with diabetic polyneuropathy, with long-term current use of insulin (HCC) 250.60 E11.42 GLYCOHEMOGLOBIN A1C 357.2 Z79.4 COMPREHENSIVE METABOLIC PANEL V58.67 5. Acute cystitis without hematuria 595.0 N30.00 CBC NO DIFFERENTIAL ' Coordination of care. - I am satisfied that appropriate referrals are in place to deal with the problems identified during hospitalization, and that the patient has adequate community resources and support in place. I confirmed the patient's understanding of the diagnosis and plan of care. Specific education that was provided today: Patient Instructions Complete your course of Keflex. Please stay hydrated. Please call Dr Houser to see if you should resume preventative doxy for your urinary tract infections Increase Toujeo back up to your usual pre-hospital dose of 155 units if your glucose remain over 180-200. If still high slowly increase your mealtime insulin up to your pre-hospital dose of 20 units prior to meals. Repeat diabetes laboratory tests and follow up in one month,sooner if any concerns. Author: Cyndee Dozier MD 01/06/2019 20:58 documented in this encounter Plan of Treatment Date Type Specialty Care Team Description 02/10/2019 Office Visit [facility] Cyndee Dozier MD [address] [place] [id number] [phone] Name Type Priority Associated Diagnoses Order Schedule GLYCOHEMOGLOBIN A1C Lab Routine Type 2 diabetes Expected: 02/06/2019 mellitus with diabetic (Approximate), polyneuropathy, with Expires: 01/07/2020 long-term current use of insulin ([facility]) COMPREHENSIVE METABOLIC Lab Routine Type 2 diabetes Expected: 02/06/2019 PANEL mellitus with diabetic (Approximate), polyneuropathy, with Expires: 01/07/2020 long-term current use of insulin ([facility]) CBC NO DIFFERENTIAL Lab Routine Acute cystitis without Expected: 02/06/2019 hematuria (Approximate), Expires: 01/07/2020 Health Maintenance Due Date Last Done Comments ZOSTER IMMUNIZATION SERIES 2000 (1 of 2) MEDICARE ANNUAL WELLNESS 11/20/2013 11/20/2012 VISIT LIPID DISORDER SCREENING 06/14/2018 06/14/2017 LUNG CANCER SCREENING 07/11/2018 07/11/2017 HEMOGLOBIN A1C 01/19/2019 10/19/2018, 10/19/2018, 07/09/2018, Additional history exists DEPRESSION SCREENING 06/30/2019 06/29/2018 FOOT EXAM 06/30/2019 06/29/2018, 06/29/2018, 06/29/2018, Additional history exists FALL RISK ASSESSMENT 10/03/2019 10/02/2018, 10/02/2018 Diabetic Eye Exam 10/01/2020 10/01/2018, 10/01/2018, 10/01/2018, Additional history exists OSTEOPOROSIS SCREENING 07/17/2028 07/17/2018 PNEUMOCOCCAL 65+YRS Completed 03/24/2017, 05/31/2015 HPV IMMUNIZATION SERIES Aged Out No longer eligible based on patient's age to complete this topic MENINGOCOCCAL VACCINE IMM Aged Out No longer eligible based on patient's age to complete this topic documented as of this encounter Goals Goal Patient Goal Associated Recent Patient-Stated? Author Type Problems Progress Depression Depression No Richard, cleopatra (PHQ-9) Mirtha, total score < 5 PANaomie Note: This is an individualized treatment (depression) goal for Tamela De La Cruz: Displayed above is your goal for a depression screening (PHQ-9) score that would indicate good control of your depression. Glycohemoglobin A1c < 7.0 Diabetes 8.2 (12/24/2017 2:29 PM No Mirtha Ramos PA-C EDT) Note: This is an individualized treatment (diabetes control, HgbA1C) goal for Tamela De La Cruz: Displayed above is your progress towards your HgbA1C goal. Your goal is shown above (on the left); your most recent HgbA1C is shown on the right. Note that lower numbers are better. Weight loss vs. 18 mo Lifestyle 18.2 (01/06/2019 4:01 PM No Mirtha Ramos PA-C max (lbs) >= 10 EDT) Note: This is an individualized lifestyle goal for Tamela De La Cruz: Your body mass index (BMI) is more than 30. You should lose weight. A reasonable starting goal is to lose 10 pounds. Displayed above is how many pounds you have lost thus far towards your 10 pound weight loss goal. Keep a regular sleep schedule Lifestyle No Mirtha Ramos PA-C Note: This is an individualized lifestyle goal for Tamela De La Cruz: Please maintain a regular sleep schedule. This may help with some symptoms of depression. Keep immunizations current Lifestyle No Mirtha Ramos PA-C Note: This is an individualized lifestyle goal for Tamela De La Cruz: Please be sure to keep up-to-date on recommended immunizations. For example, this would include a yearly influenza vaccine. Immunization status can be seen by looking at the Health Maintenance sections of your e[facility], Plan of Care, and any After Visit Summaries. Take all prescribed medications as Self-management No Mirtha Ramos PA-C directed Note: This is an individualized self-management goal for Tamela De La Cruz: Please take all prescribed medications as directed. 1. Do not skip doses. If you cannot afford your medications, talk with your doctor. 2. Use a pill reminder system such as a pill box if needed. Your pharmacist can help you with this. 3. Contact your Pharmacy 5 days before your medication runs out. If you cannot take your medications for any reasons, talk with your doctor. 4. Please bring all of your medication bottles and inhalers (or a list of all your medications/inhalers) with you to every visit. Potential barriers to meeting all of your care plan goals will continue to be addressed on an ongoing basis. documented as of this encounter Results Not on filedocumented in this encounter Visit Diagnoses Diagnosis Hospital discharge follow-up - Primary Other follow-up examination Pain syndrome, chronic Chronic pain syndrome Scleroderma (HCC) Systemic sclerosis Type 2 diabetes mellitus with diabetic polyneuropathy, with long-term current use of insulin (HCC) Acute cystitis without hematuria Acute cystitis documented in this encounter Insurance Payer Benefit Plan / Subscriber ID Effective Dates Phone Address Type Group MEDICARE MEDICARE PART A xxxxxxxxxxx 2010-Present Medicare & B [facility] xxxxxxxxxxx Effective for all [facility] OPTIONS dates (Work) documented as of this encounter
== END 2019-02-19 00:40 | disposition left against medical advice (07) ==
LOC: ED 23:01
DX: Z53.21 Procedure and treatment not carried out due to patient leaving prior to being seen by health care provider (principal); R10.9 Unspecified abdominal pain
CPT/HCPCS: 99281

== ENCOUNTER 2019-03-31 08:42 | Observation (INO) | payer MEDICARE ==
--- NOTE | 2019-03-29 21:54 | HP ---
CC: Dr. Dozier * HISTORY AND PHYSICAL: DATE OF PLANNED ADMISSION AND SURGERY: 03/31/19 HISTORY OF PRESENT ILLNESS: Ms. De La Cruz is a 68-year-old white female who is admitted with recurrent episodes of urinary tract infections, history of bladder tumor, recurrent episodes of hematuria for cystoscopy and bladder biopsies. I have been following Ms. De La Cruz for the last 11 years because of history of bladder tumors and recurrent urinary tract infections. 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 At that time, the tumors were resected and she was treated with intravesical BCG. She had periodic followup cystoscopies and she was noted at various times to have patchy bladder wall hyperemia mostly in the dome of the bladder. Biopsies of those lesion showed no recurrent malignancy. There were changes of chronic cystitis but no malignancy. Over the last several years, her bladder capacity has become more reduced and she was having episodes of urinary incontinence. Cystoscopies continued to show diffuse bladder wall hyperemia but no gross evidence of recurrent malignancy. She was admitted about 2 months ago with urosepsis and at that time her urine and blood culture grew pseudomonas. She also at that time had poorly controlled diabetes and she was treated aggressively with IV antibiotics and her blood sugar was corrected. She recovered. Following those episodes of infection, I checked her urine culture twice, the last one on 03/17/19 and there was no growth. She, however, continued to have bladder pain, hematuria with purulent looking urine. I attempted to perform a cystoscopy in my office 2 weeks prior to this admission; however, the patient could not tolerate it and it had to be discontinued. The patient is now admitted for cystoscopy and bladder biopsies under anesthesia. The patient also is known to have vesicourethral reflux and has nonobstructing mild bilateral hydronephrosis more so on the left side. She also has the changes of chronic pyelonephritis and some decrease in her left renal parenchyma. The patient had bilateral renal ultrasound done on 03/17/19 and that study showed bilateral mild hydronephrosis without any solid masses or renal calculi. She also had a pelvic ultrasound, which was incomplete to visualize her pelvic organs because the bladder could not be distended. PAST MEDICAL HISTORY AND SYSTEM REVIEW: She has systolic congestive heart failure, type 2 diabetes, scleroderma, hypertension, hypothyroidism, peripheral neuropathy. She also has been followed because of bilateral small pulmonary nodules; however , they have been stable and they have been observed. MEDICATIONS: She is maintained on: 1. Albuterol inhalers. 2. Coreg 6.25 mg twice a day. 3. Gabapentin 300 mg twice a day. 4. Toujeo 120 units subcutaneous daily. 5. [place] 5/325 mg twice a day as needed for pain. 6. Synthroid 50 mcg daily. 7. Lispro 20 units subcutaneously 3 times per day after food. 8. Fentanyl patch 100 mcg topical every 72 hours for her back pain. ALLERGIES: The patient reports being intolerant or having local reaction to BETADINE and PREDNISONE. FAMILY HISTORY: Negative. SOCIAL HISTORY: She is a nonsmoker and denies any use of recreational drugs. She has history of depression and anxiety. PERSONAL HISTORY: She lives with her partner of many years. PHYSICAL EXAMINATION GENERAL: She is a pleasant, white female who looks older than her age. VITAL SIGNS: Blood pressure 130/80, pulse of 80. LUNGS: Clear. HEART: Regular and rhythmic. No murmurs. ABDOMEN: Soft. There is suprapubic tenderness. PELVIC: Exam at the time of the cystoscopy showed no pelvic masses but tender base of bladder. PLAN: Plan is for cystoscopy and the bladder biopsies as indicated as workup of the hematuria, recurrent urinary tract infections, and reduced bladder capacity. [id number]/[facility] #: [id number] MTDD
[~2019-03-31 08:42] MED LIST: Buffered Lidocaine 1% SYRIN* 1 ML/SYRINGE INTRADERM ONE; Lactated Ringers 1000 ML Bag* 1,000 ML IV SCH; NS 0.9% 1000 ML** 1,000 ML IV SCH
[2019-03-31] MEDS ORDERED: cefTRIAXone(*) 2 GM ADDV.VIAL IVPB ONE (09:14)
[2019-03-31] MEDS ORDERED: Dextrose 50% Syringe 50 ML* 25 GM/50 ML SYRINGE IV PUSH PRN (11:16)
[2019-03-31] MEDS ORDERED: Carvedilol TAB* 6.25 MG PO SCH (12:00)
[2019-03-31] MEDS ORDERED: Buffered Lidocaine 1% SYRIN* 1 ML/SYRINGE INTRADERM ONE (12:09)
[2019-03-31] MEDS ORDERED: HYDROcodone/ACETAMIN 5-325 MG* 1 TAB ONE (12:17)
[2019-03-31 12:56] LABS: ABS Basophils 0.1 10^3/ul (0-0.2); ABS Eosinophils 0.3 10^3/ul (0-0.6); ABS Lymphocytes 2.4 10^3/ul (1.0-4.8); ABS Monocytes 0.7 10^3/ul (0-0.8); Eosinophil % 3.6 %; Hematocrit 32 % (35-47); Lymphocyte % 28.6 %; Mean Corpuscular HGB Conc 34 g/dL (31-36); Mean Corpuscular Hemoglobin 31 pg (27-31); Mean Corpuscular Volume 89 fL (80-97); Mean Platelet Volume 7.7 fL (7.4-10.4); Nucleated Red Blood Cells % 0.1; Platelet Count 371 10^3/uL (150-450); Red Blood Count 3.62 10^6 /uL (3.70-4.87); Red Cell Distribution Width 16 % (10-15); White Blood Count 8.4 10^3/uL (3.5-10.8)
[2019-03-31 13:05] LABS: Albumin 3.8 g/dL (3.2-5.2); BUN/Creatinine Ratio 13.2 (8-20); Calcium 9.5 mg/dL (8.6-10.3); EGFR Non-African American 17.4 (>60); Globulin 3.7 g/dL (2-4); Potassium 4.9 mmol/L (3.5-5.0); Total Bilirubin 0.3 mg/dL (0.2-1.0); Total Protein 7.5 g/dL (6.4-8.9)
[2019-03-31 13:08] LABS: INR 1.09 (0.82-1.09)
[2019-03-31] MEDS ORDERED: Insulin LISPRO* 1 UNITS UNIT SUBCUT ONE (13:09)
[2019-03-31] MEDS: Insulin LISPRO* 1 UNITS UNIT SUBCUT SCH ×3 (13:12→21:08)
[2019-03-31 13:30] LABS: TSH (Thyroid Stimulating Horm) 1.43 mcIU/mL (0.34-5.60)
[2019-03-31] MEDS: fentaNYL PATCHs 100 MCG/HR TRANSDERM SCH (15:06)
[2019-03-31] MEDS: Acetaminophen TAB* 325 MG PO PRN ×2 (15:18→19:45)
[2019-03-31] MEDS: Cefepime 1 GM in Dextrose(*) 1 GM/50 ML BAG IV SCH (17:35)
[2019-03-31] MEDS: NS 0.9% 1000 ML** 1,000 ML IV SCH (17:36)
--- NOTE | 2019-03-31 18:00 | HP ---
CC: Dr. Rodriguez; Dr. Dozier * HISTORY AND PHYSICAL: DATE OF ADMISSION: 03/31/19 PRIMARY CARE PHYSICIAN: Dr. Dozier. ATTENDING PHYSICIAN WHILE IN THE HOSPITAL: Dr. Bee Overton * (dictated by Ana Mcgee NP). CHIEF COMPLAINT: High blood sugar. HISTORY OF PRESENT ILLNESS: Ms. De La Cruz is a 68-year-old female with a past medical history significant for nonischemic cardiomyopathy, history of systolic congestive heart failure, type 2 diabetes, scleroderma, hypertension, hypothyroid, peripheral neuropathy, depression, anxiety, history of bladder cancer since 2007, history of eye cancer, who presented to [facility] for an elective cystoscopy with Dr. Rodriguez in the preoperative area. The patient was noted to have hyperglycemia with a blood sugar of 351, so her surgery was canceled and Hospital Medicine was asked to see and evaluate the patient for admission. The patient does report that she has not taken any of her meds other than her pain meds and Prilosec for the past 2 months due to the increasing pain in her bladder. The patient reports that she has not been sleeping well due to the pain in her bladder. She does report chronic urinary incontinence and burning with urination. Due to her findings of high blood sugar, Hospital Medicine was asked to see and evaluate her for admission. PAST MEDICAL HISTORY: Significant for: 1. Systolic congestive heart failure. 2. Type 2 diabetes. 3. Scleroderma. 4. Hypertension. 5. History of eye cancer. 6. Hypothyroidism. 7. Peripheral neuropathy. 8. Depression. 9. Anxiety. 10. Nonischemic cardiomyopathy. 11. GERD. 12. History of bladder cancer since 2007. PAST SURGICAL HISTORY: 1. Thyroidectomy. 2. Tonsil and adenoids removed. 3. Cholecystectomy. 4. Bladder surgery x2. MEDICATIONS: Home medications include: The patient has not taken any of these medications in the past 2 months: 1. Coreg 6.25 mg b.i.d. 2. Gabapentin 300 mg p.o. b.i.d. 3. Toujeo 120 units p.o. daily. 4. Synthroid 50 mcg p.o. daily. 5. Lispro 20 units subcu 3 times daily. 6. Cymbalta 60 mg p.o. daily. 7. Vitamin D 1000 units p.o. daily. Medications she is takin. [place] 5/325 one tablet twice a day as needed for pain. 2. Fentanyl patch 100 mcg every 72 hours. 3. Prilosec 20 mg p.o. daily. ALLERGIES: PREDNISONE and BETADINE. FAMILY HISTORY: Mother from congestive heart failure at the age of 62/ COPD. Father at the age of 82 due to old age with a history of coronary artery disease. No reported history of diabetes or cancer within the family. SOCIAL HISTORY: The patient denies any alcohol, tobacco use, or illicit drug use. She lives with her . Surrogate decision maker in the event she is unable to make her own decisions is her Livia. She is a DNR/DNI. REVIEW OF SYSTEMS: The patient does report occasional chills. Denies any fevers or unintended weight loss. Denies any chest pain or edema. No cough, hemoptysis, or shortness of breath. No nausea, vomiting, or diarrhea. She does report lower abdominal pain x2 months. She does report hematuria, dysuria , and pain with urination. She denies any focal weakness, sensory loss, visual complaints, dysphagia, arthralgias, myalgias, rashes, lesions, open sores, psychosis, or anxiety. PHYSICAL EXAMINATION GENERAL: At this time, Ms. De La Cruz is alert and oriented. Resting on the stretcher in PACU. She is in no acute distress. VITAL SIGNS: Blood pressure 145/68, heart rate 86, respirations 16, O2 saturation 100%, temperature was 97.8. HEENT: Head is atraumatic, normocephalic. Eyes, EOMs are intact. Sclerae anicteric and not pale. Oral mucosa is moist. NECK: Supple. LUNGS: Clear to auscultation bilaterally. No wheezes, rales, or rhonchi. CARDIAC: S1, S2. Regular rate and rhythm. No murmurs, rubs or gallops. ABDOMEN: Soft and nontender. Bowel sounds are present x4. EXTREMITIES: She is able to to move all 4 extremities. There is no clubbing or cyanosis. She has no edema noted to her lower extremities. NEUROLOGIC: She is awake, alert, and oriented x3. Speech is clear. Thought process is intact. There are no gross focal deficit. SKIN: Intact. LABORATORY DATA AND DIAGNOSTIC STUDIES: WBCs are 8.4, RBCs 3.62, hemoglobin 11.0, hematocrit is 32, platelet count is 371. INR is 1.09. Sodium 134, potassium 4.9, chloride 104, carbon dioxide 21, anion gap 8, BUN 36, creatinine 2.72, glucose is 303. AST 7, ALT 6, alkaline phosphatase is 92. TSH is 1.43. Her chest x-ray is currently pending. CT of the abdomen and pelvis is currently pending. ASSESSMENT AND PLAN: Ms. De La Cruz is a 68-year-old female with a past medical history significant for systolic congestive heart failure, nonischemic cardiomyopathy with the last known ejection fraction in 2013 of 50% to 55%, scleroderma, hypertension, hypothyroid, peripheral neuropathy, depression, anxiety, gastroesophageal reflux disease, history of bladder cancer, and history of eye cancer, who presented to [facility] for an elective cystoscopy with Dr. Rodriguez, was found to be hyperglycemia, and Hospital Medicine was asked to see and admit the patient. She will admitted under observation for: 1. Hyperglycemia. The patient's initial blood sugar was noted to be 351. The patient stopped taking her diabetic Toujeo and lispro 20 units with meals approximately 2 [address] will place her on fingersticks a.c. and h.s. with lispro sliding scale. I will hold off on starting Lantus at this time. I will add on a hemoglobin A1C to her lab work. 2. History of nonischemic cardiomyopathy. The patient again has stopped taking her meds approximately 2 months ago, Coreg and [place]. I will restart her on Coreg 3.125 mg b.i.d. as the patient has not taken her Coreg 6.25 mg b.i.d. in approximately 2 months. We will monitor her vital signs, heart rate and blood pressure. 3. History of systolic congestive heart failure. The patient reports that she has not been taking her medications in 2 month. She is not decompensated at this time and has no signs of congestive heart failure. I will resume her Coreg at half the dose 3.125. She is not currently prescribed any diuretic at this time. 4. Hypothyroid. The patient does have a history of hypothyroidism. Her TSH today is 1.43. I will hold off on resuming her Synthroid at this time. 5. Chronic pain. The patient does have chronic pain in her bladder, for which she takes [place] and fentanyl. I will resume these medications. 6. Depression and anxiety. The patient does take duloxetine at home. The patient again has not taken this medication in 2 months. She is not having any episodes of acute depression. I will hold her duloxetine at this time. 7. Gastroesophageal reflux disease. The patient does take Prilosec. I will continue her on omeprazole 20 mg p.o. daily. 8. Acute kidney injury. The patient does have an elevated BUN and creatinine above her baseline. I will give her a small amount of IV fluids and repeat a BMP in the a.m. The patient does appear to be dry. I suspect this could be related to dehydration. 9. Obstruction. I am getting a CT of the abdomen and pelvis, which is currently pending at this time. 10 FEN: She can have a heart healthy, caffeine okay diet. 11. Code status: She is DNR/DNI. 12. DVT prophylaxis: I will place her on SCDs as the patient does have hematuria and will be having surgery. TIME SPENT: Time spent on this admission was 60 minutes. Greater than half that time was spent at the bedside reviewing events leading thus far to her hospitalization, performing physical exam, and reviewing my plan of care. I have discussed with my attending Dr. Bee Overton; she is in agreement with my plan. ANA MCGEE, ALMITA [id number]/[facility] #: [id number] ANA
[2019-03-31 18:35] LABS: Urine Appearance Turbid; Urine Bilirubin Negative (Negative); Urine Blood 3+ (Negative); Urine Color Yellow; Urine Glucose Negative (Negative); Urine Ketones Negative (Negative); Urine Nitrite Negative (Negative); Urine Protein 2+(100 mg/dL) (Negative); Urine Specific Gravity 1.013 (1.010-1.030); Urine Urobilinogen Negative (Negative)
[2019-03-31 18:41] LABS: Urine Bacteria 2+ (Absent); Urine Red Blood Cell 2+(6-10/hpf) (Absent); Urine White Blood Cell 3+(>20/hpf) (Absent)
[2019-03-31] MEDS: fentaNYL Patch Check Q Shift 1 NOTE FOLLOW UP SCH (18:43)
[2019-03-31] MEDS: Carvedilol TAB* 3.125 MG PO SCH (19:45)
[2019-03-31] MEDS ORDERED: Insulin GLARGINE(*) 1 UNITS UNIT SUBCUT SCH (21:00)
[2019-03-31] MEDS: HYDROcodone/ACETAMIN 5-325 MG* 1 TAB PO PRN (21:12)
[2019-03-31] MEDS: Morphine INJ* 2 MG/ML 1 ML SYRINGE (TWO MG - NEW SYRINGE VERSION) IV PRN (22:36)
[2019-04-01] MEDS ORDERED: LORazepam INJ* 2 MG/ML 1 ML VIAL IV PUSH ONE (00:38)
[2019-04-01] MEDS ORDERED: Lorazepam PYXIS KEY PRN (00:38)
[2019-04-01] MEDS: Morphine INJ* 2 MG/ML 1 ML SYRINGE (TWO MG - NEW SYRINGE VERSION) IV PRN ×4 (03:07→21:10)
[2019-04-01] MEDS ORDERED: Levothyroxine TAB* 50 MCG TAB PO SCH (06:00)
[2019-04-01] MEDS: fentaNYL Patch Check Q Shift 1 NOTE FOLLOW UP SCH ×2 (06:58→18:45)
[2019-04-01] MEDS: NS 0.9% 1000 ML** 1,000 ML IV SCH (08:37)
[2019-04-01] MEDS: Insulin LISPRO* 1 UNITS UNIT SUBCUT SCH ×4 (08:39→21:13)
[2019-04-01] MEDS: Pantoprazole TAB * 40 MG TAB PO SCH (08:39)
[2019-04-01] MEDS: Carvedilol TAB* 3.125 MG PO SCH ×2 (08:39→21:15)
[2019-04-01] MEDS: Gabapentin CAP(*) 300 MG PO SCH ×2 (08:40→21:15)
--- NOTE | 2019-04-01 08:44 | PN ---
Subjective Date of Service: 04/01/19 Interval History: Ms. De La Cruz is feeling tired today. She does not want to wake up to speak with me. Reports baseline chronic pain. She is having some pain with urination. She is incontinent which is also her baseline. Denies CP or SOB. No concerns from nursing. Family History: Unchanged from Admission Social History: Unchanged from Admission Past Medical History: Unchanged from Admission Objective Active Medications: Acetaminophen (Tylenol Tab*) 650 mg PO Q4H PRN MILD PAIN or TEMP > 100.4 Hydrocodone Bitart/Acetaminophen ([place] 5-325 Tab*) 1 tab PO BID PRN PAIN Carvedilol (Coreg Tab*) 3.125 mg PO BID [facility] Dextrose (D50w Syringe 50 Ml*) 12.5 gm IV PUSH .FOR FS < 60 - SS PRN FS < 60 Fentanyl (Duragesic Patch 100 Mcg/Hr *) 100 mcg TRANSDERM Q72H [facility] Gabapentin (Neurontin Cap(*)) 300 mg PO BID [facility] Sodium Chloride (Ns 0.9% 1000 Ml) 1,000 mls @ 75 mls/hr IV PER RATE [facility] Cefepime HCl (Maxipime 1 Gm In Dextrose Duplex (*)) 1 gm in 50 mls @ 100 mls/ hr IV Q24H [facility] Insulin Glargine (Lantus(*)) 12 units SUBCUT BEDTIME [facility] Insulin Human Lispro (Humalog*) 0 units SUBCUT ACHS [facility]; Protocol Morphine Sulfate (Morphine Inj (Syringe))*) 2 mg IV Q4H PRN PAIN - SEVERE Pantoprazole Sodium (Protonix Tab*) 40 mg PO DAILY [facility] Vital Signs - 8 hr 04/01/19 04/01/19 04/01/19 00:40 01:03 02:24 Temperature Pulse Rate Respiratory 18 18 16 Rate Blood Pressure (mmHg) O2 Sat by Pulse Oximetry 04/01/19 04/01/19 03:07 04:12 Temperature 97.8 F Pulse Rate 72 Respiratory 18 18 Rate Blood Pressure 125/66 (mmHg) O2 Sat by Pulse 99 Oximetry Oxygen Devices in Use Now: None Appearance: Middle-aged female lying in bed in NAD Ears/Nose/Mouth/Throat: Mucous Membranes Moist Neck: NL Appearance and Movements; NL JVP, Trachea Midline Respiratory: Symmetrical Chest Expansion and Respiratory Effort, Clear to Auscultation Cardiovascular: NL Sounds; No Murmurs; No JVD, RRR Abdominal: NL Sounds; No Tenderness; No Distention Neurological: Alert and Oriented x 3 Lines/Tubes/Other Access: Clean, Dry and Intact Peripheral IV Nutrition: Taking PO's Result Diagrams: 03/31/19 12:31 04/01/19 10:15 Assess/Plan/Problems-Billing Assessment: Ms. De La Cruz is a 68 yo F with PMH of DM2, HFrEf and nonischemic cardiomyopathy, scleroderma, HTN, hypothyroidism, neuropathy, depression, anxiety, GERD, bladder cancer; who presented for an elective cystoscopy and surgery was delayed d/t hyperglycemia. - Patient Problems (1) DM type 2 (diabetes mellitus, type 2) Comment: - Glucose initially 300s, now improved with insulin - Patient had previously been on insulin which she stopped taking approx 2 months ago - Continue Lispro SS; increase Lantus to 12 units (2) Acute kidney injury superimposed on CKD Code(s): N17.9 - ACUTE KIDNEY FAILURE, UNSPECIFIED; N18.9 - CHRONIC KIDNEY DISEASE, UNSPECIFIED Comment: - Creatinine 2.7 on admission; baseline around 1.7 - CT showing bilat moderate to severe hydronephrosis - Suspected secondary to VUR per Dr. Rodriguez - Scheduled for OR tomorrow around 1000 for cystoscopy and cystogram with Jennifer - NPO after midnight - Continue cefepime per Urology (3) Hypertension Code(s): I10 - ESSENTIAL (PRIMARY) HYPERTENSION Comment: - Normotensive - Hold ARB in the setting of MADI - Continue carvedilol (4) History of bladder cancer Code(s): Z85.51 - PERSONAL HISTORY OF MALIGNANT NEOPLASM OF BLADDER Comment: - In remission s/p resection - CT showing some concern for recurrence, but Urology thinks this is unlikely - Biopsies to be taken tomorrow in OR (5) Systolic congestive heart failure Code(s): I50.20 - UNSPECIFIED SYSTOLIC (CONGESTIVE) HEART FAILURE Comment: - Stable, not in exacerbation - Continue carvedilol (6) Chronic pain Code(s): G89.29 - OTHER CHRONIC PAIN Comment: - Continue fentanyl, gabapentin, [place] (7) GERD (gastroesophageal reflux disease) Code(s): K21.9 - GASTRO-ESOPHAGEAL REFLUX DISEASE WITHOUT ESOPHAGITIS Comment : - Continue pantoprazole (8) Anxiety and depression Code(s): F41.9 - ANXIETY DISORDER, UNSPECIFIED; F32.9 - MAJOR DEPRESSIVE DISORDER, SINGLE EPISODE, UNSPECIFIED Comment: - Continue duloxetine (9) Hypothyroidism Code(s): E03.9 - HYPOTHYROIDISM, UNSPECIFIED Comment: - Continue levothyroxine (10) DVT prophylaxis Code(s): Z29.9 - ENCOUNTER FOR PROPHYLACTIC MEASURES, UNSPECIFIED Comment: - SCDs (11) DNR (do not resuscitate) Comment: Status and Disposition: Observation. Anticipate d/c home when medically stable, possibly tomorrow after the OR. Attending: Duglas Al
[2019-04-01] MEDS ORDERED: DULoxetine DR CAP* 60 MG CAP.DR PO SCH (09:00)
[2019-04-01 10:50] LABS: Calcium 8.9 mg/dL (8.6-10.3); EGFR African American 22.9 (>60); EGFR Non-African American 18.9 (>60); Potassium 4.6 mmol/L (3.5-5.0)
[2019-04-01] MEDS: HYDROcodone/ACETAMIN 5-325 MG* 1 TAB PO PRN (14:14)
[2019-04-01] MEDS ORDERED: Buffered Lidocaine 1% SYRIN* 1 ML/SYRINGE INTRADERM ONE (16:58)
[2019-04-01] MEDS: Cefepime 1 GM in Dextrose(*) 1 GM/50 ML BAG IV SCH (18:08)
[2019-04-01] MEDS ORDERED: Insulin GLARGINE(*) 1 UNITS UNIT SUBCUT SCH (21:00)
[2019-04-01] MEDS ORDERED: Al Hydrox/Mg Hydrox/Simet LIQ* 30 ML UDC PO PRN (21:02)
[2019-04-02] MEDS: Morphine INJ* 2 MG/ML 1 ML SYRINGE (TWO MG - NEW SYRINGE VERSION) IV PRN ×2 (03:20→23:53)
[2019-04-02 05:58] LABS: ABS Basophils 0.1 10^3/ul (0-0.2); ABS Eosinophils 0.4 10^3/ul (0-0.6); ABS Lymphocytes 2.3 10^3/ul (1.0-4.8); ABS Monocytes 0.7 10^3/ul (0-0.8); ABS Neutrophils 3.9 10^3/ul (1.5-7.7); Eosinophil % 5.4 %; Hematocrit 29 % (35-47); Hemoglobin 9.3 g/dL (12.0-16.0); Lymphocyte % 31.1 %; Mean Corpuscular HGB Conc 32 g/dL (31-36); Mean Corpuscular Hemoglobin 30 pg (27-31); Mean Corpuscular Volume 91 fL (80-97); Mean Platelet Volume 7.4 fL (7.4-10.4); Platelet Count 336 10^3/uL (150-450); Red Blood Count 3.16 10^6 /uL (3.70-4.87); Red Cell Distribution Width 16 % (10-15); White Blood Count 7.5 10^3/uL (3.5-10.8)
[2019-04-02] MEDS ORDERED: Lactated Ringers 1000 ML Bag* 1,000 ML IV SCH ×2 (06:00→15:55)
[2019-04-02 06:20] LABS: BUN/Creatinine Ratio 16.3 (8-20); Calcium 9.1 mg/dL (8.6-10.3); EGFR African American 25.1 (>60); EGFR Non-African American 20.8 (>60); Potassium 5.1 mmol/L (3.5-5.0)
[2019-04-02] MEDS: fentaNYL Patch Check Q Shift 1 NOTE FOLLOW UP SCH ×2 (06:49→19:06)
[2019-04-02] MEDS: Gabapentin CAP(*) 300 MG PO SCH ×2 (08:12→23:07)
[2019-04-02] MEDS: Pantoprazole TAB * 40 MG TAB PO SCH (08:13)
[2019-04-02] MEDS: Insulin LISPRO* 1 UNITS UNIT SUBCUT SCH ×4 (08:13→23:22)
[2019-04-02] MEDS: Carvedilol TAB* 3.125 MG PO SCH ×2 (08:13→23:08)
[2019-04-02] MEDS ORDERED: Etomidate* 2 MG/ML 10 ML VIAL ONE (08:19)
[2019-04-02] MEDS ORDERED: fentaNYL* 50 MCG/ML 2 ML VIAL (100 MCG VIAL) ONE (08:19)
[2019-04-02] MEDS ORDERED: Propofol* 10 MG/ML 20 ML BTL ONE (08:19)
[2019-04-02] MEDS ORDERED: Lidocaine 2% PF * 5 ML VIAL ONE (08:19)
[2019-04-02] MEDS ORDERED: Midazolam* 1 MG/ML 2 ML VIAL (2 MG) ONE (09:59)
[2019-04-02] MEDS ORDERED: Acetaminophen IV 1GM/100ML * 100 ML ONE (10:37)
[2019-04-02] MEDS ORDERED: Fluorescein 10% INJ* 100 MG/ML AMP ONE (10:54)
[2019-04-02] MEDS ORDERED: Naloxone* 0.4 MG/ML 1 ML VIAL IV PRN (11:22)
[2019-04-02] MEDS ORDERED: DiMENhydriNATE IV* 50 MG/ML VIAL IV PUSH PRN (11:22)
[2019-04-02] MEDS ORDERED: Ondansetron INJ* 2 MG/ML VIAL IV PRN (11:22)
[2019-04-02] MEDS ORDERED: HYDROmorphone INJ1* 1 MG/ML SYRINGE ONE (11:31)
[2019-04-02] MEDS: HYDROmorphone INJ1* 1 MG/ML SYRINGE IV PRN ×3 (11:33→11:53)
--- NOTE | 2019-04-02 13:26 | PN ---
Subjective Date of Service: 04/02/19 Interval History: Patient evaluated after cystoscopy. Awakens easily. Discussed Dr. Rodriguez's findings. Patient has no questions. She tells me she has bladder pain which is constant and not with spasms. Denies abd pain, low back pain, chest pain, fever/ chills, difficulty breathing. Family History: Unchanged from Admission Social History: Unchanged from Admission Past Medical History: Unchanged from Admission Objective Active Medications: Acetaminophen (Tylenol Tab*) 650 mg PO Q4H PRN PRN Reason: MILD PAIN or TEMP > 100.4 Last Admin: 03/31/19 19:45 Dose: 650 mg Hydrocodone Bitart/Acetaminophen ([employer] 5-325 Tab*) 1 tab PO BID PRN PRN Reason: PAIN Last Admin: 04/01/19 14:14 Dose: 1 tab Al Hydrox/Mg Hydrox/Simethicone (Maalox Plus*) 30 ml PO Q4H PRN PRN Reason: INDIGESTION Last Admin: 04/01/19 22:58 Dose: 30 ml Carvedilol (Coreg Tab*) 3.125 mg PO BID [facility] Last Admin: 04/02/19 08:13 Dose: 3.125 mg Dextrose (D50w Syringe 50 Ml*) 12.5 gm IV PUSH .FOR FS < 60 - SS PRN PRN Reason: FS < 60 Dimenhydrinate (Dramamine Iv*) 12.5 mg IV PUSH ONCE PRN PRN Reason: NAUSEA/VOMITING Fentanyl (Duragesic Patch 100 Mcg/Hr *) 100 mcg TRANSDERM Q72H [facility] Last Admin: 03/31/19 15:06 Dose: 100 mcg Gabapentin (Neurontin Cap(*)) 300 mg PO BID [facility] Last Admin: 04/02/19 08:12 Dose: 300 mg Hydromorphone HCl (Dilaudid Inj1s*) 0.1 mg IV Q10M PRN PRN Reason: PAIN - SEVERE Last Admin: 04/02/19 11:53 Dose: 0.1 mg Cefepime HCl (Maxipime 1 Gm In Dextrose Duplex (*)) 1 gm in 50 mls @ 100 mls/ hr IV Q24H [facility] Last Admin: 04/01/19 18:08 Dose: 100 mls/hr Lactated Ringer's (Lactated Ringers 1000 Ml Bag*) 1,000 mls @ 125 mls/hr IV PER RATE [facility] Last Admin: 04/02/19 05:56 Dose: 125 mls/hr Insulin Glargine (Lantus(*)) 12 units SUBCUT BEDTIME [facility] Last Admin: 04/01/19 21:14 Dose: 12 units Insulin Human Lispro (Humalog*) 0 units SUBCUT ACHS [facility]; Protocol Last Admin: 04/02/19 08:13 Dose: 6 units Morphine Sulfate (Morphine Inj (Syringe))*) 2 mg IV Q4H PRN PRN Reason: PAIN - SEVERE Last Admin: 04/02/19 03:20 Dose: 2 mg Naloxone HCl (Narcan*) 0.08 mg IV Q2M PRN PRN Reason: severe induced resp depression Ondansetron HCl (Zofran Inj*) 4 mg IV ONCE PRN PRN Reason: NAUSEA/VOMITING Oxybutynin Chloride (Ditropan Tab*) 5 mg PO QID PRN PRN Reason: bladder spasm Pantoprazole Sodium (Protonix Tab*) 40 mg PO DAILY [facility] Last Admin: 04/02/19 08:13 Dose: 40 mg Pharmacy Profile Note (Fentanyl Patch Check Q Shift) 1 note FOLLOW UP 0700, 1900 [facility] Last Admin: 04/02/19 06:49 Dose: 1 note Vital Signs - 8 hr 04/02/19 04/02/19 04/02/19 05:30 07:00 08:12 Temperature 98.9 F Pulse Rate 83 Respiratory 18 20 16 Rate Blood Pressure 94/57 (mmHg) O2 Sat by Pulse 98 Oximetry 04/02/19 04/02/19 04/02/19 08:38 11:25 11:31 Temperature 98.8 F 97.5 F Pulse Rate 81 78 77 Respiratory 14 14 14 Rate Blood Pressure 110/85 139/96 88/60 (mmHg) O2 Sat by Pulse 93 99 99 Oximetry 04/02/19 04/02/19 04/02/19 11:33 11:35 11:43 Temperature Pulse Rate 77 Respiratory 16 15 26 Rate Blood Pressure 145/88 (mmHg) O2 Sat by Pulse 100 Oximetry 04/02/19 04/02/19 04/02/19 11:45 11:53 12:00 Temperature Pulse Rate 75 73 Respiratory 14 16 23 Rate Blood Pressure 139/77 128/76 (mmHg) O2 Sat by Pulse 100 100 Oximetry 04/02/19 04/02/19 12:15 12:41 Temperature 97.6 F Pulse Rate 72 71 Respiratory 14 16 Rate Blood Pressure 117/73 114/63 (mmHg) O2 Sat by Pulse 95 99 Oximetry Oxygen Devices in Use Now: None Appearance: Obese elderly white female, laying in bed, appearing comfortable and in NAD Eyes: No Scleral Icterus, - - PERRL Ears/Nose/Mouth/Throat: Mucous Membranes Moist Neck: Trachea Midline Respiratory: Symmetrical Chest Expansion and Respiratory Effort, Clear to Auscultation Cardiovascular: NL Sounds; No Murmurs; No JVD, RRR Abdominal: - - no suprapubic pain or CVA tenderness; abd soft, nontender, nondistended Extremities: No Edema, No Clubbing, Cyanosis Skin: No Rash or Ulcers Neurological: Alert and Oriented x 3 Result Diagrams: 04/02/19 05:31 04/02/19 05:31 Assess/Plan/Problems-Billing Assessment: Ms. De La Cruz is a 68 yo F with PMH of DM2, HFrEf and nonischemic cardiomyopathy, scleroderma, HTN, hypothyroidism, neuropathy, depression, anxiety, GERD, bladder cancer; who presented for an elective cystoscopy and surgery was delayed d/t hyperglycemia. - Patient Problems (1) Acute kidney injury superimposed on CKD Current Visit: No Status: Acute Code(s): N17.9 - ACUTE KIDNEY FAILURE, UNSPECIFIED; N18.9 - CHRONIC KIDNEY DISEASE, UNSPECIFIED SNOMED Code(s): 74823988 Comment: - Creatinine 2.7 on admission; baseline around 1.7 - CT showing bilat moderate to severe hydronephrosis - Continue cefepime until tomorrow per Urology - Cystoscopy today still with unclear etiology to Dr. Rodriguez but remains concerned with reflux, questionable component of obstruction but unable to place stents - MADI is minimally improved today but will continue IVF and brito; will decrease IVF rate given systolic CHF - prn oxybutynin for bladder spasms (2) Systolic congestive heart failure Current Visit: No Status: Chronic Priority: Medium Code(s): I50.20 - UNSPECIFIED SYSTOLIC (CONGESTIVE) HEART FAILURE SNOMED Code(s): 01482066 Comment: - Stable, not acutely decompensated - Continue carvedilol (3) DM type 2 (diabetes mellitus, type 2) Current Visit: No Status: Chronic Priority: Medium Comment: - Glucose initially 300s, now improved with insulin - Patient had previously been on insulin which she stopped taking approx 2 months ago - Continue Lispro SS; Lantus 12 units (4) Chronic pain Current Visit: No Status: Chronic Priority: Medium Code(s): G89.29 - OTHER CHRONIC PAIN SNOMED Code(s): 55674306 Comment: - Continue fentanyl, gabapentin, [employer] (5) GERD (gastroesophageal reflux disease) Current Visit: No Status: Chronic Priority: Medium Code(s): K21.9 - GASTRO -ESOPHAGEAL REFLUX DISEASE WITHOUT ESOPHAGITIS SNOMED Code(s): 822915552 Comment: - Continue pantoprazole (6) History of bladder cancer Current Visit: No Status: Chronic Priority: Medium Code(s): Z85.51 - PERSONAL HISTORY OF MALIGNANT NEOPLASM OF BLADDER SNOMED Code(s): 427942312 Comment: - In remission s/p resection - CT and cystoscopy showing some concern for recurrence - Biopsies pending (7) Hypertension Current Visit: No Status: Chronic Priority: Medium Code(s): I10 - ESSENTIAL (PRIMARY) HYPERTENSION SNOMED Code(s): 20421960 Comment: - Normotensive - Hold ARB in the setting of MADI - Continue carvedilol (8) Hypothyroidism Current Visit: No Status: Chronic Priority: Medium Code(s): E03.9 - HYPOTHYROIDISM, UNSPECIFIED SNOMED Code(s): 31132018 Comment: - Continue levothyroxine (9) DNR (do not resuscitate) Current Visit: Yes Status: Acute Comment: (10) DVT prophylaxis Current Visit: No Status: Acute Code(s): Z29.9 - ENCOUNTER FOR PROPHYLACTIC MEASURES, UNSPECIFIED SNOMED Code(s): 834836303 Comment: - SCDs - no chemoprophylaxis at this time per urology Status and Disposition: Observation. Anticipate d/c home when medically stable
[2019-04-02] MEDS: Oxybutynin TAB* 5 MG PO PRN (14:11)
[2019-04-02] MEDS: Cefepime 1 GM in Dextrose(*) 1 GM/50 ML BAG IV SCH (17:47)
[2019-04-02] MEDS ORDERED: Insulin GLARGINE(*) 1 UNITS UNIT SUBCUT SCH (21:00)
[2019-04-03 06:04] LABS: ABS Basophils 0.1 10^3/ul (0-0.2); ABS Eosinophils 0.3 10^3/ul (0-0.6); ABS Lymphocytes 2.2 10^3/ul (1.0-4.8); ABS Monocytes 0.6 10^3/ul (0-0.8); ABS Neutrophils 3.8 10^3/ul (1.5-7.7); Eosinophil % 4.9 %; Hematocrit 34 % (35-47); Lymphocyte % 31.8 %; Mean Corpuscular HGB Conc 30 g/dL (31-36); Mean Corpuscular Hemoglobin 28 pg (27-31); Mean Corpuscular Volume 96 fL (80-97); Mean Platelet Volume 7.6 fL (7.4-10.4); Nucleated Red Blood Cells % 0.2; Platelet Count 308 10^3/uL (150-450); Red Blood Count 3.54 10^6 /uL (3.70-4.87); Red Cell Distribution Width 17 % (10-15); White Blood Count 7.1 10^3/uL (3.5-10.8)
[2019-04-03 07:08] LABS: Calcium 8.6 mg/dL (8.6-10.3)
[2019-04-03 07:13] LABS: BUN/Creatinine Ratio 16.4 (8-20); EGFR African American 29.8 (>60); EGFR Non-African American 24.6 (>60)
[2019-04-03 07:23] LABS: Potassium 5.2 mmol/L (3.5-5.0)
[2019-04-03] MEDS: fentaNYL Patch Check Q Shift 1 NOTE FOLLOW UP SCH (08:13)
[2019-04-03] MEDS: Pantoprazole TAB * 40 MG TAB PO SCH (08:58)
[2019-04-03] MEDS: Carvedilol TAB* 3.125 MG PO SCH (08:58)
[2019-04-03] MEDS: Insulin LISPRO* 1 UNITS UNIT SUBCUT SCH ×2 (08:58→12:47)
[2019-04-03] MEDS: Gabapentin CAP(*) 300 MG PO SCH (08:58)
[2019-04-03] MEDS: Sodium Polystyrene ORAL.SOL* 15 GM/60 ML BTL PO SCH ×2 (10:23→15:26)
[2019-04-03] MEDS: Morphine INJ* 2 MG/ML 1 ML SYRINGE (TWO MG - NEW SYRINGE VERSION) IV PRN (10:23)
[2019-04-03 12:05] VITALS: BP 137/75
[2019-04-03] MEDS: fentaNYL PATCHs 100 MCG/HR TRANSDERM SCH (15:26)
[2019-04-03] MEDS: Oxybutynin TAB* 5 MG PO PRN (15:26)
--- NOTE | 2019-04-04 01:24 | DS ---
CC: Dr. Dozier; Dr. Rodriguez DISCHARGE SUMMARY: DATE OF ADMISSION: 03/31/19 DATE OF DISCHARGE: 04/03/19 ATTENDING PHYSICIAN WHILE IN THE HOSPITAL: Dr. Bee Overton * (dictated by [facility]). PRIMARY CARE PROVIDER: Dr. Dozier. UROLOGIST: Dr. Rodriguez. PRIMARY DIAGNOSIS: Acute kidney injury with associated bilateral hydronephrosis , which is likely related to vesicular reflux as well as possible obstruction. SECONDARY DIAGNOSES: 1. Systolic congestive heart failure. 2. Type 2 diabetes. 3. Scleroderma. 4. Hypertension. 5. History of eye cancer. 6. Hypothyroidism. 7. Peripheral neuropathy. 8. Depression. 9. Anxiety. 10. Nonischemic cardiomyopathy. 11. Gastroesophageal reflux disease. 12. History of bladder cancer, status post 2 bladder surgeries. PERTINENT STUDIES/LABORATORY DATA: 03/31/[address], impression: 1. There is [id number] bilateral hydronephrosis, which appears new from the prior ultrasound study. The ureters are dilated at the ureterovesical junction. There is bladder wall thickening, which is suggestive of recurrent disease in this patient with a history of bladder cancer. Recommended Urology consultation. 2. Small amount of obstructing left renal calculus. Creatinine on admission 2.7 to creatinine at discharge was 2.01. HISTORY OF PRESENT ILLNESS/HOSPITAL COURSE: Tamela De La Cruz is a 68-year-old white female with past medical history significant for history of bladder cancer , systolic heart failure, type 2 diabetes, hypertension, who was admitted to the hospital due to having hyperglycemia upon reporting for elective cystoscopy with Dr. Rodriguez on 03/31/19. Dr. Rodriguez canceled the cystoscopy due to her hyperglycemia with a blood sugar of 351 and she was admitted and found to have acute kidney injury. The patient admits to discontinuing multiple medications including her diabetic medications in the last few months due to her bladder pain. For further details regarding her admission, please see history and physical written by Ana Mcgee NP. The patient was started on Louie catheter and given IV fluid hydration to improve her kidney injuries, ultimately there was improvement. She had her cystoscopy on 04/02/[address] Rodriguez. The full report is still pending, but he did mention to me that he had concern for reflux as well as possible obstruction due to the multiple abnormalities found on his bladder and concern for malignancy. Muscle biopsies were taken and pathologies are pending at this time. The patient did have hematuria following the biopsies. Her pain was well controlled and ultimately by the day of discharge she felt comfortable going home with her current pain control. Her previous diabetic medications were stopped by herself without medical advisement. She was restarted on insulin while she is in the hospital. Insulin sliding scale was used as well as glargine ultimately increased to 15 units with overall fair control of her hyperglycemia. Prior to the patient's discharge, the urine culture was pending and I did get verbal confirmation that the patient was growing normal aureliano and yeast; however , after she was discharged, urine culture did demonstrate Ainsley glabrata. I did call the patient and notify to her of this and notified her of new fluconazole, which she will be taking. DISCHARGE PHYSICAL EXAM: General: Elderly white female, lying in hospital bed , appearing comfortable, in no acute distress. Eyes: PERRL. Sclerae anicteric. ENT: Mucous membranes are moist. Lungs: Clear to auscultation throughout. Cardio: Regular rate and rhythm without murmurs, rubs or gallops. Abdomen: Soft, nontender, nondistended. No suprapubic tenderness. No CVA tenderness. Extremities: No clubbing, cyanosis or edema. Neuro: The patient is alert and oriented x3 and able to move all extremities. DISCHARGE PLAN: Diet: Low carbohydrate diet. Activity: The patient may return to normal activity as tolerated. The patient is to maintain Louie catheter at home. She is advised that she is expected to have further hematuria for several days following her biopsy but was advised to please return to the emergency department if she is having worsening hematuria or significant blood clots. She is advised to please return to the emergency department if she is experiencing no urine output for over 8 hours, fever, chills, flank pain, difficulty breathing, severe abdominal pain. She is advised that she is to expect bladder spasm given the recent biopsies and to wear brief as there might be urinary leaking around the Louie due to the spasm. She is to follow up with Dr. Rodriguez next week and she should have a repeat urine culture outpatient. She should initially follow up with her primary care provider regarding this hospitalization. DISCHARGE MEDICATIONS: New medications: 1. Insulin glargine 15 units subcu at bedtime. 2. Lispro 20 units subcu a.c. 3. Oxybutynin 15 mg p.o. daily. 4. Tylenol 650 mg p.o. q.4 hours p.r.n. pain. 5. Fluconazole 400 mg p.o. daily x7 days. Continued home medications: 1. Carvedilol 6.25 mg p.o. daily. 2. Vitamin D 1000 units p.o. daily. 3. Duloxetine 60 mg p.o. daily 4. Docusate 100 mg p.o. daily. 5. Fluticasone nasal spray 2 sprays both nares daily. 6. Gabapentin 300 mg p.o. daily 7. Levothyroxine 50 mcg p.o. daily. 8. Lidocaine topical jelly, apply to legs for p.r.n. pain. 9. Calmoseptine ointment 1 application topically p.r.n. rash. 10. Fentanyl patch 100 mcg q.72 hours. 11. Omeprazole 20 mg p.o. daily. 12. Hydrocodone/acetaminophen 5/325 one tab p.o. b.i.d. p.r.n. pain. CONDITION ON DISCHARGE: Stable. DISPOSITION: Home. TIME SPENT: Approximately 40 minutes was spent on this discharge, approximately half that time was spent at bedside discussing the plan of care with the patient about inpatient. [facility] [facility] [id number]/[facility] #: [id number] ANA
--- NOTE | 2019-04-05 03:47 | OP ---
DATE OF OPERATION: 04/02/19 - ROOM #415 DATE OF : 50 SURGEON: Bennett Rodriguez MD PRE-OP DIAGNOSES: 1. History of bladder tumors. 2. Recurrent episodes of gross hematuria and urinary tract infections. 3. Diffuse thickening of bladder wall and bilateral hydroureteronephrosis by CT. 4. Decreased renal function. POST-OP DIAGNOSES: 1. History of bladder tumors. 2. Recurrent episodes of gross hematuria and urinary tract infections. 3. Diffuse thickening of bladder wall and bilateral hydroureteronephrosis by CT. 4. Decreased renal function. 5. Bilateral vesicoureteral reflux, diffuse bladder wall hyperemia and diffuse thickening of the bladder wall, pending pathology. OPERATIVE PROCEDURE: 1. Cystoscopy. 2. Cystogram. 3. Multiple transurethral resection of bladder wall lesions. INDICATIONS FOR PROCEDURE: Ms. 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 At that time, the tumors were resected and she was treated with intravesical BCG's. Over the years, she was having periodic surveillance cystoscopies, which showed diffuse bladder wall hyperemia; however , bladder biopsies showed inflammatory changes and no recurrent tumors. More recently, her bladder symptoms have gotten a lot worse with severe urgency, frequency, episodes of gross hematuria, recurrent urinary tract infections, and urinary incontinence. A cystoscopy could not be performed in the office because of bladder pain. At this admission serum creatinine was elevated at 2.7, from her baseline of 1.7 , and non-contrast CT of the abdomen and pelvis showed bilateral moderate-to- severe hydroureteronephrosis all the way to the level of the ureterovesical junction. There was also diffuse thickening of the bladder wall but no definite bladder masses seen. Because of the above history, the patient is taken to the operating room for the above procedures. OPERATIVE FINDINGS: At cystoscopy, the bladder wall and the bladder mucosa were diffusely hyperemic, bleeding easily to touch. The mucosa was friable, very thinned out, and would peel off the bladder wall upon any instrumentation. There were also areas of superficial ulcerations and irregularity but there were no papillary lesions seen. There was oozing of the bladder mucosa. The ureteral orifices were difficult to identify. The bladder capacity was markedly reduced, even under anesthesia not allowing more than 100 cc of irrigation fluid to be instilled. There was leakage of irrigation fluid around the scope due to the small bladder capacity. At cystogram, there was bilateral vesicoureteral reflux with dilated distal ureters bilaterally. Upon decompressing the bladder, there was complete drainage of the contrast from the right ureter but persistent contrast in the left distal ureter. The bladder wall was markedly thickened when transurethral biopsies were obtained. The bladder wall muscle looked thick but looked otherwise normal, and no masses seen infiltrating the muscle. All the bladder pathology seemed superficial diffusely involving the mucosa and possibly the submucosa. DESCRIPTION OF PROCEDURE: After successful general anesthesia, the patient was placed in the lithotomy position and was prepped and draped for a cystoscopy. The urine seemed concentrated and bloody and somewhat purulent. The bladder had to be irrigated for visualization of the bladder wall. The above findings of the bladder mucosa were noted. A Louie catheter was placed , and a total of less than 100 cc of cystogram contrast was instilled inside the bladder under fluoroscopy, demonstrating the bilateral vesico-ureteral reflux, and dilated ureters. The resectoscope was then introduced inside the bladder. Deep biopsies using the resectoscope were obtained from the left lateral wall and the base of the bladder from characteristic lesions. The sites of the biopsies were then thoroughly fulgurated with the coagulation current. Good hemostasis was achieved from the biopsy sites. The ureteral orifices could not be visualized due to the edema and the bladder wall hyperemia. Considering the patient had bilateral vesicoureteral reflux, the hydroureteronephrosis was felt to be secondary to reflux and not to obstruction, and decision was made not to pursue ureteral stents insertion. A size 18-English Louie catheter was then passed inside the bladder and the balloon inflated with 10 cc of water. The patient tolerated the procedure well and left the operating room in good condition. The plan is to watch the patient for urine output and for her renal function. Decision on definitive treatment of the bladder findings will depend upon the pathology. [id number]/[facility] #: [id number] [facility]
== END 2019-04-03 16:50 | disposition home or self-care (01) ==
LOC: OR 08:42 → MED 11:11
PROVIDERS: ADMIT Urology; ATTEND Internal Medicine
DX: N17.9 Acute kidney failure, unspecified (principal); N13.30 Unspecified hydronephrosis; I11.0 Hypertensive heart disease with heart failure; N39.0 Urinary tract infection, site not specified; N32.89 Other specified disorders of bladder; N02.9 Recurrent and persistent hematuria with unspecified morphologic changes; I50.20 Unspecified systolic (congestive) heart failure; E11.22 Type 2 diabetes mellitus with diabetic chronic kidney disease; I13.0 Hypertensive heart and chronic kidney disease with heart failure and stage 1 through stage 4 chronic kidney disease, or unspecified chronic kidney disease; N18.9 Chronic kidney disease, unspecified; Z79.4 Long term (current) use of insulin; M34.9 Systemic sclerosis, unspecified; Z85.840 Personal history of malignant neoplasm of eye; E03.9 Hypothyroidism, unspecified; G62.9 Polyneuropathy, unspecified; F32.9 Major depressive disorder, single episode, unspecified; F41.9 Anxiety disorder, unspecified; I42.8 Other cardiomyopathies; K21.9 Gastro-esophageal reflux disease without esophagitis; Z85.51 Personal history of malignant neoplasm of bladder; Z79.899 Other long term (current) drug therapy; Z66 Do not resuscitate; G89.29 Other chronic pain
CPT/HCPCS: 36415; 51600; 71046; 74176; 74430; 80048; 80053; 81003; 81015; 83036; 84443; 85025; 85610; 87086; 87106; 88305; 93005; 96374; 96375; 96376; A9270-GY; G0378; J0692; J0696; J1170; J1815; J2060; J2250; J2270; J2704; J3010

== ENCOUNTER 2019-04-07 19:01 | Inpatient (IN) | payer MEDICARE ==
[2019-04-07] MEDS ORDERED: Dextrose 50% Syringe 50 ML* 25 GM/50 ML SYRINGE IV PUSH ONE (19:12)
--- OUTSIDE RECORDS SUMMARY | 2019-04-07 19:23 | XMS REPORT | Summary of Care ---
:1950 Author Organization [facility] [address] Address [address] [place] [address] Care Team Providers Name Role Phone Cyndee Dozier MD Primary Care Provider Jay Nicole MD Unavailable Reason for Referral MRI/CAT/PET Scan (Routine) Status Reason Specialty Diagnoses / Procedures Referred By Referred To Contact Contact Authorized Diagnoses Hematuria, unspecified type [place], Procedures US RETROPERITONEAL COMPLETE Cyndee Batista MD [address] [place] [address] MRI/CAT/PET Scan (Routine) Status Reason Specialty Diagnoses / Referred By Contact Referred To Procedures Contact Authorized Diagnoses Pelvic pain [place], Procedures US PELVIC COMPLETE WITH EV PROBE Cyndee Batista MD [address] [place] [address] Reason for Visit Reason Comments Follow Up follow up diabetes Other has other issues she would like to discuss Encounter Details Date Type Department Care Team Description 03/09/2019 Office Visit Flex Dozier, Type 2 diabetes mellitus with diabetic polyneuropathy, with long-term current use of insulin (HCC) ( Primary Dx); Practice Cyndee Batista MD Pain syndrome, chronic; [address] [facility] Scleroderma (HCC); [place] [address] [place] [address] Pelvic pain; [phone] Hematuria, unspecified type; Bladder pain Allergies Active Allergy Reactions Severity Noted Date Comments Povidone Iodine Dermatologic Reaction 05/11/2007 Prednisone Respiratory Reaction 05/19/2008 Sulfamethoxazole W/Trimethoprim Other Low 12/24/2017 dizziness documented as of this encounter (statuses as of 03/09/2019) Medications Medication Sig Dispensed Refills Start End Date Status Date Aspirin 81 MG Oral Take 1 Tab by 0 Active TABLET DISPERSIBLE mouth DAILY. fluticasone [place] 2 Sprays 3 Bottle 3 Active (FLONASE) 50 in nose DAILY. 0 MCG/ACT Nasal Suspension lidocaine As directed. 120 g 2 Active (XYLOCAINE) 2 % 2 Apply externally GelIndications: Scleroderma ([facility]) docusate sodium Take 100 mg by 0 [...] long-term preferred current use of (Freestyle) insulin ([facility]) Glucose Blood In 1 Strip by In 300 Strip 3 Active Vitro Vitro route FOUR 8 StripIndications: TIMES DAILY. Type 2 diabetes uncontrolled mellitus with insulin diabetic dependent polyneuropathy, diabetes E11.9 with long-term Freestyle lite current use of insulin ([facility]) Insulin Pen Needle 1 Device by Does [...] Indications: Pen-injectorIndicat with meals ions: with meals Cephalexin (KEFLEX Take by mouth. 0 Active PO) albuterol HFA Take 2 Puffs by 3 Inhaler 3 Active (PROAIR HFA) 108 inhalation EVERY 9 (90 Base) MCG/ACT FOUR HOURS Inhalation Aero NEEDED SolnIndications: (wheezing). Hospital discharge follow-up Mirabegron Take by mouth 0 Active (MYRBETRIQ PO) DAILY. phenazopyridine Take 1 Tab by 9 Tab 1 03/12/19 Active (PYRIDIUM) 200 MG mouth THREE 9 20 Oral TIMES DAILY for TabIndications: [address] Bl[address] pain [address] 1 Patch 10 Patch 0 Active (DURAGESIC) 100 onto skin EVERY 0 MCG/HR Transdermal THREE DAYS. Code PATCH 72 D, (M[place]inckrodcarmelina HRIndications: Pain or patient syndrome, chronic, preferred) Scleroderma (HCC) Insulin Glargine, 1 Inject 160 Units 15 mL 11 Active Unit Dial, (TOUJEO beneath the skin 9 SOLOSTAR) 300 DAILY. UNIT/ML Subcutaneous Solution Pen-injectorIndicat ions: Type 2 diabetes mellitus with diabetic polyneuropathy, with long-term current use of insulin (HCC) Insulin Glargine Inject 155 Units 12 mL 4 03/09/20 Discontinued (OFELIA JOHNSON) beneath the skin 9 300 UNIT/ML DAILY. Subcutaneous Solution Pen-injectorIndicat ions: Type 2 diabetes mellitus with diabetic polyneuropathy, with long-term current use of insulin ([facility]) fentaNYL Place 1 Patch 10 Patch 0 03/09/20 Discontinued (DURAGESIC) 100 onto skin EVERY 9 19 (Reorder) MCG/HR Transdermal THREE DAYS. Code PATCH 72 D, (Nikolas HRIndications: Pain or patient syndrome, chronic, preferred) Scleroderma ([facility]) Hospital, Clinic, or Other Ordered Dose Route Frequency Start Date End Date Status Facility Administered Medication bevacizumab (AVASTIN) 1.25 mg 05/29/2017 Active injection 1.25 mgIndications: Choroidal malignant melanoma, right ([facility]) bevacizumab (AVASTIN) 1.25 mg 09/25/2017 Active injection 1.25 mgIndications: Choroidal malignant melanoma, right ([facility]) bevacizumab (AVASTIN) 1.25 mg 05/27/2018 Active injection 1.25 mgIndications: Choroidal malignant melanoma, right (HCC) bevacizumab (AVASTIN) 1.25 mg 10/01/2018 Active injection 1.25 mg documented as of this encounter (statuses as of 03/09/2019) Active Problems Problem Noted Date Radiation retinopathy, subsequent encounter 01/13/2019 Diabetes mellitus type 2 without retinopathy 01/13/2019 Vitreous hemorrhage, right 01/13/2019 Nuclear sclerotic cataract of both eyes 01/13/2019 PVD (posterior vitreous detachment), both eyes 01/13/2019 Insomnia 06/26/2017 Choroidal malignant melanoma, 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 Chronic pain disorder 12/23/2016 Neuropathy 12/23/2016 [...] Personal history of colonic polyps 05/11/2007 Indwelling Brito catheter present documented as of this encounter (statuses as of 03/09/2019) Resolved Problems Problem Noted Date Resolved Date BMI 38.0-38.9,adult 10/09/2010 08/16/2011 documented as of this encounter (statuses as of 03/09/2019) Immunizations Name Administration Dates Next Due Influenza [...] Sign Reading Time Taken Comments Blood Pressure 104/72 03/09/2019 1:20 PM EST Pulse 97 03/09/2019 1:20 PM EST Temperature 37.4 03/09/2019 1:20 PM EST C (99.4 F) Respiratory Rate 20 03/09/2019 1:20 PM EST Oxygen Saturation 92% 03/09/2019 1:20 PM EST Inhaled Oxygen Concentration - - Weight 71.4 kg (157 lb 8 oz) 03/09/2019 1:20 PM EST Height 157.5 cm (5' 2") 03/09/2019 1:20 PM EST Body Mass Index 28.81 03/09/2019 1:20 PM EST documented in this encounter Patient Instructions Patient InstructionsCyndee Dozier MD - 03/09/2019 1:00 PM ESTTry pyridium for bladder pain: can take up to three times a day for 3-4 days. Turns urine orange or red. I ordered a pelvic ultrasound and kidney/bladder ultrasound for your hematuria and pelvic pain. Stay hydrated. Go to the ER For worsening pain, fevers, lightheadedness, any sign of worsening infection. Increase Toujeo to 160 units For high glucoses when not eating/skipping a meal take 5-10 units. documented in this encounter Progress Notes Cyndee Dozier MD - 03/09/2019 1:00 PM EST Nursing Notes: Ya Jeffries LPN 03/09/2019 1:25 PM Signed Chief Complaint Patient presents with Follow Up follow up diabetes Other has other issues she would like to discuss Oncologist: Dr Copeland Urologist: Dr Rodriguez: catheter changed every 4 weeks ID: Dr Houser--chronic urinary tract infection's is on antibiotics once daily , doxy Customer Service Clerk: Dr Hughes Oncologist: Dr Copeland Rheumatology: Savanna Chavez Opth: Suresh and Ghassan She changed pharmacy to [facility] SUBJECTIVE: Tamela De La Cruz is an 68-y.o. female who presents for evaluation and treatment of Type 2 diabetes mellitus and chronic pain. Family history: negative . Previous treatment modalities employed include diet, oral agents and insulin injections. Current treatment includes diet, oral agents and insulin injections. Home glucose 180's Missing some insulin doses, both but says she is trying harder.. Current monitoring regimen: home blood tests - multiple times daily Home blood sugar records: 180's. She admits she has been bad about her insulin use, forgets. Last HgbA1c: 10.1 on 02/26/19, worse GFR 35.9, lytes normal, glucose high at 351, CBC noral Last eye exam: 10/01/18; plan is q 6 m for 5 yrs, melanoma is clear last visit. Has radiation damage: Gets shot every 6 months. Last microalbumin: 07/09/18 Last microfilament foot exam: 06/2018 Laboratory tests: See scanned laboratory tests. Acute concern: She has had recurrent urinary tract infection and urosepsis and several hospitalizations, sees Dr Houser. Renal ultrasound 12/31/18 at [facility]: normal size kidneys, no acute changes, no hydronephrosis or nephrolithiasis, simple Left lower pole cyst that is stable. She is on cipro for a urinary tract infection by Dr Rodriguez. Her catheter is out. She has been having hematuria. She was in too much pain to tolerate cystoscopy. Next appointment in 03/17/18. She wants him to hospitalize her and do the procedure under anesthesia. Her pain is in her bladder. Has dysuria, Has to stand to urinate--hurts to sit. Her calls have not been returned. Has researched Nanapi for worry of bladder cancer. She thinks the blood is from her bladder, but cannot be sure if uterine/vaginal. Has some itching, has taken diflucan. She has been taking her pain medications and naproxen, ibuprofen: No help with the pain. Results for TAMELA DE LA CRUZ ( ) as of 03/09/2019 13:14 Ref. Range 10/19/2018 00:00 10/19/2018 14:23 10/25/2018 00:00 12/02/2018 08:25 00:00 Glyco A1c (External) Unknown 8.1 10.1 Lab Results Component Value Date TSH 1.50 01/07/2007 Immunizations: Immunization History Administered Date(s) Administered Influenza (IM) Preservative Free 12/31/2010, 12/16/2014 Influenza (IM) W/Pres 12/20/2013 Influenza Vaccine High Dose 01/17/2016, 12/23/2016, 11/26/2017 Influenza Vaccine Whole 12/19/2006, 12/22/2007, 12/29/2008 PNEUMOCOCCAL POLYSACCHARIDE VACCINE 03/24/2017 Pneumococcal Conjugate(13 Valent) 05/31/2015 Diabetic complications: peripheral neuropathy Cardiovascular risk factors: diabetes mellitus, obesity and sedentary life style CT chest,abdomen,pelvis 09/23/17: Multiple pulmonary nodules bilaterally, stable in size, evidence of old granulomatous disease, hepatomegaly without mass , splenic cyst, left adrenal hyperplasia-stable, renal parenchymal disease, left hydronephrosis and hydroureter, brito in place, stable left adrenalcyst. She is seeing Dr Copeland in follow up, plans laboratory tests q3m, CT and u/s q 6 months. Outpatient Medications as of 03/09/2019 Medication Sig Dispense Refill albuterol HFA (PROAIR HFA) 108 (90 Base) MCG/ACT Inhalation Aero Soln Take 2 Puffs by inhalation EVERY FOUR HOURS NEEDED (wheezing). 3 Inhaler 3 Aspirin 81 MG Oral TABLET DISPERSIBLE Take 1 Tab by mouth DAILY. Blood Glucose Monitor Software Does not apply Device 1 Each by Does not apply route DIRECTED. uncontrolled insulin dependent diabetes. Brand: insurance preferred ([facility]) 1 Device 0 Candesartan Cilexetil 32 MG Oral Tab Take 32 mg by mouth DAILY. carvedilol (COREG) 6.25 MG Oral Tab Take 6.25 mg by mouth TWICE DAILY. Cephalexin (KEFLEX PO) Take by mouth. cholecalciferol (VITAMIN D) 1000 units Oral Tab [...] 0 fluticasone (FLONASE) 50 MCG/ACT Nasal Suspension [place] 2 Sprays in nose DAILY. 3 Bottle [...] 30 Each 11 Facility-Administered Medications as of 03/09/2019 Medication Dose Route Frequency Provider Last Rate [...] Respiratory Reaction Septra [Sulfamethoxazole W/Trimethoprim] Other dizziness Past Medical History: Diagnosis Date AODM (adult onset diabetes mellitus) 05/11/2007 Dr. Nicole Cancer ([facility]) bladder cancer, sees Dr. Rodriguez. Has cystoscopy every 3 months. Congestive heart failure ([facility]) 2002 once only in 2002 Coronary artery disease sees Dr. Talbot yearly for scleroderma related disease and CHF; had scar tissue in coronaries cardiaccath 2002 or so Depression 05/11/2007 Frequent UTI GERD (gastroesophageal reflux disease) 05/11/2007 Hypothyroidism 05/11/2007 Indwelling Brito catheter present Malignant melanoma of eye ([facility]) 09/05/2016 right eye treated at [facility] with plaque radiotherapy Obesity 05/11/[address] Reza Personal history of colonic polyps 05/11/2007 Postmenopausal , first 35 Scleroderma ([facility]) 05/11/2007 Dr. 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 Evangelista) CYSTOSCOPY every 3 months TONSILLECTOMY [ENDOSCOPIC] POLYPECTOMY OF RECTUM 04/18/2003 Four (4) polyps removed via hot biopsy. Family History Problem Relation Age of Onset Cancer Sister colon Social History Tobacco Use Smoking status: Former Smoker Packs/day: 1.00 Years: 30.00 Pack years: 30.00 Types: Cigarettes Smokeless tobacco: Never Used Tobacco comment: Quit ~15 years ago Substance Use Topics Alcohol use: No Review Of Systems Skin: negative for rash Eyes: negative for vision changes Ears/Nose/Throat: negative for nasal congestion Respiratory: Denies shortness of breath or URI symptoms; had been ill for 3 weeks a few months ago but is better now. Cardiovascular: negative for chest pain Gastrointestinal: negative for abdominal pain Genitourinary: negative for dysuria Musculoskeletal: chronic joint pain, scleroderma Neurologic: negative for falls OBJECTIVE: BP 104/72 (BP Location: Left arm, Patient Position: Sitting) | Pulse 97 | Temp 99.4 F (37.4 C) (Tympanic) | Resp 20 | Ht 5' 2" (1.575 m) | Wt 157 lb 8 oz (71.4 kg) | SpO2 92% | BMI 28.81kg/m General appearance: alert, no distress, oriented times 3 Skin: Skin color, texture, turgor normal. No rashes or lesions. Eyes: conjunctivae/corneas clear. PERRL, EOM's grossly intact. Ears: negative findings: external ears normal to inspection and palpation, TM foote bilaterally Oropharynx: negative findings: lips normal without lesions Neck: Neck supple. No cervical or supraclavicular adenopathy. Thyroid symmetric , normal size. Carotids 4/4 without bruits. Lungs:. Lungs clear with good aeration. Chest symmetrical. Normal breath sounds bilaterally. Heart: Regular rate and rhythm. No murmurs, clicks or gallops. Abdomen: Abdomen soft, mild suprapubic and bilateral pelvic tenderness, BS normal. No masses, organomegaly or hernia. No bruits. No costervertebral angle tenderness. Extremities: Extremities without deformities, edema, or skin discoloration. Station and gait normal. Peripheral pulses: dorsalis pedis=4/4, Neuro: Gait normal, strength grossly normal and symmetric. ASSESSMENT/PLAN: ICD-9-CM ICD-10-CM 1. Type 2 diabetes mellitus with diabetic polyneuropathy, with long-term current use of insulin ([facility]) 250.60 E11.42 Insulin Glargine, 1 Unit Dial, ( TOUJEO SOLOSTAR) 300 UNIT/ML Subcutaneous Solution Pen-injector 357.2 Z79.4 V58.67 2. Pain syndrome, chronic 338.4 G89.4 fentaNYL (DURAGESIC) 100 MCG/HR Transdermal PATCH 72 HR 3. Scleroderma ([facility]) 710.1 M34.9 fentaNYL (DURAGESIC) 100 MCG/HR Transdermal PATCH 72 HR 4. Pelvic pain [id number] R10.2 US PELVIC COMPLETE WITH EV PROBE 5. Hematuria, unspecified type 599.70 R31.9 US RETROPERITONEAL COMPLETE 6. Bladder pain 788.99 R39.89 phenazopyridine (PYRIDIUM) 200 MG Oral Tab Work harder on regular insulin injections. Increase Toujeon to 160 units daily Take lispro tid even is skipping a meal, if glucose is elevated. Will try pyridium to take the edge off her bladder pain for a few days. Continue antibiotic ordered by your urologist. I will check a pelvic and bladder ultrasound. Continue to work on diet. See me in 1 month Fentanyl refilled, no diversion. Often comes of, try a transparent dressing over it, if covered by insurance. Colon cancer screening due: She prefers to try cologuard. Rx: SOHA? Yes Statin? No opened discussion last visit. Metformin? No, is on insulin. Reviewed concepts of diabetes self-management stressing the primary role of the patient in monitoring and maintaining control of Diabetes. Recommended diet, exercise, and weight loss. Follow up every 3 months is recommended, sooner as needed. Patient Instructions Try pyridium for bladder pain: can take up to three times a day for 3-4 days. Turns urine orange or red. I ordered a pelvic ultrasound and kidney/bladder ultrasound for your hematuria and pelvic pain. Stay hydrated. Go to the ER For worsening pain, fevers, lightheadedness, any sign of worsening infection. Increase Toujeo to 160 units For high glucoses when not eating/skipping a meal take 5-10 units. Author: Cyndee Dozier MD 03/09/2019 17:57 This report was requested by: Cyndee Dozier | Reference #: [id number] My Prescriptions Patient Name: Tamela De La Cruz Date: 1950 Address: [address] [place] [id number] Sex: Female Rx Written Rx Dispensed Drug Quantity Days Supply Prescriber Name Payment Method Dispenser 02/16/2019 02/17/2019 fentanyl 100 mcg/hr patch 10 30 Cyndee Dozier MD Insurance [facility][id number] 01/06/2019 01/08/2019 fentanyl 100 mcg/hr patch 10 30 Cyndee Dozier MD documented in this encounter Plan of Treatment Date Type Specialty Care Team Description 03/17/2019 Ancillary Procedure Radiology 03/17/2019 Ancillary Procedure Radiology 04/09/2019 Office Visit Family Practice Cyndee Dozier MD [address] [place] [address] [phone] 08/11/2019 Ocular Visit Ophthalmology Ivan Verma MD [address] [place] [address] 08/11/2019 Ocular Visit Optometry Vane Mathur, OD [address] [place] [address] Name Type Priority Associated Diagnoses Order Schedule US PELVIC COMPLETE WITH EV Imaging Routine Pelvic pain Expected: PROBE 03/09/2019, Expires: 03/08/2020 US RETROPERITONEAL COMPLETE Imaging Routine Hematuria, unspecified Expected : type 03/09/2019, Expires: 03/08/2020 Health Maintenance Due Date Last Done Comments DTaP/Tdap/Td Vaccines (1 - 1961 Tdap) ZOSTER IMMUNIZATION SERIES 2000 (1 of 2) MEDICARE ANNUAL WELLNESS 11/20/2013 11/20/2012 VISIT LIPID DISORDER SCREENING 06/14/2018 06/14/2017 HEMOGLOBIN A1C 05/28/2019 02/26/2019, 10/19/2018, 10/19/2018, Additional history exists DEPRESSION SCREENING 06/30/2019 06/29/2018 FOOT EXAM 06/30/2019 06/29/2018, 06/29/2018, 06/29/2018, Additional history exists FALL RISK ASSESSMENT 10/03/2019 10/02/2018, 10/02/2018 Diabetic Eye Exam 10/01/2020 10/01/2018, 10/01/2018, 10/01/2018, Additional history exists Cologuard Screening 10/25/2021 10/25/2018 OSTEOPOROSIS SCREENING 07/17/2028 07/17/2018 PNEUMOCOCCAL 65+YRS Completed 03/24/2017, 05/31/2015 HEPATITIS A IMMUNIZATION Aged Out No longer eligible SERIES based on patient's age to complete this topic HPV IMMUNIZATION SERIES Aged Out No longer eligible based on patient's age to complete this topic MENINGOCOCCAL VACCINE IMM Aged Out No longer eligible based on patient's age to complete this topic documented as of this encounter Goals Goal Patient Goal Associated Recent Patient-Stated? Author Type Problems Progress Depression Depression No Richard screen (PHQ-9) Mirtha total score < 5 DAX Note: This is an individualized treatment (depression) [...] better. Weight loss vs. 18 mo Lifestyle 20.5 (03/09/2019 1:20 PM No Mirtha Ramos PA-C max (lbs) >= 10 EST) Note: This is an individualized lifestyle goal [...] filedocumented in this encounter Visit Diagnoses Diagnosis Pain syndrome, chronic Chronic pain syndrome Scleroderma (HCC) Systemic sclerosis Pelvic pain Hematuria, unspecified type Type 2 diabetes mellitus with diabetic polyneuropathy, with long-term current use of insulin (HCC) Bladder pain Other symptoms involving urinary system documented in this encounter Insurance Payer Benefit Plan / Subscriber ID Effective Dates Phone Address Type Group MEDICARE MEDICARE PART A xxxxxxxxxxx 2010-Present Medicare & B [facility] [employer] xxxxxxxxxxx Effective for all [facility] OPTIONS dates (Work) documented as of this encounter
[2019-04-07 19:39] LABS: ABS Basophils 0.1 10^3/ul (0-0.2); ABS Eosinophils 0.7 10^3/ul (0-0.6); ABS Lymphocytes 3.2 10^3/ul (1.0-4.8); ABS Monocytes 0.8 10^3/ul (0-0.8); ABS Neutrophils 5.2 10^3/ul (1.5-7.7); Hematocrit 30 % (35-47); Mean Corpuscular HGB Conc 34 g/dL (31-36); Mean Corpuscular Hemoglobin 31 pg (27-31); Mean Corpuscular Volume 92 fL (80-97); Mean Platelet Volume 7.4 fL (7.4-10.4); Platelet Count 443 10^3/uL (150-450); Red Blood Count 3.25 10^6 /uL (3.70-4.87); Red Cell Distribution Width 16 % (10-15); White Blood Count 10.1 10^3/uL (3.5-10.8)
--- NOTE | 2019-04-07 19:39 | ED ---
Altered Mental Status - HPI Summary HPI Summary: The patient is a 68 y/o female presenting to [facility] accompanied by with a chief complaint of AMS this afternoon. Her reports that when she got home from work this afternoon, she found the patient still in bed and unable to get up with confusion. She measured her BG and found it to be 33. The patient then drank some juice, and they re-measured the BG and found it to be 55. The notes that the patient was okay this morning when she left around 0700 this morning. She endorses right-sided weakness, but she notes a history of neuropathy causing chronic lower extremity changes. She didnt each much today, and she was nauseous earlier. She was admitted on 03/31/[address] Rodriguez to perform a cystoscopy with concern for malignancy on cystoscopy. Urine culture grew Ainsley. She was placed on Fluconazole. She is scheduled to follow up with Dr. Ruiz and Dr. Dozier, but she has not yet. Her family notes that she is not compliant with her insulin, which she is supposed to take 110 units long-lasting and 20 units Hemalog with lunch daily. She is not experiencing any pain now. Has a brito catheter in place. PMHx: thyroid disease , scleroderma, CHF, HTN, acute renal failure, bladder cancer, eye cancer causing visual defects at baseline. Former smoker, no EtOH, no substance use. Medications reviewed. Allergies noted. - History Of Current Complaint Stated Complaint: LOW BLOOD SUGAR/RT SIDE NOT WORKING RIGHT PER PT D Time Seen by Provider: 04/07/19 19:12 Hx Obtained From: Patient Onset/Duration: Unknown Timing: Lasting Hours Severity Initially: Moderate Severity Currently: Moderate Character: Confusion Aggravating Factor(s): Other - hypoglycemia Alleviating Factor(s): Nothing Associated Signs And Symptoms: Positive: Nausea - Allergies/Home Medications Allergies/Adverse Reactions: Allergies Allergy/AdvReac Type Severity Reaction Status Date / Time prednisone Allergy Intermediate Dry Eyes Verified 04/07/19 19:21 povidone-iodine Allergy See Comment Verified 04/07/19 19:21 [From Betadine] soap [From Betadine] Allergy See Comment Verified 04/07/19 19:21 PMH/Surg Hx/FS Hx/Imm Hx Endocrine/Hematology History: Reports: Hx Diabetes - NOT TAKING MEDS FEW MONTHS , Hx Thyroid Disease, Other Endocrine/Hematological Disorders - non insulin dependent diabetes, scleroderma Denies: Hx Systemic Lupus Erythematosus Cardiovascular History: Reports: Hx Congestive Heart Failure, Hx Hypertension - NOT TAKING MEDS, Other Cardiovascular Problems/Disorders - cardiomyopathy with EF 30%, SEES DR CANALES Denies: Hx Hypercholesterolemia Respiratory History: Reports: Hx Pneumonia Denies: Hx Asthma, Hx Chronic Obstructive Pulmonary Disease (COPD), Hx Sleep Apnea, Other Respiratory Problems/Disorders GI History: Reports: Hx Gastroesophageal Reflux Disease, Hx Hiatal Hernia, Other GI Disorders - Hiatial hernia Denies: Hx Ulcer History: Reports: Hx Acute Renal Failure, Other Problems/Disorders - Hx OF BLADDER CANCER X2 PRIOR TO 2007 Denies: Hx Dialysis, Hx Renal Disease Musculoskeletal History: Reports: Other Musculoskeletal History - scleraderma Denies: Hx Rheumatoid Arthritis Sensory History: Reports: Hx Contacts or Glasses, Hx Vision Problem - R eye dt eye cancer, Hx Deafness - Right ear, Hx Hearing Problem Denies: Hx Hearing Aid Opthamlomology History: Reports: Hx Contacts or Glasses, Hx Vision Problem - R eye dt eye cancer Neurological History: Reports: Hx Migraine - LAST ONE 1999, Hx Nerve Disease - Neuropothy from scleroderma, Other Neuro Impairments/Disorders - hard of hearing Psychiatric History: Reports: Hx Anxiety - NO MEDS, Hx Depression - NO MEDS, Other Psychiatric Issues/Disorders - 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 x 2. eye cancer Hx Chemotherapy: Yes - in past bcg infusion 2007 Hx Radiation Therapy: No Hx Palliative Cancer Treatment: No - Surgical History Surgical History: Yes Surgery Procedure, Year, and Place: 2001 PARTIAL Thyroid,ECTOMY [facility]. 1994 Gall bladder, [facility]. CHILD T&A Hx Anesthesia Reactions: No - Immunization History Date of Tetanus Vaccine: Unk Date of Influenza Vaccine: 12/22 Infectious Disease History: No Infectious Disease History: Denies: Hx Clostridium Difficile, Hx Hepatitis, Hx Human Immunodeficiency Virus (HIV), History Other Infectious Disease, Traveled Outside the [place] in Last 30 Days - Family History Known Family History: Positive: Cardiac Disease - Mother and Father - Social History Alcohol Use: None Hx Substance Use: No Substance Use Type: Reports: None Hx Tobacco Use: Yes - 20 pack year Smoking Status (MU): Former Smoker Type: Cigarettes Amount Used/How Often: 1 PACK/DAY Length of Time of Smoking/Using Tobacco: 30 YRS Have You Smoked in the Last Year: No Review of Systems Positive: Nausea, Other - decreased oral intake Neurological: Other - confusion, Positive: Weakness - right-sided All Other Systems Reviewed And Are Negative: Yes Physical Exam - Summary Physical Exam Summary: Constitutional: Well-developed, Well-nourished, Somnolent. Ill-appearing. (-) Distressed Skin: Warm, Dry HENT: Normocephalic; Atraumatic Eyes: Pinpoint pupils Neck: Musculoskeletal ROM normal neck. (-) JVD, (-) Stridor, (-) Nuchal rigidity Cardio: Rhythm regular, rate normal, Heart sounds normal; Intact distal pulses; Radial pulses are 2+ and symmetric. (-) Murmur Pulmonary/Chest wall: Effort normal. (-) Respiratory distress, (-) Wheezes, (-) Rales, (+) Mild crackles in the bases Abd: Soft, (-) tenderness, (-) Distension, (-) Guarding, (-) Rebound : Brito with cloudy urine Musculoskeletal: (-) Edema Lymph: (-) Cervical adenopathy Neuro: Somnolent, Oriented x3, Strength normal, Cranial nerves II-XII are grossly intact. SILT, Strength 5/5 BUE and BLE, (-) Dysmetria, (-) Nystagmus, gait deferred Psych: Deferred Triage Information Reviewed: Yes Vital Signs On Initial Exam: Initial Vitals Temp Pulse Resp BP Pulse Ox 98.4 F 80 18 108/65 96 04/07/19 19:16 04/07/19 19:16 04/07/19 19:16 04/07/19 19:16 04/07/19 19:16 Vital Signs Reviewed: Yes - Bert Coma Scale Best Eye Response: 4 - Spontaneous Best Motor Response: 6 - Obeys Commands Best Verbal Response: 5 - Oriented Coma Scale Total: 15 Procedures - Sedation Patient Received Moderate/Deep Sedation with Procedure: No Diagnostics - Vital Signs Vital Signs Temp Pulse Resp BP Pulse Ox 04/07/19 19:18 12 04/07/19 19:16 98.4 F 80 18 108/65 96 - Laboratory Lab Results: Lab Results 04/07/19 Range/Units 19:08 POC Glucose (mg/dL) 54 L (70-100) mg/dL Result Diagrams: 04/07/19 19:26 04/08/19 10:56 Lab Statement: Any lab studies that have been ordered have been reviewed, and results considered in the medical decision making process. - Radiology CXR Radiology Interpretation Completed By: ED Physician Summary of Radiographic Findings: No acute abnormality. ED physician has reviewed and interpreted this report. Pending official read. - CT Brain CT CT Interpretation Completed By: Radiologist Summary of CT Findings: Impression: No acute intracranial abnormality. Chronic microvascular ischemic changes. ED physician has reviewed this report. Re-Evaluation - Re-Evaluation First Eval Re-Evaluation Time: 17:50 Change: Improved Comment: She is feeling better Second Eval Re-Evaluation Time: 20:05 Comment: patient lethargic, somnolent, Fentanyl patch from the left chest wall removed, will recheck BG, Zosyn will be given based on previous urine cultures showing Pseudomonas and E. coli Third Eval Re-Evaluation Time: 21:35 Comment: Nurse Nela reports brito replaced, she notes clots, will irrigate with 1L fluid Altered Mental Statu Course/Dx - Course Course Of Treatment: 68 y/o F w hx HF, hydronephrosis, hypothyroidism, DM on insulin, recurrent UTIs and chronic brito p/w episode of AMS. - on arrival to ED family concerned about R sided weakness. On eval, no obvious weakness, BG 54 (was in 30's at home). Given D50 w improvement in BG. Multiple repeat neuro exams w/o focal abnormality. CT head neg for acute process. Labs notable for worsening Cr, elevated LA for which patient was given 2 L IVF and started on zosyn for presumed UTI. Brito removed, bladder irrigated, replaced. D/w urology. US bladder kidneys ordered. CXR w/o focal infiltrate. Patient remained somnolent (fentanyl patch removed, does take additional narcotics at home). Did not give narcan as RR normal. Admit to ICU for AMS/encephelopathy and hypotension. - Diagnoses Provider Diagnoses: AMS (altered mental status), Hypoglycemia, UTI (urinary tract infection), Hypotension - Provider Notifications Discussed Care Of Patient With: Bennett Rodriguez - urology Time Discussed With Above Provider: 20:20 Instructed by Provider To: Other - D/w Dr. Rodriguez with concern for urosepsis, agrees with exchange of brito, abx, and fluids, she may need nephrostomy tubes at some point. Dr. Fuchs accepts the patient for admission [[id number]]. - Critical Care Time Critical Care Time: 75-104 min - 75 min Discharge ED - Sign-Out/Discharge Documenting (check all that apply): Patient Departure - Patient accepted for admission by Dr. Fuchs. - Discharge Plan Condition: Stable Disposition: ADMITTED TO [facility] - Billing Disposition and Condition Condition: STABLE Disposition: Admitted to [facility] - Attestation Statements Document Initiated by Selena: Yes Documenting Scribe: Cristina Caceres Provider For Whom Selena is Documenting (Include Credential): Dr. James See MD Scribe Attestation: ICristina, scribed for Dr. James See MD on 04/08/19 at 2154. Scribe Documentation Reviewed: Yes Provider Attestation: The documentation as recorded by the Cristina ga accurately reflects the service I personally performed and the decisions made by me, Dr. James See MD Status of Scribe Document: Viewed
[2019-04-07] MEDS ORDERED: NS 0.9% 1000 ML** 1,000 ML IV ONE ×3 (19:50→23:40)
[2019-04-07 19:57] LABS: Troponin I 0.01 ng/mL (<0.03)
[2019-04-07 20:00] LABS: Urine Appearance Turbid; Urine Bilirubin Negative (Negative); Urine Blood 2+ (Negative); Urine Color Yellow; Urine Glucose Negative (Negative); Urine Ketones Negative (Negative); Urine Nitrite Negative (Negative); Urine Protein 2+(100 mg/dL) (Negative); Urine Specific Gravity 1.015 (1.010-1.030); Urine Urobilinogen Negative (Negative)
[2019-04-07 20:01] LABS: Albumin 3.7 g/dL (3.2-5.2); Albumin/Globulin Ratio 1.1 (1-3); BUN/Creatinine Ratio 9.4 (8-20); Calcium 9.3 mg/dL (8.6-10.3); EGFR African American 25.1 (>60); EGFR Non-African American 20.8 (>60); Globulin 3.5 g/dL (2-4); Total Bilirubin 0.3 mg/dL (0.2-1.0); Total Protein 7.2 g/dL (6.4-8.9)
[2019-04-07 20:03] LABS: Urine Bacteria 3+ (Absent); Urine Red Blood Cell 3+(>10/hpf) (Absent); Urine White Blood Cell 3+(>20/hpf) (Absent)
[2019-04-07 20:04] LABS: Potassium 5.1 mmol/L (3.5-5.0)
[2019-04-07] MEDS ORDERED: Piperacillin/Tazobac ADVAN(*) 3.375 GM in NS 0.9% 100 ML* 100 ML IVPB ONE (20:08)
[2019-04-07 20:54] LABS: T4, Total 12.9 mcg/dL (6.09-12.23)
[2019-04-07 20:57] LABS: TSH (Thyroid Stimulating Horm) 2.23 mcIU/mL (0.34-5.60)
[2019-04-07 21:43] LABS: C Reactive Protein 14.73 mg/L (<8.01)
[2019-04-07] MEDS ORDERED: NS 0.9% 500 ML* 500 ML IV ONE (23:31)
[2019-04-07] MEDS: D5NS 0.9% 1000 ML BAG* 1,000 ML IV SCH (23:41)
[2019-04-07] MEDS ORDERED: Zosyn per Pharmacy* NOTE FOLLOW UP SCH (23:45)
[2019-04-07] MEDS ORDERED: Naloxone* 0.4 MG/ML 1 ML VIAL IV PUSH ONE (23:47)
[2019-04-08] MEDS ORDERED: Naloxone* 0.4 MG/ML 1 ML VIAL IV PUSH ONE (00:02)
[2019-04-08] MEDS ORDERED: Aspirin 81 mg CHEW TAB* 81 MG TAB.CHEW PO ONE (00:15)
[2019-04-08] MEDS: ZOSYN 3.375 GM Q8H per EXTENDED INFUSION IVPB SCH ×4 (00:58→10:30)
[2019-04-08] MEDS: NS 0.9% 1000 ML** 1,000 ML IV SCH ×2 (01:37→09:46)
[2019-04-08] MEDS: D5NS 0.9% 1000 ML BAG* 1,000 ML IV SCH ×2 (01:37→10:45)
--- NOTE | 2019-04-08 02:37 | HP ---
CC: Dr. Dozier * HISTORY AND PHYSICAL: DATE OF ADMISSION: 04/07/19 PRIMARY CARE PROVIDER: Dr. Dozier. UROLOGIST: Dr. Rodriguez. CHIEF COMPLAINT: Altered mental status and hypoglycemia. HISTORY OF PRESENT ILLNESS: Ms. De La Cruz is a 68-year-old female who was hospitalized at [facility] from 03/31/19 through 04/03/19 where she was treated for hydronephrosis and possible urinary tract infection. Ultimately, the patient's urine only grew yeast, though she was discharged on fluconazole. The patient reportedly was doing well on Friday when she got home. On Friday, she was also doing well. On 04/05/19, the patient complained of being tired. On 04/06/19, the patient was still noted to be not as perky as normal. She reportedly did not eat any dinner. On 04/06/19 she stated that she was starting to feel sick. It is unclear if she took her insulin at that point. On the morning of 04/07/19, the patient was found to be severely hypoglycemic. She was severely hypoglycemic the morning before as well. Her had her eat 2 things of yogurt. Her blood sugars improved. She was still not acting quite like herself, however. The patient at approximately 6:30 p.m. was noted to have markedly slurred speech per her daughter. Her daughter arrived to her apartment in approximately 10 minutes. By the time the patient's daughter arrived, the speech was slightly better. It was even better when she initially arrived to the emergency room; however, quickly after arriving to the ER, the patient became somnolent. The patient is not responding to questions as readily as she normally would. She has been noted to be sleeping with her eyes open. There was concern prior to her presentation to the emergency room that not only did she have slurred speech, there was right-sided weakness. The right -sided weakness was reported by the patient to her . On the day prior to admission, the patient reportedly had a difficult time ambulating. Typically, she gets around her house with a cane. On the day prior to this admission, as if she was having a difficult time getting her legs move the way she wanted with the right seemed worse than the left. The patient's family has also noted the patient has been twitching and jerking while sleeping, which is abnormal for her. PAST MEDICAL HISTORY: 1. Nonischemic cardiomyopathy. 2. Type 2 diabetes. 3. Scleroderma. 4. Hypertension. 5. Hypothyroidism. 6. Peripheral neuropathy. 7. Depression and anxiety. 8. GERD. 9. History of bladder cancer. PAST SURGICAL HISTORY: 1. Thyroidectomy. 2. Tonsillectomy. 3. Cholecystectomy. 4. Bladder surgery x2. 5. TURBT on 04/02/19. MEDICATIONS: It is unclear what the patient has been actively taking at home and her and daughter do not know, though they do report that she stated that she was taking 160 units of Lantus despite the discharge summary from her prior hospitalization stating that she was to take 15 units of Lantus. The patient did have her fentanyl patch on. Medications on discharge from [facility]; however, included: 1. Lantus 15 units subcutaneous at bedtime. 2. Lispro 20 units subcutaneous a.c. 3. Oxybutynin 15 mg p.o. daily. 4. Tylenol 650 mg p.o. q.4 hours p.r.n. pain. 5. Fluconazole 400 mg p.o. daily x7 days (this should have been completed today ). 6. Coreg 6.25 mg p.o. daily. 7. Vitamin D 1000 units p.o. daily. 8. Duloxetine 60 mg p.o. daily. 9. Colace 100 mg p.o. daily. FAMILY HISTORY: Mom from CHF at the age of 62, she also had COPD. Dad at the age of 82, he had coronary artery disease. SOCIAL HISTORY: The patient is , she lives with her . Her Livia is her surrogate decision maker. REVIEW OF SYSTEMS: Unobtainable from the patient as she is somnolent. PHYSICAL EXAMINATION GENERAL: The patient is a well-developed, middle-aged female who appears slightly older than her stated age, sitting up in the bed, sleeping, somewhat difficult to arouse initially, but appearing to be in no acute distress. VITAL SIGNS: Blood pressure 102/71, pulse 83, respirations 14, temp 98.4, O2 sat 97% on 2 L. HEENT: Oropharynx is clear and moist. There is no submandibular, cervical, or supraclavicular adenopathy. PULMONARY: Lungs are clear to auscultation anteriorly. CARDIAC: Normal S1, S2. Regular rate and rhythm. I did not appreciate any murmurs. ABDOMEN: Bowel sounds are present. Abdomen is moderately distended. It is tympanic to percussion. She does not appear to grimace at all to palpation. Her states that the abdomen is always distended similarly to this. MUSCULOSKELETAL: The patient does not spontaneously move any of her limbs until I am able to awaken her very briefly where she does follow commands and grabs my fingers bilaterally and is able to squeeze and flex the biceps. She has extremely rigid bilateral lower extremities. NEURO: Other than the patient having 5/5 and symmetric strength in the upper extremities, she does not follow any of my commands to test the lower extremities. When I tried to lift legs off the bed, both legs are extremely rigid. She does speak very briefly. Initially, some of the words are slurred, but then she is able to try to form the words again and they are much clear. She is able to tell me that her daughter and her were in the room. PSYCH: She is oriented to year and month. SKIN: There are scattered tattoos. The skin is tight on her arms. She has a history of scleroderma. DIAGNOSTIC STUDIES/LAB DATA: WBC 10.1, hemoglobin 10.0, hematocrit 30, platelets 443. Sodium 140, potassium 5.1, chloride 106, CO2 27, BUN 22, creatinine 2.33, glucose 55. Lactic acid 2.9. Calcium 9.3. Bilirubin 0.3, AST 12, ALT 8, alk phos 84. Troponin 0.01. CRP 14.73. Albumin 3.7. TSH 2.23. Urinalysis reveals turbid urine with specific gravity of 1.015, 2+ blood , 1+ leukocyte esterase, 3+ wbc, 3+ rbc, 3+ bacteria. CT brain, no acute intracranial abnormality, there are chronic microvascular ischemic changes. Abdomen and bladder ultrasound, no acute pathology, normal renal size bilaterally. No hydronephrosis. There are bilateral renal cysts. A Louie catheter is in place. Chest x-ray to my interpretation is clear without any infiltrate. ASSESSMENT AND PLAN: Ms. De La Cruz is a 68-year-old female who was just out in the hospital, where she was treated for hydronephrosis with cystoscopy and TURBT by Dr. Rodriguez as well as started on fluconazole for possible Ainsley urinary tract infection, who now presents to the emergency room with hypoglycemia, altered mental status and complains of right-sided weakness and slurred speech. 1. Altered mental status. At this point, the patient is significantly somnolent. She very briefly wakes up for me. I am concerned that she may have too much narcotic on board. Initially, I am going to hold on administering Narcan; however, as the patient's pressures remain soft and she is still somnolent, we will try Narcan 0.04 mg IV now to see if she perks up at all. Hypoglycemia could be contributing to her altered mental status. Her blood sugar on presentation to the ER was 55. Subsequently, it trended up to 139 and is back down to 65. She will be started on a D5 infusion for this. Infection could cause an encephalopathy; however, at this point, without any fever or leukocytosis, my suspicion for infection is very low. Neurologic event could also potentially cause this including seizure or stroke. 2. Possible stroke. The patient's daughter reports that at 6:30 p.m. on , the patient's speech was noted to be markedly slurred. She was hypoglycemic at that time, so it is unclear if that may have been related to hypoglycemia or true stroke. I have ordered an MRI. We will give the patient rectal aspirin if she is not able to swallow reliably at this time. Once the patient is more alert, I am hopeful we will have a better exam. A CT scan of the brain was negative. I will obtain EEG to rule out seizure as a potential cause to her altered mental status. 3. Hypotension. The patient has been quite hypotensive in the emergency room. She has already received 3 L of fluid. I am currently bolusing the 4th. The patient had been off her antihypertensives for 2 months prior to her last hospitalization. Coreg was resumed. Again, I have concerns about the patient appropriately taking her medications at home. I am holding her Coreg for now. I am administering Narcan to see if this may awaken the patient and therefore improve her blood pressure. While I think urinary tract infection likelihood is low, I will continue Zosyn, which has been started in the emergency room for possible urinary tract infection leading to hypotension, though the patient has no other signs of sepsis including a normal white blood cell count. She is not tachycardic, tachypneic and she does not have a fever. 4. Hypoglycemia. As above, I am concerned the hypoglycemia may be contributing to her altered mental status. The patient's family believes that she was taking 160 units of Toujeo at home. On discharge from the hospital, she was supposed to switch to Lantus and take 15 units at bedtime. If she was taking too much insulin, this would account for her hypoglycemia. It is unclear when she last took the dose of her insulin. If she has failed to maintain a decent blood sugar with bolused doses of dextrose, I will start D5 normal saline at 50 mL per hour with fingersticks every 1 hour. 5. Nonischemic cardiomyopathy. We will need to be mindful of how much fluid we are giving her. We will need to monitor for signs of fluid overload. As above, I am holding her Coreg while she was hypotensive. 6. Hypothyroidism. The patient was reportedly off her levothyroxine from 2 months prior to her last hospitalization and despite this, today her TSH is in good range. I am going to hold her Synthroid for now. 7. Peripheral neuropathy. I am holding gabapentin. 8. Scleroderma/chronic pain. Fentanyl patch is off. I am holding her p.r.n. [place]. 9. DVT prophylaxis. According to the Adult Thrombosis Prophylaxis Risk Factor Assessment Guide, the patient has a total risk factor score of 3, making her high risk. She will be placed on heparin 5000 units subcutaneous q.8 hours. 10. Code status is DNR/DNI. TIME SPENT: Seventy five minutes was spent admitting this patient. [id number]/[facility] #: [id number] ANA
[2019-04-08] MEDS: Heparin VIAL(*) 5000 UNITS/ML VIAL (FIVE THOUSAND) SUBCUT SCH ×3 (06:08→22:02)
--- NOTE | 2019-04-08 09:25 | PN ---
Date of Service: 04/08/19 Vital Signs: Temp Pulse Resp BP SpO2 FiO2 98.8 F 70 15 95/62 94 04/08/19 06:00 04/08/19 06:00 04/08/19 06:00 04/08/19 06:00 04/08/19 06:00 Physical Exam: Gen: Awake and alert in no distress HEENT: nc/at perrla Lungs: cta bilaterally no rhonchi Cardiac: s1 s2 RRR Abdomen: soft nt/nt bs+ no guarding and no rebound tenderness Extremities: no edema. Neuro: Awake alert and oriented; moving all extremities and following commands. Fluid Balance (Past 24 Hours): I= O= Net Intake & Output 04/06/19 04/07/19 04/08/19 04/09/19 06:59 06:59 06:59 06:59 Intake Total 3252 Output Total 580 Balance 2672 Weight 168 lb 13.985 oz Intake: IV Fluids 3145 D5W NS (0.9%) 486 NS (0.9%) 559 IVPB 107 NS (0.9%) 107 Output: Louie 530 Residual 50 Louie 16 Fr Temperature 50 Probe Labs: Laboratory Results - last 24 hr 04/07/19 04/07/19 04/07/19 19:08 19:26 19:26 WBC 10.1 RBC 3.25 L Hgb 10.0 L Hct 30 L MCV 92 MCH 31 MCHC 34 RDW 16 H Plt Count 443 MPV 7.4 Neut % (Auto) 51.5 Lymph % (Auto) 32.0 Henderson % (Auto) 8.1 Eos % (Auto) 7.0 Baso % (Auto) 1.4 Absolute Neuts (auto) 5.2 Absolute Lymphs (auto) 3.2 Absolute Monos (auto) 0.8 Absolute Eos (auto) 0.7 H Absolute Basos (auto) 0.1 Absolute Nucleated RBC 0.0 Nucleated RBC % 0.0 Sodium Potassium Chloride Carbon Dioxide Anion Gap BUN Creatinine Est GFR ( Amer) Est GFR (Non-Af Amer) BUN/Creatinine Ratio Glucose POC Glucose (mg/dL) 54 L Lactic Acid Calcium Total Bilirubin AST ALT Alkaline Phosphatase Troponin I C-Reactive Protein Total Protein Albumin Globulin Albumin/Globulin Ratio TSH Free T4 Thyroxine (T4) Urine Color Yellow Urine Appearance Turbid Urine pH 5.0 Ur Specific Rule 1.015 Urine Protein 2+(100 mg/dl) A Urine Ketones Negative Urine Blood 2+ A Urine Nitrate Negative Urine Bilirubin Negative Urine Urobilinogen Negative Ur Leukocyte Esterase 1+ A Urine WBC (Auto) 3+(>20/hpf) A Urine RBC (Auto) 3+(>10/hpf) A Urine Bacteria 3+ A Urine Glucose Negative Urine Ascorbic Acid * A 04/07/19 04/07/19 04/07/19 19:26 19:26 20:09 WBC RBC Hgb Hct MCV MCH MCHC RDW Plt Count MPV Neut % (Auto) Lymph % (Auto) Henderson % (Auto) Eos % (Auto) Baso % (Auto) Absolute Neuts (auto) Absolute Lymphs (auto) Absolute Monos (auto) Absolute Eos (auto) Absolute Basos (auto) Absolute Nucleated RBC Nucleated RBC % Sodium 140 Potassium 5.1 H Chloride 106 Carbon Dioxide 27 Anion Gap 7 BUN 22 Creatinine 2.33 H Est GFR ( Amer) 25.1 Est GFR (Non-Af Amer) 20.8 BUN/Creatinine Ratio 9.4 Glucose 55 L POC Glucose (mg/dL) 139 H Lactic Acid 2.9 H* Calcium 9.3 Total Bilirubin 0.30 AST 12 L ALT 8 Alkaline Phosphatase 84 Troponin I 0.01 C-Reactive Protein 14.73 H Total Protein 7.2 Albumin 3.7 Globulin 3.5 Albumin/Globulin Ratio 1.1 TSH 2.23 Free T4 Cancelled Thyroxine (T4) 12.90 H Urine Color Urine Appearance Urine pH Ur Specific Rule Urine Protein Urine Ketones Urine Blood Urine Nitrate Urine Bilirubin Urine Urobilinogen Ur Leukocyte Esterase Urine WBC (Auto) Urine RBC (Auto) Urine Bacteria Urine Glucose Urine Ascorbic Acid 04/07/19 04/08/19 04/08/19 23:32 01:02 02:14 WBC RBC Hgb Hct MCV MCH MCHC RDW Plt Count MPV Neut % (Auto) Lymph % (Auto) Henderson % (Auto) Eos % (Auto) Baso % (Auto) Absolute Neuts (auto) Absolute Lymphs (auto) Absolute Monos (auto) Absolute Eos (auto) Absolute Basos (auto) Absolute Nucleated RBC Nucleated RBC % Sodium Potassium Chloride Carbon Dioxide Anion Gap BUN Creatinine Est GFR ( Amer) Est GFR (Non-Af Amer) BUN/Creatinine Ratio Glucose POC Glucose (mg/dL) 65 L 57 L 72 Lactic Acid Calcium Total Bilirubin AST ALT Alkaline Phosphatase Troponin I C-Reactive Protein Total Protein Albumin Globulin Albumin/Globulin Ratio TSH Free T4 Thyroxine (T4) Urine Color Urine Appearance Urine pH Ur Specific Rule Urine Protein Urine Ketones Urine Blood Urine Nitrate Urine Bilirubin Urine Urobilinogen Ur Leukocyte Esterase Urine WBC (Auto) Urine RBC (Auto) Urine Bacteria Urine Glucose Urine Ascorbic Acid 04/08/19 04/08/19 03:12 04:02 WBC RBC Hgb Hct MCV MCH MCHC RDW Plt Count MPV Neut % (Auto) Lymph % (Auto) Henderson % (Auto) Eos % (Auto) Baso % (Auto) Absolute Neuts (auto) Absolute Lymphs (auto) Absolute Monos (auto) Absolute Eos (auto) Absolute Basos (auto) Absolute Nucleated RBC Nucleated RBC % Sodium Potassium Chloride Carbon Dioxide Anion Gap BUN Creatinine Est GFR ( Amer) Est GFR (Non-Af Amer) BUN/Creatinine Ratio Glucose POC Glucose (mg/dL) 72 95 Lactic Acid Calcium Total Bilirubin AST ALT Alkaline Phosphatase Troponin I C-Reactive Protein Total Protein Albumin Globulin Albumin/Globulin Ratio TSH Free T4 Thyroxine (T4) Urine Color Urine Appearance Urine pH Ur Specific Rule Urine Protein Urine Ketones Urine Blood Urine Nitrate Urine Bilirubin Urine Urobilinogen Ur Leukocyte Esterase Urine WBC (Auto) Urine RBC (Auto) Urine Bacteria Urine Glucose Urine Ascorbic Acid Impression: 68 y.o female admitted with encephalopathy and hypoglycemia 1. Hypoglycemia 2. encephalopathy possible seizure 3. Hypothyroidism 4. chronic UTI 5. hx of renal cancer 6. hx of HFc REF 7. HTN 8. Hx of Eye cancer 9. Acute on Chronic renal failure 10. Diabetes Plan: We will monitor the patient in the ICU. -poc glucose every 4 hours -advance diet to renal ok to have sugar with low sugars -recheck lactic acid level to make sure that it is normal--> it is normal -change to rocephin -She is refusing the MRI brain; she understands the risk of having a structural brain abnormality - EEG no seizure activity -Check CMP -We will start home cardiac meds -She has acute renal failure on ckd. . Abdominal bladder Us shows no hydronephrosis - We will encourage ambulation -Continue dextrose IV fluids and q4 accuchecks. -monitor in ICU at least 12 hours after the last narcan dose. pt/ot is ordered. Critical Care Time: 35 minutes. She has done well and she will be transferred to the floor Spoke to Dr. Joshi; She will go to telemetery.
[2019-04-08] MEDS ORDERED: Docusate CAP* 100 MG PO PRN (09:43)
[2019-04-08] MEDS ORDERED: Fluticasone NASAL SPRAY 50MCG* 16 gm SPRAY BTL BOTH NARES PRN (09:43)
[2019-04-08] MEDS: cefTRIAXone(*) 1 GM in NS 0.9% 50 ML* 50 ML IVPB SCH (10:02)
--- NOTE | 2019-04-08 10:13 | EEG ---
ELECTROENCEPHALOGRAPHY: DATE OF STUDY: 04/07/19 LOCATION: She is an inpatient and she in the ICU Bed 6. REFERRING PROVIDER: Dr. Fuchs. CLINICAL PROBLEM: Hypoglycemia, mental status changes. MEDICATIONS: Include Zosyn. REPORT: This 19-channel EEG is remarkable for background rhythms consisting of diffuse theta activit y. Rhythms are generally in the 6 to 8 cycles per second range. There is no clear anterior to poste rior gradient. Muscle artifact is seen frequently. Activation procedures are not attempted. There is an occasional right arm jerk, but no other clinical events. The patient does not appear to sleep during the recording. There are no focal, lateralized, or epileptiform abnormalities. CLINICAL IMPRESSION: Abnormal EEG due to generalized slowing of background rhythms consistent with d iffuse cerebral dysfunction. There are no focal or epileptiform features to this recording. [id number]/[facility] #: [id number]
[2019-04-08 11:45] LABS: BUN/Creatinine Ratio 8.6 (8-20); Calcium 7.7 mg/dL (8.6-10.3); EGFR African American 28.5 (>60); EGFR Non-African American 23.6 (>60); Potassium 4.5 mmol/L (3.5-5.0); Total Bilirubin 0.2 mg/dL (0.2-1.0)
[2019-04-08] MEDS: Pantoprazole TAB * 40 MG TAB PO SCH (12:00)
[2019-04-08] MEDS: Insulin LISPRO* 1 UNITS UNIT SUBCUT SCH ×3 (12:00→22:03)
[2019-04-08] MEDS: D5W 1/2 NS 1000 ML BAG* 1,000 ML IV SCH (14:45)
[2019-04-09] MEDS: Acetaminophen TAB* 325 MG PO PRN ×2 (01:59→08:23)
[2019-04-09] MEDS: D5W 1/2 NS 1000 ML BAG* 1,000 ML IV SCH (04:13)
[2019-04-09] MEDS: Heparin VIAL(*) 5000 UNITS/ML VIAL (FIVE THOUSAND) SUBCUT SCH ×3 (05:31→21:12)
[2019-04-09] MEDS: Insulin LISPRO* 1 UNITS UNIT SUBCUT SCH ×2 (06:05→12:09)
[2019-04-09 06:43] LABS: Urine Appearance Turbid; Urine Bilirubin Negative (Negative); Urine Blood 3+ (Negative); Urine Color Yellow; Urine Glucose Negative (Negative); Urine Ketones Negative (Negative); Urine Nitrite Negative (Negative); Urine Protein 1+(30 mg/dL) (Negative); Urine Specific Gravity 1.004 (1.010-1.030); Urine Urobilinogen Negative (Negative)
[2019-04-09 06:59] LABS: Urine Bacteria Absent (Absent); Urine Red Blood Cell 3+(>10/hpf) (Absent); Urine White Blood Cell 3+(>20/hpf) (Absent)
[2019-04-09] MEDS: Pantoprazole TAB * 40 MG TAB PO SCH (09:07)
--- NOTE | 2019-04-09 13:22 | CONS ---
DATE OF CONSULTATION: 04/09/2019. REQUESTING PHYSICIAN: Dr. Green. CONSULTING SERVICE: Infectious Disease. REASON FOR CONSULTATION: Encephalopathy, recent urinary tract infection. IMPRESSION: 1. Encephalopathy due to hypoglycemia, is improving. 2. Recent admission with hyperglycemia and bladder abnormality on imaging. A cystoscopy showed bladder wall inflammation with bilateral ureteral reflux. A urine culture at that time grew annamaria glabrata. She was discharged on Fluconazole which probably attains high enough concentration in the bladder to be cidal. Her urinalysis here, in the setting of the Louie, shows blood, leukocyte esterase and white cells, nitrate negative. The culture is negative from the urine as in the blood. She had been on Fluconazole leading up to her admission here, but no other antibiotics. 3. Today, she has no fevers, chills, or sweats. She does not remember any in the time leading up to her admission. She is feeling a bit better, has no pain anywhere. PAST MEDICAL HISTORY: Nonischemic cardiomyopathy, type 2 diabetes, scleroderma , hypertension, hypothyroidism, peripheral neuropathy, depression, anxiety, gastroesophageal reflux disease, history of bladder cancer and two bladder surgeries for the same, status post thyroidectomy, status post tonsillectomy, status post cholecystectomy, status post cystoscopy 04/02/2019 with biopsy. MEDICATIONS: Tylenol, Docusate as needed, Fluticasone nasal spray, Heparin subcutaneous injection, Pantoprazole, Ceftriaxone 1 gm a day. ALLERGIES: PREDNISONE, POVIDONE-IODINE, SOAP. FAMILY HISTORY: Mother from heart failure at 62 and also had COPD. Father age 82 with coronary disease. SOCIAL HISTORY: She is , lives with her . Nonsmoker. REVIEW OF SYSTEMS: All negative, except as noted above to a 12 point review of systems. PHYSICAL EXAM: General: She is awake, but not in distress. Vital signs: Temperature 36.6, heart rate 76, respiratory 18, blood pressure 131/91, oxygen saturation 97 percent on room air. Neurologic: She is oriented times three, follows commands and answers question appropriately. HEENT: There is no conjunctival hemorrhage. Oropharynx without lesions. Neck: Supple without mass. Heart: Regular rate and rhythm without murmurs, rubs or gallops. Lungs: Clear to auscultation bilaterally. Abdomen: Soft, nontender, nondistended. There are bowel sounds present. There is no flank tenderness to palpation. Genitourinary: There is a Louie catheter with turbid urine. Skin: There is no rash or splinter hemorrhage. Musculoskeletal: There is no spine tenderness to palpation or joint synovitis. DIAGNOSTIC STUDIES/LAB DATA: White blood cell count 10, hemoglobin 10, platelets 443, creatinine 2 down from 2.3. Urinalysis showed blood, leukocyte esterase, white cells, and yeast. Please see impression and recommendations outlined above that I discussed with Dr. Green and Dr. Rodriguez. Thank you for asking me to see Kait Jono in consultation. [id number]/[facility] #: [id number] [facility]
--- NOTE | 2019-04-09 13:51 | PN ---
Subjective Date of Service: 04/09/19 Interval History: Pt c/o exacerbation of chronic neuropathic pain in hands and feet and requests her Fentanyl patch to be reinstated Objective Active Medications: Acetaminophen (Tylenol Tab*) 650 mg PO Q4H PRN PRN Reason: MILD PAIN or TEMP > 100.4 Last Admin: 04/09/19 08:23 Dose: 650 mg Docusate Sodium (Colace Cap*) 100 mg PO DAILY PRN PRN Reason: CONSTIPATION Last Admin: 04/08/19 22:15 Dose: 100 mg Fentanyl (Duragesic Patch 100 Mcg/Hr *) mcg TRANSDERM Q72H [facility] Fluticasone Propionate (Flonase Nasal [place] 50mcg*) 2 spray BOTH NARES DAILY PRN PRN Reason: CONGESTION Heparin Sodium (Porcine) (Heparin Vial(*)) 5,000 units SUBCUT Q8HR [facility] Last Admin: 04/09/19 05:31 Dose: 5,000 units Pantoprazole Sodium (Protonix Tab*) 40 mg PO DAILY [facility] Last Admin: 04/09/19 09:07 Dose: 40 mg Vital Signs - 8 hr 04/09/19 04/09/19 08:00 12:00 Temperature 97.8 F 97.8 F Pulse Rate 76 77 Respiratory 16 18 Rate Blood Pressure 131/91 154/75 (mmHg) O2 Sat by Pulse 97 99 Oximetry Oxygen Devices in Use Now: None Appearance: 68 yo F in nAD, AOOx3 Eyes: No Scleral Icterus, PERRLA Ears/Nose/Mouth/Throat: NL Teeth, Lips, Gums, Mucous Membranes Moist Neck: NL Appearance and Movements; NL JVP, Trachea Midline Respiratory: Symmetrical Chest Expansion and Respiratory Effort, Clear to Auscultation Cardiovascular: NL Sounds; No Murmurs; No JVD, RRR Abdominal: NL Sounds; No Tenderness; No Distention, No Hepatosplenomegaly Lymphatic: No Cervical Adenopathy Extremities: No Clubbing, Cyanosis Skin: No Nodules or Sclerosis, - - mild scleroderma skin changes in hands and feet, no ulcers Neurological: Alert and Oriented x 3, NL Muscle Strength and Tone Result Diagrams: 04/07/19 19:26 04/08/19 10:56 Additional Lab and Data: Lab Results 04/07/19 Range/Units 19:08 POC Glucose (mg/dL) 54 L (70-100) mg/dL Microbiology and Other Data: Microbiology 04/07/19 19:26 Urine Culture - Final Urine No Growth (<1,000 CFU/mL) 04/07/19 20:18 Aerobic Blood Culture - Preliminary Blood Venous No Growth Day 1 Anaerobic Blood Culture - Preliminary No Growth Day 1 04/07/19 20:18 Aerobic Blood Culture - Preliminary Blood Venous No Growth Day 1 Anaerobic Blood Culture - Preliminary No Growth Day 1 04/07/19 00:50 Nasal Screen MRSA (PCR) - Final Nasal Mrsa Not Detected Assess/Plan/Problems-Billing Assessment: Ms. De La Cruz is a 68 yo F with PMH of DM2, HFrEf and nonischemic cardiomyopathy, scleroderma, HTN, hypothyroidism, neuropathy, depression, anxiety, GERD, bladder cancer; who had cystoscopy 04/02/09 that showed ureterovesicular reflux and inflammation (needs Louie at all times- as per Dr. Rodriguez), with urine cx positive for annamaria glabrata (treated for a couple of days with fluconasole as outpatient) presented lethargic with hypoglycemia, was in ICU, transferred out on 04/08/19 - Patient Problems (1) DM type 2 (diabetes mellitus, type 2) Comment: With hypoglycemia, still on D5 infusion. BG stable >100. Will stop dextrose infusion and monitor (2) UTI (urinary tract infection) Comment: appreciate ID consult, cx from last week positive for annamaria glabrata current cx pending D/c Ceftriaxone, cont to monitor without meds, may robyn voriconazole if cx positive for glabrata again (3) Acute kidney injury superimposed on CKD Comment: - Creatinine improving daily, baseline around 1.7 - h/o vesizoureteral reflux-cont Louie as per Dr. Rodriguez (4) Anxiety and depression Comment: - Continue duloxetine (5) Liver mass Comment: h/o in 2018- bx negative for malignancy in 2018. (6) Chronic pain Comment: Pt was off gabapentin and Fentany x 2 days and appears comopfrtable. Despite that she requests to be placed back on her Fentanyl. Suggested to lower the dose to 75mcg from home 100 mcq-she prefers to take 100 mcg. Stated that gabapentin is "not working" and due to h/o recent lethargy will not restart it (7) Hypertension Comment: - Normotensive - Hold ARB in the setting of MADI - Continue carvedilol (8) Hypothyroidism Comment: - Continue levothyroxine -TSH 2.2 on 04/07/19 (9) Scleroderma Comment: no exacerbation (10) DVT prophylaxis Comment: HSQ Status and Disposition: Inpatient
[2019-04-09] MEDS ORDERED: fentaNYL PATCHs 100 MCG/HR TRANSDERM SCH (14:00)
[2019-04-09] MEDS ORDERED: DULoxetine DR CAP* 60 MG CAP.DR PO SCH (15:00)
[2019-04-09] MEDS ORDERED: Levothyroxine TAB* 50 MCG TAB PO SCH (15:00)
[2019-04-09] MEDS: fentaNYL Patch Check Q Shift 1 NOTE FOLLOW UP SCH (19:13)
[2019-04-09] MEDS: cefTRIAXone(*) 1 GM in NS 0.9% 50 ML* 50 ML IVPB SCH (19:27)
[2019-04-09] MEDS: Carvedilol TAB* 6.25 MG PO SCH (21:12)
[2019-04-10] MEDS: Acetaminophen TAB* 325 MG PO PRN (03:28)
[2019-04-10] MEDS: Heparin VIAL(*) 5000 UNITS/ML VIAL (FIVE THOUSAND) SUBCUT SCH ×3 (05:23→21:00)
[2019-04-10] MEDS: Levothyroxine TAB* 50 MCG TAB PO SCH (05:23)
[2019-04-10 06:41] LABS: BUN/Creatinine Ratio 7.9 (8-20); Calcium 8.7 mg/dL (8.6-10.3); EGFR African American 37.7 (>60); EGFR Non-African American 31.2 (>60); Potassium 4.3 mmol/L (3.5-5.0)
[2019-04-10] MEDS: fentaNYL Patch Check Q Shift 1 NOTE FOLLOW UP SCH ×2 (06:49→19:10)
[2019-04-10] MEDS: DULoxetine DR CAP* 60 MG CAP.DR PO SCH (08:31)
[2019-04-10] MEDS: Pantoprazole TAB * 40 MG TAB PO SCH (08:31)
[2019-04-10] MEDS: Carvedilol TAB* 6.25 MG PO SCH ×2 (08:31→21:00)
[2019-04-10] MEDS: Oxybutynin XL TAB* 5 MG PO SCH (08:33)
[2019-04-10] MEDS ORDERED: Carvedilol TAB* 6.25 MG PO SCH (09:00)
[2019-04-10] MEDS ORDERED: Gabapentin CAP(*) 100 MG PO SCH (09:00)
--- NOTE | 2019-04-10 15:03 | PN ---
Subjective Date of Service: 04/10/19 Interval History: Pt is feeling ok. She states that she walked around the unit earlier with her partner. She denies any pain. No SOB. She does not remember much of anything prior to her admission. Objective Active Medications: Acetaminophen (Tylenol Tab*) 650 mg PO Q4H PRN PRN Reason: MILD PAIN or TEMP > 100.4 Last Admin: 04/10/19 03:28 Dose: 650 mg Carvedilol (Coreg Tab*) 6.25 mg PO BID [facility] Last Admin: 04/10/19 08:31 Dose: 6.25 mg Docusate Sodium (Colace Cap*) 100 mg PO DAILY PRN PRN Reason: CONSTIPATION Last Admin: 04/08/19 22:15 Dose: 100 mg Duloxetine HCl (Cymbalta Cap*) 60 mg PO DAILY [facility] Last Admin: 04/10/19 08:31 Dose: 60 mg Fentanyl (Duragesic Patch 100 Mcg/Hr *) 100 mcg TRANSDERM Q72H [facility] Last Admin: 04/09/19 14:31 Dose: 100 mcg Fluticasone Propionate (Flonase Nasal [place] 50mcg*) 2 spray BOTH NARES DAILY PRN PRN Reason: CONGESTION Heparin Sodium (Porcine) (Heparin Vial(*)) 5,000 units SUBCUT Q8HR [facility] Last Admin: 04/10/19 05:23 Dose: 5,000 units Levothyroxine Sodium (Synthroid Tab*) 50 mcg PO DAILY@0600 [facility] Last Admin: 04/10/19 05:23 Dose: 50 mcg Oxybutynin Chloride (Ditropan Xl Tab*) 15 mg PO DAILY [facility] Last Admin: 04/10/19 08:33 Dose: 15 mg Pantoprazole Sodium (Protonix Tab*) 40 mg PO DAILY [facility] Last Admin: 04/10/19 08:31 Dose: 40 mg Pharmacy Profile Note (Fentanyl Patch Check Q Shift) 1 note FOLLOW UP 0700, 1900 [facility] Last Admin: 04/10/19 06:49 Dose: 1 note Oxygen Devices in Use Now: None Appearance: Middle aged female lying in bed watching TV, NAD Eyes: No Scleral Icterus Ears/Nose/Mouth/Throat: Mucous Membranes Moist Respiratory: Symmetrical Chest Expansion and Respiratory Effort, Clear to Auscultation Cardiovascular: NL Sounds; No Murmurs; No JVD, RRR, No Edema Abdominal: NL Sounds; No Tenderness; No Distention Extremities: No Clubbing, Cyanosis Skin: No Nodules or Sclerosis Neurological: Alert and Oriented x 3 Result Diagrams: 04/07/19 19:26 04/10/19 06:08 Additional Lab and Data: Lab Results 04/07/19 Range/Units 19:08 POC Glucose (mg/dL) 54 L (70-100) mg/dL Microbiology and Other Data: Microbiology 04/07/19 19:26 Urine Culture - Final Urine No Growth (<1,000 CFU/mL) 04/07/19 20:18 Aerobic Blood Culture - Preliminary Blood Venous No Growth Day 1 Anaerobic Blood Culture - Preliminary No Growth Day 1 04/07/19 20:18 Aerobic Blood Culture - Preliminary Blood Venous No Growth Day 1 Anaerobic Blood Culture - Preliminary No Growth Day 1 04/07/19 00:50 Nasal Screen MRSA (PCR) - Final Nasal Mrsa Not Detected Assess/Plan/Problems-Billing Ms. De La Cruz is a 68 yo F with PMH of DM2, HFrEf and nonischemic cardiomyopathy, scleroderma, HTN, hypothyroidism, neuropathy, depression, anxiety, GERD and bladder cancer; who had cystoscopy 04/02/19 that showed ureterovesicular reflux and inflammation (needs Brito at all times- as per Dr. Rodriguez), with urine cx positive for annamaria glabrata (treated for a couple of days with fluconasole as outpatient) presented lethargic with hypoglycemia, was in ICU, transferred out on 04/08/19. - Patient Problems (1) Somnolence Current Visit: Yes Status: Acute Comment: Resolved. Likely multifactorial from hypotension, hypoglycemia and too much narcotic on board. No evidence of CVA which was a concern on admission. No evidence of seizures on EEG. (2) DM type 2 (diabetes mellitus, type 2) Current Visit: Yes Status: Chronic Comment: Pt was severely hypoglycemic on admission and it was prolonged. She states she did not see what dose of insulin she was supposed to take after discharge last time so she just went back to taking 160 units of toujeo like she was a couple months before. On no insulin the patient's blood sugars are running between 105-188. Her HbA1c last admission was markedly elevated at 11.2% on 03/31/19. I suspect she may eat what ever she wants at home driving up her blood sugars. I am going to continue to watch her sugars off long acting insulin but will start lispro sliding scale. Continue fentanyl patch for neuropathic pain. Gabapentin on hold. (3) CKD (chronic kidney disease) stage 3, GFR 30-59 ml/min Current Visit: Yes Status: Chronic Code(s): N18.3 - CHRONIC KIDNEY DISEASE, STAGE 3 (MODERATE) SNOMED Code(s): 072845236 Comment: Creatinine is now at baseline. Keep brito in place per urology. (4) Systolic congestive heart failure Current Visit: Yes Status: Chronic Code(s): I50.20 - UNSPECIFIED SYSTOLIC ( CONGESTIVE) HEART FAILURE SNOMED Code(s): 14206148 Comment: No signs of exacerbation. Continue coreg. No SOHA/ARB secondary to CKD. (5) Hypertension Current Visit: Yes Status: Chronic Code(s): I10 - ESSENTIAL (PRIMARY) HYPERTENSION SNOMED Code(s): 14634409 Comment: Pt was hypotensive on admission but now moderately hypertensive. Continue coreg 6.25mg BID and start low dose amlodipine. Hold SOHA/ARB secondary to CKD. (6) Anxiety and depression Current Visit: Yes Status: Acute Code(s): F41.9 - ANXIETY DISORDER, UNSPECIFIED; F32.9 - MAJOR DEPRESSIVE DISORDER, SINGLE EPISODE, UNSPECIFIED SNOMED Code(s): 199317593 Comment: Continue duloxetine. (7) GERD (gastroesophageal reflux disease) Current Visit: Yes Status: Chronic Code(s): K21.9 - GASTRO-ESOPHAGEAL REFLUX DISEASE WITHOUT ESOPHAGITIS SNOMED Code(s): 812583510 Comment: Continue pantoprazole (8) Hypothyroidism Current Visit: Yes Status: Chronic Code(s): E03.9 - HYPOTHYROIDISM, UNSPECIFIED SNOMED Code(s): 20651051 Comment: Continue levothyroxine at home dose. TSH 2.2 on 04/07/19. (9) Scleroderma Current Visit: Yes Status: Chronic Code(s): M34.9 - SYSTEMIC SCLEROSIS, UNSPECIFIED SNOMED Code(s): 52223332 Comment: noted (10) DVT prophylaxis Current Visit: Yes Status: Acute Code(s): Z29.9 - ENCOUNTER FOR PROPHYLACTIC MEASURES, UNSPECIFIED SNOMED Code(s): 954433725 Comment: SQ heparin (11) DNR (do not resuscitate) Current Visit: Yes Status: Acute Comment: Status and Disposition: likely home tomorrow
[2019-04-10] MEDS ORDERED: Dextrose 50% Syringe 50 ML* 25 GM/50 ML SYRINGE IV PUSH PRN (15:12)
[2019-04-10] MEDS: Insulin LISPRO* 1 UNITS UNIT SUBCUT SCH ×2 (17:13→21:00)
[2019-04-11] MEDS: Levothyroxine TAB* 50 MCG TAB PO SCH (05:38)
[2019-04-11] MEDS: Heparin VIAL(*) 5000 UNITS/ML VIAL (FIVE THOUSAND) SUBCUT SCH (05:38)
[2019-04-11] MEDS ORDERED: diPHENhydraMINE PO* 25 MG PO ONE (05:55)
[2019-04-11] MEDS: fentaNYL Patch Check Q Shift 1 NOTE FOLLOW UP SCH (07:04)
[2019-04-11] MEDS ORDERED: amLODIPine TAB* 5 MG PO SCH (09:00)
[2019-04-11] MEDS: Insulin LISPRO* 1 UNITS UNIT SUBCUT SCH ×2 (09:46→12:53)
[2019-04-11] MEDS: DULoxetine DR CAP* 60 MG CAP.DR PO SCH (09:51)
[2019-04-11] MEDS: Oxybutynin XL TAB* 5 MG PO SCH (09:51)
[2019-04-11] MEDS: Carvedilol TAB* 6.25 MG PO SCH (09:52)
[2019-04-11] MEDS: Pantoprazole TAB * 40 MG TAB PO SCH (09:52)
[2019-04-11] MEDS ORDERED: Ondansetron INJ* 2 MG/ML VIAL IV PRN (11:27)
[2019-04-11 12:54] VITALS: BP 123/62
--- NOTE | 2019-04-11 23:22 | DS ---
CC: Dr. Dozier; Dr. Hughes * DISCHARGE SUMMARY: DATE OF ADMISSION: 04/07/19 DATE OF DISCHARGE: 04/11/19 PRIMARY CARE PROVIDER: Dr. Dozier. PRINCIPAL DIAGNOSIS: Altered mental status secondary to severe hypoglycemia. SECONDARY DIAGNOSES: 1. Nonischemic cardiomyopathy. 2. Type 2 diabetes. 3. Scleroderma. 4. Hypertension. 5. Hypothyroidism. 6. Peripheral neuropathy. 7. Depression and anxiety. DISCHARGE MEDICATIONS: 1. Fentanyl patch 100 mcg per hour topically q.72 hours. 2. Oxybutynin XL 15 mg p.o. daily. 3. Omeprazole 20 mg p.o. daily. 4. Levothyroxine 50 mcg p.o. daily. 5. Conway 5/325 one tab p.o. b.i.d. p.r.n. pain. 6. Colace 100 to 300 mg p.o. daily p.r.n. constipation. 7. Cymbalta 60 mg p.o. daily. 8. Vitamin D 1000 units p.o. daily. 9. Coreg 6.25 mg p.o. b.i.d. 10. Tylenol 650 mg p.o. q.4 hours p.r.n. pain. 11. Amlodipine 5 mg p.o. daily. 12. Lispro sliding scale 1 to 15 units subcutaneous q.a.c. 13. Toujeo 8 units subcutaneous q.h.s. HISTORY OF PRESENT ILLNESS: Ms. De La Cruz is a 68-year-old female who was brought to the emergency room on 04/07/19 with altered mental status. The patient has been hospitalized from through 04/03/19, where she was treated for hydronephrosis and possible urinary tract infection. The patient became confused on her medications reportedly. She was taking 160 units of Toujeo despite having her insulin regimen changed to 15 units of Lantus on her prior discharge. The patient was markedly hypoglycemic and altered. She received several doses of dextrose with improvement of her blood sugars; however, it was not sustained. Additionally, the patient was felt to possibly have too much narcotic on board. She did receive Narcan 0.04 mg IV x2 with improvement in her mental status. There was concern for possible stroke on presentation as the patient's partner stated that the patient has been complaining of right-sided weakness as well as slurred speech. This did not seem to contrersa out. Ultimately, it was felt that the patient's altered mental status was purely related to her severe hypoglycemia. In talking with the patient, she states that she was confused on the discharge instructions and therefore went back to taking the amount of insulin she had previously been instructed to take; however, she had not been taking that much insulin for 2 months. We reviewed at length the fact that her blood sugar has been ranging from 100 to 200 in the hospital on no long-acting insulin. I explained that it is difficult to ultimately choose an appropriate dose of insulin for her as her hemoglobin A1c during her prior hospitalization was markedly elevated at 11.2%. I suspect and confirmed with the patient and her partner that she essentially eats carbohydrates all day long. We discussed choosing more appropriate carbohydrates if needed. She used to check her fingersticks 3 times daily. Her sleep-wake schedule is quite off. She does not wake up typically until noon. She will check her fingerstick then, before dinner, and before she goes to bed again. She is to record these values, and if her blood sugars are markedly elevated, she is to get a hold of her PCP for an adjustment in her Toujeo dose. Additionally, I have recommended that the patient see Endocrinology in consultation. The patient is back on her usual dose of fentanyl patch. She had previously been on gabapentin and this was discontinued. She will continue on her p.r.n. Conway, though I did discuss the importance of limiting this as much as possible. The patient has had mildly elevated blood pressures. She is to continue on Coreg and amlodipine has been added. On presentation to the hospital, she was markedly hypotensive. It is unclear what the hypotension was related to; however, if she was altered from hypoglycemia for a prolonged period of time, perhaps she was not eating or drinking as well as normal. The patient was also in acute kidney injury with creatinine elevated at 2.33. With hydration, her creatinine trended down to 1.64, which is essentially her baseline. PHYSICAL EXAMINATION: On the day of discharge, the patient is awake, alert, and oriented, sitting up in bed, in no acute distress. Cardiac exam reveals normal S1, S2 with a regular rate and rhythm. Lungs are clear. Abdomen is soft , nontender, nondistended. She moves all 4 extremities symmetrically. Skin is warm and dry and without rash. FOLLOWUP CONCERNS: The patient is being discharged home today, 04/11/19. ACTIVITY LEVEL: As tolerated. DIET: Diabetic. CONDITION ON DISCHARGE: Stable. The patient is to follow up with Dr. Dozier in the next 4 to 7 days. Additionally, she has been provided Dr. Black's office number to call to try to set up a new patient appointment. TIME SPENT: Forty five minutes was spent reviewing the discharge instructions with both the patient and her family and performing her discharge. [id number]/[facility] #: [id number] MTDD
== END 2019-04-11 16:15 | disposition home or self-care (01) | DRG 638 ==
LOC: ED 19:01 → ICU 23:26 → MEDTELE 04-08 14:40
PROVIDERS: ADMIT Hospitalist; ATTEND Hospitalist
DX: E11.649 Type 2 diabetes mellitus with hypoglycemia without coma (principal); I42.8 Other cardiomyopathies; G93.49 Other encephalopathy; I13.0 Hypertensive heart and chronic kidney disease with heart failure and stage 1 through stage 4 chronic kidney disease, or unspecified chronic kidney disease; I50.22 Chronic systolic (congestive) heart failure; K21.9 Gastro-esophageal reflux disease without esophagitis; N17.9 Acute kidney failure, unspecified; E11.22 Type 2 diabetes mellitus with diabetic chronic kidney disease; G43.909 Migraine, unspecified, not intractable, without status migrainosus; E11.42 Type 2 diabetes mellitus with diabetic polyneuropathy; H91.90 Unspecified hearing loss, unspecified ear; F40.240 Claustrophobia; M34.83 Systemic sclerosis with polyneuropathy; E89.0 Postprocedural hypothyroidism; F41.9 Anxiety disorder, unspecified; N18.3 Chronic kidney disease, stage 3 (moderate); F32.9 Major depressive disorder, single episode, unspecified; I95.9 Hypotension, unspecified; G89.29 Other chronic pain; Z66 Do not resuscitate; Z88.8 Allergy status to other drugs, medicaments and biological substances; Z87.891 Personal history of nicotine dependence; Z85.51 Personal history of malignant neoplasm of bladder; Z85.840 Personal history of malignant neoplasm of eye; Z92.21 Personal history of antineoplastic chemotherapy; Z91.041 Radiographic dye allergy status; Z79.890 Hormone replacement therapy; Z79.4 Long term (current) use of insulin; Z79.899 Other long term (current) drug therapy
CPT/HCPCS: 36415; 70450; 71045; 76770; 80048; 80053; 81003; 81015; 83605; 84436; 84443; 84484; 85025; 86140; 87040; 87086; 87641; 95816; 96365; 99285; A9270-GY; J0696; J1644; J2310; J2405; J2543

== ENCOUNTER 2020-11-10 10:00 | Observation (INO) ==
[~2020-11-10 10:00] MED LIST changes: +Buffered Lidocaine 1% SYRIN 1 ml INTRADERM ONE; -Buffered Lidocaine 1% SYRIN* 1 ML/SYRINGE INTRADERM ONE; -Lactated Ringers 1000 ML Bag* 1,000 ML IV SCH; +Lactated Ringers 1000 ml BAG 1,000 ML IV SCH; -NS 0.9% 1000 ML** 1,000 ML IV SCH
[2020-11-10] MEDS ORDERED: cefTRIAXone 2 GM ADDV.VIAL ONE (10:45)
[2020-11-10] MEDS ORDERED: Propofol 10 MG/ML 20 ML BTL ONE ×2 (10:58→12:15)
[2020-11-10] MEDS ORDERED: Midazolam 2 mg/2 ml VIAL 1 mg/ml 2 ml VIAL (2 mg) ONE (10:58)
[2020-11-10] MEDS ORDERED: fentaNYL 100 mcg/2 ml 50 MCG/ML VIAL ONE ×2 (10:58→13:42)
[2020-11-10] MEDS ORDERED: Lidocaine 2% PF 5 ML VIAL ONE (10:58)
[2020-11-10] MEDS ORDERED: Buffered Lidocaine 1% SYRIN 1 ml INTRADERM ONE (11:07)
[2020-11-10] MEDS ORDERED: Rocuronium 50 mg VIAL 10 mg/ml 5 ml VIAL (50 mg) ONE (11:58)
[2020-11-10] MEDS ORDERED: Chlorhexidine MOUTHWASH 0.12% 15 ML UDC ONE (11:59)
[2020-11-10] MEDS ORDERED: Fluorescein 10% INJ 100 MG/ML AMP ONE (12:12)
[2020-11-10] MEDS ORDERED: EPHEDrine (Pressors) 50 MG/ML VIAL ONE (12:12)
[2020-11-10] MEDS ORDERED: Phenylephrine 40 mcg/mL 10mL (400mcg) SYRINGE ONE ×2 (12:12→12:28)
[2020-11-10] MEDS ORDERED: Iohexol 180 (CONTRAST) 20 ML SDV IV ONE (12:19)
[2020-11-10] MEDS ORDERED: Ondansetron 4 mg VIAL 2 MG/ML 2 ml VIAL IV PRN (13:39)
[2020-11-10] MEDS ORDERED: oxyCODONE/Acetamin 5/325 mg TAB PO PRN (13:39)
[2020-11-10] MEDS ORDERED: DiMENhydriNATE IV 50 mg/ml 1 ml VIAL IV PUSH PRN (13:39)
[2020-11-10] MEDS ORDERED: fentaNYL 100 mcg/2 ml 50 MCG/ML VIAL IV PRN (13:39)
[2020-11-10] MEDS ORDERED: Morphine 4 MG/ML VIAL (1 ml) IV PRN (13:39)
[2020-11-10] MEDS ORDERED: oxyCODONE/Acetamin 5/325 mg TAB ONE (13:42)
[2020-11-10] MEDS ORDERED: Dextrose 50% Syringe 50 ml 25 GM/50 ML SYRINGE IV PUSH PRN (14:09)
[2020-11-10] MEDS ORDERED: fentaNYL PATCH 100 MCG/HR 1 PATCH TRANSDERM SCH (15:00)
[2020-11-10] MEDS: NS 0.9% 1,000 ML IV SCH (15:10)
[2020-11-10 15:21] LABS: Calcium 8.1 mg/dL (8.6-10.3); EGFR African American 21.4 (>60); EGFR Non-African American 17.7 (>60); Potassium 5.6 mmol/L (3.5-5.0)
[2020-11-10] MEDS: fentaNYL Patch Check Q Shift NOTE FOLLOW UP SCH (18:48)
[2020-11-11] MEDS: NS 0.9% 1,000 ML IV SCH (00:21)
[2020-11-11 06:08] LABS: ABS Basophils 0.1 10^3/ul (0-0.2); ABS Eosinophils 0.7 10^3/ul (0-0.6); ABS Lymphocytes 1.1 10^3/ul (1.0-4.8); ABS Monocytes 0.4 10^3/ul (0-0.8); ABS Neutrophils 3.2 10^3/ul (1.5-7.7); Eosinophil % 12.1 %; Hematocrit 27 % (35-47); Hemoglobin 8.5 g/dL (12.0-16.0); Lymphocyte % 19.7 %; Mean Corpuscular HGB Conc 31 g/dL (31-36); Mean Corpuscular Hemoglobin 29 pg (27-31); Mean Corpuscular Volume 91 fL (80-97); Mean Platelet Volume 7.2 fL (7.4-10.4); Platelet Count 335 10^3/uL (150-450); Red Blood Count 2.98 10^6 /uL (3.70-4.87); Red Cell Distribution Width 17 % (10-15); White Blood Count 5.4 10^3/uL (3.5-10.8)
[2020-11-11 06:24] LABS: Calcium 7.8 mg/dL (8.6-10.3); EGFR African American 24.1 (>60)
[2020-11-11 06:31] LABS: Potassium 5.8 mmol/L (3.5-5.0)
[2020-11-11] MEDS: fentaNYL Patch Check Q Shift NOTE FOLLOW UP SCH (06:56)
[2020-11-11] MEDS ORDERED: Patiromer POWDER 8.4 GM PAK PO ONE (07:30)
[2020-11-11] MEDS: cefTRIAXone 2 GM ADDV.VIAL 2 GM in NS 0.9% 100 ml BAG 100 ML IV ONE ×2 (08:44→10:22)
[2020-11-11 11:29] VITALS: BP 94/63
[2020-11-11] MEDS ORDERED: cefTRIAXone VIAL 1,000 MG VIAL IM ONE (11:30)
[2020-11-11 12:20] LABS: Hematocrit 27 % (35-47); Hemoglobin 8.6 g/dL (12.0-16.0)
[2020-11-11 12:35] LABS: Calcium 8.2 mg/dL (8.6-10.3); EGFR Non-African American 20.7 (>60)
[2020-11-11 12:36] LABS: Potassium 5.4 mmol/L (3.5-5.0)
[2020-11-15] MEDS ORDERED: NFT: Dulaglutide (NF) 0.75 MG/0.5 ML SYRINGE SUBCUT SCH (09:00)
== END 2020-11-11 14:50 | disposition home or self-care (01) ==
LOC: SSU 10:00 → OR 10:00
PROVIDERS: ADMIT Urology; ATTEND Urology

== ENCOUNTER 2021-04-03 09:51 | Inpatient (IN) ==
[2021-04-03] MEDS ORDERED: Lactated Ringers 1000 ml BAG IV.FLUID IV ONE (10:14)
[2021-04-03] MEDS ORDERED: Meropenem 1 GM PREMIX(*) 1 GM/50 ML BAG IV ONE (10:40)
[2021-04-03 11:08] LABS: ABS Basophils 0.1 10^3/ul (0-0.2); ABS Eosinophils 0.2 10^3/ul (0-0.6); ABS Lymphocytes 1.1 10^3/ul (1.0-4.8); ABS Monocytes 0.5 10^3/ul (0-0.8); ABS Neutrophils 11.1 10^3/ul (1.5-7.7); Eosinophil % 1.5 %; Hematocrit 31 % (35-47); Hemoglobin 9.7 g/dL (12.0-16.0); Lymphocyte % 8.6 %; Mean Corpuscular HGB Conc 32 g/dL (31-36); Mean Corpuscular Hemoglobin 26 pg (27-31); Mean Corpuscular Volume 84 fL (80-97); Platelet Count 339 10^3/uL (150-450); Red Blood Count 3.67 10^6 /uL (3.70-4.87); Red Cell Distribution Width 19 % (10-15)
[2021-04-03 11:16] LABS: Activated Partial Thrombo Time 34.5 seconds (26.0-38.0); INR 1.12 (0.86-1.15)
[2021-04-03 11:28] LABS: ALT 5 U/L (7-52); AST 9 U/L (13-39); Albumin 3.5 g/dL (3.2-5.2); Albumin/Globulin Ratio 0.9 (1-3); Alkaline Phosphatase 86 U/L (35-149); Blood Urea Nitrogen 42 mg/dL (6-24); C Reactive Protein 51.86 mg/L (<8.01); CO2 Carbon Dioxide 24 mmol/L (22-32); Calcium 8.7 mg/dL (8.6-10.3); Chloride 105 mmol/L (101-111); Globulin 3.7 g/dL (2-4); Glucose 148 mg/dL (70-100); Sodium 133 mmol/L (135-145); Total Protein 7.2 g/dL (6.4-8.9); eGFR CKD-EPI 16.2 (>60)
[2021-04-03 11:30] LABS: Anion Gap 4 mmol/L (2-11); Potassium 6.5 mmol/L (3.5-5.0); Troponin I 0.03 ng/mL (<0.03)
[2021-04-03] MEDS ORDERED: CALCIUM GLUCONATE 1GM/50ML NS 1 GM/50 ML BAG IV ONE (11:42)
[2021-04-03] MEDS ORDERED: Dextrose 50% Syringe 50 ml 25 GM/50 ML SYRINGE IV PUSH ONE ×2 (11:43→11:44)
[2021-04-03] MEDS: Heparin 5000 UNITS/ML 1 mL VIAL SUBCUT SCH ×2 (14:35→21:50)
[2021-04-03] MEDS ORDERED: NORMOSOL-R pH 7.4 1000 mL BAG 1,000 ML IV SCH (15:00)
[2021-04-03 15:26] LABS: Troponin I 0.03 ng/mL (<0.03)
[2021-04-03] MEDS ORDERED: Dextrose 50% Syringe 50 ml 25 GM/50 ML SYRINGE IV PUSH PRN (16:13)
[2021-04-03] MEDS ORDERED: Norepinephrine 16MCG/ML BAG NS 4,000 MCG/250 ML BAG IV SCH (17:00)
[2021-04-03] MEDS ORDERED: fentaNYL PATCH 100 MCG/HR 1 PATCH TRANSDERM SCH (17:00)
[2021-04-03 18:28] LABS: Potassium 5.4 mmol/L (3.5-5.0); eGFR CKD-EPI 16.7 (>60)
[2021-04-03] MEDS: fentaNYL Patch Check Q Shift NOTE FOLLOW UP SCH (19:37)
[2021-04-03] MEDS: Meropenem 500MG PREMIX(*) 500 MG/50 ML BAG IV SCH (21:50)
[2021-04-03] MEDS: Hydrocortisone INJ 100 MG/2ML 2 ML VIAL IV ONE (22:13)
[2021-04-04 05:19] LABS: ABS Lymphocytes 0.5 10^3/ul (1.0-4.8); ABS Monocytes 0.1 10^3/ul (0-0.8); ABS Neutrophils 6.1 10^3/ul (1.5-7.7); Eosinophil % 0.1 %; Hematocrit 28 % (35-47); Hemoglobin 8.7 g/dL (12.0-16.0); Lymphocyte % 7.9 %; Mean Corpuscular HGB Conc 32 g/dL (31-36); Mean Corpuscular Hemoglobin 26 pg (27-31); Mean Corpuscular Volume 84 fL (80-97); Mean Platelet Volume 7.6 fL (7.4-10.4); Platelet Count 283 10^3/uL (150-450); Red Blood Count 3.29 10^6 /uL (3.70-4.87); Red Cell Distribution Width 19 % (10-15); White Blood Count 6.8 10^3/uL (3.5-10.8)
[2021-04-04] MEDS: Heparin 5000 UNITS/ML 1 mL VIAL SUBCUT SCH ×3 (05:38→22:01)
[2021-04-04] MEDS: Hydrocortisone INJ 100 MG/2ML 2 ML VIAL IV SCH ×3 (05:38→20:47)
[2021-04-04 05:42] LABS: Calcium 8.5 mg/dL (8.6-10.3); Phosphorus 2.9 mg/dL (2.5-5.0); eGFR CKD-EPI 15.9 (>60)
[2021-04-04 05:44] LABS: Potassium 5.9 mmol/L (3.5-5.0)
[2021-04-04] MEDS: fentaNYL Patch Check Q Shift NOTE FOLLOW UP SCH ×3 (07:04→19:19)
[2021-04-04] MEDS: Meropenem 500MG PREMIX(*) 500 MG/50 ML BAG IV SCH ×2 (07:38→20:47)
[2021-04-04] MEDS: Aspirin EC 81 mg TAB.EC (enteric coated) PO SCH (07:38)
[2021-04-04] MEDS: Fluticasone NASAL SPRAY 50MCG 16 gm SPRAY BTL INTRANASAL SCH ×2 (07:39→08:06)
[2021-04-04] MEDS ORDERED: SODIUM ZIRCONIUM CYCLOSILICATE 10 GM PACKET PO ONE (08:16)
[2021-04-04 16:35] LABS: Urine Appearance Turbid; Urine Bilirubin Negative (Negative); Urine Blood 3+ (Negative); Urine Color Yellow; Urine Glucose 2+(150 mg/dL) (Negative); Urine Ketones Negative (Negative); Urine Nitrite Negative (Negative); Urine Protein 2+(100 mg/dL) (Negative); Urine Specific Gravity 1.012 (1.002-1.030); Urine Urobilinogen Negative (Negative)
[2021-04-04 16:43] LABS: Urine Bacteria Absent (Absent); Urine Red Blood Cell 3+(>10/hpf) (Absent); Urine Squamous Epithelial Cell Present (Absent); Urine White Blood Cell 3+(>20/hpf) (Absent)
[2021-04-04] MEDS: Albuterol HFA INHALER 8 gm MDI INH PRN ×2 (17:16→23:41)
[2021-04-05] MEDS: Hydrocortisone INJ 100 MG/2ML 2 ML VIAL IV SCH ×3 (03:23→20:38)
[2021-04-05] MEDS: Heparin 5000 UNITS/ML 1 mL VIAL SUBCUT SCH ×2 (05:29→14:48)
[2021-04-05] MEDS: Albuterol HFA INHALER 8 gm MDI INH PRN (05:44)
[2021-04-05] MEDS: fentaNYL Patch Check Q Shift NOTE FOLLOW UP SCH ×2 (07:05→19:08)
[2021-04-05] MEDS: Fluticasone NASAL SPRAY 50MCG 16 gm SPRAY BTL INTRANASAL SCH (09:01)
[2021-04-05] MEDS: Aspirin EC 81 mg TAB.EC (enteric coated) PO SCH (09:06)
[2021-04-05] MEDS: Meropenem 500MG PREMIX(*) 500 MG/50 ML BAG IV SCH ×2 (09:06→20:38)
[2021-04-05 09:16] LABS: ABS Lymphocytes 0.7 10^3/ul (1.0-4.8); ABS Monocytes 0.2 10^3/ul (0-0.8); ABS Neutrophils 6.3 10^3/ul (1.5-7.7); Hematocrit 28 % (35-47); Hemoglobin 8.6 g/dL (12.0-16.0); Lymphocyte % 9.4 %; Mean Corpuscular HGB Conc 31 g/dL (31-36); Mean Corpuscular Hemoglobin 26 pg (27-31); Mean Corpuscular Volume 83 fL (80-97); Mean Platelet Volume 7.5 fL (7.4-10.4); Platelet Count 326 10^3/uL (150-450); Red Blood Count 3.33 10^6 /uL (3.70-4.87); Red Cell Distribution Width 19 % (10-15); White Blood Count 7.1 10^3/uL (3.5-10.8)
[2021-04-05 09:33] LABS: Potassium 4.9 mmol/L (3.5-5.0); eGFR CKD-EPI 22.1 (>60)
[2021-04-05] MEDS ORDERED: fentaNYL PATCH 100 MCG/HR 1 PATCH TRANSDERM SCH (16:00)
[2021-04-06] MEDS: Hydrocortisone INJ 100 MG/2ML 2 ML VIAL IV SCH ×3 (03:23→20:21)
[2021-04-06 06:25] LABS: ABS Lymphocytes 0.7 10^3/ul (1.0-4.8); ABS Monocytes 0.1 10^3/ul (0-0.8); ABS Neutrophils 5.4 10^3/ul (1.5-7.7); Eosinophil % 0.1 %; Hematocrit 27 % (35-47); Hemoglobin 8.7 g/dL (12.0-16.0); Lymphocyte % 10.9 %; Mean Corpuscular HGB Conc 32 g/dL (31-36); Mean Corpuscular Hemoglobin 27 pg (27-31); Mean Corpuscular Volume 83 fL (80-97); Platelet Count 355 10^3/uL (150-450); Red Blood Count 3.27 10^6 /uL (3.70-4.87); Red Cell Distribution Width 20 % (10-15); White Blood Count 6.2 10^3/uL (3.5-10.8)
[2021-04-06 06:39] LABS: Calcium 9.1 mg/dL (8.6-10.3); Potassium 4.4 mmol/L (3.5-5.0); eGFR CKD-EPI 26.2 (>60)
[2021-04-06] MEDS: fentaNYL Patch Check Q Shift NOTE FOLLOW UP SCH ×2 (06:59→19:03)
[2021-04-06] MEDS: Aspirin EC 81 mg TAB.EC (enteric coated) PO SCH (08:52)
[2021-04-06] MEDS: Fluticasone NASAL SPRAY 50MCG 16 gm SPRAY BTL INTRANASAL SCH (08:53)
[2021-04-06] MEDS: Meropenem 500MG PREMIX(*) 500 MG/50 ML BAG IV SCH ×2 (08:53→20:48)
[2021-04-07] MEDS: Hydrocortisone INJ 100 MG/2ML 2 ML VIAL IV SCH ×3 (04:23→20:11)
[2021-04-07] MEDS: fentaNYL Patch Check Q Shift NOTE FOLLOW UP SCH ×2 (07:18→18:47)
[2021-04-07] MEDS: Fluticasone NASAL SPRAY 50MCG 16 gm SPRAY BTL INTRANASAL SCH (09:03)
[2021-04-07] MEDS: Aspirin EC 81 mg TAB.EC (enteric coated) PO SCH (09:03)
[2021-04-07] MEDS: Meropenem 500MG PREMIX(*) 500 MG/50 ML BAG IV SCH ×2 (09:05→21:03)
[2021-04-08] MEDS: Hydrocortisone INJ 100 MG/2ML 2 ML VIAL IV SCH ×2 (02:41→11:56)
[2021-04-08] MEDS: fentaNYL Patch Check Q Shift NOTE FOLLOW UP SCH (06:36)
[2021-04-08] MEDS: Aspirin EC 81 mg TAB.EC (enteric coated) PO SCH (08:23)
[2021-04-08] MEDS: Fluticasone NASAL SPRAY 50MCG 16 gm SPRAY BTL INTRANASAL SCH ×2 (08:25→08:26)
[2021-04-08] MEDS: Meropenem 500MG PREMIX(*) 500 MG/50 ML BAG IV SCH (08:48)
[2021-04-08 09:52] VITALS: BP 134/71
[2021-04-08 12:24] LABS: Urine Appearance Turbid; Urine Bilirubin Negative (Negative); Urine Blood 3+ (Negative); Urine Color Yellow; Urine Glucose 3+(>=500 mg/dL) (Negative); Urine Ketones Negative (Negative); Urine Nitrite Negative (Negative); Urine Protein 2+(100 mg/dL) (Negative); Urine Urobilinogen Negative (Negative)
== END 2021-04-08 13:40 | disposition home or self-care (01) | DRG 862 ==
LOC: ED 09:51 → SUATTDRO 12:59 → EDHOLD 13:08 → MERGE 13:08 → EDHOLD 15:16 → ICU 15:51 → SSU 04-04 16:52
PROVIDERS: ADMIT Internal Medicine; ATTEND Hospitalist

== ENCOUNTER 2021-10-25 14:54 | Observation (INO) ==
[2021-10-25] MEDS ORDERED: Lidocaine 1% MPF 5 ML VIAL ONE (15:49)
[2021-10-25] MEDS ORDERED: Lidocaine 1% MPF 5 ML VIAL INJ ONE (15:50)
[2021-10-25 16:25] LABS: ABS Basophils 0.1 10^3/ul (0-0.2); ABS Eosinophils 0.1 10^3/ul (0-0.6); ABS Lymphocytes 0.8 10^3/ul (1.0-4.8); ABS Monocytes 0.3 10^3/ul (0-0.8); ABS Neutrophils 4.7 10^3/ul (1.5-7.7); Eosinophil % 1.2 %; Hematocrit 31 % (35-47); Hemoglobin 9.6 g/dL (12.0-16.0); Lymphocyte % 13.5 %; Mean Corpuscular HGB Conc 31 g/dL (31-36); Mean Corpuscular Hemoglobin 25 pg (27-31); Mean Corpuscular Volume 82 fL (80-97); Mean Platelet Volume 7.1 fL (7.4-10.4); Platelet Count 309 10^3/uL (150-450); Red Blood Count 3.82 10^6 /uL (3.70-4.87); Red Cell Distribution Width 17 % (10-15)
[2021-10-25] MEDS ORDERED: NS 0.9% 1000 ml BAG 1,000 ML IV ONE (16:40)
[2021-10-25 16:50] LABS: Albumin 3.7 g/dL (3.2-5.2); C Reactive Protein 23.92 mg/L (<8.01); Calcium 9.5 mg/dL (8.6-10.3); Globulin 3.7 g/dL (2-4); Total Bilirubin 0.4 mg/dL (0.2-1.0); Total Protein 7.4 g/dL (6.4-8.9); eGFR CKD-EPI 20.8 (>60)
[2021-10-25 16:51] LABS: Potassium 5.7 mmol/L (3.5-5.0)
[2021-10-25 18:05] LABS: High Sensitivity Troponin 1 Hr 7 pg/mL (<15)
[2021-10-25] MEDS ORDERED: Meropenem 1 GM PREMIX(*) 1 GM/50 ML BAG IV ONE (18:37)
[2021-10-25 19:06] LABS: Urine Appearance Turbid; Urine Bilirubin Negative (Negative); Urine Blood 3+ (Large) (Negative); Urine Color Straw; Urine Glucose Negative (Negative); Urine Ketones Negative (Negative); Urine Nitrite Positive (Negative); Urine Protein 2+ (100 mg/dL) (Negative); Urine Specific Gravity 1.012 (1.002-1.030); Urine Urobilinogen 0.2 (Negative) (Negative)
[2021-10-25 19:22] LABS: Urine Bacteria 1+ (Absent); Urine Red Blood Cell 3+(>10/hpf) (Absent); Urine White Blood Cell 3+(>20/hpf) (Absent)
[2021-10-25] MEDS ORDERED: Lidocaine 4% CREAM (LMX) 5 GM TUBE TOPICAL ONE (19:59)
[2021-10-25 21:33] LABS: INR 1.09 (0.89-1.11)
[2021-10-25] MEDS ORDERED: SODIUM ZIRCONIUM CYCLOSILICATE 10 GM PACKET PO ONE (21:44)
[2021-10-25] MEDS: NS 0.9% 1000 ml BAG 1,000 ML IV SCH (22:47)
[2021-10-25] MEDS ORDERED: Dextrose 50% Syringe 50 ml 25 GM/50 ML SYRINGE IV PUSH PRN (23:44)
[2021-10-26] MEDS ORDERED: NS 0.9% 1000 ml BAG 1,000 ML IV SCH
[2021-10-26] MEDS: fentaNYL PATCH 100 MCG/HR 1 PATCH TRANSDERM SCH ×2 (01:52→05:39)
[2021-10-26 06:31] LABS: Calcium 8.6 mg/dL (8.6-10.3); eGFR CKD-EPI 22.3 (>60)
[2021-10-26] MEDS ORDERED: Meropenem 500MG PREMIX(*) 500 MG/50 ML BAG IV SCH (09:00)
[2021-10-26] MEDS: Cefepime 2 GM in Dextrose 2 GM/50 ML BAG IV SCH (09:29)
[2021-10-26] MEDS: NS 0.9% 1000 ml BAG 1,000 ML IV SCH ×2 (10:15→15:55)
[2021-10-26] MEDS ORDERED: Ondansetron 4 mg VIAL 2 MG/ML 2 ml VIAL IV PRN (13:28)
[2021-10-26] MEDS ORDERED: HYDROcodone/ACETAMIN 5/325 mg TAB PO PRN (13:28)
[2021-10-26] MEDS ORDERED: fentaNYL 100 mcg/2 ml 50 MCG/ML VIAL IV PRN (13:28)
[2021-10-26] MEDS: fentaNYL Patch Check Q Shift NOTE FOLLOW UP SCH (19:08)
[2021-10-26] MEDS ORDERED: Enoxaparin 30 MG/0.3 ML SYR SUBCUT SCH (19:30)
[2021-10-27 06:03] LABS: Hematocrit 30 % (35-47); Hemoglobin 9.7 g/dL (12.0-16.0); Mean Corpuscular HGB Conc 32 g/dL (31-36); Mean Corpuscular Hemoglobin 26 pg (27-31); Mean Corpuscular Volume 82 fL (80-97); Platelet Count 272 10^3/uL (150-450); Red Blood Count 3.66 10^6 /uL (3.70-4.87); Red Cell Distribution Width 18 % (10-15); White Blood Count 4.6 10^3/uL (3.5-10.8)
[2021-10-27 06:33] LABS: Calcium 8.7 mg/dL (8.6-10.3); Magnesium 1.5 mg/dL (1.9-2.7); Potassium 4.6 mmol/L (3.5-5.0); eGFR CKD-EPI 26.2 (>60)
[2021-10-27] MEDS: fentaNYL Patch Check Q Shift NOTE FOLLOW UP SCH (07:18)
[2021-10-27] MEDS ORDERED: Magnesium Sulfate IV 3 GM in NS 0.9% 100 ml BAG 100 ML IVPB ONE (07:35)
[2021-10-27] MEDS: Cefepime 2 GM in Dextrose 2 GM/50 ML BAG IV SCH (09:40)
[2021-10-27 10:37] VITALS: BP 126/70
[2021-10-28] MEDS ORDERED: Cefepime 2 GM in NS 0.9% 50 ML 50 ML IVPB SCH (09:00)
== END 2021-10-27 12:55 | disposition home or self-care (01) ==
LOC: ED 14:54 → EDHOLD 21:41 → SUATTDRO 21:41 → INTOOBSV 21:41 → AA 10-26 10:02 → MED 10-26 14:54
PROVIDERS: ADMIT Hospitalist; ATTEND Student in an Organized Health Care Education/Training Program

== ENCOUNTER 2022-03-22 04:49 | Observation (INO) ==
[2022-03-22 05:40] LABS: ABS Eosinophils 0.2 10^3/ul (0-0.6); ABS Lymphocytes 0.6 10^3/ul (1.0-4.8); ABS Monocytes 0.4 10^3/ul (0-0.8); ABS Neutrophils 2.7 10^3/ul (1.5-7.7); Eosinophil % 4.9 %; Hematocrit 33 % (35-47); Hemoglobin 10.2 g/dL (12.0-16.0); Lymphocyte % 15.6 %; Mean Corpuscular HGB Conc 31 g/dL (31-36); Mean Corpuscular Hemoglobin 27 pg (27-31); Mean Corpuscular Volume 88 fL (80-97); Mean Platelet Volume 7.5 fL (7.4-10.4); Platelet Count 226 10^3/uL (150-450); Red Blood Count 3.79 10^6 /uL (3.70-4.87); Red Cell Distribution Width 19 % (10-15); White Blood Count 3.9 10^3/uL (3.5-10.8)
[2022-03-22 06:20] LABS: Albumin 3.5 g/dL (3.2-5.2); Albumin/Globulin Ratio 1.1 (1-3); Calcium 10.5 mg/dL (8.6-10.3); Globulin 3.3 g/dL (2-4); Potassium 4.6 mmol/L (3.5-5.0); Total Bilirubin 0.3 mg/dL (0.2-1.0); Total Protein 6.8 g/dL (6.4-8.9)
[2022-03-22 06:25] LABS: Urine Appearance Turbid; Urine Bilirubin Negative (Negative); Urine Blood 3+ (Negative); Urine Color Yellow; Urine Glucose Negative (Negative); Urine Ketones Negative (Negative); Urine Nitrite Negative (Negative); Urine Protein 2+(100 mg/dL) (Negative); Urine Specific Gravity 1.011 (1.002-1.030); Urine Urobilinogen Negative (Negative)
[2022-03-22 06:30] LABS: Urine Bacteria Absent (Absent); Urine Red Blood Cell 3+(>10/hpf) (Absent); Urine Squamous Epithelial Cell Present (Absent); Urine White Blood Cell 3+(>20/hpf) (Absent)
[2022-03-22] MEDS ORDERED: Cefepime 2 GM in Dextrose 2 GM/50 ML BAG IV ONE (07:44)
[2022-03-22] MEDS ORDERED: Albuterol HFA INHALER 8 gm MDI INH PRN (10:15)
[2022-03-22] MEDS ORDERED: Fluticasone NASAL SPRAY 50MCG 16 gm SPRAY BTL INTRANASAL PRN (12:46)
[2022-03-22] MEDS ORDERED: Naloxone Nasal Spray 4 MG/0.1 ML NASAL.SPR INTRANASAL PRN (12:46)
[2022-03-22] MEDS ORDERED: Dextrose 50% Syringe 50 ml 25 GM/50 ML SYRINGE IV PUSH PRN (12:48)
[2022-03-22] MEDS: fentaNYL Patch Check Q Shift NOTE FOLLOW UP SCH (18:59)
[2022-03-23] MEDS ORDERED: hydrALAZINE 20 mg/ml 1 ML Vial IV IV SLOW PU ONE ×2 (03:16→23:49)
[2022-03-23] MEDS: fentaNYL Patch Check Q Shift NOTE FOLLOW UP SCH ×2 (10:26→18:59)
[2022-03-23] MEDS ORDERED: fentaNYL PATCH 75 MCG/HR 1 PATCH TRANSDERM SCH (12:00)
[2022-03-23] MEDS ORDERED: fentaNYL PATCH 100 MCG/HR 1 PATCH TRANSDERM SCH (13:00)
[2022-03-23] MEDS: Clotrimazole 1% VAGINAL CREAM 45 GM VAGINAL SCH (21:40)
[2022-03-24] MEDS: fentaNYL Patch Check Q Shift NOTE FOLLOW UP SCH ×2 (07:23→19:31)
[2022-03-24] MEDS ORDERED: Lidocaine 4% CREAM (LMX) 5 GM TUBE TOPICAL ONE (08:42)
[2022-03-24 10:44] LABS: ABS Basophils 0.1 10^3/ul (0-0.2); ABS Eosinophils 0.1 10^3/ul (0-0.6); ABS Lymphocytes 0.7 10^3/ul (1.0-4.8); ABS Monocytes 0.4 10^3/ul (0-0.8); ABS Neutrophils 3.7 10^3/ul (1.5-7.7); Eosinophil % 1.2 %; Hematocrit 34 % (35-47); Hemoglobin 11.1 g/dL (12.0-16.0); Lymphocyte % 14.9 %; Mean Corpuscular HGB Conc 32 g/dL (31-36); Mean Corpuscular Hemoglobin 28 pg (27-31); Mean Corpuscular Volume 85 fL (80-97); Mean Platelet Volume 7.1 fL (7.4-10.4); Platelet Count 279 10^3/uL (150-450); Red Blood Count 4.01 10^6 /uL (3.70-4.87); Red Cell Distribution Width 19 % (10-15); White Blood Count 4.9 10^3/uL (3.5-10.8)
[2022-03-24 11:45] LABS: Calcium 10.3 mg/dL (8.6-10.3); Potassium 4.6 mmol/L (3.5-5.0); eGFR CKD-EPI 20.8 (>60)
[2022-03-24] MEDS: Clotrimazole 1% VAGINAL CREAM 45 GM VAGINAL SCH (20:50)
[2022-03-25] MEDS: fentaNYL Patch Check Q Shift NOTE FOLLOW UP SCH (07:28)
[2022-03-25 17:00] VITALS: BP 157/89
== END 2022-03-25 16:10 | disposition home or self-care (01) ==
LOC: EDHOLD 04:49 → ED 04:49 → SUATTDRO 10:14 → EDHOLD 13:07 → MEDTELE 14:40
PROVIDERS: ADMIT Internal Medicine; ATTEND Internal Medicine Hematology & Oncology

== ENCOUNTER 2023-08-01 14:31 | Inpatient (IN) ==
[2023-08-01 14:58] LABS: ABS Basophils 0.1 10^3/uL (0.0-0.1); ABS Eosinophils 0.1 10^3/uL (0.0-0.5); ABS Lymphocytes 0.7 10^3/uL (1.0-4.8); ABS Monocytes 0.5 10^3/uL (0.0-0.9); ABS Neutrophils 4.9 10^3/uL (1.5-7.6); ABS Nucleated RBC 0.01 10^3/ul; Eosinophil % 1.7 %; Hematocrit 35.3 % (35-45); Hemoglobin 11.2 g/dL (11.5-14.3); Lymphocyte % 10.8 %; Mean Corpuscular Hemoglobin 26.4 pg (27-33); Mean Corpuscular Hgb Conc 31.8 g/dL (31-36); Mean Platelet Volume 6.9 fL (7.5-11.2); Nucleated Red Blood Cells % 0.1 %/100WBC (0.0-0.8); Platelet Count 366 10^3/uL (150-450); Red Blood Count 4.25 10^6/uL (3.63-4.92); Red Cell Distribution Width 17.9 % (12-17); White Blood Count 6.2 10^3/uL (3.8-11.8)
[2023-08-01 15:16] LABS: Activated Partial Thrombo Time 35.9 seconds (26.0-38.0); INR 1.06 (0.83-1.13)
[2023-08-01 15:39] LABS: Albumin 3.8 g/dL (3.2-5.2); Albumin/Globulin Ratio 1.1 (1-3); Calcium 10.3 mg/dL (8.6-10.3); Creatinine, Serum 1.94 mg/dL (0.51-0.95); Direct Bilirubin 0.1 mg/dL (0.03-0.18); Globulin 3.4 g/dL (2-4); HDL Cholesterol 32.3 mg/dL; Indirect Bilirubin 0.3 mg/dL (0.3-1.0); Potassium 4.9 mmol/L (3.5-5.0); Total Bilirubin 0.4 mg/dL (0.2-1.0); Total Protein 7.2 g/dL (6.4-8.9); eGFR CKD-EPI 26.9 (>60)
[2023-08-01] MEDS: Lactated Ringers 1000 ml BAG 1,000 ML IV ONE (16:04)
[2023-08-01] MEDS: Dexamethasone IV 4 MG/ML VIAL 1 ml VIAL IV SLOW PU ONE (17:50)
[2023-08-01] MEDS ORDERED: Ondansetron 4 mg VIAL 2 MG/ML 2 ml VIAL IV PRN (19:24)
[2023-08-01] MEDS ORDERED: Polyethylene Glycol 3350 17 GM PACKET PO PRN (19:24)
[2023-08-01] MEDS ORDERED: Atropine 1% (ORAL/SL) 15 ML BTL SL PRN (19:27)
[2023-08-01] MEDS ORDERED: Bismuth Subsalicylate (BTL) 525 MG/30 ML (BULK BTL) PO PRN (20:09)
[2023-08-02] MEDS: fentaNYL PATCH 100 MCG/HR 1 PATCH TRANSDERM SCH (02:08)
[2023-08-02] MEDS: fentaNYL Patch Check Q Shift NOTE FOLLOW UP SCH (07:51)
[2023-08-02] MEDS ORDERED: Dexamethasone IV 4 MG/ML VIAL 1 ml VIAL IV SLOW PU SCH (17:00)
[2023-08-02 19:38] LABS: Urine Appearance Turbid; Urine Bilirubin Negative (Negative); Urine Blood 3+ (Negative); Urine Color Light-Yellow; Urine Glucose Negative (Negative); Urine Ketones Negative (Negative); Urine Nitrite Negative (Negative); Urine Protein 1+ (>=30 mg/dL) (Negative); Urine Urobilinogen Negative (Negative); Urine pH 5.5 (5.0-8.0)
[2023-08-02 19:47] LABS: Urine Bacteria 1+ /HPF (Absent); Urine Red Blood Cell 3+(>10/hpf) /HPF (0-Trace); Urine Squamous Epithelial Cell Present /HPF (Absent); Urine White Blood Cell 3+(>20/hpf) /HPF (0-Trace)
[2023-08-02] MEDS: Morphine ORAL CONCENTRATE 5 MG/0.25 ML ORAL.SYRIN PO PRN (20:51)
[2023-08-05] MEDS: Senna TAB 8.6 mg TAB PO PRN (09:07)
[2023-08-05] MEDS: Morphine ORAL.SOLN 10 mg 2 mg/ml UDC 5 ml (10 mg) PO PRN (16:22)
[2023-08-06] MEDS: Senna TAB 8.6 mg TAB PO SCH (08:08)
[2023-08-06] MEDS: Morphine ORAL CONCENTRATE 5 MG/0.25 ML ORAL.SYRIN PO PRN (08:10)
[2023-08-06 10:32] VITALS: BP 155/87
== END 2023-08-06 11:05 | disposition hospice, home (50) | DRG 54 ==
LOC: ED 14:31 → EDHOLD 14:31 → MED 20:34 → SUATTDRO 08-02 14:53
PROVIDERS: ADMIT Student in an Organized Health Care Education/Training Program; ATTEND Hospitalist